=== PATIENT | male | born 1975 | race Caucasian/White ===

== ENCOUNTER 2016-12-25 12:00 | Emergency (ER) | payer SELFPAY ==
[2016-12-25 12:36] VITALS: BP 156/101
[2016-12-25] MEDS ORDERED: IBUPROFEN 800 MG TABLET PO ONE (12:40)
--- NOTE | 2016-12-25 12:40 | ER Document Report ---
ED Medical Screen (RME) - General Stated Complaint: BACK PAIN Notes: Pt states he lifted concrete septic tank lid last night. Back pain has increasingly gotten worse. Denies previous back injury. Pain radiates around to the left side, but does not go down his legs. No loss of control of bowels or bladder. I have greeted and performed a rapid initial assessment of this patient. A comprehensive ED assessment and evaluation of the patient, analysis of test results and completion of the medical decision making process will be conducted by additional ED providers. TRAVEL OUTSIDE OF THE [place] IN LAST 30 DAYS: No - Related Data Allergies/Adverse Reactions: No Known Allergies Allergy (Verified 12/25/16 12:37) Past Medical History - Past Medical History Cardiac Medical History: Reports: Hx Atrial Fibrillation - INTERMITTENT, INFREQUENT 1992, PAF Endocrine Medical History: Denies: Hx Hyperthyroidism, Hx Hypothyroidism Psychiatric Medical History: Reports: Hx Anxiety Past Surgical History: Reports: Hx Orthopedic Surgery - left lower extremity - Immunizations Hx Diphtheria, Pertussis, Tetanus Vaccination: Yes Physical Exam - Vital signs Vitals: Temp Pulse Resp BP Pulse Ox 98.4 F 92 20 156/101 H 98 12/25/16 12:35 12/25/16 12:35 12/25/16 12:35 12/25/16 12:35 12/25/16 12:35 - Back Notes: mild tenderness lspine and left lumbar paraspinal muscles. pain with left leg raise and twisting motion. Course - Vital Signs Vital signs: Temp Pulse Resp BP Pulse Ox 98.4 F 92 20 156/101 H 98 12/25/16 12:35 12/25/16 12:35 12/25/16 12:35 12/25/16 12:35 12/25/16 12:35
== END 2016-12-25 14:30 | disposition left against medical advice (07) ==
LOC: ER 12:00
DX: Z53.9 Procedure and treatment not carried out, unspecified reason (principal); M54.9 Dorsalgia, unspecified
CPT/HCPCS: 99281

== ENCOUNTER 2017-03-30 17:45 | Emergency (ER) | payer SELFPAY ==
[2017-03-30] MEDS ORDERED: IBUPROFEN 800 MG TABLET PO ONE (18:07)
--- NOTE | 2017-03-30 18:14 | ER Document Report ---
ED Hand/Wrist Injury - General Chief Complaint: Hand Pain Stated Complaint: RIGHT HAND PAIN Time Seen by Provider: 03/30/17 18:00 Mode of Arrival: Ambulatory Information source: Patient Notes: 21-year-old male presents to ED for pain to the right hand after he punched can last night. Right hand is swollen decreased range of motion to the fifth finger TRAVEL OUTSIDE OF THE [place] IN LAST 30 DAYS: No - HPI Injury to: Hand Onset: Yesterday Where: Public place Timing: Still present Quality of pain: Sharp, Throbbing Severity: Moderate Pain Level: 4 Context: Other - Punched a counter - Related Data Allergies/Adverse Reactions: No Known Allergies Allergy (Verified 03/30/17 17:52) Past Medical History - General Information source: Patient - Social History Smoking Status: Never Smoker Cigarette use (# per day): No Chew tobacco use (# tins/day): No Smoking Education Provided: No Frequency of alcohol use: Social Drug Abuse: None Occupation: picker/puller and delivery Lives with: Spouse/Significant other Family History: None Patient has suicidal ideation: No Patient has homicidal ideation: No - Past Medical History Cardiac Medical History: Reports: Hx Atrial Fibrillation - INTERMITTENT, INFREQUENT 1992, PAF Pulmonary Medical History: Reports: None EENT Medical History: Reports: None Neurological Medical History: Reports: None Endocrine Medical History: Reports: None Renal/ Medical History: Reports: None Malignancy Medical History: Reports None GI Medical History: Reports: None Musculoskeltal Medical History: Reports Hx Musculoskeletal Trauma Skin Medical History: Reports None Psychiatric Medical History: Reports: Hx Anxiety Traumatic Medical History: Reports: Hx Fractures Infectious Medical History: Reports: None Past Surgical History: Reports: Hx Orthopedic Surgery - left lower extremity - Immunizations Immunizations up to date: Yes Hx Diphtheria, Pertussis, Tetanus Vaccination: Yes Review of Systems - Review of Systems Constitutional: No symptoms reported EENT: No symptoms reported Cardiovascular: No symptoms reported Respiratory: No symptoms reported Gastrointestinal: No symptoms reported Genitourinary: No symptoms reported Male Genitourinary: No symptoms reported Musculoskeletal: No symptoms reported, Other - pain and swelling to right hand Skin: No symptoms reported Hematologic/Lymphatic: No symptoms reported Neurological/Psychological: No symptoms reported -: Yes All other systems reviewed and negative Physical Exam - Vital signs Vitals: Temp Pulse Resp BP Pulse Ox 98.6 F 120 H 18 134/94 H 95 03/30/17 17:54 03/30/17 17:54 03/30/17 17:54 03/30/17 17:54 03/30/17 17:54 Interpretation: Normal - General General appearance: Appears well, Alert - HEENT Head: Normocephalic, Atraumatic Eyes: Normal Pupils: PERRL - Respiratory Respiratory status: No respiratory distress Chest status: Nontender Breath sounds: Normal Chest palpation: Normal - Cardiovascular Rhythm: Regular Heart sounds: Normal auscultation Murmur: No - Abdominal Inspection: Normal Distension: No distension Bowel sounds: Normal Tenderness: Nontender Organomegaly: No organomegaly - Back Back: Normal, Nontender - Extremities General upper extremity: Normal temperature General lower extremity: Normal inspection, Nontender, Normal color, Normal ROM , Normal temperature, Normal weight bearing. No: Ofe's sign Hand: Tender, Ecchymosis, No evidence of human bite, No evidence of FB, Swelling - Neurological Neuro grossly intact: Yes Cognition: Normal Orientation: AAOx4 Chava Coma Scale Eye Opening: Spontaneous Chava Coma Scale Verbal: Oriented Chava Coma Scale Motor: Obeys Commands Chava Coma Scale Total: 15 Speech: Normal Motor strength normal: LUE, RUE, LLE, RLE Sensory: Normal - Psychological Associated symptoms: Normal affect, Normal mood - Skin Skin Temperature: Warm Skin Moisture: Dry Skin Color: Normal Irregularity with: Swelling, Tenderness Course - Re-evaluation Re-evalutation: 03/30/17 18:50 Discussed x-ray with patient patient was able to see the actual x-ray films on the computer and I gave him a written report of the x-ray. Patient was treated with a boxer splint and medicated with ibuprofen in the emergency room and sent home with a prescription for narcotics and instructed to follow-up with orthopedics by telephone on Saturday to schedule follow-up visit. Patient has a mildly angulated comminuted fracture of the fifth metacarpal of the right hand. He has good cap refill. He has sensation to his fingers. 03/30/17 19:12 Boxer splint applied to the right hand patient has good cap refill. Patient given instructions for elevation ice and to follow-up with the orthopedic as he was instructed. Will discharge home. - Vital Signs Vital signs: Temp Pulse Resp BP Pulse Ox 98.6 F 120 H 18 134/94 H 95 03/30/17 17:54 03/30/17 17:54 03/30/17 17:54 03/30/17 17:54 03/30/17 17:54 - Diagnostic Test Radiology reviewed: Image reviewed, Reports reviewed Procedures - Immobilization Right Hand Time completed: 19:13 Pre-Proc Neuro Vasc Exam: Normal Immobilizer type: Ulnar Performed by: PCT Post-Proc Neuro Vasc Exam: Normal Alignment checked and good: Yes - hand was not reset splint was applied Discharge - Discharge Clinical Impression: Boxers fracture Qualifiers: Encounter type: initial encounter Fracture type: closed Qualified Code(s): S62.309A - Unspecified fracture of unspecified metacarpal bone, initial encounter for closed fracture Condition: Stable Disposition: HOME, SELF-CARE Additional Instructions: Fractured Fifth Metacarpal (Boxer's) You have a fracture of the fifth metacarpal bone in the hand, often called a Boxer's Fracture. The fracture is usually caused by striking the knuckle against a hard surface -- such as hitting a wall with the fist. This fracture heals well. Some degree of angle in the fracture is perfectly acceptable, resulting in only a slightly rounder knuckle. Your physician has determined whether your fracture could benefit from "setting", and has outlined a treatment plan for you. The usual treatment is splinting for four to six weeks -- a cast is not usually necessary. At first, the injury should be elevated and ice packed. Contact the doctor at once if swelling or pain becomes severe, or if numbness develops. SPLINT PRECAUTIONS: A splint has been placed. This will protect the area while healing begins. Your problem does NOT normally require a cast. It MUST, however, be held still! Keep the splint on ALL THE TIME until instructed to remove it by the doctor. As you begin to use the area, be careful. You shouldn't do anything which causes discomfort -- you may disturb the injury even with the splint in place. After the initial period of rest and elevation, if splint does not prevent pain when you move, come back. You may require placement of a different splint , or a cast. If there is unexpected severe pain, or numbness, discoloration, or swelling beyond the splint, you should return at once. If you feel that the splint has broken or become loose, come back. ICE & ELEVATION: Apply ice packs frequently against the painful area. Many different schedules are recommended, such as "20 minutes on, 20 minutes off" or "one hour ice, two hours rest." If you need to work, you may need to go longer between ice treatments. You should plan to have the area ice packed AT LEAST one- fourth of the time. The ice should be applied over the wrap, tape, or splint, or over a layer of cloth -- not directly against the skin. Some ice bags have a built-in cloth and can be put directly on the skin. Your injured part should be elevated as much as possible over the next 48 hours. Try to keep the injury above the level of the heart. Avoid use of the injured area. Elevation and rest will decrease the swelling. USE OF [id number]-[id number] IBUPROFEN: Ibuprofen (Advil, Nuprin, Medipren, Motrin IB) is a medication for fever and pain control. In addition, it has anti- inflammatory effects which may be beneficial, especially in the treatment of injuries. It's best to take ibuprofen with food. Persons with ulcer disease or allergy to aspirin should notify their physician of this before taking ibuprofen. Ibuprofen can be given every four to six hours, for a total of four doses daily. Age Pain or fever dose Antiinflammatory dose 6-8 yr 200 mg (1 tab) 200 mg (1 tab) 9-11 yr 200 mg (1 tab) 200-400 mg (1-2 tab) 11-14 yr 200-400 mg (1-2 tab) 400 mg (2 tab) 15-adult 400 mg (2 tab) 600 mg (3 tab) ORAL NARCOTIC MEDICATION: You have been given a prescription for pain control. This medication is a narcotic. It's best taken with food, as nausea can result if taken on an empty stomach. Don't operate machinery or drive within six hours of taking this medication. Do not combine this medicine with alcohol, or with any medication which can cause sedation (such as cold tablets or sleeping pills) unless you get permission from the physician. Narcotics tend to cause constipation. If possible, drink plenty of fluids and eat a diet high in fiber and fruits. Please be aware that prescription narcotics also have the potential for abuse. People become addicted to these medications because of the general sense of wellbeing that they induce. This feeling along with a significant reduction in tension, anxiety, and aggression provides a stimulating seductive quality to these drugs. Once your pain is under control, we encourage you to discard your unused narcotics. FOLLOW-UP CARE: If you have been referred to a physician for follow-up care, call the physician s office for an appointment as you were instructed or within the next two days. If you experience worsening or a significant change in your symptoms, notify the physician immediately or return to the Emergency Department at any time for re-evaluation. Prescriptions: Hydrocodone/Acetaminophen [Picher 5-325 mg Tablet] 1 tab PO Q6HP PRN #30 tablet PRN Reason: Forms: Elevated Blood Pressure Referrals: LIZA GOODMAN DO [ACTIVE STAFF] - Follow up as needed
--- NOTE | 2017-03-30 18:27 | RADIOLOGY REPORT (SQ) ---
EXAM DESCRIPTION: HAND RIGHT 3 VIEWS COMPLETED DATE/TIME: 03/30/2017 6:16 pm REASON FOR STUDY: right hand pain and swelling COMPARISON: 07/14/2016 EXAM PARAMETERS: NUMBER OF VIEWS: Three views. TECHNIQUE: AP, lateral and oblique radiographic images acquired of the right hand. LIMITATIONS: None. FINDINGS: MINERALIZATION: Normal. BONES: There is a mildly angulated comminuted fracture of the 5th metacarpal distal metaphysis. Ther e is no evidence of intra-articular extension. Osseous mineralization and alignment otherwise appear unchanged from comparison imaging. JOINTS: No effusions. SOFT TISSUES: Moderate soft tissue swelling dorsally. No retained radiopaque foreign body. OTHER: No other significant finding. IMPRESSION: Mildly angulated comminuted fracture of the 5th metacarpal as detailed above. TECHNICAL DOCUMENTATION: JOB ID: [id number]- All Rights Reserved
[2017-03-30 19:21] VITALS: BP 130/86
== END 2017-03-30 19:20 | disposition home or self-care (01) ==
LOC: ER 17:45
PROC: 2W3EX1Z Immobilization of Right Hand using Splint (ICD-10-PCS; principal; 2017-03-30)
DX: S62.309A Unspecified fracture of unspecified metacarpal bone, initial encounter for closed fracture (principal); W22.09XA Striking against other stationary object, initial encounter
CPT/HCPCS: 99283

== ENCOUNTER 2017-09-12 18:25 | Emergency (ER) | payer SELFPAY ==
--- NOTE | 2017-09-12 19:24 | ER Document Report ---
ED GI/ - General Chief Complaint: Abdominal Pain Stated Complaint: POSSIBLE FLU Time Seen by Provider: 09/12/17 18:52 Notes: 42 years old male presents today with right upper quadrant abdominal pain nausea and vomited once since this morning. He also drank alcoholic drinks this morning . Denies any fever chills or other constitutional symptoms. Currently feeling comfortable. TRAVEL OUTSIDE OF THE [place] IN LAST 30 DAYS: No - Related Data Allergies/Adverse Reactions: No Known Allergies Allergy (Verified 09/12/17 18:26) Past Medical History - Social History Smoking Status: Smoker,Current Status Unk Chew tobacco use (# tins/day): No Frequency of alcohol use: Social Drug Abuse: None Family History: None Patient has suicidal ideation: No Patient has homicidal ideation: No - Past Medical History Cardiac Medical History: Reports: Hx Atrial Fibrillation - INTERMITTENT, INFREQUENT 1992, PAF Endocrine Medical History: Denies: Hx Hyperthyroidism, Hx Hypothyroidism Renal/ Medical History: Denies: Hx Peritoneal Dialysis Musculoskeltal Medical History: Reports Hx Musculoskeletal Trauma Psychiatric Medical History: Reports: Hx Anxiety Traumatic Medical History: Reports: Hx Fractures Past Surgical History: Reports: Hx Orthopedic Surgery - left lower extremity - Immunizations Immunizations up to date: Yes Hx Diphtheria, Pertussis, Tetanus Vaccination: Yes Review of Systems - Review of Systems Notes: REVIEW OF SYSTEMS: CONSTITUTIONAL : Denies fever, chills, or sweats. Denies recent illness. EENT: Denies eye, ear, throat, or mouth pain or symptoms. Denies nasal or sinus congestion or discharge. Denies throat, tongue, or mouth swelling or difficulty swallowing. CARDIOVASCULAR: Denies chest pain. Denies palpitations or racing or irregular heart beat. Denies ankle edema. RESPIRATORY: Denies cough, cold, or chest congestion. Denies shortness of breath, difficulty breathing, or wheezing. GASTROINTESTINAL: Denies diarrhea. Denies blood in vomitus, stools, or per rectum. Denies black, tarry stools. Denies constipation. GENITOURINARY: Denies difficulty urinating, painful urination, burning, frequency, blood in urine, or discharge. MUSCULOSKELETAL: Denies back or neck pain or stiffness. Denies joint pain or swelling. SKIN: Denies rash, lesions or sores. HEMATOLOGIC : Denies easy bruising or bleeding. LYMPHATIC: Denies swollen, enlarged glands. NEUROLOGICAL: Denies confusion or altered mental status. Denies passing out or loss of consciousness. Denies dizziness or lightheadedness. Denies headache. Denies weakness or paralysis or loss of use of either side. Denies problems with gait or speech. Denies sensory loss, numbness, or tingling. Denies seizures. PSYCHIATRIC: Denies anxiety or stress. Denies depression, suicidal ideation, or homicidal ideation. ALL OTHER SYSTEMS REVIEWED AND NEGATIVE. Dictation was performed using [employer] voice recognition software PHYSICAL EXAMINATION: GENERAL: Well-appearing, well-nourished and in no acute distress. HEAD: Atraumatic, normocephalic. EYES: Pupils equal round and reactive to light, extraocular movements intact, sclera anicteric, conjunctiva are normal. ENT: Nares patent, oropharynx clear without exudates. Moist mucous membranes. NECK: Normal range of motion, supple without lymphadenopathy LUNGS: Breath sounds clear to auscultation bilaterally and equal. No wheezes rales or rhonchi. HEART: Regular rate and rhythm without murmurs ABDOMEN: Soft, mild tenderness over the right upper quadrant, nondistended abdomen. No guarding, no rebound. No masses appreciated. Musculoskeletal: Normal range of motion, no pitting or edema. No cyanosis. NEUROLOGICAL: Cranial nerves grossly intact. Normal speech, normal gait. Normal sensory, motor exams PSYCH: Normal mood, normal affect. SKIN: Warm, Dry, normal turgor, no rashes or lesions noted. Physical Exam - Vital signs Vitals: Temp Pulse Resp BP Pulse Ox 98.2 F 137 H 20 139/108 H 95 09/12/17 18:34 09/12/17 18:34 09/12/17 18:34 09/12/17 18:34 09/12/17 18:34 Course - Re-evaluation Re-evalutation: 09/12/17 23:12 Feelining better, results discussed with him,ask to call the family member to d/ c home. - Vital Signs Vital signs: Temp Pulse Resp BP Pulse Ox 98.3 F 103 H 20 155/110 H 96 09/12/17 23:01 09/12/17 23:01 09/12/17 18:34 09/12/17 23:01 09/12/17 23:01 - Laboratory Result Diagrams: 09/12/17 19:30 09/12/17 19:30 Laboratory results interpreted by me: 09/12/17 09/12/17 19:30 19:30 Monocytes % 15.1 H Sodium 146.4 H Glucose 112 H AST 141 H ALT 78 H Serum Alcohol 300 H* Discharge - Discharge Clinical Impression: ETOH abuse, Fatty liver Alcoholic hepatitis Qualifiers: Ascites presence: without ascites Qualified Code(s): K70.10 - Alcoholic hepatitis without ascites Disposition: HOME, SELF-CARE Instructions: Abdominal Pain ([facility]) Forms: Return to Work
[2017-09-12 19:50] LABS: ABSOLUTE LYMPHOCYTES (AUTO) 1.6 10^3/uL (0.5-4.7); ABSOLUTE MONOCYTES (AUTO) 0.7 10^3/uL (0.1-1.4); ABSOLUTE NEUT (AUTO) 2.6 10^3/uL (1.7-8.2); BASOPHILS % (AUTO) 0.2 % (0-2); EOSINOPHILS % (AUTO) 0.6 % (0-6); HEMATOCRIT 44.5 % (37.9-51.0); HEMOGLOBIN 15.6 g/dL (13.5-17.0); HGB HCT DIFFERENCE 2.3; LYMPHOCYTES % (AUTO) 31.7 % (13-45); MEAN CORPUSCULAR HEMOGLOBIN 32.6 pg (27.0-33.4); MEAN CORPUSCULAR HGB CONC 35.1 g/dL (32.0-36.0); MEAN CORPUSCULAR VOLUME 93 fl (80-97); MONOCYTES % (AUTO) 15.1 % (3-13); RED BLOOD COUNT 4.79 10^6/uL (4.35-5.55); RED CELL DISTRIBUTION WIDTH 12.8 % (11.5-14.0); SEGMENTED NEUTROPHILS % (AUTO) 52.4 % (42-78); WHITE BLOOD COUNT 4.9 10^3/uL (4.0-10.5)
[2017-09-12 20:11] LABS: ALANINE AMINOTRANSFERASE 78 U/L (21-72); ALBUMIN 4.2 g/dL (3.5-5.0); ALKALINE PHOSPHATASE 83 U/L (38-126); AMYLASE 98 U/L (30-110); ANION GAP 13 (5-19); ASPARTATE AMINO TRANSFERASE 141 U/L (17-59); BILIRUBIN,DIRECT 0.3 mg/dL (0.0-0.4); BILIRUBIN,TOTAL 0.3 mg/dL (0.2-1.3); BLOOD UREA NITROGEN 19 mg/dL (7-20); CALCIUM 9.2 mg/dL (8.4-10.2); CARBON DIOXIDE 27 mmol/L (22-30); CHLORIDE 106 mmol/L (98-107); GLUCOSE 112 mg/dL (75-110); LIPASE 184.3 U/L (23-300); POTASSIUM 4.3 mmol/L (3.6-5.0); SODIUM 146.4 mmol/L (137-145); TOTAL PROTEIN 7.4 g/dL (6.3-8.2)
[2017-09-12 20:29] LABS: ALCOHOL 300 mg/dL (NONE DETECTED)
--- NOTE | 2017-09-12 21:47 | RADIOLOGY REPORT (SQ) ---
EXAM DESCRIPTION: U/S ABDOMEN LIMITED W/O DOP COMPLETED DATE/TIME: 09/12/2017 9:37 pm REASON FOR STUDY: Abdominal pain rule out cholecystitis COMPARISON: None. TECHNIQUE: Dynamic and static grayscale images acquired of the abdomen and recorded on PACS. Additio nal selected color Doppler and spectral images recorded. LIMITATIONS: None. FINDINGS: PANCREAS: No masses. Visualized pancreatic duct normal caliber. LIVER: Heterogeneous echo pattern through the liver. Possible hyperechoic in the left lobe. Worriso me for infiltrative process. No dilated ducts. LIVER VASCULATURE: Normal directional flow of the main portal vein and hepatic veins. GALLBLADDER: No stones. Normal wall thickness. No pericholecystic fluid. ULTRASOUND-DETECTED CASTANEDA'S SIGN: Negative. INTRAHEPATIC DUCTS AND COMMON DUCT: CBD and intrahepatic ducts normal caliber. No filling defects. INFERIOR VENA CAVA: Normal flow. AORTA: No aneurysm. RIGHT KIDNEY: Normal size. Cyst versus complicated cyst measuring 1.8 cm. PERITONEAL AND RIGHT PLEURAL SPACE: No ascites or effusions. OTHER: No other significant findings. IMPRESSION: Appearance of the liver is worrisome for an infiltrative process. Differential includes fatty infiltration. There is also a hyperechoic mass in the left lobe possibly hemangioma. Cyst versus complicated cysts in the right kidney. COMMENT: Consider CT abdomen with IV contrast. TECHNICAL DOCUMENTATION: JOB ID: [id number]- All Rights Reserved
--- NOTE | 2017-09-12 22:33 | RADIOLOGY REPORT (SQ) ---
EXAM DESCRIPTION: CT ABD/PELVIS NO ORAL OR IV COMPLETED DATE/TIME: 09/12/2017 10:14 pm REASON FOR STUDY: Hepatic mass COMPARISON: None. TECHNIQUE: CT scan of the abdomen and pelvis performed without intravenous or oral contrast. Images reviewed with lung, soft tissue, and bone windows. Reconstructed coronal and sagittal MPR images revi ewed. All images stored on PACS. All CT scanners at this facility use dose modulation, iterative reconstruction, and/or weight based d osing when appropriate to reduce radiation dose to as low as reasonably achievable (ALARA). [facility]: Dose Right [facility]: CareDose [facility]: Dose Right [facility]: Teradose 4D [facility]: Smart [employer] RADIATION DOSE: CT Rad equipment meets quality standard of care and radiation dose reduction techniq ues were employed. CTDIvol: 8.6 mGy. DLP: 433 mGy-cm.mGy. LIMITATIONS: None. FINDINGS: LOWER CHEST: No significant findings. No nodules or infiltrates. NON-CONTRASTED LIVER, SPLEEN, ADRENALS: Mild hepatic fatty infiltration along the false form ligament . Evaluation limited by lack of IV contrast. No identified significant masses. PANCREAS: No masses. No peripancreatic inflammatory changes. GALLBLADDER: No identified stones by CT criteria. No inflammatory changes to suggest cholecystitis. RIGHT KIDNEY AND URETER: No suspicious masses. Assessment limited by lack of IV contrast. No signif icant calcifications. No hydronephrosis or hydroureter. LEFT KIDNEY AND URETER: No suspicious masses. Assessment limited by lack of IV contrast. No signifi cant calcifications. No hydronephrosis or hydroureter. AORTA AND RETROPERITONEUM: No aneurysm. No retroperitoneal masses or adenopathy. BOWEL AND PERITONEAL CAVITY: No obvious masses or inflammatory changes. No free fluid. APPENDIX: Normal. PELVIS, BLADDER, AND ABDOMINAL WALL:No abnormal masses. No free fluid. Bladder normal. Tiny right in guinal fat containing hernia. BONES: No acute findings. Moderate degenerative changes at the L5-S1 level. OTHER: No other significant finding. IMPRESSION: Mild hepatic fatty infiltration along the false form ligament. Evaluation limited by la ck of IV contrast. No identified significant masses. No acute findings. COMMENT: Quality ID # [id number]: Final reports with documentation of one or more dose reduction techniques (e.g., Automated exposure control, adjustment of the mA and/or kV according to patient size, use of iterative reconstruction technique) TECHNICAL DOCUMENTATION: JOB ID: [id number] [place]-[id number] [employer]- All Rights Reserved
[2017-09-12 23:03] VITALS: BP 155/110
== END 2017-09-12 23:44 | disposition home or self-care (01) ==
LOC: ER 18:25
DX: K70.10 Alcoholic hepatitis without ascites (principal); K76.0 Fatty (change of) liver, not elsewhere classified; F10.10 Alcohol abuse, uncomplicated; R10.11 Right upper quadrant pain; R11.2 Nausea with vomiting, unspecified
CPT/HCPCS: 36415; 74176; 76705; 80053; 80307; 82150; 83690; 85025; 99284

== ENCOUNTER 2017-11-10 13:09 | Emergency (ER) | payer SELFPAY ==
[2017-11-10] MEDS ORDERED: NORMAL SALINE 1000 ML 1,000 ML IV ONE ×2 (13:29→15:07)
--- NOTE | 2017-11-10 13:33 | ER Document Report ---
ED Medical Screen (RME) - General Chief Complaint: Flu Symptoms Stated Complaint: COUGH,CONGESTION,BODY ACHES Time Seen by Provider: 11/10/17 13:29 Mode of Arrival: Ambulatory Information source: Patient TRAVEL OUTSIDE OF THE [place] IN LAST 30 DAYS: No - HPI Patient complains to provider of: flu symptoms Onset: Other - pt with 3 days h/o cough, fever, chills and body aches. Did not get flu shot this year. - Related Data Allergies/Adverse Reactions: No Known Allergies Allergy (Verified 11/10/17 13:10) Past Medical History - Past Medical History Cardiac Medical History: Reports: Hx Atrial Fibrillation - INTERMITTENT, INFREQUENT 1992, PAF Endocrine Medical History: Denies: Hx Hyperthyroidism, Hx Hypothyroidism Renal/ Medical History: Denies: Hx Peritoneal Dialysis Musculoskeltal Medical History: Reports Hx Musculoskeletal Trauma Psychiatric Medical History: Reports: Hx Anxiety Traumatic Medical History: Reports: Hx Fractures Past Surgical History: Reports: Hx Orthopedic Surgery - left lower extremity - Immunizations Immunizations up to date: Yes Hx Diphtheria, Pertussis, Tetanus Vaccination: Yes Physical Exam - Vital signs Vitals: Temp Pulse Resp BP Pulse Ox 98.2 F 134 H 16 137/108 H 98 11/10/17 13:13 11/10/17 13:13 11/10/17 13:13 11/10/17 13:13 11/10/17 13:13 Course - Vital Signs Vital signs: Temp Pulse Resp BP Pulse Ox 98.2 F 134 H 16 137/108 H 98 11/10/17 13:13 11/10/17 13:13 11/10/17 13:13 11/10/17 13:13 11/10/17 13:13
[2017-11-10 14:24] LABS: ABSOLUTE LYMPHOCYTES (AUTO) 1.6 10^3/uL (0.5-4.7); ABSOLUTE MONOCYTES (AUTO) 0.7 10^3/uL (0.1-1.4); ABSOLUTE NEUT (AUTO) 3.6 10^3/uL (1.7-8.2); BASOPHILS % (AUTO) 0.4 % (0-2); EOSINOPHILS % (AUTO) 0.8 % (0-6); HEMATOCRIT 49.6 % (37.9-51.0); HEMOGLOBIN 17.2 g/dL (13.5-17.0); LYMPHOCYTES % (AUTO) 26.9 % (13-45); MEAN CORPUSCULAR HEMOGLOBIN 31.4 pg (27.0-33.4); MEAN CORPUSCULAR HGB CONC 34.6 g/dL (32.0-36.0); MEAN CORPUSCULAR VOLUME 91 fl (80-97); MONOCYTES % (AUTO) 11.6 % (3-13); PLATELET COUNT 339 10^3/uL (150-450); RED BLOOD COUNT 5.47 10^6/uL (4.35-5.55); RED CELL DISTRIBUTION WIDTH 12.1 % (11.5-14.0); SEGMENTED NEUTROPHILS % (AUTO) 60.3 % (42-78); TOTAL CELLS COUNTED % (AUTO) 100 %
--- NOTE | 2017-11-10 14:40 | RADIOLOGY REPORT (SQ) ---
EXAM DESCRIPTION: CHEST PA/LAT COMPLETED DATE/TIME: 11/10/2017 2:27 pm REASON FOR STUDY: cough COMPARISON: 06/22/2016. EXAM PARAMETERS: NUMBER OF VIEWS: two views TECHNIQUE: Digital Frontal and Lateral radiographic views of the chest acquired. RADIATION DOSE: NA LIMITATIONS: none FINDINGS: LUNGS AND PLEURA: No opacities, masses or pneumothorax. No pleural effusion. MEDIASTINUM AND HILAR STRUCTURES: No masses or contour abnormalities. HEART AND VASCULAR STRUCTURES: Heart normal size. No evidence for failure. BONES: No acute findings. HARDWARE: None in the chest. OTHER: No other significant finding. IMPRESSION: NO SIGNIFICANT RADIOGRAPHIC FINDING IN THE CHEST. TECHNICAL DOCUMENTATION: JOB ID: [id number] [employer]- All Rights Reserved
[2017-11-10 14:43] LABS: ALANINE AMINOTRANSFERASE 108 U/L (21-72); ALBUMIN 4.8 g/dL (3.5-5.0); ALKALINE PHOSPHATASE 90 U/L (38-126); ANION GAP 16 (5-19); ASPARTATE AMINO TRANSFERASE 166 U/L (17-59); BILIRUBIN,DIRECT 0.4 mg/dL (0.0-0.4); BILIRUBIN,TOTAL 0.7 mg/dL (0.2-1.3); BLOOD UREA NITROGEN 19 mg/dL (7-20); CALCIUM 9.8 mg/dL (8.4-10.2); CARBON DIOXIDE 24 mmol/L (22-30); CHLORIDE 104 mmol/L (98-107); GLUCOSE 115 mg/dL (75-110); POTASSIUM 4.6 mmol/L (3.6-5.0); SODIUM 143.8 mmol/L (137-145); TOTAL PROTEIN 8.1 g/dL (6.3-8.2)
--- NOTE | 2017-11-10 16:08 | ER Document Report ---
ED General - General Chief Complaint: Flu Symptoms Stated Complaint: COUGH,CONGESTION,BODY ACHES Time Seen by Provider: 11/10/17 13:29 Mode of Arrival: Ambulatory Notes: Patient says he began having symptoms like the flu on . He had total body aching, headache, and felt feverish. He is feeling better now, but needs a note to return to work because he called out due to his illness. Has had some cough. No nausea or vomiting or diarrhea. Patient spontaneously offers that he has been drinking today. He does act somewhat inebriated. Patient has a history of atrial fibrillation cardioverted years ago. Does not currently take any medications for any heart condition. TRAVEL OUTSIDE OF THE [place] IN LAST 30 DAYS: No - Related Data Allergies/Adverse Reactions: No Known Allergies Allergy (Verified 11/10/17 13:10) Past Medical History - General Information source: Patient - Social History Smoking Status: Never Smoker Chew tobacco use (# tins/day): No Frequency of alcohol use: 6 beers/day Drug Abuse: None Family History: None, Reviewed & Not Pertinent Patient has suicidal ideation: No Patient has homicidal ideation: No - Past Medical History Cardiac Medical History: Reports: Hx Atrial Fibrillation - INTERMITTENT, INFREQUENT 1992, PAF Endocrine Medical History: Denies: Hx Hyperthyroidism, Hx Hypothyroidism Musculoskeltal Medical History: Reports Hx Musculoskeletal Trauma Psychiatric Medical History: Reports: Hx Anxiety Traumatic Medical History: Reports: Hx Fractures Past Surgical History: Reports: Hx Orthopedic Surgery - left lower extremity - Immunizations Immunizations up to date: Yes Hx Diphtheria, Pertussis, Tetanus Vaccination: Yes Review of Systems - Review of Systems Notes: CONSTITUTIONAL : Denies fever. CARDIOVASCULAR: Denies chest pain. RESPIRATORY: Denies cough, chest congestion, or shortness of breath. GASTROINTESTINAL: Denies abdominal pain or nausea, vomiting, or diarrhea. GENITOURINARY: Denies difficulty or painful urinating, urinary frequency, blood in urine. Physical Exam - Vital signs Vitals: Temp Pulse Resp BP Pulse Ox 98.2 F 134 H 16 137/108 H 98 11/10/17 13:13 11/10/17 13:13 11/10/17 13:13 11/10/17 13:13 11/10/17 13:13 Interpretation: Tachycardic - Notes Notes: PHYSICAL EXAMINATION: GENERAL: Well-appearing, no acute distress. Speech is somewhat disjointed and jerky and slow. I would not describe it is slurred. Probably somewhat secondary to alcohol. Vital signs are all normal except for triage heart rate of 134. HEAD: Atraumatic, normocephalic. NECK: Normal range of motion, supple. LUNGS: Breath sounds clear and equal bilaterally. HEART: Regular rate and rhythm without murmurs heard. Heart rate at the bedside by me is 120. Very regular. ABDOMEN: Soft, nontender. No guarding or rebound or masses felt. Course - Re-evaluation Re-evalutation: 11/10/17 16:07 Patient received 2 L of saline and his EKG showed his heart rate had come down to 104. No acute changes with the EKG. - Vital Signs Vital signs: Temp Pulse Resp BP Pulse Ox 98.2 F 98 18 133/96 H 93 11/10/17 16:10 11/10/17 16:10 11/10/17 16:10 11/10/17 16:10 11/10/17 16:10 - Laboratory Result Diagrams: 11/10/17 13:48 11/10/17 13:48 Laboratory results interpreted by me: 11/10/17 11/10/17 13:48 13:48 Hgb 17.2 H Glucose 115 H AST 166 H ALT 108 H - EKG Interpretation by Ca EKG shows normal: Sinus rhythm Rate: Normal, Tachycardia - Rate 104 Rhythm: NSR Discharge - Discharge Clinical Impression: Flu-like symptoms, Sinus tachycardia Condition: Stable Disposition: HOME, SELF-CARE Additional Instructions: Sinus Tachycardia The palpitations (racing heart) you have felt are due to "sinus tachycardia." This is a rapid (but NORMAL) rhythm which can be due to fever, pain, anxiety, lack of sleep, over-exertion, or drugs. Cold medications, caffeine, and diet pills are particularly likely to cause tachycardia. The doctor has found no evidence of heart disease. Occasionally, medication is required for uncomfortable palpitations. Usually, however, all that is required is rest, reassurance, and avoiding caffeine, alcohol, nicotine , and unnecessary medicines. Call the doctor if you develop any new or unusual symptoms, or if the rapid heartbeat does not resolve. FOLLOW-UP CARE: If you have been referred to a physician for follow-up care, call the physician s office for an appointment as you were instructed or within the next two days. If you experience worsening or a significant change in your symptoms, notify the physician immediately or return to the Emergency Department at any time for re-evaluation. Forms: Return to Work
[2017-11-10 16:11] VITALS: BP 133/96
--- NOTE | 2017-11-10 20:38 | EKG REPORT ---
SEVERITY:- BORDERLINE ECG - SINUS TACHYCARDIA BORDERLINE R WAVE PROGRESSION, ANTERIOR LEADS : Confirmed by: Audelia Garcia 10-Nov-2017 20:38:20
== END 2017-11-10 16:48 | disposition home or self-care (01) ==
LOC: ER 13:09
DX: R51 Headache (principal); R05 Cough; R00.0 Tachycardia, unspecified
CPT/HCPCS: 93005; 99284; 96360; 96361; 36415; 85025; 80053; 71046; 93010; J7030

== ENCOUNTER 2017-12-17 10:48 | Emergency (ER) | payer SELFPAY ==
[2017-12-17] MEDS ORDERED: ASPIRIN 81 MG TABLET, CHEWABLE PO ONE (11:03)
--- NOTE | 2017-12-17 11:05 | ER Document Report ---
ED Medical Screen (RME) - General Chief Complaint: Chest Pain Stated Complaint: CHEST PAIN Time Seen by Provider: 12/17/17 11:03 Mode of Arrival: Ambulatory Information source: Patient Notes: This is a 42-year-old man with a history of paroxysmal atrial fibrillation ( cardioversion in 2003) who presents to the emergency room after experiencing retrosternal chest pressure associated with near syncope. Patient states that it felt like "someone was sitting on my chest". Patient states that the symptoms would last seconds at a time. Currently he states TRAVEL OUTSIDE OF THE [place] IN LAST 30 DAYS: No - Related Data Allergies/Adverse Reactions: No Known Allergies Allergy (Verified 12/17/17 10:51) Past Medical History - Social History Chew tobacco use (# tins/day): No Frequency of alcohol use: Occasional Drug Abuse: None - Past Medical History Cardiac Medical History: Reports: Hx Atrial Fibrillation - INTERMITTENT, INFREQUENT 1992, PAF Endocrine Medical History: Denies: Hx Hyperthyroidism, Hx Hypothyroidism Renal/ Medical History: Denies: Hx Peritoneal Dialysis Musculoskeltal Medical History: Reports Hx Musculoskeletal Trauma Psychiatric Medical History: Reports: Hx Anxiety Traumatic Medical History: Reports: Hx Fractures Past Surgical History: Reports: Hx Orthopedic Surgery - left lower extremity - Immunizations Immunizations up to date: Yes Hx Diphtheria, Pertussis, Tetanus Vaccination: Yes Physical Exam - Vital signs Vitals: Temp Pulse Resp BP Pulse Ox 98.2 F 103 H 16 149/107 H 95 12/17/17 10:51 12/17/17 10:51 12/17/17 10:51 12/17/17 10:51 12/17/17 10:51 Course - Vital Signs Vital signs: Temp Pulse Resp BP Pulse Ox 98.2 F 103 H 16 149/107 H 95 12/17/17 10:51 12/17/17 10:51 12/17/17 10:51 12/17/17 10:51 12/17/17 10:51
[2017-12-17 11:28] LABS: ABSOLUTE BASOPHILS # (AUTO) 0.1 10^3/uL (0.0-0.2); ABSOLUTE EOSINOPHILS # (AUTO) 0.1 10^3/uL (0.0-0.6); ABSOLUTE LYMPHOCYTES (AUTO) 1.2 10^3/uL (0.5-4.7); ABSOLUTE MONOCYTES (AUTO) 0.5 10^3/uL (0.1-1.4); ABSOLUTE NEUT (AUTO) 4.3 10^3/uL (1.7-8.2); BASOPHILS % (AUTO) 0.9 % (0-2); EOSINOPHILS % (AUTO) 1.3 % (0-6); HEMATOCRIT 44.8 % (37.9-51.0); HEMOGLOBIN 15.6 g/dL (13.5-17.0); LYMPHOCYTES % (AUTO) 19.7 % (13-45); MEAN CORPUSCULAR HEMOGLOBIN 32.2 pg (27.0-33.4); MEAN CORPUSCULAR HGB CONC 34.8 g/dL (32.0-36.0); MEAN CORPUSCULAR VOLUME 92 fl (80-97); MONOCYTES % (AUTO) 8.1 % (3-13); PLATELET COUNT 305 10^3/uL (150-450); RED BLOOD COUNT 4.85 10^6/uL (4.35-5.55); RED CELL DISTRIBUTION WIDTH 14.6 % (11.5-14.0); TOTAL CELLS COUNTED % (AUTO) 100 %; WHITE BLOOD COUNT 6.2 10^3/uL (4.0-10.5)
--- NOTE | 2017-12-17 11:44 | ER Document Report ---
ED Cardiac - General Chief Complaint: Chest Pain Stated Complaint: CHEST PAIN Time Seen by Provider: 12/17/17 11:03 Mode of Arrival: Ambulatory Notes: 42-year-old male with past medical history of intermittent atrial fibrillation with an ablation around 2003 who presents today with some substernal nonradiating chest discomfort lasting only around 20 minutes. It was not exertional. No nausea, vomiting, or fevers. No shortness of breath or pleuritic pain. No calf pain, leg swelling, recent trips or travel. Patient denies any drug abuse. Patient states he does live with some intermittent palpitations. He denies being on any blood pressure medications. Patient states he does have some mild anxiety and is unsure whether or not this was a "panic attack". Patient denies any pain or discomfort at this time. TRAVEL OUTSIDE OF THE [place] IN LAST 30 DAYS: No - HPI Patient complains to provider of: Chest pain Was the onset of pain: Sudden Is the pain a: New problem Chest pain location: Substernal Quality of pain: Other - See above Chest pain radiation location: None Severity now: None Severity at worst: Mild Pain level currently: Denies Cardiac risk factors: None Associated symptoms: Other - See above Exacerbated by: Denies Relieved by: Nothing Similar symptoms previously: No Recently seen / treated by doctor: No - Related Data Allergies/Adverse Reactions: No Known Allergies Allergy (Verified 12/17/17 10:51) Past Medical History - General Information source: Patient - Social History Smoking Status: Never Smoker Cigarette use (# per day): No Chew tobacco use (# tins/day): No Smoking Education Provided: No Frequency of alcohol use: Occasional Drug Abuse: None Family History: None, Reviewed & Not Pertinent Patient has suicidal ideation: No Patient has homicidal ideation: No - Past Medical History Cardiac Medical History: Reports: Hx Atrial Fibrillation - INTERMITTENT, INFREQUENT 1992, PAF Endocrine Medical History: Denies: Hx Hyperthyroidism, Hx Hypothyroidism Renal/ Medical History: Denies: Hx Peritoneal Dialysis Musculoskeltal Medical History: Reports Hx Musculoskeletal Trauma Psychiatric Medical History: Reports: Hx Anxiety Traumatic Medical History: Reports: Hx Fractures Past Surgical History: Reports: Hx Orthopedic Surgery - left lower extremity - Immunizations Immunizations up to date: Yes Hx Diphtheria, Pertussis, Tetanus Vaccination: Yes Review of Systems - Review of Systems Constitutional: denies: Fever EENT: denies: Eye discharge, Nose discharge Cardiovascular: denies: Dizziness, Lightheaded Respiratory: denies: Short of breath Gastrointestinal: denies: Vomiting Genitourinary: denies: Dysuria Musculoskeletal: denies: Leg swelling Skin: Other - no hives. denies: Rash Neurological/Psychological: Other - no slurred speech -: Yes All other systems reviewed and negative Physical Exam - Vital signs Vitals: Temp Pulse Resp BP Pulse Ox 98.2 F 103 H 16 149/107 H 95 12/17/17 10:51 12/17/17 10:51 12/17/17 10:51 12/17/17 10:51 12/17/17 10:51 Notes: Reviewed vital signs and nursing note as charted by RN. CONSTITUTIONAL: Alert and oriented and responds appropriately to questions. Well -appearing; well-nourished HEAD: Normocephalic; atraumatic EYES: PERRL ENT: Normal nose; no rhinorrhea; moist mucous membranes NECK: Supple without meningismus; non-tender; no obvious thyromegaly CARD: Tachycardic and regular without murmurs RESP: Normal chest excursion without splinting or tachypnea; breath sounds clear and equal bilaterally ABD/GI: Normal bowel sounds; non-distended; soft, non-tender BACK: The back appears normal and is non-tender to palpation EXT: Normal ROM in all joints; non-tender to palpation; no edema SKIN: Normal color for age and race; no acute lesions noted NEURO: Moves all extremities equally; Motor and sensory function intact PSYCH: The patient's mood and manner are appropriate. Grooming and personal hygiene are appropriate. Course - Re-evaluation Re-evalutation: 12/17/17 11:43 Given the history and physical examination, heart rate, we will order cardiac evaluation including an x-ray of the chest, d-dimer, and a repeat 3 hour troponin. I do believe ACS to be unlikely. I have added a TSH given the patient's history of palpitations. EKG shows a heart of 100, sinus tachycardia, no obvious ST elevation or depression, inverted T waves in lead III 12/17/17 12:55 Labs d-dimer is recorded. Elevated AST and ALT. Patient currently has no abdominal tenderness. CTA has been ordered. Initial troponin is unremarkable. Patient denies any pain or shortness of breath at this time. 12/17/17 13:13 I had a long discussion with the patient about his transaminitis. He admits to heavy drinking. He denies any history of withdrawal seizures. He does state he stopped drinking around 2 days ago. Patient has no abdominal pain. 12/17/17 14:56 Patient denies any pain. Heart rate currently 95. Vital signs otherwise unremarkable. X-ray of the chest and CT of the chest as recorded. No pulmonary emboli. Repeat troponin is unremarkable. I had a long discussion about the importance of stopping alcohol. We have had a behavioral health category consultant provide outpatient resources for the patient. Patient will be discharged home with strict return precautions. - Vital Signs Vital signs: Temp Pulse Resp BP Pulse Ox 98.2 F 103 H 14 134/99 H 96 12/17/17 10:51 12/17/17 10:51 12/17/17 13:01 12/17/17 13:01 12/17/17 13:01 - Laboratory Result Diagrams: 12/17/17 11:10 12/17/17 11:10 Laboratory results interpreted by me: 12/17/17 12/17/17 12/17/17 11:10 11:10 11:10 RDW 14.6 H D-Dimer 0.87 H Chloride 108 H Direct Bilirubin 0.6 H AST 780 H ALT 256 H Alkaline Phosphatase 206 H Discharge - Discharge Clinical Impression: Atypical chest pain, Transaminitis Condition: Good Disposition: HOME, SELF-CARE Additional Instructions: Come back immediately with any return of pain, leg swelling, fevers, epical to breathing, or any other acute problems. Please follow-up with your primary provider as we have discussed.
--- NOTE | 2017-12-17 11:47 | RADIOLOGY REPORT (SQ) ---
EXAM DESCRIPTION: CHEST SINGLE VIEW COMPLETED DATE/TIME: 12/17/2017 11:38 am REASON FOR STUDY: chest pain COMPARISON: CT angio chest 10/14/2015 Chest films 06/22/2016, 11/10/2017 EXAM PARAMETERS: NUMBER OF VIEWS: One view. TECHNIQUE: Single frontal radiographic view of the chest acquired. RADIATION DOSE: NA LIMITATIONS: None. FINDINGS: LUNGS AND PLEURA: No opacities, masses or pneumothorax. No pleural effusion. MEDIASTINUM AND HILAR STRUCTURES: No masses. Contour normal. HEART AND VASCULAR STRUCTURES: Heart normal in size. Normal vasculature. BONES: No acute findings. HARDWARE: None in the chest. OTHER: No other significant finding. IMPRESSION: NO ACUTE RADIOGRAPHIC FINDING IN THE CHEST. TECHNICAL DOCUMENTATION: JOB ID: [id number] [employer]- All Rights Reserved Reading location - IP/workstation name: [email or web address]
[2017-12-17 11:55] LABS: ALANINE AMINOTRANSFERASE 256 U/L (21-72); ALKALINE PHOSPHATASE 206 U/L (38-126); ANION GAP 13 (5-19); BILIRUBIN,DIRECT 0.6 mg/dL (0.0-0.4); BILIRUBIN,TOTAL 0.6 mg/dL (0.2-1.3); BLOOD UREA NITROGEN 18 mg/dL (7-20); CALCIUM 8.7 mg/dL (8.4-10.2); CARBON DIOXIDE 23 mmol/L (22-30); CHLORIDE 108 mmol/L (98-107); CREATINE KINASE 166 U/L (55-170); GLUCOSE 96 mg/dL (75-110); POTASSIUM 4.1 mmol/L (3.6-5.0); SODIUM 143.9 mmol/L (137-145); TOTAL PROTEIN 7.7 g/dL (6.3-8.2)
[2017-12-17 12:02] LABS: ASPARTATE AMINO TRANSFERASE 780 U/L (17-59)
[2017-12-17 12:04] LABS: CREATINE KINASE MB 1.08 ng/mL (<4.55)
[2017-12-17 12:05] LABS: TROPONIN I < 0.012 ng/mL
[2017-12-17 13:21] LABS: INTERNATIONAL RATION (INR) 0.89; PROTHROMBIN TIME 12.7 SEC (11.4-15.4)
--- NOTE | 2017-12-17 14:09 | RADIOLOGY REPORT (SQ) ---
EXAM DESCRIPTION: CTA CHEST COMPLETED DATE/TIME: 12/17/2017 1:42 pm REASON FOR STUDY: 20, cp with tachy/elevated D dimer COMPARISON: Chest x-ray dated 12/17/2017 TECHNIQUE: CT scan of the chest performed using helical scanning technique with dynamic intravenous contrast injection. Images reviewed with lung, soft tissue and bone windows. Reconstructed coronal and sagittal MPR images reviewed. Additional 3 dimensional post-processing performed to develop Maximal Intensity Projection images (VA P). All images stored on PACS. All CT scanners at this facility use dose modulation, iterative reconstruction, and/or weight based d osing when appropriate to reduce radiation dose to as low as reasonably achievable (ALARA). [facility]: Dose Right [facility]: CareDose [facility]: Dose Right [facility]: Teradose 4D [facility]: CeloNova CONTRAST TYPE AND DOSE: contrast/concentration: Isovue 370.00 mg/ml; Total Contrast Delivered: 72.0 ml; Total Saline Delivered: 110.0 ml Contrast bolus optimized for the pulmonary arteries. Not diagnostic for the aorta. RENAL FUNCTION: Creatinine 1.06 RADIATION DOSE: CT Rad equipment meets quality standard of care and radiation dose reduction techniq ues were employed. CTDIvol: 16.5 - 17.9 mGy. DLP: 766 mGy-cm. . LIMITATIONS: None. FINDINGS: LUNGS AND PLEURA: No masses, infiltrates, pneumothorax. No pleural effusions, calcificati ons. AORTA AND GREAT VESSELS: No aneurysm. Contrast bolus not optimized for the aorta. HEART: No pericardial effusion. No significant coronary artery calcifications. PULMONARY ARTERIES: No emboli visualized in the main pulmonary arteries or the segmental branches. HILAR AND MEDIASTINAL STRUCTURES: No identified masses or abnormal nodes. HARDWARE: None in the chest. UPPER ABDOMEN: There is diffuse fatty infiltration of the liver. Limited exam. THYROID AND OTHER SOFT TISSUES: No masses. No adenopathy. BONES: No acute or significant finding. 3D MIPS: Confirm above findings. OTHER: No other significant finding. IMPRESSION: NORMAL CTA OF THE CHEST. NO PULMONARY EMBOLI. COMMENT: Quality ID # [id number]: Final reports with documentation of one or more dose reduction techniques (e.g., Automated exposure control, adjustment of the mA and/or kV according to patient size, use of iterative reconstruction technique) TECHNICAL DOCUMENTATION: JOB ID: [id number]- All Rights Reserved Reading location - IP/workstation name: [email or web address]
[2017-12-17 15:04] VITALS: BP 136/98
--- NOTE | 2017-12-17 15:47 | EKG REPORT ---
SEVERITY:- ABNORMAL ECG - SINUS TACHYCARDIA ABNRM R PROG, CONSIDER ASMI OR LEAD PLACEMENT : Confirmed by: Audelia Garcia 17-Dec-2017 15:46:51
== END 2017-12-17 15:07 | disposition home or self-care (01) ==
LOC: ER 10:48
DX: R07.89 Other chest pain (principal); R74.0 Nonspecific elevation of levels of transaminase and lactic acid dehydrogenase [LDH]; F41.9 Anxiety disorder, unspecified; R00.2 Palpitations; Z86.79 Personal history of other diseases of the circulatory system; Z98.890 Other specified postprocedural states; R00.0 Tachycardia, unspecified
CPT/HCPCS: 36415; 71045; 71275; 80053; 82550; 82553; 84443; 84484; 85025; 85379; 85610; 93005; 93010; 99285

== ENCOUNTER 2018-01-01 08:35 | Inpatient (IN) | payer SELFPAY ==
[2018-01-01] MEDS ORDERED: MORPHINE SULFATE 10 MG/ML INJ IV ONE ×2 (09:25→13:37)
[2018-01-01] MEDS ORDERED: ASPIRIN 81 MG TABLET, CHEWABLE PO ONE (09:25)
[2018-01-01 10:02] LABS: HEMATOCRIT 43.1 % (37.9-51.0); HEMOGLOBIN 14.8 g/dL (13.5-17.0); MEAN CORPUSCULAR HEMOGLOBIN 32.1 pg (27.0-33.4); MEAN CORPUSCULAR HGB CONC 34.4 g/dL (32.0-36.0); MEAN CORPUSCULAR VOLUME 93 fl (80-97); PLATELET COUNT 208 10^3/uL (150-450); RED BLOOD COUNT 4.63 10^6/uL (4.35-5.55); RED CELL DISTRIBUTION WIDTH 15.4 % (11.5-14.0); WHITE BLOOD COUNT 4.8 10^3/uL (4.0-10.5)
[2018-01-01 10:17] LABS: ALANINE AMINOTRANSFERASE 185 U/L (21-72); ALBUMIN 3.7 g/dL (3.5-5.0); ALKALINE PHOSPHATASE 225 U/L (38-126); ANION GAP 11 (5-19); ASPARTATE AMINO TRANSFERASE 673 U/L (17-59); BILIRUBIN,DIRECT 0.4 mg/dL (0.0-0.4); BILIRUBIN,TOTAL 0.6 mg/dL (0.2-1.3); BLOOD UREA NITROGEN 14 mg/dL (7-20); CALCIUM 8.9 mg/dL (8.4-10.2); CARBON DIOXIDE 26 mmol/L (22-30); CHLORIDE 104 mmol/L (98-107); CREATINE KINASE 119 U/L (55-170); GLUCOSE 89 mg/dL (75-110); POTASSIUM 4.1 mmol/L (3.6-5.0); SODIUM 140.5 mmol/L (137-145); TOTAL PROTEIN 6.8 g/dL (6.3-8.2)
[2018-01-01 10:24] LABS: ABSOLUTE LYMPHOCYTES# (MANUAL) 0.6 10^3/uL (0.5-4.7); ABSOLUTE MONOCYTES # (MANUAL) 0.3 10^3/uL (0.1-1.4); ABSOLUTE NEUTROPHILS# (MANUAL) 3.7 10^3/uL (1.7-8.2); ANISOCYTOSIS SLIGHT; BASOPHILS % (MANUAL) 3 % (0-2); EOSINOPHILS % (MANUAL) 0 % (0-6); LYMPHOCYTES % (MANUAL) 13 % (13-45); MONOCYTES % (MANUAL) 7 % (3-13); SEGMENTED NEUTROPHILS % (MAN) 77 % (42-78); TOTAL CELLS COUNTED 100
[2018-01-01 10:25] LABS: HYPOCHROMASIA SLIGHT; LIPASE 3868.2 U/L (23-300); STOMATOCYTES SLIGHT
[2018-01-01 10:26] LABS: PLATELET COMMENT ADEQUATE; TOXIC GRANULATION SLIGHT
[2018-01-01 10:28] LABS: CREATINE KINASE MB 0.81 ng/mL (<4.55)
[2018-01-01 10:30] LABS: TROPONIN I < 0.012 ng/mL
--- NOTE | 2018-01-01 10:30 | ER Document Report ---
ED General - General Chief Complaint: Abdominal Pain Stated Complaint: ABDOMINAL PAIN Mode of Arrival: Ambulatory Information source: Patient TRAVEL OUTSIDE OF THE [place] IN LAST 30 DAYS: No - HPI Notes: 42-year-old male with a past medical history of atrial fibrillation with ablation approximately in 2003 presents presents today with right upper quadrant , left upper quadrant epigastric pain with vomiting that started yesterday, states pain is constant, throbbing and 10 out of 10. Denies any radiation of pain. Denies any recent travel outside the country, new medications or new foods. Denies any calf pain, leg swelling. Does not have a primary care provider. Has not tried any [id number] medications. Worse with time, nothing makes better. Denies fevers, chills, chest pain,palpitations, shortness of breath, dyspnea diarrhea, hematuria,blurred vision, double vision , loss of vision, speech changes, LH, dizziness, syncope, headaches, wheezing, ST, URI, neck pain, weakness, bowel or bladder dysfunction, saddle anesthesia, numbness or tingling in bilateral upper or lower extremities equally, muscle paralysis, weakness in bilateral upper or lower extremities equally or rash. Denies IV drug use. - Related Data Allergies/Adverse Reactions: No Known Allergies Allergy (Verified 01/01/18 08:37) Home Medications: no at home medications Past Medical History - General Information source: Patient - Social History Smoking Status: Unknown if Ever Smoked Frequency of alcohol use: None Drug Abuse: None Family History: None, Reviewed & Not Pertinent Patient has suicidal ideation: No Patient has homicidal ideation: No - Past Medical History Cardiac Medical History: Reports: Hx Atrial Fibrillation - INTERMITTENT, INFREQUENT 1992, PAF Endocrine Medical History: Denies: Hx Hyperthyroidism, Hx Hypothyroidism Renal/ Medical History: Denies: Hx Peritoneal Dialysis Musculoskeltal Medical History: Reports Hx Musculoskeletal Trauma Psychiatric Medical History: Reports: Hx Anxiety Traumatic Medical History: Reports: Hx Fractures Past Surgical History: Reports: Hx Orthopedic Surgery - left lower extremity - Immunizations Immunizations up to date: Yes Hx Diphtheria, Pertussis, Tetanus Vaccination: Yes Review of Systems - Review of Systems Notes: REVIEW OF SYSTEMS: CONSTITUTIONAL : Denies fever, chills, or sweats. Denies recent illness. EENT: Denies eye, ear, throat, or mouth pain or symptoms. Denies nasal or sinus congestion or discharge. Denies throat, tongue, or mouth swelling or difficulty swallowing. CARDIOVASCULAR: Denies chest pain. Denies palpitations or racing or irregular heart beat. Denies ankle edema. RESPIRATORY: Denies cough, cold, or chest congestion. Denies shortness of breath, difficulty breathing, or wheezing. GASTROINTESTINAL: + abdominal pain. No distention. Reports nausea, vomiting. Denies diarrhea. Denies blood in vomitus, stools, or per rectum. Denies black , tarry stools. Denies constipation. GENITOURINARY: Denies difficulty urinating, painful urination, burning, frequency, blood in urine, or discharge. MUSCULOSKELETAL: Denies back or neck pain or stiffness. Denies joint pain or swelling. SKIN: Denies rash, lesions or sores. HEMATOLOGIC : Denies easy bruising or bleeding. LYMPHATIC: Denies swollen, enlarged glands. NEUROLOGICAL: Denies confusion or altered mental status. Denies passing out or loss of consciousness. Denies dizziness or lightheadedness. Denies headache. Denies weakness or paralysis or loss of use of either side. Denies problems with gait or speech. Denies sensory loss, numbness, or tingling. Denies seizures. PSYCHIATRIC: Denies anxiety or stress. Denies depression, suicidal ideation, or homicidal ideation. ALL OTHER SYSTEMS REVIEWED AND NEGATIVE. Dictation was performed using [employer] voice recognition software PHYSICAL EXAMINATION: GENERAL: Well-appearing, well-nourished and in no acute distress. HEAD: Atraumatic, normocephalic. EYES: Pupils equal round and reactive to light, extraocular movements intact, sclera anicteric, conjunctiva are normal. ENT: Nares patent, oropharynx clear without exudates. Moist mucous membranes. NECK: Normal range of motion, supple without lymphadenopathy LUNGS: Breath sounds clear to auscultation bilaterally and equal. No wheezes rales or rhonchi. HEART: Regular rate and rhythm without murmurs ABDOMEN: Soft, no distention. RUQ, LUQ and epigastric abdominal pain on palaption. No guarding, no rebound. No masses appreciated. CVA tenderness bilaterally Musculoskeletal: Normal range of motion, no pitting or edema. No cyanosis. NEUROLOGICAL: Cranial nerves grossly intact. Normal speech, normal gait. Normal sensory, motor exams PSYCH: Normal mood, normal affect. SKIN: Warm, Dry, normal turgor, no rashes or lesions noted. Physical Exam - Vital signs Vitals: Temp Pulse Resp BP Pulse Ox 98.3 F 116 H 20 135/99 H 97 01/01/18 08:52 01/01/18 08:52 01/01/18 08:52 01/01/18 08:52 01/01/18 08:52 Course - Re-evaluation Re-evalutation: 01/01/18 10:31 42-year-old male who is afebrile, is noted intermittent tachycardia presents today with epigastric, right upper quadrant and left upper quadrant abdominal pain that started last evening. CBC negative for any leukocytosis or anemia. CMP shows a lipase of 3863, ALT 675, ALT 185. Creatinine enzymes negative. UA unremarkable. CT abdomen pelvis with IV and oral contrast shows that patient has acute pancreatitis. When discussing these results with patient, patient did admit to drinking 1 pint of vodka every day for approximately the last 6 months. Discussed with patient that he will need to be admitted to further manage his acute pancreatitis as well as alcoholism. Consulted with Dr.Olatokunbo Allen, hospitalist, regarding pertinent laboratory and diagnostic findings. Will admit to medical floor for further evaluation of acute pancreatitis. all questions and concerns were answered by this provider. Pain is been under control with IV morphine and fluids. Patient is comfortable. Patient remains afebrile, patient is slightly tachycardic at 101, all other vital signs are stable. P - Vital Signs Vital signs: Temp Pulse Resp BP Pulse Ox 98.3 F 116 H 23 H 148/108 H 99 01/01/18 08:52 01/01/18 08:52 01/01/18 13:43 01/01/18 13:43 01/01/18 13:43 - Laboratory Result Diagrams: 01/01/18 09:31 01/01/18 09:31 Laboratory results interpreted by me: 01/01/18 01/01/18 09:31 09:31 RDW 15.4 H Basophils % (Manual) 3 H AST 673 H ALT 185 H Alkaline Phosphatase 225 H Lipase 3868.2 H - EKG Interpretation by Tx EKG shows normal: Sinus rhythm, Intervals Rate: Normal Rhythm: NSR Heart block present: 1st Degree - HR [address] segment elevations. Non-STEMI Discharge - Discharge Clinical Impression: Pancreatitis Qualifiers: Chronicity: acute Pancreatitis type: alcohol induced Acute pancreatitis complication: unspecified Qualified Code(s): K85.20 - Alcohol induced acute pancreatitis without necrosis or infection Condition: Good Disposition: ADMITTED INPATIENT Admitting Provider: Hospitalist - Dr. Faraz Allen Unit Admitted: Medical Floor
[2018-01-01 11:41] LABS: APPEARANCE,URINE CLEAR; BILIRUBIN,URINE NEGATIVE (NEGATIVE); COLOR,URINE YELLOW; GLUCOSE, URINE NEGATIVE (NEGATIVE); KETONES,URINE NEGATIVE (NEGATIVE); LEUKOCYTE ESTERASE,URINE NEGATIVE (NEGATIVE); NITRITE,URINE NEGATIVE (NEGATIVE); PROTEIN,URINE NEGATIVE (NEGATIVE); URINE SPECIFIC GRAVITY 1.024; UROBILINOGEN,URINE NEGATIVE mg/dL (<2.0)
[2018-01-01] MEDS ORDERED: LIDOCAINE 2% VISCOUS SOLN 20 ML UDCUP PO ONE (11:41)
[2018-01-01] MEDS ORDERED: MAG HYDROX/AL HYDROX/SIMETH SUSP 30 ML UDCUP PO PRN (11:41)
[2018-01-01] MEDS ORDERED: METOCLOPRAMIDE HCL ORAL SOLN 10 MG/10 ML UDCUP PO ONE (11:41)
[2018-01-01] MEDS ORDERED: HYDROMORPHONE HCL INJ/PF 2 MG/ML AMPULE IV ONE (12:10)
--- NOTE | 2018-01-01 14:08 | RADIOLOGY REPORT (SQ) ---
EXAM DESCRIPTION: CTA CHEST; CT ABD/PELVIS WITH IV ORAL COMPLETED DATE/TIME: 01/01/2018 1:34 pm REASON FOR STUDY: substernal cp. seen here x 2weeks ago for CP; RUQ, LUQ, epigastric pain, tachycard ia COMPARISON: CT angio chest 12/17/2017 CT abdomen pelvis without contrast 09/02/2017 CONTRAST TYPE AND DOSE: contrast/concentration: Isovue 370.00 mg/ml; Total Contrast Delivered: 73.0 ml; Total Saline Delivered: 90.0 ml RENAL FUNCTION: Creatinine 1.06 TECHNIQUE: CT angio scan of the chest performed using helical scanning technique with dynamic intrav enous contrast injection. Images reviewed with lung, soft tissue and bone windows. Reconstructed cor onal and sagittal MPR images of the thoracic aorta and pulmonary arteries were reviewed. All images stored on PACS. CT scan of the abdomen and pelvis performed with intravenous and with oral contrastusing helical scan shankar technique with dynamic intravenous contrast injection. Images reviewed with lung, soft tissue a nd bone windows. Reconstructed coronal and sagittal MPR images reviewed. Delayed images for evaluat ion of the urinary system also acquired and evaluated. All images stored on PACS. All CT scanners at this facility use dose modulation, iterative reconstruction, and/or weight based d osing when appropriate to reduce radiation dose to as low as reasonably achievable (ALARA). [facility]: Dose Right [facility]: CareDose [facility]: Dose Right [facility]: Teradose 4D [facility]: [employer] RADIATION DOSE: CT Rad equipment meets quality standard of care and radiation dose reduction techniq ues were employed. CTDIvol: 14.7 - 16.6 mGy. DLP: 2246 mGy-cm. . LIMITATIONS: None. FINDINGS: CHEST: LUNGS AND PLEURA: No opacities, nodules, masses. No pneumothorax. No effusions. HILAR AND MEDIASTINAL STRUCTURES: No identified masses or abnormal nodes. HEART AND VASCULAR STRUCTURES: No aortic aneurysm or dissection. No pulmonary emboli. No pericardia l effusion. HARDWARE: None. THYROID AND OTHER SOFT TISSUES: No masses. No adenopathy. BONES: No significant finding. OTHER: No other significant finding. ABDOMEN AND PELVIS: LIVER: Profound fatty infiltration of the liver, similar compared to 12/17/2017 SPLEEN: Normal size. No focal lesions. PANCREAS: Diffuse peripancreatic inflammation in the retroperitoneum from acute pancreatitis. No nunez creatic pseudocyst. Normal enhancement of the splenic vein, superior mesenteric vein and portal vein . No pancreatic calcifications. GALLBLADDER: No identified stones by CT criteria. No inflammatory changes to suggest cholecystitis. ADRENAL GLANDS: No significant masses or asymmetry. RIGHT KIDNEY AND URETER: No solid masses. No significant calcification. No hydronephrosis or hydroure ter. LEFT KIDNEY AND URETER: No solid masses. No significant calcification. No hydronephrosis or hydrouret er. AORTA AND VESSELS: No aneurysm. No dissection. Renal arteries, SMA, celiac without stenosis. RETROPERITONEUM: No retroperitoneal adenopathy, hemorrhage or masses. BOWEL AND PERITONEAL CAVITY: No masses or inflammatory changes. No free fluid or peritoneal masses. APPENDIX: Normal. ABDOMINAL WALL: No masses. No hernias. PELVIS: No mass or free fluid. Normal bladder. BONES: No significant or acute findings. OTHER: No other significant finding. IMPRESSION: No CT angio evidence of acute pulmonary emboli or thoracic aortic dissection Diffuse peripancreatic inflammation in the retroperitoneal fat from acute pancreatitis. No loculated pseudocyst. Profound fatty infiltration of the liver TECHNICAL DOCUMENTATION: JOB ID: [id number] Quality ID # [id number]: Final reports with documentation of one or more dose reduction techniques (e.g., Au tomated exposure control, adjustment of the mA and/or kV according to patient size, use of iterative reconstruction technique) 2010 [employer]- All Rights Reserved Reading location - IP/workstation name: [facility]
[2018-01-01] MEDS ORDERED: DEXTROSE 40% GEL 15 GM TUBE PO PRN ×2 (15:20)
[2018-01-01] MEDS ORDERED: IPRATROPIUM/ALBUTEROL 0.5-2.5 MG/3 ML AMPUL NEB PRN (15:20)
[2018-01-01] MEDS ORDERED: GLUCAGON,HUMAN RECOMB 1 MG INJ SUBCUT PRN (15:20)
[2018-01-01] MEDS ORDERED: DEXTROSE 50%-WATER 25 GM/50 ML DISP.SYRIN IV PRN ×2 (15:20)
[2018-01-01] MEDS ORDERED: ONDANSETRON HCL INJ/PF 4 MG/2 ML SDV IV PRN (15:20)
[2018-01-01] MEDS ORDERED: HYDROMORPHONE HCL INJ/PF 2 MG/ML AMPULE IV PRN (15:28)
[2018-01-01] MEDS ORDERED: TRAMADOL HCL 50 MG TABLET PO PRN (15:30)
--- NOTE | 2018-01-01 15:45 | PDOC H&P ---
History of Present Illness Admission Date/PCP: 01/01/18 15:14 History of Present Illness: SOLITARIO CARLTON is a 42 year old male who presents to the emergency room with right upper quadrant pain as well as vomiting that started during the night. In fact patient woke up with it. He admits to drinking vodka daily with his last drink last night. He has had no bloody stools of bloody vomiting, no chest pain dysuria frequency. He gives a prior history of atrial fibrillation status post ablation in 2003. He also gives a prior history of pancreatitis around the same time but he says he has had no further episodes since then. Patient has a long history of alcohol abuse that he cannot quantify. 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 CT abdomen and pelvis done reveals evidence of acute pancreatitis. Lipase was found to be 3863 and he also has transaminitis Past Medical History Cardiac Medical History: Reports: Atrial Fibrillation - INTERMITTENT, INFREQUENT 1992, PAF Endocrine Medical History: Denies: Hyperthyroidism, Hypothyroidism Psychiatric Medical History: Reports: Alcohol Dependency Past Surgical History Past Surgical History: Reports: Orthopedic Surgery - left lower extremity Social History Information Source: Patient Lives with: Alone Smoking Status: Unknown if Ever Smoked Frequency of Alcohol Use: Heavy Last Alcohol Use: 12/31/17 Hx Recreational Drug Use: No Hx Prescription Drug Abuse: No - Advance Directive Resuscitation Status: Full Code Family History Family History: None, Reviewed & Not Pertinent Family History: He has an uncle with a history of alcoholism Parental Family History Reviewed: Yes - Denies Children Family History Reviewed: NA Sibling(s) Family History Reviewed.: NA Medication/Allergy Home Medications: No Home Medications 11/10/17 Allergies/Adverse Reactions: No Known Allergies Allergy (Verified 01/01/18 08:37) Review of Systems All systems: reviewed and no additional remarkable complaints except as stated Gastrointestinal: PRESENT: abdominal pain, vomiting. ABSENT: coffee ground emesis, diarrhea, heartburn, hematemesis, hematochezia, melena, nausea Physical Exam Vital Signs: Temp Pulse Resp BP Pulse Ox 98.3 F 116 H 23 H 148/108 H 99 01/01/18 08:52 01/01/18 08:52 01/01/18 13:43 01/01/18 13:43 01/01/18 13:43 General appearance: PRESENT: no acute distress Head exam: PRESENT: atraumatic, normocephalic Eye exam: PRESENT: conjunctiva pink, EOMI, PERRLA. ABSENT: scleral icterus Ear exam: PRESENT: normal external ear exam Mouth exam: PRESENT: moist, tongue midline Neck exam: ABSENT: carotid bruit, JVD, lymphadenopathy, thyromegaly Respiratory exam: PRESENT: clear to auscultation kaleb. ABSENT: rales, rhonchi, wheezes Cardiovascular exam: PRESENT: RRR. ABSENT: diastolic murmur, rubs, systolic murmur Pulses: PRESENT: normal dorsalis pedis pul Vascular exam: PRESENT: normal capillary refill GI/Abdominal exam: PRESENT: normal bowel sounds, soft, tenderness - Epigastric area. ABSENT: distended, guarding, mass, organolmegaly, rebound Rectal exam: PRESENT: deferred Extremities exam: PRESENT: full ROM. ABSENT: calf tenderness, clubbing, pedal edema Neurological exam: PRESENT: alert, awake, oriented to person, oriented to place , oriented to time, oriented to situation, CN II-XII grossly intact. ABSENT: motor sensory deficit Psychiatric exam: PRESENT: appropriate affect, normal mood. ABSENT: homicidal ideation, suicidal ideation Skin exam: PRESENT: dry, intact, warm. ABSENT: cyanosis, rash Results Laboratory Results: Laboratory 01/01/18 01/01/18 01/01/18 09:31 09:31 09:31 WBC 4.8 RBC 4.63 Hgb 14.8 Hct 43.1 MCV 93 MCH 32.1 MCHC 34.4 RDW 15.4 H Plt Count 208 Total Counted 100 Seg Neutrophils % Not Reportable Seg Neuts % (Manual) 77 Lymphocytes % Not Reportable Lymphocytes % (Manual) 13 Monocytes % Not Reportable Monocytes % (Manual) 7 Eosinophils % Not Reportable Eosinophils % (Manual) 0 Basophils % Not Reportable Basophils % (Manual) 3 H Absolute Neutrophils Not Reportable Abs Neuts (Manual) 3.7 Absolute Lymphocytes Not Reportable Abs Lymphs (Manual) 0.6 Absolute Monocytes Not Reportable Abs Monocytes (Manual) 0.3 Absolute Eosinophils Not Reportable Absolute Eos (Manual) 0.0 Absolute Basophils Not Reportable Abs Basophils (Manual) 0.1 Toxic Granulation SLIGHT Platelet Comment ADEQUATE Hypochromasia SLIGHT Anisocytosis SLIGHT Stomatocytes SLIGHT Sodium 140.5 Potassium 4.1 Chloride 104 Carbon Dioxide 26 Anion Gap 11 BUN 14 Creatinine 0.96 Est GFR ( Amer) > 60 Est GFR (Non-Af Amer) > 60 Glucose 89 Calcium 8.9 Total Bilirubin 0.6 Direct Bilirubin 0.4 Neonat Total Bilirubin Not Reportable Neonat Direct Bilirubin Not Reportable Neonat Indirect Bili Not Reportable AST 673 H ALT 185 H Alkaline Phosphatase 225 H Creatine Kinase 119 CK-MB (CK-2) 0.81 Troponin I < 0.012 Total Protein 6.8 Albumin 3.7 Lipase 3868.2 H Urine Color Urine Appearance Urine pH Ur Specific [place] Urine Protein Urine Glucose (UA) Urine Ketones Urine Blood Urine Nitrite Urine Bilirubin Urine Urobilinogen Ur Leukocyte Esterase Urine WBC (Auto) Urine Mucus (Auto) Urine Ascorbic Acid 01/01/18 11:20 WBC RBC Hgb Hct MCV MCH MCHC RDW Plt Count Total Counted Seg Neutrophils % Seg Neuts % (Manual) Lymphocytes % Lymphocytes % (Manual) Monocytes % Monocytes % (Manual) Eosinophils % Eosinophils % (Manual) Basophils % Basophils % (Manual) Absolute Neutrophils Abs Neuts (Manual) Absolute Lymphocytes Abs Lymphs (Manual) Absolute Monocytes Abs Monocytes (Manual) Absolute Eosinophils Absolute Eos (Manual) Absolute Basophils Abs Basophils (Manual) Toxic Granulation Platelet Comment Hypochromasia Anisocytosis Stomatocytes Sodium Potassium Chloride Carbon Dioxide Anion Gap BUN Creatinine Est GFR ( Amer) Est GFR (Non-Af Amer) Glucose Calcium Total Bilirubin Direct Bilirubin Neonat Total Bilirubin Neonat Direct Bilirubin Neonat Indirect Bili AST ALT Alkaline Phosphatase Creatine Kinase CK-MB (CK-2) Troponin I Total Protein Albumin Lipase Urine Color YELLOW Urine Appearance CLEAR Urine pH 5.0 Ur Specific [place] 1.024 Urine Protein NEGATIVE Urine Glucose (UA) NEGATIVE Urine Ketones NEGATIVE Urine Blood NEGATIVE Urine Nitrite NEGATIVE Urine Bilirubin NEGATIVE Urine Urobilinogen NEGATIVE Ur Leukocyte Esterase NEGATIVE Urine WBC (Auto) 0 Urine Mucus (Auto) FEW Urine Ascorbic Acid NEGATIVE Impressions: Abdomen/Pelvis CT 01/01/18 09:24 IMPRESSION: No CT angio evidence of acute pulmonary emboli or thoracic aortic dissection Diffuse peripancreatic inflammation in the retroperitoneal fat from acute pancreatitis. No loculated pseudocyst. Profound fatty infiltration of the liver Chest/Abdomen CTA 01/01/18 09:32 IMPRESSION: No CT angio evidence of acute pulmonary emboli or thoracic aortic dissection Diffuse peripancreatic inflammation in the retroperitoneal fat from acute pancreatitis. No loculated pseudocyst. Profound fatty infiltration of the liver Assessment & Plan - Diagnosis (1) Alcohol abuse Is this a current diagnosis for this admission?: Yes (2) Pancreatitis Qualifiers: Chronicity: acute Pancreatitis type: alcohol induced Acute pancreatitis complication: unspecified Qualified Code(s): K85.20 - Alcohol induced acute pancreatitis without necrosis or infection Is this a current diagnosis for this admission?: Yes Plan: We will keep patient n.p.o. and placed on intravenous fluids. He will also be on PPI IV and will continue with pain control. Because of his transaminitis I will try and avoid Tylenol. There is no evidence of cholelithiasis (3) Transaminitis Is this a current diagnosis for this admission?: Yes Plan: Likely secondary to alcohol abuse. Will continue to monitor his liver function - Time Time Spent: 30 to 50 Minutes Critical Time spent with patient: Less than 15 minutes Medications reviewed and adjusted accordingly: Yes Anticipated discharge: Home Within: within 72 hours - Inpatient Certification Based on my medical assessment, after consideration of the patient's comorbidities, presenting symptoms, or acuity I expect that the services needed warrant INPATIENT care.: Yes Medical Necessity: Need For IV Fluids, Risk of Complication if Not Cared For in Hospital
[2018-01-01] MEDS: DEXTROSE 5%-1/2 NORMAL SALINE 1,000 ML IV PRN (16:53)
[2018-01-01] MEDS: THIAMINE HCL 100 MG, FOLIC ACID 1 MG in NORMAL SALINE 250 ML IV SCH (17:51)
[2018-01-01] MEDS: MORPHINE SULFATE 10 MG/ML INJ IV PRN ×2 (17:52→22:29)
[2018-01-01] MEDS: LORAZEPAM INJ 2 MG/1 ML VIAL IV PRN ×2 (18:07→22:29)
[2018-01-01] MEDS: TEMAZEPAM 7.5 MG CAPSULE PO PRN (22:29)
[2018-01-01] MEDS: FAMOTIDINE INJ/PF 20 MG/2 ML SDV IV SCH (22:31)
--- NOTE | 2018-01-01 23:02 | EKG REPORT ---
SEVERITY:- ABNORMAL ECG - SINUS RHYTHM FIRST DEGREE AV BLOCK : Confirmed by: Audelia Garcia 01-Jan-2018 23:01:30
[2018-01-02] MEDS ORDERED: HYDRALAZINE HCL INJ/PF 20 MG/1 ML SDV IV ONE (02:00)
[2018-01-02] MEDS: DEXTROSE 5%-1/2 NORMAL SALINE 1,000 ML IV PRN ×2 (02:28→22:40)
[2018-01-02] MEDS: MORPHINE SULFATE 10 MG/ML INJ IV PRN ×5 (02:29→21:09)
[2018-01-02] MEDS ORDERED: METOPROLOL TARTRATE 50 MG TABLET PO ONE (05:00)
[2018-01-02 07:15] LABS: ABSOLUTE EOSINOPHILS # (AUTO) 0.1 10^3/uL (0.0-0.6); ABSOLUTE LYMPHOCYTES (AUTO) 0.6 10^3/uL (0.5-4.7); ABSOLUTE MONOCYTES (AUTO) 0.5 10^3/uL (0.1-1.4); ABSOLUTE NEUT (AUTO) 3.9 10^3/uL (1.7-8.2); BASOPHILS % (AUTO) 0.8 % (0-2); EOSINOPHILS % (AUTO) 2.5 % (0-6); HEMATOCRIT 39.7 % (37.9-51.0); HEMOGLOBIN 13.4 g/dL (13.5-17.0); LYMPHOCYTES % (AUTO) 10.7 % (13-45); MEAN CORPUSCULAR HEMOGLOBIN 31.7 pg (27.0-33.4); MEAN CORPUSCULAR HGB CONC 33.8 g/dL (32.0-36.0); MEAN CORPUSCULAR VOLUME 94 fl (80-97); MONOCYTES % (AUTO) 10.4 % (3-13); PLATELET COUNT 165 10^3/uL (150-450); RED BLOOD COUNT 4.24 10^6/uL (4.35-5.55); RED CELL DISTRIBUTION WIDTH 15.1 % (11.5-14.0); SEGMENTED NEUTROPHILS % (AUTO) 75.6 % (42-78); TOTAL CELLS COUNTED % (AUTO) 100 %; WHITE BLOOD COUNT 5.2 10^3/uL (4.0-10.5)
[2018-01-02 07:37] LABS: ALANINE AMINOTRANSFERASE 140 U/L (21-72); ALBUMIN 3.4 g/dL (3.5-5.0); ALKALINE PHOSPHATASE 168 U/L (38-126); ANION GAP 8 (5-19); ASPARTATE AMINO TRANSFERASE 509 U/L (17-59); BILIRUBIN,DIRECT 0.6 mg/dL (0.0-0.4); BILIRUBIN,TOTAL 1.6 mg/dL (0.2-1.3); BLOOD UREA NITROGEN 8 mg/dL (7-20); CALCIUM 8.6 mg/dL (8.4-10.2); CARBON DIOXIDE 27 mmol/L (22-30); CHLORIDE 97 mmol/L (98-107); GLUCOSE 89 mg/dL (75-110); LIPASE 1193.5 U/L (23-300); POTASSIUM 3.7 mmol/L (3.6-5.0); SODIUM 131.7 mmol/L (137-145); TOTAL PROTEIN 6.2 g/dL (6.3-8.2)
[2018-01-02] MEDS ORDERED: LORAZEPAM INJ 2 MG/1 ML VIAL IV PRN (09:40)
[2018-01-02] MEDS: DOCUSATE SODIUM 100 MG CAPSULE PO SCH (10:17)
[2018-01-02] MEDS: FAMOTIDINE INJ/PF 20 MG/2 ML SDV IV SCH ×2 (10:18→21:09)
[2018-01-02] MEDS: ENOXAPARIN SODIUM INJ 40 MG/0.4 ML DISP.SYRIN SUBCUT SCH (10:18)
[2018-01-02 10:38] LABS: HEPATITIS A AB IGM Negative (Negative); HEPATITIS B CORE AB IGM Negative (Negative); HEPATITS B SURFACE ANTIGEN Negative (Negative)
[2018-01-02 12:54] LABS: HEPATITIS C VIRUS ANTIBODY <0.1 s/co ratio (0.0-0.9)
[2018-01-02] MEDS ORDERED: ONDANSETRON HCL INJ/PF 4 MG/2 ML SDV IV PRN (14:30)
--- NOTE | 2018-01-02 18:13 | PDOC PROGRESS REPORT ---
Subjective Progress Note for:: 01/02/18 Subjective:: SOLITARIO CARLTON is a 42 year old male who presents to the emergency department with right upper quadrant pain and vomiting. Admitting diagnosis is acute pancreatitis - lipase 3863 and transaminitis. PMH includes atrial fibrillation status post ablation in 2003, pancreatitis EtOH abuse (daily vodka a use, last drink 12/31). The patient was seen this morning on rounds, he complains of intermittent epigastric pain radiating to the right upper quadrant. He states that his pain is well controlled but that it intermittently comes in waves and is exacerbated with inhalation. Denies nausea, vomiting, or diarrhea. At this time, the patient is not exhibiting symptoms of alcohol withdrawal. Reason For Visit: ACUTE PANCREATITIS, ALCOHOL ABUSE Physical Exam Vital Signs: Temp Pulse Resp BP Pulse Ox 98.9 F 91 12 144/94 H 98 01/02/18 11:52 01/02/18 11:52 01/02/18 11:52 01/02/18 11:52 01/02/18 11:52 Intake & Output 01/01/18 01/02/18 01/03/18 06:59 06:59 06:59 Intake Total 0 Output Total 0 Balance 0 Weight 78.7 kg General appearance: PRESENT: no acute distress Eye exam: PRESENT: conjunctiva pink, PERRLA Mouth exam: PRESENT: moist Neck exam: PRESENT: full ROM Respiratory exam: PRESENT: clear to auscultation kaleb, symmetrical, unlabored Cardiovascular exam: PRESENT: +S1, +S2 Pulses: PRESENT: normal radial pulses, normal dorsalis pedis pul Vascular exam: PRESENT: normal capillary refill GI/Abdominal exam: PRESENT: normal bowel sounds, soft, tenderness - epigastric & RUQ Rectal exam: PRESENT: deferred Extremities exam: PRESENT: full ROM Musculoskeletal exam: PRESENT: ambulatory, full ROM Neurological exam: PRESENT: alert, awake, oriented to person, oriented to place , oriented to time, oriented to situation Psychiatric exam: PRESENT: appropriate affect. ABSENT: homicidal ideation, suicidal ideation Skin exam: PRESENT: normal color Results Laboratory Results: 01/02/18 05:56 01/02/18 05:56 01/02/18 01/02/18 05:56 05:56 WBC 5.2 RBC 4.24 L Hgb 13.4 L Hct 39.7 MCV 94 MCH 31.7 MCHC 33.8 RDW 15.1 H Plt Count 165 Seg Neutrophils % 75.6 Lymphocytes % 10.7 L Monocytes % 10.4 Eosinophils % 2.5 Basophils % 0.8 Absolute Neutrophils 3.9 Absolute Lymphocytes 0.6 Absolute Monocytes 0.5 Absolute Eosinophils 0.1 Absolute Basophils 0.0 Sodium 131.7 L Potassium 3.7 Chloride 97 L Carbon Dioxide 27 Anion Gap 8 BUN 8 Creatinine 0.86 Est GFR ( Amer) > 60 Est GFR (Non-Af Amer) > 60 Glucose 89 Calcium 8.6 Total Bilirubin 1.6 H AST 509 H ALT 140 H Alkaline Phosphatase 168 H Total Protein 6.2 L Albumin 3.4 L Lipase 1193.5 H Impressions: Abdomen/Pelvis CT 01/01/18 09:24 IMPRESSION: No CT angio evidence of acute pulmonary emboli or thoracic aortic dissection Diffuse peripancreatic inflammation in the retroperitoneal fat from acute pancreatitis. No loculated pseudocyst. Profound fatty infiltration of the liver Chest/Abdomen CTA 01/01/18 09:32 IMPRESSION: No CT angio evidence of acute pulmonary emboli or thoracic aortic dissection Diffuse peripancreatic inflammation in the retroperitoneal fat from acute pancreatitis. No loculated pseudocyst. Profound fatty infiltration of the liver Status: Imported from PACS Assessment & Plan - Diagnosis (1) Pancreatitis Qualifiers: Chronicity: acute Pancreatitis type: alcohol induced Acute pancreatitis complication: unspecified Qualified Code(s): K85.20 - Alcohol induced acute pancreatitis without necrosis or infection Is this a current diagnosis for this admission?: Yes Plan: Secondary to chronic alcohol abuse. Improving. Lipase 1193, improved from 3868 yesterday Continue morphine and tramadol for pain control Patient remains n.p.o., continue IV PPI and IV maintenance fluids (2) Alcohol abuse Is this a current diagnosis for this admission?: Yes Plan: Patient admits to daily vodka intake. Last drink 4/3. No history of seizures when withdrawing from alcohol. Patient does not exhibit EtOH withdrawal symptoms -he is alert and oriented 3, no evidence of tremors Continue thiamine and folic acid IV nightly As needed Ativan IV for withdrawal symptoms (3) Transaminitis Is this a current diagnosis for this admission?: Yes Plan: Improving. Likely secondary to chronic alcohol use. No evidence of cholelithiasis. AST/ALT 509/140 improved from 673/185, continue to monitor liver function Continue NPO status and continue maintenance IVF (4) Personal history of atrial fibrillation Is this a current diagnosis for this admission?: Yes Plan: History of AFIB status post ablation in 2003 EKG shows NSR, RRR, no evidence of infarction or ischemia - Time Time Spent with patient: 15-24 minutes Anticipated discharge: Home - Inpatient Certification Based on my medical assessment, after consideration of the patient's comorbidities, presenting symptoms, or acuity I expect that the services needed warrant INPATIENT care.: Yes I certify that my determination is in accordance with my understanding of Medicare's requirements for reasonable and necessary INPATIENT services [42 CFR 412.3e].: Yes Medical Necessity: Need For IV Fluids, Risk of Complication if Not Cared For in Hospital - Plan Summary Plan Summary: At this time, the plan is to continue n.p.o. status, IV maintenance fluids, and observe for alcohol withdrawal symptoms. Ultimately, the goal is to discharge the patient home.
[2018-01-02] MEDS: THIAMINE HCL 100 MG, FOLIC ACID 1 MG in NORMAL SALINE 250 ML IV SCH (18:39)
[2018-01-02] MEDS: METOPROLOL TARTRATE 50 MG TABLET PO SCH (21:09)
[2018-01-02] MEDS: TEMAZEPAM 7.5 MG CAPSULE PO PRN (22:40)
[2018-01-03] MEDS ORDERED: CLONIDINE HCL 0.1 MG TABLET PO ONE (01:30)
[2018-01-03] MEDS: MORPHINE SULFATE 10 MG/ML INJ IV PRN (01:43)
[2018-01-03 07:33] LABS: ABSOLUTE EOSINOPHILS # (AUTO) 0.2 10^3/uL (0.0-0.6); ABSOLUTE LYMPHOCYTES (AUTO) 0.5 10^3/uL (0.5-4.7); ABSOLUTE MONOCYTES (AUTO) 0.5 10^3/uL (0.1-1.4); ABSOLUTE NEUT (AUTO) 3.2 10^3/uL (1.7-8.2); BASOPHILS % (AUTO) 0.3 % (0-2); EOSINOPHILS % (AUTO) 5.1 % (0-6); HEMATOCRIT 38.2 % (37.9-51.0); LYMPHOCYTES % (AUTO) 11.7 % (13-45); MEAN CORPUSCULAR HEMOGLOBIN 32.1 pg (27.0-33.4); MEAN CORPUSCULAR HGB CONC 33.9 g/dL (32.0-36.0); MEAN CORPUSCULAR VOLUME 95 fl (80-97); MONOCYTES % (AUTO) 10.3 % (3-13); PLATELET COUNT 150 10^3/uL (150-450); RED BLOOD COUNT 4.04 10^6/uL (4.35-5.55); SEGMENTED NEUTROPHILS % (AUTO) 72.6 % (42-78); TOTAL CELLS COUNTED % (AUTO) 100 %; WHITE BLOOD COUNT 4.4 10^3/uL (4.0-10.5)
[2018-01-03 07:40] LABS: ANION GAP 7 (5-19); BLOOD UREA NITROGEN 6 mg/dL (7-20); CALCIUM 9.1 mg/dL (8.4-10.2); CARBON DIOXIDE 28 mmol/L (22-30); CHLORIDE 99 mmol/L (98-107); GLUCOSE 99 mg/dL (75-110); PHOSPHORUS 3.1 mg/dL (2.5-4.5); POTASSIUM 3.8 mmol/L (3.6-5.0); SODIUM 133.6 mmol/L (137-145)
[2018-01-03] MEDS ORDERED: LORAZEPAM INJ 2 MG/1 ML VIAL IV SCH ×2 (10:00→17:15)
[2018-01-03] MEDS: DOCUSATE SODIUM 100 MG CAPSULE PO SCH (11:16)
[2018-01-03] MEDS: METOPROLOL TARTRATE 50 MG TABLET PO SCH (11:16)
[2018-01-03] MEDS: FAMOTIDINE INJ/PF 20 MG/2 ML SDV IV SCH ×2 (11:16→22:21)
[2018-01-03] MEDS: ENOXAPARIN SODIUM INJ 40 MG/0.4 ML DISP.SYRIN SUBCUT SCH (11:18)
--- NOTE | 2018-01-03 14:31 | PDOC PROGRESS REPORT ---
Subjective Progress Note for:: 01/03/18 Subjective:: SOLITARIO CARLTON is a 42 year old male who presents to the emergency department with right upper quadrant pain and vomiting. Admitting diagnosis is acute pancreatitis - lipase 3863 and transaminitis. PMH includes atrial fibrillation status post ablation in 2003, pancreatitis EtOH abuse (daily vodka a use, last drink 12/31). The patient was seen this morning on rounds, he denies epigastric pain. He states that his pain is well controlled Denies nausea, vomiting, or diarrhea. According to nursing staff, the patient was exhibiting signs of confusion and possibly alcohol withdrawal overnight. The patient asked the nursing staff if he could get dressed because he thought he was going home. Additionally, at one point nursing staff observed the patient chewing on his IV tubing. Reason For Visit: ACUTE PANCREATITIS, ALCOHOL ABUSE Physical Exam Vital Signs: Temp Pulse Resp BP Pulse Ox 98.7 F 97 16 137/89 H 97 01/03/18 11:12 01/03/18 11:12 01/03/18 11:12 01/03/18 11:12 01/03/18 11:12 Intake & Output 01/02/18 01/03/18 01/04/18 06:59 06:59 06:59 Intake Total 0 2000 Output Total 0 Balance 0 1999 Weight 78.7 kg 79.4 kg General appearance: PRESENT: no acute distress Eye exam: PRESENT: conjunctiva pink, EOMI, PERRLA Mouth exam: PRESENT: moist Neck exam: PRESENT: full ROM Respiratory exam: PRESENT: clear to auscultation kaleb, symmetrical, unlabored Cardiovascular exam: PRESENT: +S1, +S2 Pulses: PRESENT: normal radial pulses, normal dorsalis pedis pul GI/Abdominal exam: PRESENT: normal bowel sounds, soft, tenderness - Epigastrum and RUQ. ABSENT: distended Rectal exam: PRESENT: deferred Extremities exam: PRESENT: full ROM Musculoskeletal exam: PRESENT: ambulatory, full ROM Neurological exam: PRESENT: alert, awake, oriented to person, oriented to place , oriented to time, oriented to situation Psychiatric exam: PRESENT: appropriate affect, normal mood Results Laboratory Results: 01/03/18 07:16 01/03/18 07:16 01/03/18 01/03/18 01/03/18 04:36 07:16 07:16 WBC 4.4 RBC 4.04 L Hgb 13.0 L Hct 38.2 MCV 95 MCH 32.1 MCHC 33.9 RDW 15.0 H Plt Count 150 Seg Neutrophils % 72.6 Lymphocytes % 11.7 L Monocytes % 10.3 Eosinophils % 5.1 Basophils % 0.3 Absolute Neutrophils 3.2 Absolute Lymphocytes 0.5 Absolute Monocytes 0.5 Absolute Eosinophils 0.2 Absolute Basophils 0.0 Sodium 133.6 L Potassium 3.8 Chloride 99 Carbon Dioxide 28 Anion Gap 7 BUN 6 L Creatinine 0.84 Est GFR ( Amer) > 60 Est GFR (Non-Af Amer) > 60 Glucose 99 Calcium 9.1 Phosphorus 3.1 Magnesium 1.9 Lipase 331.2 H Impressions: Abdomen/Pelvis CT 01/01/18 09:24 IMPRESSION: No CT angio evidence of acute pulmonary emboli or thoracic aortic dissection Diffuse peripancreatic inflammation in the retroperitoneal fat from acute pancreatitis. No loculated pseudocyst. Profound fatty infiltration of the liver Chest/Abdomen CTA 01/01/18 09:32 IMPRESSION: No CT angio evidence of acute pulmonary emboli or thoracic aortic dissection Diffuse peripancreatic inflammation in the retroperitoneal fat from acute pancreatitis. No loculated pseudocyst. Profound fatty infiltration of the liver Status: Imported from PACS Assessment & Plan - Diagnosis (1) Pancreatitis Qualifiers: Chronicity: acute Pancreatitis type: alcohol induced Acute pancreatitis complication: unspecified Qualified Code(s): K85.20 - Alcohol induced acute pancreatitis without necrosis or infection Is this a current diagnosis for this admission?: Yes Plan: Interstitial edematous acute pancreatitis. Mild. Improving today. Secondary to chronic alcohol abuse. Admission NANWALEK II score: 4. No evidence of SIRS at this time. Lipase 311, improved from 3868. Electrolytes within normal limits, serum Calcium normal. Continue morphine and tramadol for pain control Continue IV PPI and IV maintenance fluids The patient states that he feels hungry today. Will attempt clear liquid PO trial and re-evaluate (2) Alcohol abuse Is this a current diagnosis for this admission?: Yes Plan: Patient admits to daily vodka intake. Last drink 4/3. No history of seizures when withdrawing from alcohol. No evidence of tremors at this time but nursing staff reports acute confusion overnight. Additionally, the patient was observed to be chewing on his IV tubing. The patient is now 72 hours from his last alcohol intake. Concerned that the patient is experiencing alcohol withdrawal. Initiated EtOH withdrawal Ativan protocol. Continue cardiac telemetry. Continue thiamine and folic acid IV nightly (3) Transaminitis Is this a current diagnosis for this admission?: Yes Plan: Improving. Likely secondary to chronic alcohol use. No evidence of cholelithiasis. AST/ALT 509/140 improved from 673/185, continue to monitor liver function Continue maintenance IVF (4) Personal history of atrial fibrillation Is this a current diagnosis for this admission?: Yes Plan: History of AFIB status post ablation in 2003 EKG shows NSR, RRR, no evidence of infarction or ischemia - Time Time Spent with patient: 15-24 minutes Medications reviewed and adjusted accordingly: Yes Anticipated discharge: Home - Inpatient Certification Based on my medical assessment, after consideration of the patient's comorbidities, presenting symptoms, or acuity I expect that the services needed warrant INPATIENT care.: Yes I certify that my determination is in accordance with my understanding of Medicare's requirements for reasonable and necessary INPATIENT services [42 CFR 412.3e].: Yes Medical Necessity: Risk of Complication if Not Cared For in Hospital - Plan Summary Plan Summary: Ultimately, the plan is to discharge the patient home
[2018-01-03 14:38] LABS: ALANINE AMINOTRANSFERASE 111 U/L (21-72); ASPARTATE AMINO TRANSFERASE 432 U/L (17-59)
[2018-01-03] MEDS ORDERED: LORAZEPAM INJ 2 MG/1 ML VIAL IV ONE ×4 (15:45→19:15)
[2018-01-03] MEDS ORDERED: OLANZAPINE INJ/PF 10 MG SDV IM ONE (16:00)
[2018-01-03] MEDS ORDERED: OLANZAPINE 5 MG TABLET PO ONE (16:15)
[2018-01-03] MEDS ORDERED: LORAZEPAM INJ 2 MG/1 ML VIAL ONE ×2 (16:25→17:01)
[2018-01-03] MEDS ORDERED: HYDRALAZINE HCL INJ/PF 20 MG/1 ML SDV IV PRN (16:32)
[2018-01-03] MEDS ORDERED: METOPROLOL TARTRATE PF/INJ 5 MG/5 ML SDV IV PRN (16:33)
[2018-01-03] MEDS ORDERED: MORPHINE SULFATE 10 MG/ML INJ IV ONE (16:51)
[2018-01-03] MEDS ORDERED: DIPHENHYDRAMINE HCL 50 MG/ML VIAL IV ONE (16:52)
[2018-01-03] MEDS ORDERED: MORPHINE SULFATE 10 MG/ML INJ ONE (16:56)
[2018-01-03] MEDS ORDERED: DIPHENHYDRAMINE HCL 50 MG/ML VIAL ONE (16:57)
[2018-01-03] MEDS ORDERED: DIPHENHYDRAMINE HCL 50 MG/ML VIAL IV PRN (17:13)
[2018-01-03] MEDS ORDERED: MORPHINE SULFATE 10 MG/ML INJ IV PRN (17:15)
[2018-01-03] MEDS ORDERED: LORAZEPAM INJ 2 MG/1 ML VIAL IV PRN (17:16)
[2018-01-03] MEDS: OLANZAPINE 5 MG TABLET PO SCH (17:30)
[2018-01-03] MEDS: METOPROLOL SUCCINATE 25 MG TAB.SR.24H PO SCH (18:10)
[2018-01-03] MEDS: THIAMINE HCL 100 MG, FOLIC ACID 1 MG in NORMAL SALINE 250 ML IV SCH (18:12)
[2018-01-03] MEDS ORDERED: HALOPERIDOL LACTATE INJ 5 MG/1 ML VIAL ONE ×2 (19:48→23:45)
[2018-01-03] MEDS ORDERED: LORAZEPAM INJ 2 MG/1 ML VIAL (TAPER DOSING) IV SCH (20:00)
[2018-01-03] MEDS: LORAZEPAM INJ 2 MG/1 ML VIAL IV SCH (23:04)
[2018-01-03] MEDS ORDERED: HALOPERIDOL LACTATE INJ 5 MG/1 ML VIAL IM ONE (23:45)
[2018-01-03] MEDS ORDERED: HALOPERIDOL LACTATE INJ 5 MG/1 ML VIAL IM PRN (23:47)
[2018-01-04] MEDS: DEXTROSE 5%-1/2 NORMAL SALINE 1,000 ML IV PRN (04:17)
[2018-01-04] MEDS: LORAZEPAM INJ 2 MG/1 ML VIAL IV SCH ×6 (05:53→21:06)
[2018-01-04 06:47] LABS: HEMOGLOBIN 12.6 g/dL (13.5-17.0); MEAN CORPUSCULAR HEMOGLOBIN 32.5 pg (27.0-33.4); MEAN CORPUSCULAR VOLUME 96 fl (80-97); PLATELET COUNT 171 10^3/uL (150-450); RED BLOOD COUNT 3.87 10^6/uL (4.35-5.55); RED CELL DISTRIBUTION WIDTH 15.5 % (11.5-14.0); WHITE BLOOD COUNT 3.5 10^3/uL (4.0-10.5)
[2018-01-04 07:06] LABS: ALANINE AMINOTRANSFERASE 111 U/L (21-72); ALBUMIN 3.1 g/dL (3.5-5.0); ALKALINE PHOSPHATASE 153 U/L (38-126); ANION GAP 7 (5-19); ASPARTATE AMINO TRANSFERASE 403 U/L (17-59); BILIRUBIN,DIRECT 0.7 mg/dL (0.0-0.4); BILIRUBIN,TOTAL 1.5 mg/dL (0.2-1.3); BLOOD UREA NITROGEN 6 mg/dL (7-20); CALCIUM 9.1 mg/dL (8.4-10.2); CARBON DIOXIDE 25 mmol/L (22-30); CHLORIDE 106 mmol/L (98-107); CHOLESTEROL 174.68 mg/dL (0-200); GLUCOSE 100 mg/dL (75-110); LIPASE 314.3 U/L (23-300); PHOSPHORUS 3.9 mg/dL (2.5-4.5); SODIUM 138.1 mmol/L (137-145); TRIGLYCERIDES 92 mg/dL (<150)
[2018-01-04 07:10] LABS: POTASSIUM 3.4 mmol/L (3.6-5.0)
[2018-01-04 07:17] LABS: DIRECT LDL 89 mg/dL (<100)
[2018-01-04] MEDS ORDERED: LORAZEPAM INJ 2 MG/1 ML VIAL IV SCH (08:00)
[2018-01-04] MEDS ORDERED: DOCUSATE SODIUM 100 MG CAPSULE PO PRN (08:46)
[2018-01-04] MEDS: MORPHINE SULFATE 10 MG/ML INJ IV SCH ×4 (08:57→20:55)
[2018-01-04] MEDS ORDERED: POTASSI CL 20 MEQ/50 ML RIDER 20 MEQ/50 ML RTUPB IV ONE (09:45)
[2018-01-04] MEDS: ENOXAPARIN SODIUM INJ 40 MG/0.4 ML DISP.SYRIN SUBCUT SCH (10:40)
[2018-01-04] MEDS: FAMOTIDINE INJ/PF 20 MG/2 ML SDV IV SCH ×2 (10:42→21:07)
[2018-01-04] MEDS: METOPROLOL SUCCINATE 25 MG TAB.SR.24H PO SCH (17:20)
[2018-01-04] MEDS: THIAMINE HCL 100 MG, FOLIC ACID 1 MG in NORMAL SALINE 250 ML IV SCH (17:23)
[2018-01-04] MEDS: HALOPERIDOL LACTATE INJ 5 MG/1 ML VIAL IV PRN (18:36)
[2018-01-04] MEDS: OLANZAPINE 5 MG TABLET PO SCH (21:05)
--- NOTE | 2018-01-04 21:54 | PDOC PROGRESS REPORT ---
Subjective Progress Note for:: 01/04/18 Subjective:: SOLITARIO CARLTON is a 42 year old male who presents to the emergency department with right upper quadrant pain and vomiting. Admitting diagnosis is acute pancreatitis - lipase 3863 and transaminitis. PMH includes atrial fibrillation status post ablation in 2003, pancreatitis EtOH abuse (daily vodka a use, last drink 12/31). The patient was seen this morning on rounds, he was resting quietly in bed. His respirations are equal and unlabored. His SP02 is 93-95% on room air. No attempt to wake the patient. The patient is restrained with bilateral wrist restraints and lap belt. Reason For Visit: ACUTE PANCREATITIS, ALCOHOL ABUSE Physical Exam Vital Signs: Temp Pulse Resp BP Pulse Ox 97.6 F 123 H 20 137/96 H 98 01/04/18 19:55 01/04/18 19:55 01/04/18 19:55 01/04/18 19:55 01/04/18 20:34 Pulse Oximeter Continuous Start: 01/03/18 17: 25 Freq: RTQ4 Status: Active Document 01/04/18 20:34 EAL (Rec: 01/04/18 20:34 EAL [email or web address]) Pulse Oximetry Assessment Oxygen Saturation (92-100) 98 Oxygen Delivery Method Room Air Fraction of Inspired Oxygen (FIO2) 21 Equipment Usage Equipment in Use Continuous SpO2 Machine # 6 Intake & Output 01/03/18 01/04/18 01/05/18 06:59 06:59 06:59 Intake Total 1999 1550 926 Output Total 1560 400 Balance 1999 52 Weight 79.4 kg 75.4 kg General appearance: PRESENT: no acute distress Eye exam: PRESENT: conjunctiva pink, PERRLA Mouth exam: PRESENT: moist Teeth exam: PRESENT: poor dentation Neck exam: PRESENT: full ROM Respiratory exam: PRESENT: clear to auscultation kaleb, symmetrical, unlabored Cardiovascular exam: PRESENT: +S1, +S2 Pulses: PRESENT: normal radial pulses, normal dorsalis pedis pul GI/Abdominal exam: PRESENT: normal bowel sounds, soft. ABSENT: tenderness Rectal exam: PRESENT: deferred Extremities exam: PRESENT: full ROM Musculoskeletal exam: PRESENT: ambulatory, full ROM Neurological exam: PRESENT: other - ASLEEP. SEDATED WITH ATIVAN & HALDOL. ABSENT: alert, awake Psychiatric exam: PRESENT: other - ASLEEP Skin exam: PRESENT: normal color Results Laboratory Results: 01/04/18 06:23 01/04/18 06:23 01/04/18 01/04/18 06:23 06:23 WBC 3.5 L RBC 3.87 L Hgb 12.6 L Hct 37.0 L MCV 96 MCH 32.5 MCHC 34.0 RDW 15.5 H Plt Count 171 Sodium 138.1 Potassium 3.4 L Chloride 106 Carbon Dioxide 25 Anion Gap 7 BUN 6 L Creatinine 0.76 Est GFR ( Amer) > 60 Est GFR (Non-Af Amer) > 60 Glucose 100 Calcium 9.1 Phosphorus 3.9 Magnesium 2.2 Total Bilirubin 1.5 H AST 403 H ALT 111 H Alkaline Phosphatase 153 H Total Protein 6.0 L Albumin 3.1 L Triglycerides 92 Cholesterol 174.68 LDL Cholesterol Direct 89 VLDL Cholesterol 18.0 HDL Cholesterol 67 Lipase 314.3 H Impressions: Abdomen/Pelvis CT 01/01/18 09:24 IMPRESSION: No CT angio evidence of acute pulmonary emboli or thoracic aortic dissection Diffuse peripancreatic inflammation in the retroperitoneal fat from acute pancreatitis. No loculated pseudocyst. Profound fatty infiltration of the liver Chest/Abdomen CTA 01/01/18 09:32 IMPRESSION: No CT angio evidence of acute pulmonary emboli or thoracic aortic dissection Diffuse peripancreatic inflammation in the retroperitoneal fat from acute pancreatitis. No loculated pseudocyst. Profound fatty infiltration of the liver Status: Imported from PACS Assessment & Plan - Diagnosis (1) Pancreatitis Qualifiers: Chronicity: acute Pancreatitis type: alcohol induced Acute pancreatitis complication: unspecified Qualified Code(s): K85.20 - Alcohol induced acute pancreatitis without necrosis or infection Is this a current diagnosis for this admission?: Yes Plan: Interstitial edematous acute pancreatitis. Mild. Improving today. Secondary to chronic alcohol abuse. Admission [place] II score: 4. No evidence of SIRS at this time. Lipase 314, improved from 331. Electrolytes within normal limits, serum Calcium normal. Continue morphine for pain control Continue IV PPI and IV maintenance fluids While patient is in acute ETOH withdrawal, will remain NPO (2) Alcohol abuse Is this a current diagnosis for this admission?: Yes Plan: Patient admits to daily vodka intake. Last drink 4/3. No history of seizures when withdrawing from alcohol. No evidence of tremors at this time but evidence of acute confusion within the last 24 hours. The patient was observed to be chewing on his IV tubing. 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 After this incident, the patient became increasingly agitated and confused. Security called to the bedside. Patient required lap belt and wrist restraints. PRN and scheduled IV ativan, PRN haldol, scheduled morphine, PRN benadryl Continue cardiac telemetry. Continue thiamine and folic acid IV nightly (3) Transaminitis Is this a current diagnosis for this admission?: Yes Plan: Improving. Likely secondary to chronic alcohol use. No evidence of cholelithiasis. AST/ALT 403/111 improved from 509/140, continue to monitor liver function Continue maintenance IVF (4) Personal history of atrial fibrillation Is this a current diagnosis for this admission?: Yes Plan: History of AFIB status post ablation in 2003 EKG shows NSR, RRR, no evidence of infarction or ischemia - Time Time Spent with patient: 15-24 minutes Medications reviewed and adjusted accordingly: Yes Anticipated discharge: Home - Inpatient Certification Based on my medical assessment, after consideration of the patient's comorbidities, presenting symptoms, or acuity I expect that the services needed warrant INPATIENT care.: Yes I certify that my determination is in accordance with my understanding of Medicare's requirements for reasonable and necessary INPATIENT services [42 CFR 412.3e].: Yes Medical Necessity: Risk of Complication if Not Cared For in Hospital - Plan Summary Plan Summary: WHEN PATIENT IS NO LONGER GOING THROUGH ALCOHOL WITHDRAWAL, THE PLAN IS TO DISCHARGE THE PATIENT HOME
[2018-01-04] MEDS ORDERED: OLANZAPINE 5 MG TABLET PO SCH (22:00)
[2018-01-05] MEDS: MORPHINE SULFATE 10 MG/ML INJ IV SCH ×5 (00:27→23:32)
[2018-01-05] MEDS ORDERED: HALOPERIDOL LACTATE INJ 5 MG/1 ML VIAL IV PRN (00:49)
[2018-01-05] MEDS ORDERED: HALOPERIDOL LACTATE INJ 5 MG/1 ML VIAL IV ONE (01:00)
[2018-01-05] MEDS: LORAZEPAM INJ 2 MG/1 ML VIAL IV SCH (01:39)
[2018-01-05] MEDS: DEXTROSE 5%-1/2 NORMAL SALINE 1,000 ML IV PRN ×2 (01:39→21:27)
[2018-01-05] MEDS ORDERED: LORAZEPAM INJ 2 MG/1 ML VIAL IV PRN (07:34)
[2018-01-05 08:43] LABS: ANION GAP 6 (5-19); BLOOD UREA NITROGEN 3 mg/dL (7-20); CALCIUM 8.9 mg/dL (8.4-10.2); CARBON DIOXIDE 26 mmol/L (22-30); CHLORIDE 107 mmol/L (98-107); GLUCOSE 100 mg/dL (75-110); LIPASE 383.9 U/L (23-300); PHOSPHORUS 3.9 mg/dL (2.5-4.5); POTASSIUM 3.6 mmol/L (3.6-5.0); SODIUM 138.5 mmol/L (137-145)
[2018-01-05] MEDS: OLANZAPINE 5 MG TABLET PO SCH (09:48)
[2018-01-05] MEDS: ENOXAPARIN SODIUM INJ 40 MG/0.4 ML DISP.SYRIN SUBCUT SCH (09:48)
[2018-01-05] MEDS: FAMOTIDINE INJ/PF 20 MG/2 ML SDV IV SCH ×2 (09:49→21:27)
[2018-01-05] MEDS ORDERED: LORAZEPAM INJ 2 MG/1 ML VIAL IV SCH ×2 (10:00→12:00)
[2018-01-05] MEDS ORDERED: DIAZEPAM INJ 10 MG/2 ML DISP.SYRIN IV PRN (12:30)
[2018-01-05] MEDS ORDERED: DIAZEPAM INJ 10 MG/2 ML DISP.SYRIN IV ONE (12:34)
[2018-01-05] MEDS: HALOPERIDOL LACTATE INJ 5 MG/1 ML VIAL IV PRN (12:44)
[2018-01-05] MEDS: MORPHINE SULFATE 10 MG/ML INJ IV PRN ×2 (12:45→20:28)
--- NOTE | 2018-01-05 15:22 | PDOC PROGRESS REPORT ---
Subjective Progress Note for:: 01/05/18 Subjective:: SOLITARIO CARLTON is a 42 year old male who presents to the emergency department with right upper quadrant pain and vomiting. Admitting diagnosis is acute pancreatitis - lipase 3863 and transaminitis. PMH includes atrial fibrillation status post ablation in 2003, pancreatitis EtOH abuse (daily vodka a use, last drink 4/). The patient was seen this morning on rounds, he was resting quietly in bed. He is able to answer all questions appropriately and follow commands. He does not remember his episodes of acute agitation and delirium 48 hours ago, but the patient understands that he is in the hospital for pancreatitis and alcohol withdrawal. Nursing staff reports that upon administration of IV Ativan, the patient appears to become more agitated. He is more fidgety and restless following Ativan administration. Plan to readjust medication regimen Reason For Visit: ACUTE PANCREATITIS, ALCOHOL ABUSE Physical Exam Vital Signs: Temp Pulse Resp BP Pulse Ox 98.2 F 110 H 18 131/97 H 95 01/05/18 13:18 01/05/18 13:18 01/05/18 13:18 01/05/18 13:18 01/05/18 13:18 Pulse Oximeter Continuous Start: 01/03/18 17: 25 Freq: RTQ4 Status: Active Document 01/05/18 12:10 HCR (Rec: 01/05/18 12:40 HCR [email or web address]) Pulse Oximetry Assessment Oxygen Saturation (92-100) 97 Oxygen Delivery Method Room Air Fraction of Inspired Oxygen (FIO2) 21 Equipment Usage Equipment in Use Continuous SpO2 Machine # 6 Intake & Output 01/04/18 01/05/18 01/06/18 06:59 06:59 06:59 Intake Total 1550 926 795 Output Total 1560 1275 550 Balance -10 -349 245 Weight 75.4 kg 79.1 kg General appearance: PRESENT: no acute distress Eye exam: PRESENT: conjunctiva pink, PERRLA Teeth exam: PRESENT: poor dentation Neck exam: PRESENT: full ROM Respiratory exam: PRESENT: clear to auscultation kaleb, symmetrical, unlabored Cardiovascular exam: PRESENT: +S1, +S2 Pulses: PRESENT: normal radial pulses, normal dorsalis pedis pul GI/Abdominal exam: PRESENT: normal bowel sounds, soft, tenderness. ABSENT: distended Rectal exam: PRESENT: deferred Extremities exam: PRESENT: full ROM Musculoskeletal exam: PRESENT: ambulatory, full ROM Neurological exam: PRESENT: alert, altered, oriented to person, oriented to place, oriented to time, oriented to situation Psychiatric exam: PRESENT: appropriate affect Results Laboratory Results: 01/04/18 06:23 01/05/18 08:09 01/05/18 08:09 Sodium 138.5 Potassium 3.6 Chloride 107 Carbon Dioxide 26 Anion Gap 6 BUN 3 L Creatinine 0.81 Est GFR ( Amer) > 60 Est GFR (Non-Af Amer) > 60 Glucose 100 Calcium 8.9 Phosphorus 3.9 Magnesium 1.9 Lipase 383.9 H Impressions: Abdomen/Pelvis CT 01/01/18 09:24 IMPRESSION: No CT angio evidence of acute pulmonary emboli or thoracic aortic dissection Diffuse peripancreatic inflammation in the retroperitoneal fat from acute pancreatitis. No loculated pseudocyst. Profound fatty infiltration of the liver Chest/Abdomen CTA 01/01/18 09:32 IMPRESSION: No CT angio evidence of acute pulmonary emboli or thoracic aortic dissection Diffuse peripancreatic inflammation in the retroperitoneal fat from acute pancreatitis. No loculated pseudocyst. Profound fatty infiltration of the liver Status: Imported from PACS Assessment & Plan - Diagnosis (1) Pancreatitis Qualifiers: Chronicity: acute Pancreatitis type: alcohol induced Acute pancreatitis complication: unspecified Qualified Code(s): K85.20 - Alcohol induced acute pancreatitis without necrosis or infection Is this a current diagnosis for this admission?: Yes Plan: Interstitial edematous acute pancreatitis. Mild. Improving today. Secondary to chronic alcohol abuse. Admission [place] II score: 4. No evidence of SIRS at this time. Lipase 383, increased from 314. Electrolytes within normal limits, serum Calcium normal. Continue morphine for pain control Continue IV PPI and IV maintenance fluids While patient is in acute ETOH withdrawal, will remain NPO (2) Alcohol abuse Is this a current diagnosis for this admission?: Yes Plan: Patient admits to daily vodka intake, approximately 1 pint per day. Last drink /. No history of seizures when withdrawing from alcohol. When awake, the patient has visible tremors in both hands and his voice shakes. Currently requiring a lap belt to keep the patient in bed, otherwise he will attempt to climb out of bed and attempt to leave the hospital. Nursing staff reports that the patient becomes more agitated when Ativan is administered. He becomes fidgety, confused, and impulsive. Discontinue IV Ativan, initiate Valium. Scheduled Valium, PRN haldol, scheduled morphine, PRN benadryl Continue cardiac telemetry. Continue thiamine and folic acid IV nightly (3) Transaminitis Is this a current diagnosis for this admission?: Yes Plan: Improving. Likely secondary to chronic alcohol use. No evidence of cholelithiasis. AST/ALT continue to improve, will monitor daily CMP Continue maintenance IVF (4) Personal history of atrial fibrillation Is this a current diagnosis for this admission?: Yes Plan: History of AFIB status post ablation in 2003 EKG shows NSR, RRR, no evidence of infarction or ischemia - Time Time Spent with patient: 15-24 minutes Medications reviewed and adjusted accordingly: Yes Anticipated discharge: Home - Inpatient Certification Based on my medical assessment, after consideration of the patient's comorbidities, presenting symptoms, or acuity I expect that the services needed warrant INPATIENT care.: Yes I certify that my determination is in accordance with my understanding of Medicare's requirements for reasonable and necessary INPATIENT services [42 CFR 412.3e].: Yes Medical Necessity: Risk of Complication if Not Cared For in Hospital - Plan Summary Plan Summary: Ultimately, the plan is to discharge the patient home
[2018-01-05] MEDS: DIAZEPAM INJ 10 MG/2 ML DISP.SYRIN IV SCH ×2 (16:37→20:28)
[2018-01-05] MEDS: METOPROLOL SUCCINATE 25 MG TAB.SR.24H PO SCH (17:49)
[2018-01-05] MEDS: THIAMINE HCL 100 MG, FOLIC ACID 1 MG in NORMAL SALINE 250 ML IV SCH (17:49)
[2018-01-06] MEDS: MORPHINE SULFATE 10 MG/ML INJ IV PRN ×2 (03:02→09:35)
[2018-01-06] MEDS: DIAZEPAM INJ 10 MG/2 ML DISP.SYRIN IV SCH ×4 (03:02→20:08)
[2018-01-06] MEDS: MORPHINE SULFATE 10 MG/ML INJ IV SCH ×4 (06:38→23:45)
[2018-01-06] MEDS: ENOXAPARIN SODIUM INJ 40 MG/0.4 ML DISP.SYRIN SUBCUT SCH (09:25)
[2018-01-06] MEDS: FAMOTIDINE INJ/PF 20 MG/2 ML SDV IV SCH ×2 (09:25→21:34)
[2018-01-06] MEDS: DEXTROSE 5%-1/2 NORMAL SALINE 1,000 ML IV PRN ×2 (13:43→23:48)
[2018-01-06] MEDS ORDERED: LORAZEPAM INJ 2 MG/1 ML VIAL IV SCH (14:00)
[2018-01-06 15:17] LABS: ALANINE AMINOTRANSFERASE 125 U/L (21-72); ALBUMIN 3.2 g/dL (3.5-5.0); ALKALINE PHOSPHATASE 150 U/L (38-126); ANION GAP 8 (5-19); ASPARTATE AMINO TRANSFERASE 381 U/L (17-59); BILIRUBIN,DIRECT 0.7 mg/dL (0.0-0.4); BILIRUBIN,TOTAL 0.9 mg/dL (0.2-1.3); BLOOD UREA NITROGEN 3 mg/dL (7-20); CALCIUM 9.2 mg/dL (8.4-10.2); CARBON DIOXIDE 28 mmol/L (22-30); CHLORIDE 105 mmol/L (98-107); GLUCOSE 96 mg/dL (75-110); LIPASE 213.8 U/L (23-300); POTASSIUM 3.6 mmol/L (3.6-5.0); SODIUM 140.6 mmol/L (137-145); TOTAL PROTEIN 6.4 g/dL (6.3-8.2)
[2018-01-06] MEDS: METOPROLOL SUCCINATE 25 MG TAB.SR.24H PO SCH (17:52)
[2018-01-06] MEDS: THIAMINE HCL 100 MG, FOLIC ACID 1 MG in NORMAL SALINE 250 ML IV SCH (17:53)
[2018-01-07] MEDS: DIAZEPAM INJ 10 MG/2 ML DISP.SYRIN IV SCH (02:55)
[2018-01-07] MEDS: MORPHINE SULFATE 10 MG/ML INJ IV PRN (04:22)
[2018-01-07] MEDS: MORPHINE SULFATE 10 MG/ML INJ IV SCH (05:12)
[2018-01-07 05:46] LABS: HEMATOCRIT 37.2 % (37.9-51.0); HEMOGLOBIN 12.6 g/dL (13.5-17.0); MEAN CORPUSCULAR HEMOGLOBIN 32.4 pg (27.0-33.4); MEAN CORPUSCULAR HGB CONC 33.8 g/dL (32.0-36.0); MEAN CORPUSCULAR VOLUME 96 fl (80-97); PLATELET COUNT 189 10^3/uL (150-450); RED BLOOD COUNT 3.88 10^6/uL (4.35-5.55); RED CELL DISTRIBUTION WIDTH 15.1 % (11.5-14.0); WHITE BLOOD COUNT 4.4 10^3/uL (4.0-10.5)
[2018-01-07 06:18] LABS: ALANINE AMINOTRANSFERASE 106 U/L (21-72); ALBUMIN 2.9 g/dL (3.5-5.0); ALKALINE PHOSPHATASE 141 U/L (38-126); ANION GAP 5 (5-19); ASPARTATE AMINO TRANSFERASE 279 U/L (17-59); BILIRUBIN,DIRECT 0.3 mg/dL (0.0-0.4); BILIRUBIN,TOTAL 0.7 mg/dL (0.2-1.3); BLOOD UREA NITROGEN 3 mg/dL (7-20); CARBON DIOXIDE 28 mmol/L (22-30); CHLORIDE 106 mmol/L (98-107); GLUCOSE 104 mg/dL (75-110); LIPASE 286.4 U/L (23-300); POTASSIUM 3.3 mmol/L (3.6-5.0); TOTAL PROTEIN 5.7 g/dL (6.3-8.2)
--- NOTE | 2018-01-07 07:41 | PDOC PROGRESS REPORT ---
Subjective Progress Note for:: 01/06/18 Subjective:: SOLITARIO CARLTON is a 42 year old male who presents to the emergency department with right upper quadrant pain and vomiting. Admitting diagnosis is acute pancreatitis - lipase 3863 and transaminitis. PMH includes atrial fibrillation status post ablation in 2003, pancreatitis EtOH abuse (daily vodka a use, last drink 12/31). The patient was seen this morning on rounds, he was resting quietly in bed, restrained with the lap belt. He is able to answer all questions appropriately and follow commands. He is oriented to person, place, time, and situation. The patient is not aggressive or agitated. Mild tremors noted to both hands. He is asking for the lap belt restraint to be removed. Reason For Visit: ACUTE PANCREATITIS, ALCOHOL ABUSE Physical Exam Vital Signs: Temp Pulse Resp BP Pulse Ox 98.6 F 75 12 129/84 H 97 01/06/18 11:38 01/06/18 11:38 01/06/18 11:38 01/06/18 11:38 01/06/18 11:38 Pulse Oximeter Continuous Start: 01/03/18 17: 25 Freq: Status: Complete Document 01/06/18 09:18 TPO (Rec: 01/06/18 09:18 TPO [email or web address]) Pulse Oximetry Assessment Oxygen Saturation (92-100) 95 Oxygen Delivery Method Room Air Fraction of Inspired Oxygen (FIO2) 21 Equipment Usage Equipment in Use Continuous SpO2 Machine # 6 Intake & Output 01/05/18 01/06/18 01/07/18 06:59 06:59 06:59 Intake Total 926 2221 Output Total 1275 3050 Balance -349 -829 Weight 79.1 kg 79.3 kg General appearance: PRESENT: no acute distress Eye exam: PRESENT: conjunctiva pink, PERRLA Mouth exam: PRESENT: moist Teeth exam: PRESENT: poor dentation Neck exam: PRESENT: full ROM Respiratory exam: PRESENT: clear to auscultation kaleb, symmetrical, unlabored Cardiovascular exam: PRESENT: +S1, +S2 Pulses: PRESENT: normal radial pulses, normal dorsalis pedis pul GI/Abdominal exam: PRESENT: normal bowel sounds, soft, tenderness - RUQ Rectal exam: PRESENT: deferred Extremities exam: PRESENT: full ROM Musculoskeletal exam: PRESENT: ambulatory, full ROM Neurological exam: PRESENT: alert, awake, oriented to person, oriented to place , oriented to time, oriented to situation Psychiatric exam: PRESENT: appropriate affect Results Laboratory Results: 01/04/18 06:23 01/05/18 08:09 Impressions: Abdomen/Pelvis CT 01/01/18 09:24 IMPRESSION: No CT angio evidence of acute pulmonary emboli or thoracic aortic dissection Diffuse peripancreatic inflammation in the retroperitoneal fat from acute pancreatitis. No loculated pseudocyst. Profound fatty infiltration of the liver Chest/Abdomen CTA 01/01/18 09:32 IMPRESSION: No CT angio evidence of acute pulmonary emboli or thoracic aortic dissection Diffuse peripancreatic inflammation in the retroperitoneal fat from acute pancreatitis. No loculated pseudocyst. Profound fatty infiltration of the liver Status: Imported from PACS Assessment & Plan - Diagnosis (1) Pancreatitis Qualifiers: Chronicity: acute Pancreatitis type: alcohol induced Acute pancreatitis complication: unspecified Qualified Code(s): K85.20 - Alcohol induced acute pancreatitis without necrosis or infection Is this a current diagnosis for this admission?: Yes Plan: Interstitial edematous acute pancreatitis. Mild. Improving today. Secondary to chronic alcohol abuse. Admission [facility] II score: 4. No evidence of SIRS at this time. Lipase improving, down to 213 from >300 yesterday. Electrolytes within normal limits, serum Calcium normal. Continue morphine for pain control Continue IV PPI and IV maintenance fluids Patient states that he is hungry. He has been tolerating the clear liquid diet. Will advance to solid food today. If the patient develops postprandial abdominal pain, will have to revert back to n.p.o. status. (2) Alcohol abuse Is this a current diagnosis for this admission?: Yes Plan: Patient admits to daily vodka intake, approximately 1 pint per day. Last drink /. No history of seizures when withdrawing from alcohol. When awake, the patient has visible tremors in both hands Currently requiring a lap belt to keep the patient in bed. Patient requesting to have it removed. Continue IV Valium for ETOH withdrawal in place of ativan since patient has been having paradoxical agitation in response to ativan Scheduled Valium, PRN haldol, scheduled morphine, PRN benadryl Continue cardiac telemetry. Continue thiamine and folic acid IV nightly (3) Transaminitis Is this a current diagnosis for this admission?: Yes Plan: Improving. Likely secondary to chronic alcohol use. No evidence of cholelithiasis. AST/ALT continue to improve, will monitor daily CMP Continue maintenance IVF until patient can tolerate regular diet (4) Personal history of atrial fibrillation Is this a current diagnosis for this admission?: Yes Plan: History of AFIB status post ablation in 2003 EKG shows NSR, RRR, no evidence of infarction or ischemia - Time Time Spent with patient: 15-24 minutes Medications reviewed and adjusted accordingly: Yes Anticipated discharge: Home - Inpatient Certification Based on my medical assessment, after consideration of the patient's comorbidities, presenting symptoms, or acuity I expect that the services needed warrant INPATIENT care.: Yes I certify that my determination is in accordance with my understanding of Medicare's requirements for reasonable and necessary INPATIENT services [42 CFR 412.3e].: Yes Medical Necessity: Risk of Complication if Not Cared For in Hospital - Plan Summary Plan Summary: Ultimately, the plan is to discharge the patient home with information about alcohol rehab programs.
[2018-01-07] MEDS ORDERED: OXYCODONE HCL IR 5 MG TABLET PO PRN (07:54)
[2018-01-07] MEDS ORDERED: DIAZEPAM 5 MG TABLET PO PRN (07:57)
[2018-01-07] MEDS: FAMOTIDINE INJ/PF 20 MG/2 ML SDV IV SCH ×2 (09:20→21:02)
[2018-01-07] MEDS: OXYCODONE HCL IR 5 MG TABLET PO PRN ×2 (09:20→14:54)
[2018-01-07] MEDS: ENOXAPARIN SODIUM INJ 40 MG/0.4 ML DISP.SYRIN SUBCUT SCH (09:21)
[2018-01-07] MEDS: NORMAL SALINE 1000 ML 1,000 ML IV PRN ×2 (09:21→21:06)
--- NOTE | 2018-01-07 13:22 | PDOC PROGRESS REPORT ---
Subjective Progress Note for:: 01/07/18 Subjective:: The patient is a 42-year-old male with a past medical history of PAF and alcohol dependency who was admitted on 01/01/18 for alcoholic pancreatitis. The patient is seen on morning rounds. He tolerated a brat diet overnight and this morning for breakfast. He states that he did not have any worsening abdominal pain or nausea or vomiting. He reports that his only pain is when drinking plain water. He is hopeful to be discharged tomorrow. He states that his intention is to move back in with his father to maintain his sobriety. He is requesting information on Alcoholics Anonymous and area resources. He declines a referral to inpatient or intensive outpatient alcohol rehabilitation. He has no new questions or concerns today. Reason For Visit: ACUTE PANCREATITIS, ALCOHOL ABUSE Physical Exam Vital Signs: Temp Pulse Resp BP Pulse Ox 99.0 F 87 17 146/102 H 96 01/07/18 11:47 01/07/18 11:47 01/07/18 07:46 01/07/18 11:47 01/07/18 11:47 Pulse Oximeter Continuous Start: 01/03/18 17: 25 Freq: Status: Complete Document 01/06/18 09:18 TPO (Rec: 01/06/18 09:18 TPO [email or web address]) Pulse Oximetry Assessment Oxygen Saturation (92-100) 95 Oxygen Delivery Method Room Air Fraction of Inspired Oxygen (FIO2) 21 Equipment Usage Equipment in Use Continuous SpO2 Machine # 6 Intake & Output 01/06/18 01/07/18 01/08/18 06:59 06:59 06:59 Intake Total 2221 5056 237 Output Total 3050 1650 950 Balance -829 3406 -713 Weight 79.3 kg 83.1 kg General appearance: PRESENT: no acute distress, well-developed, well-nourished Head exam: PRESENT: atraumatic, normocephalic Eye exam: PRESENT: conjunctiva pink, EOMI, PERRLA. ABSENT: scleral icterus Ear exam: PRESENT: normal external ear exam Mouth exam: PRESENT: moist, tongue midline Neck exam: ABSENT: carotid bruit, JVD, lymphadenopathy, thyromegaly Respiratory exam: PRESENT: clear to auscultation kaleb, symmetrical, unlabored. ABSENT: rales, rhonchi, wheezes Cardiovascular exam: PRESENT: RRR, +S1, +S2. ABSENT: diastolic murmur, rubs, systolic murmur Pulses: PRESENT: normal dorsalis pedis pul Vascular exam: PRESENT: normal capillary refill GI/Abdominal exam: PRESENT: normal bowel sounds, soft. ABSENT: distended, guarding, mass, organolmegaly, rebound, tenderness Rectal exam: PRESENT: deferred Extremities exam: PRESENT: full ROM. ABSENT: calf tenderness, clubbing, pedal edema Neurological exam: PRESENT: alert, awake, oriented to person, oriented to place , oriented to time, oriented to situation, CN II-XII grossly intact. ABSENT: motor sensory deficit Psychiatric exam: PRESENT: appropriate affect, normal mood. ABSENT: homicidal ideation, suicidal ideation Skin exam: PRESENT: dry, intact, warm. ABSENT: cyanosis, rash Results Laboratory Results: 01/07/18 04:54 01/07/18 04:54 01/06/18 01/07/18 01/07/18 14:17 04:54 04:54 WBC 4.4 RBC 3.88 L Hgb 12.6 L Hct 37.2 L MCV 96 MCH 32.4 MCHC 33.8 RDW 15.1 H Plt Count 189 Sodium 140.6 139.0 Potassium 3.6 3.3 L Chloride 105 106 Carbon Dioxide 28 28 Anion Gap 8 5 BUN 3 L 3 L Creatinine 0.73 0.73 Est GFR ( Amer) > 60 > 60 Est GFR (Non-Af Amer) > 60 > 60 Glucose 96 104 Calcium 9.2 9.0 Total Bilirubin 0.9 0.7 AST 381 H 279 H ALT 125 H 106 H Alkaline Phosphatase 150 H 141 H Total Protein 6.4 5.7 L Albumin 3.2 L 2.9 L Lipase 213.8 286.4 Impressions: Abdomen/Pelvis CT 01/01/18 09:24 IMPRESSION: No CT angio evidence of acute pulmonary emboli or thoracic aortic dissection Diffuse peripancreatic inflammation in the retroperitoneal fat from acute pancreatitis. No loculated pseudocyst. Profound fatty infiltration of the liver Chest/Abdomen CTA 01/01/18 09:32 IMPRESSION: No CT angio evidence of acute pulmonary emboli or thoracic aortic dissection Diffuse peripancreatic inflammation in the retroperitoneal fat from acute pancreatitis. No loculated pseudocyst. Profound fatty infiltration of the liver Assessment & Plan - Diagnosis (1) Pancreatitis Qualifiers: Chronicity: acute Pancreatitis type: alcohol induced Acute pancreatitis complication: unspecified Qualified Code(s): K85.20 - Alcohol induced acute pancreatitis without necrosis or infection Is this a current diagnosis for this admission?: Yes Plan: Improved. The patient was admitted with interstitial edematous and acute pancreatitis secondary to chronic alcohol abuse. Admission [place] 2 score of 4. No evidence of seizures at that time. Lipase has returned to normal. Calcium is normal; potassium is slightly low at 3.3. Will replace potassium today. Have discontinued all IV pain medications. Patient now has oxycodone 5-10 milligrams every 4 hours available. Antiemetics as needed. We will advance to a regular diet in anticipation of discharge to home tomorrow. (2) Alcohol abuse Is this a current diagnosis for this admission?: Yes Plan: Patient admits to daily vodka intake of approximately 1 pint per day. Last drink on December 31. No history of seizures when withdrawing from alcohol. The patient appears to be much improved; he no longer has tremors to his hands and is no longer requiring lapbelt to keep the patient in bed. IV Valium has been discontinued. Schedule valium is reduced to 10 mg p.o. every 8 hours. We will continue as needed Haldol for anxiety and agitation. Continue thiamine and folic acid IV nightly. (3) Transaminitis Is this a current diagnosis for this admission?: Yes Plan: Continues to trend down. This is likely secondary to chronic alcohol abuse. There is no evidence of cholelithiasis. Acute hepatitis panel is negative. (4) Personal history of atrial fibrillation Is this a current diagnosis for this admission?: Yes Plan: History of A. fib status post ablation in 2003. EKG shows normal sinus rhythm, no evidence of ischemia. Patient remains on continuous cardiac telemetry with no abnormal heart rhythms noted. - Time Medications reviewed and adjusted accordingly: Yes Anticipated discharge: Home Within: within 24 hours, within 48 hours
[2018-01-07] MEDS: METOPROLOL SUCCINATE 25 MG TAB.SR.24H PO SCH (18:41)
[2018-01-07] MEDS: THIAMINE HCL 100 MG, FOLIC ACID 1 MG in NORMAL SALINE 250 ML IV SCH (18:41)
[2018-01-07] MEDS: POTASSIUM CHLORIDE 10 MEQ TABLET.SA PO SCH (21:02)
[2018-01-08 05:48] LABS: HEMATOCRIT 37.2 % (37.9-51.0); HEMOGLOBIN 12.6 g/dL (13.5-17.0); MEAN CORPUSCULAR HEMOGLOBIN 32.2 pg (27.0-33.4); MEAN CORPUSCULAR HGB CONC 33.8 g/dL (32.0-36.0); MEAN CORPUSCULAR VOLUME 95 fl (80-97); PLATELET COUNT 228 10^3/uL (150-450); RED CELL DISTRIBUTION WIDTH 15.5 % (11.5-14.0); WHITE BLOOD COUNT 4.4 10^3/uL (4.0-10.5)
[2018-01-08 06:14] LABS: ALANINE AMINOTRANSFERASE 92 U/L (21-72); ALBUMIN 2.8 g/dL (3.5-5.0); ALKALINE PHOSPHATASE 122 U/L (38-126); ANION GAP 8 (5-19); ASPARTATE AMINO TRANSFERASE 224 U/L (17-59); BILIRUBIN,DIRECT 0.5 mg/dL (0.0-0.4); BILIRUBIN,TOTAL 0.5 mg/dL (0.2-1.3); BLOOD UREA NITROGEN 4 mg/dL (7-20); CALCIUM 9.3 mg/dL (8.4-10.2); CARBON DIOXIDE 27 mmol/L (22-30); CHLORIDE 107 mmol/L (98-107); GLUCOSE 93 mg/dL (75-110); POTASSIUM 3.5 mmol/L (3.6-5.0); TOTAL PROTEIN 5.7 g/dL (6.3-8.2)
[2018-01-08] MEDS: FAMOTIDINE INJ/PF 20 MG/2 ML SDV IV SCH (10:08)
[2018-01-08] MEDS: ENOXAPARIN SODIUM INJ 40 MG/0.4 ML DISP.SYRIN SUBCUT SCH (10:08)
[2018-01-08] MEDS: POTASSIUM CHLORIDE 10 MEQ TABLET.SA PO SCH (10:08)
[2018-01-08 12:30] VITALS: BP 125/84
--- NOTE | 2018-01-08 17:58 | PDOC DISCHARGE SUMMARY ---
General - Admit/Disc Date/PCP Admission Date/Primary Care Provider: 01/01/18 15:14 Discharge Date: 01/08/18 - Discharge Diagnosis (1) Pancreatitis Is this a current diagnosis for this admission?: Yes Summary: The patient was admitted with alcohol induced pancreatitis. CT imaging upon admission revealed diffuse peripancreatic inflammation in the retroperitoneal fat from the acute pancreatitis but no loculated pseudocyst. There was no evidence of cholelithiasis. He was initially placed in n.p.o. status and supported with IV fluids, antiemetics, and pain medications. His symptoms resolved and lipase and LFTs trended down over the following 4 days. He was placed on a clear liquid diet and advanced as tolerated. At time of discharge, the patient's pain was well-controlled with p.o. oxycodone. He is tolerating a regular diet without nausea or vomiting. (2) Alcohol abuse Is this a current diagnosis for this admission?: Yes Summary: The patient admitted to a daily vodka intake approximately 1 pint per day. He has no previous history of seizures from alcohol withdrawal. The patient did experience delirium while acutely withdrawing from alcohol requiring a role but, scheduled and as needed Valium, and Haldol as needed. He did not experience any seizure activity during this withdrawal process. His withdrawal symptoms resolved and he was transitioned to scheduled Valium 10 mg p.o. every 8 hours. He met with our discharge planners and was provided information with regards to area support systems and Alcoholics Anonymous. The patient tells me that his plan is to be discharged to live with his father who is sober and will support him in maintaining his sobriety. He maintains that he intends to remain sober and therefore is discharged with a short prescription of Valium to continue his tapering process over the next 4-5 days. He is strongly advised against resuming alcohol while taking the valium prescription. (3) Transaminitis Is this a current diagnosis for this admission?: Yes Summary: Secondary to chronic alcohol abuse. CT of the abdomen and pelvis additionally demonstrated a fatty liver. Acute hepatitis panel was negative. LFTs gradually improved through the course of his admission. (4) Personal history of atrial fibrillation Is this a current diagnosis for this admission?: Yes Summary: The patient was monitored on continuous cardiac telemetry without abnormal heart rhythms. He remained in a sinus rhythm throughout his admission. - Additional Information Resuscitation Status: Full Code Discharge Diet: As Tolerated, Regular Discharge Activity: Activity As Tolerated Prescriptions: Diazepam [Valium 5 mg Tablet] 5 mg PO Q8HP PRN #15 tablet PRN Reason: Metoprolol Succinate [Toprol Xl 25 mg Tab.sr] 25 mg PO QPM #30 tab.sr.24h Omeprazole Magnesium [Prilosec Otc] 20 mg PO DAILY #30 tablet. Ondansetron HCl [Zofran] 4 mg PO Q6HP PRN #20 tablet PRN Reason: For Nausea/Vomiting Oxycodone HCl [Oxy-Ir 5 mg Tablet] 5 mg PO Q6HP PRN #12 tablet PRN Reason: Home Medications: Diazepam [Valium 5 mg Tablet] 5 mg PO Q8HP PRN #15 tablet 01/08/18 Metoprolol Succinate [Toprol Xl 25 mg Tab.sr] 25 mg PO QPM #30 tab.sr.24h Omeprazole Magnesium [Prilosec Otc] 20 mg PO DAILY #30 tablet. 01/08/18 Ondansetron HCl [Zofran] 4 mg PO Q6HP PRN #20 tablet 01/08/18 Oxycodone HCl [Oxy-Ir 5 mg Tablet] 5 mg PO Q6HP PRN #12 tablet 01/08/18 History of Present Illness History of Present Illness: Per H&P by Dr. Allen: SOLITARIO CARLTON is a 42 year old male who presents to the emergency room with right upper quadrant pain as well as vomiting that started during the night. In fact patient woke up with it. He admits to drinking vodka daily with his last drink last night. He has had no bloody stools of bloody vomiting, no chest pain dysuria frequency. He gives a prior history of atrial fibrillation status post ablation in 2003. He also gives a prior history of pancreatitis around the same time but he says he has had no further episodes since then. Patient has a long history of alcohol abuse that he cannot quantify. 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 CT abdomen and pelvis done reveals evidence of acute pancreatitis. Lipase was found to be 3863 and he also has transaminitis Physical Exam Vital Signs: Temp Pulse Resp BP Pulse Ox 97.7 F 72 18 125/84 99 01/08/18 12:30 01/08/18 12:30 01/08/18 12:30 01/08/18 12:30 01/08/18 12:30 Pulse Oximeter Continuous Start: 01/03/18 17: 25 Freq: Status: Complete Document 01/06/18 09:18 TPO (Rec: 01/06/18 09:18 TPO [email or web address]) Pulse Oximetry Assessment Oxygen Saturation (92-100) 95 Oxygen Delivery Method Room Air Fraction of Inspired Oxygen (FIO2) 21 Equipment Usage Equipment in Use Continuous SpO2 Machine # 6 Intake & Output 01/07/18 01/08/18 01/09/18 06:59 06:59 06:59 Intake Total 5056 4536 355 Output Total 1650 1450 Balance 3406 3086 355 Weight 83.1 kg 81.2 kg General appearance: PRESENT: no acute distress, cooperative, well-developed, well-nourished Head exam: PRESENT: atraumatic, normocephalic Eye exam: PRESENT: conjunctiva pink, EOMI, PERRLA. ABSENT: scleral icterus Ear exam: PRESENT: normal external ear exam Mouth exam: PRESENT: moist, tongue midline Neck exam: ABSENT: carotid bruit, JVD, lymphadenopathy, thyromegaly Respiratory exam: PRESENT: clear to auscultation kaleb, symmetrical, unlabored. ABSENT: rales, rhonchi, wheezes Cardiovascular exam: PRESENT: RRR, +S1, +S2. ABSENT: diastolic murmur, rubs, systolic murmur Pulses: PRESENT: normal dorsalis pedis pul Vascular exam: PRESENT: normal capillary refill GI/Abdominal exam: PRESENT: normal bowel sounds, soft. ABSENT: distended, guarding, mass, organolmegaly, rebound, tenderness Rectal exam: PRESENT: deferred Extremities exam: PRESENT: full ROM. ABSENT: calf tenderness, clubbing, pedal edema Neurological exam: PRESENT: alert, awake, oriented to person, oriented to place , oriented to time, oriented to situation, CN II-XII grossly intact. ABSENT: motor sensory deficit Psychiatric exam: PRESENT: appropriate affect, normal mood. ABSENT: homicidal ideation, suicidal ideation Skin exam: PRESENT: dry, intact, warm. ABSENT: cyanosis, rash Results Laboratory Results: 01/08/18 05:04 01/08/18 05:04 01/08/18 01/08/18 05:04 05:04 WBC 4.4 RBC 3.90 L Hgb 12.6 L Hct 37.2 L MCV 95 MCH 32.2 MCHC 33.8 RDW 15.5 H Plt Count 228 Sodium 142.0 Potassium 3.5 L Chloride 107 Carbon Dioxide 27 Anion Gap 8 BUN 4 L Creatinine 0.77 Est GFR ( Amer) > 60 Est GFR (Non-Af Amer) > 60 Glucose 93 Calcium 9.3 Total Bilirubin 0.5 AST 224 H ALT 92 H Alkaline Phosphatase 122 Total Protein 5.7 L Albumin 2.8 L Impressions: Abdomen/Pelvis CT 01/01/18 09:24 IMPRESSION: No CT angio evidence of acute pulmonary emboli or thoracic aortic dissection Diffuse peripancreatic inflammation in the retroperitoneal fat from acute pancreatitis. No loculated pseudocyst. Profound fatty infiltration of the liver Chest/Abdomen CTA 01/01/18 09:32 IMPRESSION: No CT angio evidence of acute pulmonary emboli or thoracic aortic dissection Diffuse peripancreatic inflammation in the retroperitoneal fat from acute pancreatitis. No loculated pseudocyst. Profound fatty infiltration of the liver Qualifiers - * PATEINT BEING DISCHARGED WITH ANY OF THE FOLLOWING DIAGNOSIS?: No Plan Discharge Plan: Discharge to home with self care. The patient reported that he intends to move in with his father to help him maintain his sobriety. He is advised to follow- up with area mental health providers, Alcoholics Anonymous, and various support groups. He is encouraged to identify a sober support person in addition to his father. He is to follow-up with the [facility] on January 20 at 11 AM. Time Spent: Less than 30 Minutes
== END 2018-01-08 13:06 | disposition home or self-care (01) | DRG 439 ==
LOC: ER 08:35 → EH 15:14 → 4W 22:13 → 3W 01-03 18:33
PROVIDERS: ADMIT Family Medicine; ATTEND Family Medicine
DX: K85.20 Alcohol induced acute pancreatitis without necrosis or infection (principal); F10.231 Alcohol dependence with withdrawal delirium; R74.0 Nonspecific elevation of levels of transaminase and lactic acid dehydrogenase [LDH]; F41.9 Anxiety disorder, unspecified; K70.0 Alcoholic fatty liver; Z78.1 Physical restraint status; Z98.890 Other specified postprocedural states; Z86.79 Personal history of other diseases of the circulatory system
CPT/HCPCS: 36415; 71275; 74177; 80048; 80053; 80061; 80074; 81001; 82550; 82553; 83690; 83735; 84100; 84450; 84460; 84484; 85025; 85027; 87086; 87088; 87186; 93005; 93010; 94762; 96374; 96376; 99285; J0360; J1200; J1630; J1650; J2060; J2270; J3360; J3411; J3480; J3490; J7030; J7050; S0028

== ENCOUNTER 2018-01-20 08:51 | Emergency (ER) | payer SELFPAY ==
--- NOTE | 2018-01-20 09:12 | ER Document Report ---
HPI - HPI Patient complains to provider of: Hard left arm pain Onset: Last week Onset/Duration: Sudden, Persistent Pain Level: 3 Context: 42-year-old male that was admitted to the hospital for pancreatitis had multiple IV sticks and IVs in his arms. He noticed when he got home that he had a hard pain in his left arm and is worried that it is going to kill him. He is worried about a blood clot. No chest pain or shortness of breath. He has an appointment with [facility] for follow-up and for treatment of his blood pressure. Associated Symptoms: None Exacerbated by: Denies Relieved by: Denies Similar symptoms previously: No Recently seen / treated by doctor: No - ROS ROS below otherwise negative: Yes Systems Reviewed and Negative: Yes All other systems reviewed and negative - REPRODUCTIVE Reproductive: DENIES: : Past Medical History - General Information source: Patient - Social History Smoking Status: Current Every Day Smoker Frequency of alcohol use: Heavy Drug Abuse: None Lives with: Family Family History: None, Reviewed & Not Pertinent - Past Medical History Cardiac Medical History: Reports: Hx Atrial Fibrillation - INTERMITTENT, INFREQUENT 1992, PAF Musculoskeltal Medical History: Reports Hx Musculoskeletal Trauma Psychiatric Medical History: Reports: Hx Anxiety Traumatic Medical History: Reports: Hx Fractures Past Surgical History: Reports: Hx Orthopedic Surgery - left lower extremity - Immunizations Immunizations up to date: Yes Hx Diphtheria, Pertussis, Tetanus Vaccination: Yes Vertical Provider Document - CONSTITUTIONAL Agree With Documented VS: Yes Exam Limitations: No Limitations - INFECTION CONTROL TRAVEL OUTSIDE OF THE [place] IN LAST 30 DAYS: No - HEENT HEENT: Normocephalic - NECK Neck: Supple - RESPIRATORY Respiratory: Breath Sounds Normal, No Respiratory Distress - CARDIOVASCULAR Cardiovascular: Regular Rate, Regular Rhythm - MUSCULOSKELETAL/EXTREMETIES Musculoskeletal/Extremeties: MAEW, FROM, Tender - volar left forearm over a superficial hardened vein that extends above the left antecubital, no redness heat or swelling to the extremity - NEURO Level of Consciousness: Awake, Alert Motor/Sensory: No Motor Deficit, No Sensory Deficit - DERM Integumentary: Warm, Dry Course - Re-evaluation Re-evalutation: 01/20/18 11:48 Cephalic vein thrombosis per venous Doppler ultrasound. This is a superficial vein treat with heat anti-inflammatory medications and also recommended [facility] He has an appointment with [facility] for his blood pressure. - Vital Signs Vital signs: Temp Pulse Resp BP Pulse Ox 93 20 164/105 H 96 01/20/18 08:55 01/20/18 08:55 01/20/18 08:55 01/20/18 08:55 Discharge - Discharge Clinical Impression: Hypertension Qualifiers: Hypertension type: essential hypertension Qualified Code(s): I10 - Essential ( primary) hypertension Superficial venous thrombosis of upper extremity Qualifiers: Laterality: left Qualified Code(s): I82.612 - Acute embolism and thrombosis of superficial veins of left upper extremity Condition: Good Disposition: HOME, SELF-CARE Instructions: Anti-Inflammatory Medication (ON LICENSE OF [facility]), [facility], Superficial Phlebitis (ON LICENSE OF [facility]), Warm Packs (ON LICENSE OF [facility]) Additional Instructions: warm compress motrin see the [facility] about your high blood pressure as planned Return to the emergency room any concerns Prescriptions: Ibuprofen [Motrin 800 mg Tablet] 800 mg PO Q8HP PRN #30 tablet PRN Reason: Forms: Elevated Blood Pressure, Return to Work
[2018-01-20] MEDS ORDERED: IBUPROFEN 800 MG TABLET PO ONE (11:05)
--- NOTE | 2018-01-20 11:28 | RADIOLOGY REPORT (SQ) ---
EXAM DESCRIPTION: VENOUS UNILATERAL UPPER COMPLETED DATE/TIME: 01/20/2018 11:16 am REASON FOR STUDY: hard tender left arm vein COMPARISON: None. TECHNIQUE: Dynamic and static trevino scale and color images acquired of the left arm venous system. Se lected spectral images acquired with additional compression and augmentation maneuvers. The contralat eral subclavian vein and internal jugular vein were also imaged. Images stored on PACS. LIMITATIONS: None. FINDINGS: INTERNAL JUGULAR VEIN: Normal phasicity, compression, augmentation. No visualized echogeni c material on trevino scale. No defects on color images. Comparison opposite side normal. SUBCLAVIAN VEIN: Normal compression, augmentation. No visualized echogenic material on trevino scale. No defects on color images. AXILLARY VEIN: Normal compression, augmentation. No visualized echogenic material on trevino scale. No d efects on color images. BRACHIAL VEIN: Normal compression, augmentation. No visualized echogenic material on trevino scale. No d efects on color images. BASILIC VEIN: Normal compression, augmentation. No visualized echogenic material on trevino scale. No de fects on color images. CEPHALIC VEIN: Acute thrombus present. OTHER: No other significant finding. CONTRALATERAL SUBCLAVIAN VEIN AND INTERNAL JUGULAR VEIN: Normal phasicity, compression and augmentation. No visualized echogenic material on trevino scale. No de fects on color images. IMPRESSION: ACUTE THROMBUS IN THE LEFT CEPHALIC VEIN. TECHNICAL DOCUMENTATION: JOB ID: [id number] [employer]- All Rights Reserved Reading location - IP/workstation name: [email or web address]
[2018-01-20 11:50] VITALS: BP 170/113
== END 2018-01-20 11:49 | disposition home or self-care (01) ==
LOC: ER 08:51
DX: I82.612 Acute embolism and thrombosis of superficial veins of left upper extremity (principal); I10 Essential (primary) hypertension; F17.200 Nicotine dependence, unspecified, uncomplicated
CPT/HCPCS: 93971; 99283

== ENCOUNTER 2018-02-07 08:47 | Emergency (ER) | payer OTHER ==
[2018-02-07] MEDS ORDERED: LIDOCAINE 1% INJ-PF (10 MG/ML) 30 ML SDV INJ ONE (09:12)
[2018-02-07 09:14] LABS: ABSOLUTE EOSINOPHILS # (AUTO) 0.1 10^3/uL (0.0-0.6); ABSOLUTE LYMPHOCYTES (AUTO) 0.8 10^3/uL (0.5-4.7); ABSOLUTE MONOCYTES (AUTO) 0.5 10^3/uL (0.1-1.4); ABSOLUTE NEUT (AUTO) 2.7 10^3/uL (1.7-8.2); BASOPHILS % (AUTO) 0.4 % (0-2); EOSINOPHILS % (AUTO) 1.3 % (0-6); HEMATOCRIT 40.3 % (37.9-51.0); HEMOGLOBIN 13.9 g/dL (13.5-17.0); LYMPHOCYTES % (AUTO) 20.1 % (13-45); MEAN CORPUSCULAR HGB CONC 34.4 g/dL (32.0-36.0); MEAN CORPUSCULAR VOLUME 96 fl (80-97); MONOCYTES % (AUTO) 13.1 % (3-13); PLATELET COUNT 248 10^3/uL (150-450); RED BLOOD COUNT 4.21 10^6/uL (4.35-5.55); RED CELL DISTRIBUTION WIDTH 14.3 % (11.5-14.0); SEGMENTED NEUTROPHILS % (AUTO) 65.1 % (42-78); TOTAL CELLS COUNTED % (AUTO) 100 %; WHITE BLOOD COUNT 4.2 10^3/uL (4.0-10.5)
[2018-02-07 09:24] LABS: PROTHROMBIN TIME 12.6 SEC (11.4-15.4)
[2018-02-07 09:27] LABS: PARTIAL THROMBOPLASTIN TIME 24.7 SEC (23.5-35.8)
[2018-02-07 09:28] LABS: ALANINE AMINOTRANSFERASE 106 U/L (21-72); ALBUMIN 4.2 g/dL (3.5-5.0); ALKALINE PHOSPHATASE 131 U/L (38-126); ANION GAP 19 (5-19); ASPARTATE AMINO TRANSFERASE 289 U/L (17-59); BILIRUBIN,DIRECT 0.3 mg/dL (0.0-0.4); BILIRUBIN,TOTAL 0.3 mg/dL (0.2-1.3); BLOOD UREA NITROGEN 12 mg/dL (7-20); CALCIUM 9.4 mg/dL (8.4-10.2); CARBON DIOXIDE 24 mmol/L (22-30); CHLORIDE 110 mmol/L (98-107); GLUCOSE 119 mg/dL (75-110); POTASSIUM 3.7 mmol/L (3.6-5.0); SODIUM 152.7 mmol/L (137-145); TOTAL PROTEIN 7.8 g/dL (6.3-8.2)
[2018-02-07 09:43] LABS: ALCOHOL 409 mg/dL (NONE DETECTED)
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
--- NOTE | 2018-02-07 10:11 | RADIOLOGY REPORT (SQ) ---
EXAM DESCRIPTION: CHEST SINGLE VIEW COMPLETED DATE/TIME: 02/07/2018 10:01 am REASON FOR STUDY: sob COMPARISON: November 2017 EXAM PARAMETERS: NUMBER OF VIEWS: One view. TECHNIQUE: Single frontal radiographic view of the chest acquired. RADIATION DOSE: NA LIMITATIONS: None. FINDINGS: LUNGS AND PLEURA: Subsegmental airspace disease left lower lobe. MEDIASTINUM AND HILAR STRUCTURES: No masses. Contour normal. HEART AND VASCULAR STRUCTURES: Heart normal in size. Normal vasculature. BONES: No acute findings. HARDWARE: None in the chest. OTHER: No other significant finding. IMPRESSION: Atelectasis versus early pneumonia left lower lobe. TECHNICAL DOCUMENTATION: JOB ID: [id number] [employer]- All Rights Reserved Reading location - IP/workstation name: [email or web address]
[2018-02-07] MEDS ORDERED: ACETAMINOPHEN 325 MG TABLET PO ONE (11:05)
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
[2018-02-07] MEDS ORDERED: KETOROLAC TROMETHAMINE INJ/PF 30 MG/1 ML SDV IV ONE (12:34)
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
[2018-02-07] MEDS: NORMAL SALINE 1000 ML 1,000 ML IV PRN ×2 (13:07→13:10)
[2018-02-07] MEDS ORDERED: OXYCODONE HCL IR 5 MG TABLET PO ONE (16:09)
[2018-02-07] MEDS ORDERED: DIPH/PERTUSS(ACELL)/TETANUS VAC/PF 0.5 ML SYR (>=10YO) IM ONE (17:12)
[2018-02-07 19:07] VITALS: BP 135/94
== END 2018-02-07 19:06 | disposition home or self-care (01) ==
LOC: ER 08:47
DX: S22.22XA Fracture of body of sternum, initial encounter for closed fracture (principal); S22.059A Unspecified fracture of T5-T6 vertebra, initial encounter for closed fracture; S01.511A Laceration without foreign body of lip, initial encounter; R07.9 Chest pain, unspecified; V28.4XXA Motorcycle driver injured in noncollision transport accident in traffic accident, initial encounter; F10.20 Alcohol dependence, uncomplicated; Y90.8 Blood alcohol level of 240 mg/100 ml or more; R06.00 Dyspnea, unspecified
CPT/HCPCS: 99285; 96361; 90471; 96374; 86900; 86901; 36415; 86850; 80307; 83690; 85025; 85610; 85730; 80053; 71045; 70450; 71275; 72125; 74175; 90715; 12011; J1885; J7030

== ENCOUNTER 2018-02-11 21:05 | Emergency (ER) | payer OTHER ==
[2018-02-11 21:33] VITALS: BP 151/108
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
== END 2018-02-11 23:24 | disposition home or self-care (01) ==
LOC: ER 21:05
DX: Z71.1 Person with feared health complaint in whom no diagnosis is made (principal); F17.200 Nicotine dependence, unspecified, uncomplicated
CPT/HCPCS: 99281

== ENCOUNTER 2018-02-13 09:35 | Emergency (ER) | payer OTHER ==
[2018-02-13 09:45] VITALS: BP 147/104
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
== END 2018-02-13 10:02 | disposition home or self-care (01) ==
LOC: ER 09:35
DX: S01.81XD Laceration without foreign body of other part of head, subsequent encounter (principal); V49.9XXD Car occupant (driver) (passenger) injured in unspecified traffic accident, subsequent encounter; I10 Essential (primary) hypertension

== ENCOUNTER 2018-04-21 16:48 | Inpatient (IN) | payer SELFPAY ==
[2018-04-21] MEDS ORDERED: OXYCODONE-ACETAMINOPHEN 5-325 MG TABLET PO ONE (18:12)
[2018-04-21] MEDS ORDERED: ONDANSETRON 4 MG TAB.RAPDIS PO ONE (18:12)
--- NOTE | 2018-04-21 18:14 | ER Document Report ---
ED Medical Screen (RME) - General Chief Complaint: Nausea/Vomiting Stated Complaint: ABDOMINAL PAIN Time Seen by Provider: 04/21/18 18:10 Mode of Arrival: Wheelchair Notes: pt c/o RUQ, Epigastric pain that started today at noonafter lunch. c/o N/V TRAVEL OUTSIDE OF THE [place] IN LAST 30 DAYS: No - Related Data Allergies/Adverse Reactions: No Known Allergies Allergy (Verified 04/21/18 16:48) Past Medical History - Social History Chew tobacco use (# tins/day): No Frequency of alcohol use: Occasional Drug Abuse: None - Past Medical History Cardiac Medical History: Reports: Hx Atrial Fibrillation - INTERMITTENT, INFREQUENT 1992, PAF Endocrine Medical History: Denies: Hx Hyperthyroidism, Hx Hypothyroidism Renal/ Medical History: Denies: Hx Peritoneal Dialysis Musculoskeltal Medical History: Reports Hx Musculoskeletal Trauma Psychiatric Medical History: Reports: Hx Anxiety Traumatic Medical History: Reports: Hx Fractures Past Surgical History: Reports: Hx Orthopedic Surgery - left lower extremity - Immunizations Immunizations up to date: Yes Hx Diphtheria, Pertussis, Tetanus Vaccination: Yes History of Influenza Vaccine for 06/2017 - 11/2017 Season: No Physical Exam - Vital signs Vitals: Temp Pulse Resp BP Pulse Ox 98.2 F 108 H 18 143/102 H 99 04/21/18 17:06 04/21/18 17:06 04/21/18 17:06 04/21/18 17:06 04/21/18 17:06 Course - Vital Signs Vital signs: Temp Pulse Resp BP Pulse Ox 98.2 F 108 H 18 143/102 H 99 04/21/18 17:06 04/21/18 17:06 04/21/18 17:06 04/21/18 17:06 04/21/18 17:06
[2018-04-21 19:29] LABS: ABSOLUTE BASOPHILS # (AUTO) 0.1 10^3/uL (0.0-0.2); ABSOLUTE LYMPHOCYTES (AUTO) 0.8 10^3/uL (0.5-4.7); ABSOLUTE MONOCYTES (AUTO) 0.5 10^3/uL (0.1-1.4); ABSOLUTE NEUT (AUTO) 7.2 10^3/uL (1.7-8.2); EOSINOPHILS % (AUTO) 0.1 % (0-6); HEMATOCRIT 42.7 % (37.9-51.0); HEMOGLOBIN 14.9 g/dL (13.5-17.0); LYMPHOCYTES % (AUTO) 9.4 % (13-45); MEAN CORPUSCULAR HEMOGLOBIN 33.1 pg (27.0-33.4); MEAN CORPUSCULAR HGB CONC 34.9 g/dL (32.0-36.0); MEAN CORPUSCULAR VOLUME 95 fl (80-97); MONOCYTES % (AUTO) 6.3 % (3-13); PLATELET COUNT 211 10^3/uL (150-450); RED BLOOD COUNT 4.51 10^6/uL (4.35-5.55); RED CELL DISTRIBUTION WIDTH 14.1 % (11.5-14.0); SEGMENTED NEUTROPHILS % (AUTO) 83.2 % (42-78); TOTAL CELLS COUNTED % (AUTO) 100 %; WHITE BLOOD COUNT 8.7 10^3/uL (4.0-10.5)
[2018-04-21 19:58] LABS: ALANINE AMINOTRANSFERASE 43 U/L (21-72); ALBUMIN 4.5 g/dL (3.5-5.0); ALKALINE PHOSPHATASE 103 U/L (38-126); ANION GAP 15 (5-19); ASPARTATE AMINO TRANSFERASE 115 U/L (17-59); BILIRUBIN,DIRECT 0.4 mg/dL (0.0-0.4); BILIRUBIN,TOTAL 0.4 mg/dL (0.2-1.3); BLOOD UREA NITROGEN 11 mg/dL (7-20); CALCIUM 9.6 mg/dL (8.4-10.2); CARBON DIOXIDE 27 mmol/L (22-30); CHLORIDE 103 mmol/L (98-107); GLUCOSE 135 mg/dL (75-110); POTASSIUM 4.6 mmol/L (3.6-5.0); SODIUM 145.2 mmol/L (137-145); TOTAL PROTEIN 8.2 g/dL (6.3-8.2)
--- NOTE | 2018-04-21 20:02 | RADIOLOGY REPORT (SQ) ---
EXAM DESCRIPTION: U/S ABDOMEN LIMITED W/O DOP COMPLETED DATE/TIME: 04/21/2018 7:48 pm REASON FOR STUDY: RUQ pain n/v COMPARISON: 09/12/2017. TECHNIQUE: Dynamic and static grayscale images acquired of the right upper quadrant and recorded on PACS. Additional selected color Doppler and spectral images recorded. LIMITATIONS: Study limited due to acoustical interference from fat or from air in the bowel. FINDINGS: PANCREAS: Parts of the pancreas poorly seen secondary to acoustical interference from fat or from air in the bowel. LIVER: Echotexture is coarse with increased echogenicity consistent with fatty infiltration. No mass es. LIVER VASCULATURE: Normal directional flow of the main portal vein and hepatic veins. GALLBLADDER: No stones. Normal wall thickness. No pericholecystic fluid. ULTRASOUND-DETECTED CASTANEDA'S SIGN: Negative. INTRAHEPATIC DUCTS AND COMMON DUCT: CBD and intrahepatic ducts normal caliber. No filling defects. INFERIOR VENA CAVA: Normal flow. AORTA: No aneurysm. RIGHT KIDNEY: Normal size. Normal echogenicity. No solid or suspicious masses. No hydronephros is. No calcifications. PERITONEAL CAVITY AND RIGHT PLEURAL SPACE: No ascites or effusions. OTHER: No other significant finding. IMPRESSION: FATTY LIVER. PANCREAS PARTIALLY OBSCURED. OTHERWISE NORMAL RIGHT UPPER QUADRANT ULTRASOU ND. TECHNICAL DOCUMENTATION: JOB ID: [id number] [employer]- All Rights Reserved Reading location - IP/workstation name: [email or web address]
[2018-04-21 20:22] LABS: LIPASE 5144.2 U/L (23-300)
[2018-04-21] MEDS ORDERED: MORPHINE SULFATE 10 MG/ML INJ IV PRN (20:51)
[2018-04-21] MEDS ORDERED: NORMAL SALINE 1000 ML 2,000 ML IV ONE (20:52)
[2018-04-21] MEDS ORDERED: METOCLOPRAMIDE HCL INJ/PF 10 MG/2 ML SDV IV ONE (20:52)
--- NOTE | 2018-04-21 21:09 | ER Document Report ---
ED General - General Chief Complaint: Nausea/Vomiting Stated Complaint: ABDOMINAL PAIN Time Seen by Provider: 04/21/18 18:10 Mode of Arrival: Wheelchair Notes: Patient is a 42-year-old male with a past medical history of atrial fibrillation , alcohol abuse, prior alcohol-induced pancreatitis who presents with 12 hours of epigastric abdominal pain with associated nausea and vomiting. The patient reports that he drank heavily last night, when he woke up he had some mild upper abdominal pain but after he ate lunch the pain became much more intense. He describes as a severe, stabbing pain to his upper abdomen that radiates straight to his mid back. He has vomited each time he has tried to eat or drink something since that time. The pain has been worsening since onset. He states this feels very similar to when he has had pancreatitis in the past. He does not have a primary care doctor. He denies any chest pain, fever, shortness of breath or syncope. TRAVEL OUTSIDE OF THE [place] IN LAST 30 DAYS: No - Related Data Allergies/Adverse Reactions: No Known Allergies Allergy (Verified 04/21/18 16:48) Past Medical History - General Information source: Patient - Social History Smoking Status: Never Smoker Chew tobacco use (# tins/day): No Frequency of alcohol use: Occasional Drug Abuse: None Family History: Reviewed & Not Pertinent Patient has suicidal ideation: No Patient has homicidal ideation: No - Past Medical History Cardiac Medical History: Reports: Hx Atrial Fibrillation - INTERMITTENT, INFREQUENT 1992, PAF Endocrine Medical History: Denies: Hx Hyperthyroidism, Hx Hypothyroidism Renal/ Medical History: Denies: Hx Peritoneal Dialysis Musculoskeletal Medical History: Reports Hx Musculoskeletal Trauma Psychiatric Medical History: Reports: Hx Anxiety Traumatic Medical History: Reports: Hx Fractures Past Surgical History: Reports: Hx Orthopedic Surgery - left lower extremity - Immunizations Immunizations up to date: Yes Hx Diphtheria, Pertussis, Tetanus Vaccination: Yes Review of Systems - Review of Systems Notes: Constitutional: Negative for fever. HENT: Negative for sore throat. Eyes: Negative for visual changes. Cardiovascular: Negative for chest pain. Respiratory: Negative for shortness of breath. Gastrointestinal: Positive for abdominal pain and vomiting Genitourinary: Negative for dysuria. Musculoskeletal: Negative for back pain. Skin: Negative for rash. Neurological: Negative for headaches, weakness or numbness. 10 point ROS negative except as marked above and in HPI. Physical Exam - Vital signs Vitals: Temp Pulse Resp BP Pulse Ox 98.2 F 108 H 18 143/102 H 99 04/21/18 17:06 04/21/18 17:06 04/21/18 17:06 04/21/18 17:06 04/21/18 17:06 Interpretation: Tachycardic Notes: PHYSICAL EXAMINATION: GENERAL: Appears uncomfortable and in pain HEAD: Atraumatic, normocephalic. EYES: Pupils equal round and reactive to light, extraocular movements intact, sclera anicteric, conjunctiva are normal. ENT: nares patent, oropharynx clear without exudates. Moderately dry mucous membranes. NECK: Normal range of motion, supple without lymphadenopathy LUNGS: Breath sounds clear to auscultation bilaterally and equal. No wheezes rales or rhonchi. HEART: Regular tachycardia without murmurs ABDOMEN: Soft, focal epigastric abdominal tenderness to palpation but no other localized areas of tenderness, normoactive bowel sounds. No guarding, no rebound. No masses appreciated. EXTREMITIES: Normal range of motion, no pitting or edema. No cyanosis. NEUROLOGICAL: No focal neurological deficits. Moves all extremities spontaneously and on command. PSYCH: Normal mood, normal affect. SKIN: Warm, Dry, normal turgor, no rashes or lesions noted. Course - Re-evaluation Re-evalutation: 04/21/18 21:07 Patient presents with signs and symptoms as well as labs most consistent with alcohol-induced pancreatitis. He has focal epigastric abdominal tenderness on palpation and has had associated nausea and vomiting. His lipase is elevated at 5144. Right upper quadrant ultrasound without evidence of gallstones to suggest a gallstone induced pancreatitis. He does admit to drinking heavily last night and has had 3 prior episodes of alcohol induced pancreatitis in the past. He was given oral analgesics and antiemetics in triage and had no relief , was actively dry heaving when I walked into the room. An IV will be placed, IV fluids, IV morphine, IV Reglan will be initiated. I discussed the hospitalist will admit the patient given his need for IV fluid resuscitation and pain control. - Vital Signs Vital signs: Temp Pulse Resp BP Pulse Ox 98.2 F 108 H 18 143/102 H 99 04/21/18 17:06 04/21/18 17:06 04/21/18 17:06 04/21/18 17:06 04/21/18 17:06 - Laboratory Result Diagrams: 04/21/18 19:18 04/21/18 19:18 Laboratory results interpreted by me: 04/21/18 04/21/18 19:18 19:18 RDW 14.1 H Seg Neutrophils % 83.2 H Lymphocytes % 9.4 L Sodium 145.2 H Glucose 135 H AST 115 H Lipase 5144.2 H - Diagnostic Test Radiology reviewed: Reports reviewed Discharge - Discharge Clinical Impression: Alcohol abuse Pancreatitis Qualifiers: Chronicity: acute Pancreatitis type: alcohol induced Acute pancreatitis complication: unspecified Qualified Code(s): K85.20 - Alcohol induced acute pancreatitis without necrosis or infection Nausea and vomiting Qualifiers: Vomiting type: unspecified Vomiting Intractability: non-intractable Qualified Code(s): R11.2 - Nausea with vomiting, unspecified Condition: Fair Disposition: ADMITTED INPATIENT Admitting Provider: Hospitalist Unit Admitted: Medical Floor
[2018-04-21] MEDS ORDERED: PROMETHAZINE HCL INJ 25 MG/1 ML VIAL IV PRN (21:41)
[2018-04-21 21:58] LABS: INTERNATIONAL RATION (INR) 0.96; PROTHROMBIN TIME 13.3 SEC (11.4-15.4)
--- NOTE | 2018-04-21 22:09 | PDOC H&P ---
History of Present Illness Admission Date/PCP: 04/21/18 21:45 Patient complains of: Abdominal pain History of Present Illness: SOLITARIO CARLTON is a 42 year old male who comes to the emergency department complaining of abdominal pain. He has history of alcohol induced pancreatitis and was admitted in our facility before on December 2017. Tells me that today at 1 :30 PM while he was at work he started with epigastric pain that radiated to the back, sharp in nature, increasing to 10/10 intensity, associated with nausea and 3 episodes of nonbloody vomiting with food particles. Denies fever, chills, cough, wheezing, he is not taking deep inspirations secondary to his abdominal pain. He had 2 episodes of nonbloody diarrhea today. Denies dysuria , hematuria or frequency. Patient is alcohol dependent, last drink was last night, patient drinks 99 banana, 4-5 shots a day. Right upper quadrant ultrasound with no evidence of gallstones. Past Medical History Cardiac Medical History: Reports: Atrial Fibrillation - Paroxysmal 1992, Endocrine Medical History: Denies: Hyperthyroidism, Hypothyroidism Psychiatric Medical History: Reports: Alcohol Dependency Past Surgical History Past Surgical History: Reports: Orthopedic Surgery - left lower extremity Social History Information Source: Patient Lives with: Family Smoking Status: Never Smoker Frequency of Alcohol Use: Heavy - 99 banana to 5 shots a day Last Alcohol Use: 04/20/18 Hx Recreational Drug Use: No Hx Prescription Drug Abuse: No Family History Family History: Reviewed & Not Pertinent Parental Family History Reviewed: No Children Family History Reviewed: NA Sibling(s) Family History Reviewed.: NA Medication/Allergy Home Medications: Ibuprofen [Motrin 800 mg Tablet] 800 mg PO Q8HP PRN #30 tablet 01/20/18 Amox Tr/Potassium Clavulanate [Augmentin 875-125 Tablet] 1 tab PO BID 10 Days # 20 tablet 02/07/18 Oxycodone HCl [Oxy-Ir 5 mg Tablet] 5 mg PO TID PRN #15 tablet 02/07/18 Naproxen 500 mg PO BID PRN #30 tablet 02/11/18 Lisinopril 5 mg PO DAILY #30 tablet 02/13/18 Allergies/Adverse Reactions: No Known Allergies Allergy (Verified 04/21/18 16:48) Review of Systems Review of Systems: As outlined in HPI, all others negative Physical Exam Vital Signs: Temp Pulse Resp BP Pulse Ox 98.2 F 108 H 18 143/102 H 99 04/21/18 17:06 04/21/18 17:06 04/21/18 17:06 04/21/18 17:06 04/21/18 17:06 Additional comments: General appearance: Well-developed, well-nourished, alert and cooperative, and appears to be iacute distress secondary to his abdominal pain Head: Normocephalic Eyes: PEERL, EOMI, vision is grossly intact. Ears: External auditory canal and tympanic membranes clear, hearing grossly intact. Nose: No nasal discharge. Throat: Oral cavity and pharynx normal. No inflammation, swelling, exudate or lesions. Neck: Neck supple, nontender without lymphadenopathy, masses or thyromegaly. Cardiac: Normal S1 and S2. No S3, S4 or murmurs. Rhythm is regular and tachycardic. There is no peripheral edema, cyanosis or pallor. Extremities are warm and well perfused. Capillary refill is less than 2 seconds. No carotid bruits. Lungs: Clear to auscultation and percussion without rales, rhonchi, wheezing or diminished breath sounds. Not using accessory muscles. Abdomen: Decreased bowel sounds. Soft. Nondistended, exquisite tenderness in the epigastric area less diffusely. Mild guarding in epigastric area for hepatosplenomegaly as per his pain. Neurological: Cranial nerves II through XII grossly intact. Strength and sensation symmetric and intact throughout. Reflexes 2+ throughout. Skin: Skin normal color, texture and turgor with no lesions or eruptions, warm and dry. Psychiatric: The mental examination revealed the patient was oriented to person , place, and time. The patient was able to demonstrate good judgment on recent , without hallucinations, abnormal affect or abnormal behaviors. Results Laboratory Results: 04/21/18 04/21/18 19:18 19:18 WBC 8.7 Hgb 14.9 Hct 42.7 Plt Count 211 Seg Neutrophils % 83.2 H Lymphocytes % 9.4 L Sodium 145.2 H Potassium 4.6 Carbon Dioxide 27 Anion Gap 15 BUN 11 Creatinine 0.71 Est GFR ( Amer) > 60 Est GFR (Non-Af Amer) > 60 Glucose 135 H Calcium 9.6 Neonat Indirect Bili Not Reportable AST 115 H ALT 43 Alkaline Phosphatase 103 Albumin 4.5 Lipase 5144.2 H Impressions: Abdomen Ultrasound 04/21/18 18:12 IMPRESSION: FATTY LIVER. PANCREAS PARTIALLY OBSCURED. OTHERWISE NORMAL RIGHT UPPER QUADRANT ULTRASOUND. Assessment & Plan - Diagnosis (1) Alcohol-induced pancreatitis Qualifiers: Chronicity: acute Acute pancreatitis complication: unspecified Qualified Code(s): K85.20 - Alcohol induced acute pancreatitis without necrosis or infection Is this a current diagnosis for this admission?: Yes Plan: She comes with severe epigastric abdominal pain, he has history of episodes of pancreatitis in the past, unfortunately patient keeps drinking alcohol on a daily basis. Lipase 5144. We will aggressive hydrate the patient, already ordered 2 L IV bolus in the emergency department, I will ahead and start him normal saline 200 cc/h. Patient will be n.p.o. IV Protonix. IV pain medication and antiemetics. Repeat lipase in the morning (2) Paroxysmal atrial fibrillation Is this a current diagnosis for this admission?: Yes Plan: History of paroxysmal atrial fibrillation, noncompliance with medications, stable. Apparently he is not on anticoagulation. - Time Time Spent: 30 to 50 Minutes - Inpatient Certification Based on my medical assessment, after consideration of the patient's comorbidities, presenting symptoms, or acuity I expect that the services needed warrant INPATIENT care.: Yes I certify that my determination is in accordance with my understanding of Medicare's requirements for reasonable and necessary INPATIENT services [42 CFR 412.3e].: Yes Medical Necessity: Risk of Complication if Not Cared For in Hospital
[2018-04-21] MEDS: HYDROMORPHONE HCL INJ/PF 2 MG/ML AMPULE IV PRN (22:47)
[2018-04-21] MEDS: HEPARIN SOD (PORCINE) 5,000 UNIT/ML 1 ML SYRINGE SUBCUT SCH (22:48)
[2018-04-22] MEDS: HYDROMORPHONE HCL INJ/PF 2 MG/ML AMPULE IV PRN ×5 (01:49→20:06)
[2018-04-22] MEDS: NORMAL SALINE 1000 ML 1,000 ML IV PRN ×3 (01:50→23:54)
[2018-04-22 05:02] LABS: ABSOLUTE BASOPHILS # (AUTO) 0.1 10^3/uL (0.0-0.2); ABSOLUTE LYMPHOCYTES (AUTO) 0.8 10^3/uL (0.5-4.7); ABSOLUTE NEUT (AUTO) 10.1 10^3/uL (1.7-8.2); BASOPHILS % (AUTO) 0.7 % (0-2); EOSINOPHILS % (AUTO) 0.1 % (0-6); HEMATOCRIT 43.3 % (37.9-51.0); LYMPHOCYTES % (AUTO) 6.5 % (13-45); MEAN CORPUSCULAR HEMOGLOBIN 32.7 pg (27.0-33.4); MEAN CORPUSCULAR HGB CONC 34.6 g/dL (32.0-36.0); MEAN CORPUSCULAR VOLUME 95 fl (80-97); MONOCYTES % (AUTO) 8.3 % (3-13); PLATELET COUNT 196 10^3/uL (150-450); RED BLOOD COUNT 4.57 10^6/uL (4.35-5.55); RED CELL DISTRIBUTION WIDTH 14.3 % (11.5-14.0); SEGMENTED NEUTROPHILS % (AUTO) 84.4 % (42-78); TOTAL CELLS COUNTED % (AUTO) 100 %
[2018-04-22] MEDS ORDERED: NORMAL SALINE 1000 ML 1,000 ML with POTASSIUM CHLORIDE 20 MEQ, MAGNESIUM SULFATE 8 MEQ,... IV PRN ×5 (05:05)
[2018-04-22 05:19] LABS: ALANINE AMINOTRANSFERASE 43 U/L (21-72); ALBUMIN 4.1 g/dL (3.5-5.0); ALKALINE PHOSPHATASE 98 U/L (38-126); ANION GAP 12 (5-19); ASPARTATE AMINO TRANSFERASE 97 U/L (17-59); BILIRUBIN,DIRECT 0.3 mg/dL (0.0-0.4); BILIRUBIN,TOTAL 0.9 mg/dL (0.2-1.3); BLOOD UREA NITROGEN 8 mg/dL (7-20); CALCIUM 8.8 mg/dL (8.4-10.2); CARBON DIOXIDE 24 mmol/L (22-30); CHLORIDE 106 mmol/L (98-107); GLUCOSE 110 mg/dL (75-110); POTASSIUM 4.1 mmol/L (3.6-5.0); SODIUM 142.1 mmol/L (137-145); TOTAL PROTEIN 7.3 g/dL (6.3-8.2)
[2018-04-22 05:40] LABS: INTERNATIONAL RATION (INR) 0.99; PARTIAL THROMBOPLASTIN TIME 24.6 SEC (23.5-35.8); PROTHROMBIN TIME 13.6 SEC (11.4-15.4)
[2018-04-22 05:50] LABS: LIPASE 2355.1 U/L (23-300)
[2018-04-22] MEDS: LORAZEPAM INJ 2 MG/1 ML VIAL IV PRN ×6 (06:02→20:18)
[2018-04-22] MEDS: MAGNESIUM SULFATE/D5W 1 GM/100 ML RTUPB IV SCH ×3 (06:42→10:01)
[2018-04-22] MEDS: HEPARIN SOD (PORCINE) 5,000 UNIT/ML 1 ML SYRINGE SUBCUT SCH ×3 (06:42→23:34)
[2018-04-22] MEDS ORDERED: METOPROLOL TARTRATE PF/INJ 5 MG/5 ML SDV IV ONE (08:00)
[2018-04-22] MEDS: PROMETHAZINE HCL INJ 25 MG/1 ML VIAL IV PRN ×2 (08:22→16:29)
[2018-04-22] MEDS ORDERED: HYDRALAZINE HCL INJ/PF 20 MG/1 ML SDV IV PRN (09:46)
[2018-04-22] MEDS: PANTOPRAZOLE SODIUM 40 MG VIAL IV SCH (10:02)
[2018-04-22] MEDS: METOPROLOL TARTRATE PF/INJ 5 MG/5 ML SDV IV PRN ×4 (10:02→23:55)
[2018-04-22] MEDS ORDERED: DIPHENHYDRAMINE HCL 50 MG/ML VIAL IV PRN (10:12)
[2018-04-22] MEDS ORDERED: MORPHINE SULFATE 10 MG/ML INJ IV PRN (10:12)
[2018-04-22] MEDS ORDERED: MAGNESIUM SULFATE/D5W 1 GM/100 ML RTUPB IV ONE (10:30)
--- NOTE | 2018-04-22 18:13 | PDOC PROGRESS REPORT ---
Subjective Progress Note for:: 04/22/18 Subjective:: 42 y.o. M admitted with acute pancreatitis secondary to EtOH abuse. PMH includes pancreatitis, paroxysmal A. fib, EtOH dependency. The patient admits to drinking 4-5 shots per day of 100 proof liquor. The patient was seen this morning on rounds, he is resting comfortably in bed. He is able to answer most questions appropriately but is confused about the year. With some prompting, he is able to correctly identify the year. The patient endorses very mild epigastric abdominal pain. He denies nausea, vomiting, or diarrhea. +BS. Upper abdomen is TTP. S1S2. Lungs clear to auscultation. Reason For Visit: ACUTE PANCREATITIS Physical Exam Vital Signs: Temp Pulse Resp BP Pulse Ox 98.2 F 108 H 14 136/99 H 95 04/21/18 17:06 04/21/18 17:06 04/22/18 04:53 04/22/18 17:01 04/22/18 17:01 Intake & Output 04/21/18 04/22/18 04/23/18 06:59 06:59 06:59 Intake Total 3300 Output Total 700 Balance 2600 General appearance: PRESENT: no acute distress Eye exam: PRESENT: conjunctiva pink, PERRLA Mouth exam: PRESENT: moist Teeth exam: PRESENT: poor dentation Neck exam: PRESENT: full ROM Respiratory exam: PRESENT: clear to auscultation kaleb, symmetrical, unlabored Cardiovascular exam: PRESENT: +S1, +S2, tachycardia Pulses: PRESENT: normal radial pulses, normal dorsalis pedis pul GI/Abdominal exam: PRESENT: normal bowel sounds, soft, tenderness - RUQ & LUQ Rectal exam: PRESENT: deferred Extremities exam: PRESENT: full ROM Musculoskeletal exam: PRESENT: ambulatory, full ROM Neurological exam: PRESENT: alert, awake, oriented to person, oriented to place , oriented to time, oriented to situation Psychiatric exam: PRESENT: appropriate affect Skin exam: PRESENT: dry, intact, warm Results Laboratory Results: 04/22/18 04:45 04/22/18 04:45 04/22/18 04/22/18 04/22/18 04:45 04:45 04:45 WBC 12.0 H RBC 4.57 Hgb 15.0 Hct 43.3 MCV 95 MCH 32.7 MCHC 34.6 RDW 14.3 H Plt Count 196 Seg Neutrophils % 84.4 H Lymphocytes % 6.5 L Monocytes % 8.3 Eosinophils % 0.1 Basophils % 0.7 Absolute Neutrophils 10.1 H Absolute Lymphocytes 0.8 Absolute Monocytes 1.0 Absolute Eosinophils 0.0 Absolute Basophils 0.1 Sodium 142.1 Potassium 4.1 Chloride 106 Carbon Dioxide 24 Anion Gap 12 BUN 8 Creatinine 0.69 Est GFR ( Amer) > 60 Est GFR (Non-Af Amer) > 60 Glucose 110 Lactic Acid Calcium 8.8 Magnesium 1.1 L* Total Bilirubin 0.9 AST 97 H ALT 43 Alkaline Phosphatase 98 Ammonia < 8.7 L Total Protein 7.3 Albumin 4.1 Lipase 2355.1 H 04/22/18 04:45 WBC RBC Hgb Hct MCV MCH MCHC RDW Plt Count Seg Neutrophils % Lymphocytes % Monocytes % Eosinophils % Basophils % Absolute Neutrophils Absolute Lymphocytes Absolute Monocytes Absolute Eosinophils Absolute Basophils Sodium Potassium Chloride Carbon Dioxide Anion Gap BUN Creatinine Est GFR ( Amer) Est GFR (Non-Af Amer) Glucose Lactic Acid 1.6 Calcium Magnesium Total Bilirubin AST ALT Alkaline Phosphatase Ammonia Total Protein Albumin Lipase Impressions: Abdomen Ultrasound 04/21/18 18:12 IMPRESSION: FATTY LIVER. PANCREAS PARTIALLY OBSCURED. OTHERWISE NORMAL RIGHT UPPER QUADRANT ULTRASOUND. Status: Imported from PACS Assessment & Plan - Diagnosis (1) Alcohol-induced pancreatitis Qualifiers: Chronicity: acute Acute pancreatitis complication: unspecified Qualified Code(s): K85.20 - Alcohol induced acute pancreatitis without necrosis or infection Is this a current diagnosis for this admission?: Yes Plan: ETOH induced pancreatitis. Initial Lipase 5144 Admits to drinking 4-5 shots per day of 100 proof liquor Recently admitted for same diagnosis in December 2017 Abdominal US relatively benign, only demonstrates fatty liver Initial [place]'s Criteria score: 0 NPO Continue maintenance IVF Protonix IV PRN zofran for nausea IV Morphine PRN for pain (2) Alcohol abuse Is this a current diagnosis for this admission?: Yes Plan: Patient admits to daily EtOH use, consumes 4-5 shots of 100 proof liquor every day Initial blood alcohol level 191 Scheduled PO Valium 5mg q8hr PRN IV Ativan for agitation PRN IV Benadryl for sedation (3) Paroxysmal atrial fibrillation Is this a current diagnosis for this admission?: Yes Plan: History of paroxysmal atrial fibrillation Noncompliant with medications EKG reveals sinus tachycardia, no evidence of A. fib No need for anticoagulation at this time - Time Time Spent with patient: 15-24 minutes Medications reviewed and adjusted accordingly: Yes Anticipated discharge: Home - Inpatient Certification Based on my medical assessment, after consideration of the patient's comorbidities, presenting symptoms, or acuity I expect that the services needed warrant INPATIENT care.: Yes I certify that my determination is in accordance with my understanding of Medicare's requirements for reasonable and necessary INPATIENT services [42 CFR 412.3e].: Yes Medical Necessity: Risk of Complication if Not Cared For in Hospital - Plan Summary Plan Summary: ADMIT FOR PANCREATITIS AND ETOH WITHDRAWAL. SCHEDULED AND PRN BEZNODIAZEPINES.
[2018-04-22] MEDS ORDERED: LORAZEPAM INJ 2 MG/1 ML VIAL IV ONE ×2 (21:00→22:00)
[2018-04-22] MEDS ORDERED: ACETAMINOPHEN 325 MG SUPP.RECT PR ONE (22:50)
[2018-04-22] MEDS ORDERED: ACETAMINOPHEN 650 MG SUPP.RECT PR PRN (22:51)
[2018-04-22] MEDS ORDERED: DEXMEDETOMIDINE 400 MCG/NS 100 ML BOT IV PRN (23:30)
[2018-04-22] MEDS: DIAZEPAM 5 MG TABLET PO SCH (23:33)
[2018-04-23] MEDS ORDERED: ACETAMINOPHEN 650 MG SUPP.RECT PR PRN (00:35)
[2018-04-23] MEDS: NORMAL SALINE 1000 ML 1,000 ML IV PRN ×4 (03:47→23:33)
[2018-04-23 05:13] LABS: HEMATOCRIT 36.6 % (37.9-51.0); MEAN CORPUSCULAR HEMOGLOBIN 33.5 pg (27.0-33.4); MEAN CORPUSCULAR HGB CONC 34.6 g/dL (32.0-36.0); MEAN CORPUSCULAR VOLUME 97 fl (80-97); PLATELET COUNT 133 10^3/uL (150-450); RED BLOOD COUNT 3.78 10^6/uL (4.35-5.55); RED CELL DISTRIBUTION WIDTH 14.4 % (11.5-14.0); WHITE BLOOD COUNT 7.9 10^3/uL (4.0-10.5)
[2018-04-23 05:15] LABS: HEMOGLOBIN 12.7 g/dL (13.5-17.0)
[2018-04-23 05:30] LABS: ALANINE AMINOTRANSFERASE 28 U/L (21-72); ALBUMIN 2.8 g/dL (3.5-5.0); ALKALINE PHOSPHATASE 60 U/L (38-126); ANION GAP 8 (5-19); ASPARTATE AMINO TRANSFERASE 62 U/L (17-59); BILIRUBIN,DIRECT 0.3 mg/dL (0.0-0.4); BLOOD UREA NITROGEN 12 mg/dL (7-20); CALCIUM 7.9 mg/dL (8.4-10.2); CARBON DIOXIDE 24 mmol/L (22-30); CHLORIDE 107 mmol/L (98-107); GLUCOSE 96 mg/dL (75-110); LIPASE 595.4 U/L (23-300); PHOSPHORUS 3.1 mg/dL (2.5-4.5); POTASSIUM 4.2 mmol/L (3.6-5.0); SODIUM 138.6 mmol/L (137-145); TOTAL PROTEIN 5.5 g/dL (6.3-8.2)
[2018-04-23] MEDS: HEPARIN SOD (PORCINE) 5,000 UNIT/ML 1 ML SYRINGE SUBCUT SCH ×3 (06:46→21:36)
[2018-04-23] MEDS: DIAZEPAM 5 MG TABLET PO SCH ×3 (06:47→21:36)
[2018-04-23] MEDS: HYDROMORPHONE HCL INJ/PF 2 MG/ML AMPULE IV PRN ×4 (09:01→21:35)
--- NOTE | 2018-04-23 09:06 | PDOC PROGRESS REPORT ---
Subjective Progress Note for:: 04/23/18 Subjective:: 42 y.o. M admitted with acute pancreatitis secondary to EtOH abuse. PMH includes pancreatitis, paroxysmal A. fib, EtOH dependency. The patient admits to drinking 4-5 shots per day of 100 proof liquor. Overnight, the foundry helper reported that the patient became acutely delirious, hypertensive and tachycardic. He was placed on a Precedex gtt and transferred to the ICU. The patient was seen this morning on rounds, he is resting calmly in bed. Precedex gtt has been turned off. He is able to answer all questions appropriately. The patient was incontinent of stool, reporting that "it just leaked out." The patient also stated that he experienced hallucinations last night, reportedly while on Precedex. The patient endorses very mild periumbilical abdominal pain. He denies nausea, vomiting, or diarrhea. +BS. Mid -abdomen is TTP. S1S2. Lungs clear to auscultation. Reason For Visit: ACUTE PANCREATITIS Physical Exam Vital Signs: Temp Pulse Resp BP Pulse Ox 99.7 F 86 20 98/67 L 97 04/23/18 08:00 04/23/18 08:00 04/23/18 08:00 04/23/18 08:00 04/23/18 08:00 Intake & Output 04/22/18 04/23/18 04/24/18 06:59 06:59 06:59 Intake Total 5112 14 Output Total 1555 65 Balance 3557 -51 Weight 85.8 kg General appearance: PRESENT: no acute distress Eye exam: PRESENT: conjunctiva pink, PERRLA Mouth exam: PRESENT: dry mucosa, moist Teeth exam: PRESENT: poor dentation Neck exam: PRESENT: full ROM Respiratory exam: PRESENT: clear to auscultation kaleb, symmetrical, unlabored Cardiovascular exam: PRESENT: +S1, +S2 Pulses: PRESENT: normal radial pulses, normal dorsalis pedis pul GI/Abdominal exam: PRESENT: normal bowel sounds, soft. ABSENT: tenderness Rectal exam: PRESENT: deferred Gentrourinary exam: PRESENT: indwelling catheter - urine is clear but helen in color Extremities exam: PRESENT: full ROM Musculoskeletal exam: PRESENT: ambulatory, full ROM Neurological exam: PRESENT: alert, awake, oriented to person, oriented to place , oriented to time, oriented to situation Psychiatric exam: PRESENT: appropriate affect Skin exam: PRESENT: dry, intact, normal color, warm Results Laboratory Results: 04/23/18 04:27 04/23/18 04:27 04/23/18 04/23/18 04/23/18 04:27 04:27 04:27 WBC 7.9 RBC 3.78 L Hgb 12.7 L D Hct 36.6 L MCV 97 MCH 33.5 H MCHC 34.6 RDW 14.4 H Plt Count 133 L Sodium 138.6 Potassium 4.2 Chloride 107 Carbon Dioxide 24 Anion Gap 8 BUN 12 Creatinine 0.79 Est GFR ( Amer) > 60 Est GFR (Non-Af Amer) > 60 Glucose 96 Lactic Acid 1.5 Calcium 7.9 L Phosphorus 3.1 Magnesium 2.3 D Total Bilirubin 1.0 AST 62 H ALT 28 Alkaline Phosphatase 60 Total Protein 5.5 L Albumin 2.8 L Lipase 595.4 H Impressions: Abdomen Ultrasound 04/21/18 18:12 IMPRESSION: FATTY LIVER. PANCREAS PARTIALLY OBSCURED. OTHERWISE NORMAL RIGHT UPPER QUADRANT ULTRASOUND. Status: Imported from PACS Assessment & Plan - Diagnosis (1) Alcohol-induced pancreatitis Qualifiers: Chronicity: acute Acute pancreatitis complication: unspecified Qualified Code(s): K85.20 - Alcohol induced acute pancreatitis without necrosis or infection Is this a current diagnosis for this admission?: Yes Plan: ETOH induced pancreatitis. Initial Lipase 5144 down to 594 this morning Admits to drinking 4-5 shots per day of 100 proof liquor Recently admitted for same diagnosis in December 2017 Abdominal US relatively benign, only demonstrates fatty liver Initial Merle's Criteria score: 0 48hr [place]'s Criteria score: 3 (15% mortality risk) NPO Continue maintenance IVF 200mL/hr Protonix IV PRN zofran for nausea IV Morphine PRN for pain (2) Alcohol abuse Is this a current diagnosis for this admission?: Yes Plan: Patient admits to daily EtOH use, consumes 4-5 shots of 100 proof liquor every day Initial blood alcohol level 191 Daily thiamine and folate IV Scheduled PO Valium 5mg q8hr PRN IV Ativan for agitation PRN IV Benadryl for sedation PRN Metoprolol for HTN or tachycardia PRN hydralazine for HTN Briefly placed on Precedex gtt last night for acute delirium associated with ETOH withdrawal, upgraded to ICU Monitor for HTN, tachycardia, delirium tremors, hallucinations, and seizure activity while withdrawing Plan to keep in ICU today, if patient remains calm and VSS, likely downgrade to IMCU tomorrow (3) Paroxysmal atrial fibrillation Is this a current diagnosis for this admission?: Yes Plan: History of paroxysmal atrial fibrillation Noncompliant with medications EKG reveals sinus tachycardia, no evidence of A. fib No need for anticoagulation at this time - Time Time Spent with patient: 15-24 minutes Medications reviewed and adjusted accordingly: Yes Anticipated discharge: Home - Inpatient Certification Based on my medical assessment, after consideration of the patient's comorbidities, presenting symptoms, or acuity I expect that the services needed warrant INPATIENT care.: Yes I certify that my determination is in accordance with my understanding of Medicare's requirements for reasonable and necessary INPATIENT services [42 CFR 412.3e].: Yes Medical Necessity: Need For IV Fluids, Need For Continuous Telemetry Monitoring , Risk of Complication if Not Cared For in Hospital - Plan Summary Plan Summary: MONITOR IN ICU FOR ETOH WITHDRAWAL S/S. WEANED OFF PRECEDEX GTT. CONTINUE WITH SCHEDULED AND PRN BENZOS.
[2018-04-23] MEDS: THIAMINE HCL 100 MG, FOLIC ACID 1 MG in NORMAL SALINE 250 ML IV SCH (10:14)
[2018-04-23] MEDS: PANTOPRAZOLE SODIUM 40 MG VIAL IV SCH (10:14)
[2018-04-23] MEDS ORDERED: ACETAMINOPHEN 325 MG TABLET PO PRN (16:05)
[2018-04-23] MEDS ORDERED: ACETAMINOPHEN 325 MG TABLET ONE (16:14)
[2018-04-24 00:04] LABS: APPEARANCE,URINE SLIGHTLY-CLOUDY; BILIRUBIN,URINE NEGATIVE (NEGATIVE); COLOR,URINE YELLOW; GLUCOSE, URINE NEGATIVE (NEGATIVE); KETONES,URINE TRACE mg/dL (NEGATIVE); LEUKOCYTE ESTERASE,URINE TRACE (NEGATIVE); NITRITE,URINE NEGATIVE (NEGATIVE); PROTEIN,URINE 100 mg/dL (NEGATIVE); URINE SPECIFIC GRAVITY 1.023; UROBILINOGEN,URINE NEGATIVE mg/dL (<2.0)
[2018-04-24] MEDS: HYDROMORPHONE HCL INJ/PF 2 MG/ML AMPULE IV PRN ×6 (00:24→23:27)
[2018-04-24] MEDS: METOPROLOL TARTRATE PF/INJ 5 MG/5 ML SDV IV PRN (00:41)
[2018-04-24] MEDS: LORAZEPAM INJ 2 MG/1 ML VIAL IV PRN ×3 (02:16→18:00)
[2018-04-24] MEDS: NORMAL SALINE 1000 ML 1,000 ML IV PRN ×4 (04:11→23:28)
[2018-04-24] MEDS: DIAZEPAM 5 MG TABLET PO SCH ×3 (06:47→21:38)
[2018-04-24] MEDS: HEPARIN SOD (PORCINE) 5,000 UNIT/ML 1 ML SYRINGE SUBCUT SCH ×2 (06:47→14:32)
[2018-04-24 08:32] LABS: HEMATOCRIT 30.6 % (37.9-51.0); HEMOGLOBIN 10.7 g/dL (13.5-17.0); MEAN CORPUSCULAR HEMOGLOBIN 33.7 pg (27.0-33.4); MEAN CORPUSCULAR VOLUME 97 fl (80-97); PLATELET COUNT 134 10^3/uL (150-450); RED BLOOD COUNT 3.17 10^6/uL (4.35-5.55); RED CELL DISTRIBUTION WIDTH 13.7 % (11.5-14.0); WHITE BLOOD COUNT 10.1 10^3/uL (4.0-10.5)
[2018-04-24 08:55] LABS: ALANINE AMINOTRANSFERASE 34 U/L (21-72); ALBUMIN 2.6 g/dL (3.5-5.0); ALKALINE PHOSPHATASE 98 U/L (38-126); ANION GAP 9 (5-19); ASPARTATE AMINO TRANSFERASE 93 U/L (17-59); BILIRUBIN,DIRECT 0.3 mg/dL (0.0-0.4); BILIRUBIN,TOTAL 0.9 mg/dL (0.2-1.3); BLOOD UREA NITROGEN 10 mg/dL (7-20); CALCIUM 7.7 mg/dL (8.4-10.2); CARBON DIOXIDE 21 mmol/L (22-30); CHLORIDE 104 mmol/L (98-107); GLUCOSE 80 mg/dL (75-110); LIPASE 176.8 U/L (23-300); POTASSIUM 3.4 mmol/L (3.6-5.0); SODIUM 133.8 mmol/L (137-145); TOTAL PROTEIN 5.3 g/dL (6.3-8.2)
[2018-04-24] MEDS: THIAMINE HCL 100 MG, FOLIC ACID 1 MG in NORMAL SALINE 250 ML IV SCH (10:56)
[2018-04-24] MEDS: PANTOPRAZOLE SODIUM 40 MG VIAL IV SCH (10:56)
[2018-04-24] MEDS ORDERED: POTASSIUM CHLORIDE 10 MEQ CAPSULE.ER PO ONE (11:35)
--- NOTE | 2018-04-24 17:45 | PDOC PROGRESS REPORT ---
Subjective Progress Note for:: 04/24/18 Subjective:: 42 y.o. M admitted with acute pancreatitis secondary to EtOH abuse. PMH includes pancreatitis, paroxysmal A. fib, EtOH dependency. The patient admits to drinking 4-5 shots per day of 100 proof liquor. The patient was downgraded from ICU to IMCU yesterday afternoon. He is seen this morning on rounds, resting in bed comfortably on room air. The patient endorses visual hallucinations, states that he "sees his daughter" in the room but notes that she is not really there, additionally endorses seeing moving shadows in the room. Additionally, the patient complains of persistent cough since yesterday afternoon. Of note, the patient did spike a fever > 101. UA negative, blood cultures pending. No leukocytosis on AM labs. Will obtain CXR today to evaluate for possible PNA. The patient denies nausea, vomiting, or diarrhea. Upon assessment, +BS. Mid-abdomen is TTP. S1S2. Lungs clear to auscultation. Plan, advance clear liquid diet today, obtain CXR to evaluate for PNA Reason For Visit: ACUTE PANCREATITIS Physical Exam Vital Signs: Temp Pulse Resp BP Pulse Ox 99.6 F 108 H 18 150/96 H 98 04/24/18 15:41 04/24/18 15:41 04/24/18 15:41 04/24/18 15:41 04/24/18 15:41 Intake & Output 04/23/18 04/24/18 04/25/18 06:59 06:59 06:59 Intake Total 5112 4892.2 1251.2 Output Total 1555 995 Balance 3557 3897.2 1251.2 Weight 85.8 kg 89.7 kg General appearance: PRESENT: no acute distress, well-developed, well-nourished Head exam: PRESENT: atraumatic, normocephalic Eye exam: PRESENT: conjunctiva pink, EOMI, PERRLA. ABSENT: scleral icterus Ear exam: PRESENT: normal external ear exam Mouth exam: PRESENT: moist, tongue midline Neck exam: ABSENT: carotid bruit, JVD, lymphadenopathy, thyromegaly Respiratory exam: PRESENT: clear to auscultation kaleb. ABSENT: rales, rhonchi, wheezes Cardiovascular exam: PRESENT: RRR. ABSENT: diastolic murmur, rubs, systolic murmur Pulses: PRESENT: normal dorsalis pedis pul Vascular exam: PRESENT: normal capillary refill GI/Abdominal exam: PRESENT: normal bowel sounds, soft, tenderness. ABSENT: distended, guarding, mass, organolmegaly, rebound Rectal exam: PRESENT: deferred Extremities exam: PRESENT: full ROM. ABSENT: calf tenderness, clubbing, pedal edema Neurological exam: PRESENT: alert, awake, oriented to person, oriented to place , oriented to time, oriented to situation Psychiatric exam: PRESENT: appropriate affect, normal mood Skin exam: PRESENT: dry, intact, warm Results Laboratory Results: 04/24/18 08:05 04/24/18 08:05 04/23/18 04/24/18 04/24/18 23:45 08:05 08:05 WBC 10.1 RBC 3.17 L Hgb 10.7 L Hct 30.6 L MCV 97 MCH 33.7 H MCHC 35.0 RDW 13.7 Plt Count 134 L Sodium 133.8 L Potassium 3.4 L Chloride 104 Carbon Dioxide 21 L Anion Gap 9 BUN 10 Creatinine 0.68 Est GFR ( Amer) > 60 Est GFR (Non-Af Amer) > 60 Glucose 80 Calcium 7.7 L Total Bilirubin 0.9 AST 93 H ALT 34 Alkaline Phosphatase 98 Total Protein 5.3 L Albumin 2.6 L Lipase 176.8 Urine Color YELLOW Urine Appearance SLIGHTLY-CLOUDY Urine pH 5.0 Ur Specific Loman 1.023 Urine Protein 100 H Urine Glucose (UA) NEGATIVE Urine Ketones TRACE H Urine Blood LARGE H Urine Nitrite NEGATIVE Ur Leukocyte Esterase TRACE H Urine WBC (Auto) 9 Urine RBC (Auto) 116 Impressions: Abdomen Ultrasound 04/21/18 18:12 IMPRESSION: FATTY LIVER. PANCREAS PARTIALLY OBSCURED. OTHERWISE NORMAL RIGHT UPPER QUADRANT ULTRASOUND. Status: Imported from PACS Assessment & Plan - Diagnosis (1) Alcohol-induced pancreatitis Qualifiers: Chronicity: acute Acute pancreatitis complication: unspecified Qualified Code(s): K85.20 - Alcohol induced acute pancreatitis without necrosis or infection Is this a current diagnosis for this admission?: Yes Plan: ETOH induced pancreatitis. Initial Lipase 5144 down to 176 this morning Admits to drinking 4-5 shots per day of 100 proof liquor Recently admitted for same diagnosis in December 2017 Abdominal US relatively benign, only demonstrates fatty liver Initial Merle's Criteria score: 0 48hr Merle's Criteria score: 3 (15% mortality risk) Tolerating clear liquid diet, advance to regular diet today Continue maintenance IVF 200mL/hr Protonix IV PRN zofran for nausea IV Morphine PRN for pain (2) Alcohol abuse Is this a current diagnosis for this admission?: Yes Plan: Patient admits to daily EtOH use, consumes 4-5 shots of 100 proof liquor every day Initial blood alcohol level 191 Daily thiamine and folate IV Scheduled PO Valium 5mg q8hr PRN IV Ativan for agitation PRN IV Benadryl for sedation PRN Metoprolol for HTN or tachycardia PRN hydralazine for HTN Briefly placed on Precedex gtt for acute delirium associated with ETOH withdrawal, weaned off gtt now downgraded to IMCU Monitor for HTN, tachycardia, delirium tremors, hallucinations, and seizure activity while withdrawing (3) Paroxysmal atrial fibrillation Is this a current diagnosis for this admission?: Yes Plan: History of paroxysmal atrial fibrillation Noncompliant with medications EKG reveals sinus tachycardia, no evidence of A. fib No need for anticoagulation at this time - Time Time Spent with patient: 15-24 minutes Medications reviewed and adjusted accordingly: Yes Anticipated discharge: Home Within: within 48 hours - Inpatient Certification Based on my medical assessment, after consideration of the patient's comorbidities, presenting symptoms, or acuity I expect that the services needed warrant INPATIENT care.: Yes I certify that my determination is in accordance with my understanding of Medicare's requirements for reasonable and necessary INPATIENT services [42 CFR 412.3e].: Yes Medical Necessity: Risk of Complication if Not Cared For in Hospital - Plan Summary Plan Summary: Continue treatment for EtOH withdrawal.
--- NOTE | 2018-04-24 18:10 | RADIOLOGY REPORT (SQ) ---
EXAM DESCRIPTION: CHEST SINGLE VIEW COMPLETED DATE/TIME: 04/24/2018 5:59 pm REASON FOR STUDY: Fever. Cough. Evaluate for PNA COMPARISON: 02/07/2018 EXAM PARAMETERS: NUMBER OF VIEWS: One view. TECHNIQUE: Single frontal radiographic view of the chest acquired. RADIATION DOSE: NA LIMITATIONS: None. FINDINGS: LUNGS AND PLEURA: Diffuse bilateral parenchymal opacities left greater than right. No eff usions. No pneumothorax. MEDIASTINUM AND HILAR STRUCTURES: No masses. Contour normal. HEART AND VASCULAR STRUCTURES: Heart normal in size. Normal vasculature. BONES: No acute findings. HARDWARE: None in the chest. OTHER: No other significant finding. IMPRESSION: Bibasilar pneumonia left greater than right. TECHNICAL DOCUMENTATION: JOB ID: [id number] [employer]- All Rights Reserved Reading location - IP/workstation name: [email or web address]
[2018-04-24] MEDS: ACETAMINOPHEN 325 MG TABLET PO PRN (21:14)
[2018-04-24] MEDS: BENZONATATE 100 MG CAPSULE PO PRN (21:14)
[2018-04-24] MEDS: PIPERACILLIN SODIUM/TAZOBACTAM 3.375 GM in NORMAL SALINE 100 ML IV SCH (21:38)
[2018-04-24] MEDS ORDERED: DILTIAZEM HCL 30 MG TABLET PO ONE (21:41)
[2018-04-25] MEDS: HEPARIN SOD (PORCINE) 5,000 UNIT/ML 1 ML SYRINGE SUBCUT SCH ×4 (02:23→21:50)
[2018-04-25] MEDS: HYDROMORPHONE HCL INJ/PF 2 MG/ML AMPULE IV PRN ×6 (02:24→22:20)
[2018-04-25] MEDS: NORMAL SALINE 1000 ML 1,000 ML IV PRN ×3 (04:04→20:11)
[2018-04-25] MEDS: LORAZEPAM INJ 2 MG/1 ML VIAL IV PRN ×3 (04:06→20:37)
[2018-04-25] MEDS: PIPERACILLIN SODIUM/TAZOBACTAM 3.375 GM in NORMAL SALINE 100 ML IV SCH ×4 (05:05→23:27)
[2018-04-25] MEDS: BENZONATATE 100 MG CAPSULE PO PRN (05:07)
[2018-04-25] MEDS: DIAZEPAM 5 MG TABLET PO SCH ×3 (05:07→22:21)
[2018-04-25 08:20] LABS: HEMATOCRIT 30.4 % (37.9-51.0); HEMOGLOBIN 10.5 g/dL (13.5-17.0); MEAN CORPUSCULAR HEMOGLOBIN 33.1 pg (27.0-33.4); MEAN CORPUSCULAR HGB CONC 34.5 g/dL (32.0-36.0); MEAN CORPUSCULAR VOLUME 96 fl (80-97); PLATELET COUNT 174 10^3/uL (150-450); RED BLOOD COUNT 3.17 10^6/uL (4.35-5.55); RED CELL DISTRIBUTION WIDTH 13.7 % (11.5-14.0); WHITE BLOOD COUNT 10.8 10^3/uL (4.0-10.5)
[2018-04-25 08:32] LABS: ALANINE AMINOTRANSFERASE 38 U/L (21-72); ALBUMIN 2.8 g/dL (3.5-5.0); ALKALINE PHOSPHATASE 111 U/L (38-126); ANION GAP 10 (5-19); ASPARTATE AMINO TRANSFERASE 93 U/L (17-59); BILIRUBIN,DIRECT 0.4 mg/dL (0.0-0.4); BLOOD UREA NITROGEN 6 mg/dL (7-20); CALCIUM 7.9 mg/dL (8.4-10.2); CARBON DIOXIDE 22 mmol/L (22-30); CHLORIDE 104 mmol/L (98-107); GLUCOSE 80 mg/dL (75-110); POTASSIUM 3.5 mmol/L (3.6-5.0); SODIUM 135.6 mmol/L (137-145); TOTAL PROTEIN 5.6 g/dL (6.3-8.2)
[2018-04-25] MEDS: THIAMINE HCL 100 MG, FOLIC ACID 1 MG in NORMAL SALINE 250 ML IV SCH (10:10)
[2018-04-25] MEDS: GUAIFENESIN/D-METHORPHAN (200-20 MG) SYRUP 10 ML PO PRN ×3 (10:17→23:25)
[2018-04-25] MEDS ORDERED: POTASSIUM CHLORIDE 10 MEQ CAPSULE.ER PO ONE (10:30)
[2018-04-25] MEDS ORDERED: POTASSI CL 20 MEQ/50 ML RIDER 20 MEQ/50 ML RTUPB IV ONE (10:30)
--- NOTE | 2018-04-25 17:29 | PDOC PROGRESS REPORT ---
Subjective Progress Note for:: 04/25/18 Subjective:: 42 y.o. M admitted with acute pancreatitis secondary to EtOH abuse. PMH includes pancreatitis, paroxysmal A. fib, EtOH dependency. The patient admits to drinking 4-5 shots per day of 100 proof liquor. He is seen this morning on rounds, resting in bed comfortably on room air. Initiated treatment for hospital-acquired pneumonia (seen on CXR yesterday ) with IV Zosyn. The patient denies fever or chills, nausea, vomiting, or diarrhea. He does endorse a productive cough and upper abdominal pain that is exacerbated when coughing. Upon assessment, +BS. Mid-abdomen is TTP. S1S2. Lungs clear to auscultation. Of note, the patient no longer complains of visual hallucinations. Yesterday he stated he was seeing shadows and hallucinating that his daughter was in the room with him. Today, he denies any visual or auditory hallucinations. He is alert and oriented x 3. Currently tolerating his regular diet. Plan to continue IV antibiotics. Barring any complications, likely discharge home within 24-48 hours. Reason For Visit: ACUTE PANCREATITIS Physical Exam Vital Signs: Temp Pulse Resp BP Pulse Ox 98.5 F 102 H 16 146/98 H 93 04/25/18 07:51 04/25/18 07:51 04/25/18 07:51 04/25/18 07:51 04/25/18 07:51 Intake & Output 04/24/18 04/25/18 04/26/18 06:59 06:59 06:59 Intake Total 4892.2 4771.2 2501.2 Output Total 995 Balance 3897.2 4771.2 2501.2 Weight 89.7 kg 92.5 kg General appearance: PRESENT: no acute distress, well-developed Head exam: PRESENT: atraumatic Eye exam: PRESENT: conjunctiva pink, PERRLA Mouth exam: PRESENT: moist Neck exam: PRESENT: full ROM Respiratory exam: PRESENT: clear to auscultation kaleb, symmetrical, unlabored Cardiovascular exam: PRESENT: +S1, +S2 Pulses: PRESENT: normal radial pulses, normal dorsalis pedis pul Vascular exam: PRESENT: normal capillary refill GI/Abdominal exam: PRESENT: normal bowel sounds, soft, tenderness - upper quadrants. ABSENT: distended, firm, guarding Rectal exam: PRESENT: deferred Extremities exam: PRESENT: full ROM. ABSENT: pedal edema Musculoskeletal exam: PRESENT: ambulatory, full ROM Neurological exam: PRESENT: alert, awake, oriented to person, oriented to place , oriented to time, oriented to situation Skin exam: PRESENT: dry, intact, normal color, warm Results Laboratory Results: 04/25/18 07:58 04/25/18 07:58 04/25/18 04/25/18 07:58 07:58 WBC 10.8 H RBC 3.17 L Hgb 10.5 L Hct 30.4 L MCV 96 MCH 33.1 MCHC 34.5 RDW 13.7 Plt Count 174 Sodium 135.6 L Potassium 3.5 L Chloride 104 Carbon Dioxide 22 Anion Gap 10 BUN 6 L Creatinine 0.67 Est GFR ( Amer) > 60 Est GFR (Non-Af Amer) > 60 Glucose 80 Calcium 7.9 L Total Bilirubin 1.0 AST 93 H ALT 38 Alkaline Phosphatase 111 Total Protein 5.6 L Albumin 2.8 L Impressions: Abdomen Ultrasound 04/21/18 18:12 IMPRESSION: FATTY LIVER. PANCREAS PARTIALLY OBSCURED. OTHERWISE NORMAL RIGHT UPPER QUADRANT ULTRASOUND. Chest X-Ray 04/24/18 17:29 IMPRESSION: Bibasilar pneumonia left greater than right. Status: Imported from PACS Assessment & Plan - Diagnosis (1) Alcohol-induced pancreatitis Qualifiers: Chronicity: acute Acute pancreatitis complication: unspecified Qualified Code(s): K85.20 - Alcohol induced acute pancreatitis without necrosis or infection Is this a current diagnosis for this admission?: Yes Plan: ETOH induced pancreatitis. Initial Lipase 5144 down to 176 yesterday, no longer trending Admits to drinking 4-5 shots per day of 100 proof liquor Recently admitted for same diagnosis in December 2017 Abdominal US relatively benign, only demonstrates fatty liver Initial Merle's Criteria score: 0 48hr Badger's Criteria score: 3 (15% mortality risk) Tolerating regular diet today Protonix IV PRN zofran for nausea IV Morphine PRN for pain (2) Alcohol abuse Is this a current diagnosis for this admission?: Yes Plan: Patient admits to daily EtOH use, consumes 4-5 shots of 100 proof liquor every day Initial blood alcohol level 191 Daily thiamine and folate IV Scheduled PO Valium 5mg q8hr PRN IV Ativan for agitation PRN IV Benadryl for sedation PRN Metoprolol for HTN or tachycardia PRN hydralazine for HTN Briefly placed on Precedex gtt for acute delirium associated with ETOH withdrawal, weaned off gtt now downgraded to IMCU Monitor for HTN, tachycardia, delirium tremors, hallucinations, and seizure activity while withdrawing (3) Paroxysmal atrial fibrillation Is this a current diagnosis for this admission?: Yes Plan: History of paroxysmal atrial fibrillation Noncompliant with medications EKG reveals sinus tachycardia, no evidence of A. fib No need for anticoagulation at this time (4) Pneumonia Qualifiers: Pneumonia type: due to unspecified organism Laterality: bilateral Is this a current diagnosis for this admission?: Yes Plan: Hospital-acquired pneumonia as evidenced by bilateral infiltrates seen on CXR No evidence of leukocytosis. Patient remains afebrile 24 hours. Initiate Zosyn IV Robitussin-DM for persistent cough - Time Time Spent with patient: 15-24 minutes Medications reviewed and adjusted accordingly: Yes Anticipated discharge: Home Within: within 48 hours - Inpatient Certification Based on my medical assessment, after consideration of the patient's comorbidities, presenting symptoms, or acuity I expect that the services needed warrant INPATIENT care.: Yes I certify that my determination is in accordance with my understanding of Medicare's requirements for reasonable and necessary INPATIENT services [42 CFR 412.3e].: Yes Medical Necessity: Risk of Complication if Not Cared For in Hospital
[2018-04-26] MEDS: ACETAMINOPHEN 325 MG TABLET PO PRN ×2 (03:25→12:40)
[2018-04-26] MEDS: HEPARIN SOD (PORCINE) 5,000 UNIT/ML 1 ML SYRINGE SUBCUT SCH ×3 (05:20→21:18)
[2018-04-26] MEDS: PIPERACILLIN SODIUM/TAZOBACTAM 3.375 GM in NORMAL SALINE 100 ML IV SCH ×3 (05:20→18:21)
[2018-04-26] MEDS: DIAZEPAM 5 MG TABLET PO SCH ×3 (05:20→21:18)
[2018-04-26] MEDS: NORMAL SALINE 1000 ML 1,000 ML IV PRN ×4 (05:25→22:30)
[2018-04-26] MEDS: GUAIFENESIN/D-METHORPHAN (200-20 MG) SYRUP 10 ML PO PRN (08:02)
[2018-04-26] MEDS: THIAMINE HCL 100 MG, FOLIC ACID 1 MG in NORMAL SALINE 250 ML IV SCH (09:05)
[2018-04-26 09:54] LABS: HEMATOCRIT 32.2 % (37.9-51.0); HEMOGLOBIN 11.3 g/dL (13.5-17.0); MEAN CORPUSCULAR HEMOGLOBIN 33.7 pg (27.0-33.4); MEAN CORPUSCULAR VOLUME 96 fl (80-97); PLATELET COUNT 209 10^3/uL (150-450); RED BLOOD COUNT 3.35 10^6/uL (4.35-5.55); RED CELL DISTRIBUTION WIDTH 13.9 % (11.5-14.0); WHITE BLOOD COUNT 8.3 10^3/uL (4.0-10.5)
[2018-04-26 10:18] LABS: ALANINE AMINOTRANSFERASE 36 U/L (21-72); ALBUMIN 2.8 g/dL (3.5-5.0); ALKALINE PHOSPHATASE 110 U/L (38-126); ANION GAP 11 (5-19); ASPARTATE AMINO TRANSFERASE 80 U/L (17-59); BILIRUBIN,DIRECT 0.4 mg/dL (0.0-0.4); BILIRUBIN,TOTAL 0.8 mg/dL (0.2-1.3); BLOOD UREA NITROGEN 6 mg/dL (7-20); CALCIUM 8.5 mg/dL (8.4-10.2); CARBON DIOXIDE 23 mmol/L (22-30); CHLORIDE 107 mmol/L (98-107); GLUCOSE 80 mg/dL (75-110); POTASSIUM 3.8 mmol/L (3.6-5.0); SODIUM 140.9 mmol/L (137-145); TOTAL PROTEIN 5.7 g/dL (6.3-8.2)
[2018-04-26] MEDS: GUAIFENESIN 600 MG TABLET.SA PO SCH ×2 (10:34→21:18)
[2018-04-26] MEDS: LORAZEPAM INJ 2 MG/1 ML VIAL IV PRN ×3 (12:41→19:36)
[2018-04-26] MEDS: ACETAMINOPHEN WITH CODEINE #3 TABLET PO PRN ×2 (16:13→20:26)
--- NOTE | 2018-04-26 17:13 | PDOC PROGRESS REPORT ---
Subjective Progress Note for:: 04/26/18 Subjective:: 42 y.o. M admitted with acute pancreatitis secondary to EtOH abuse. PMH includes pancreatitis, paroxysmal A. fib, EtOH dependency. The patient admits to drinking 4-5 shots per day of 100 proof liquor. He is seen this morning on rounds, resting in bed comfortably on room air. The patient denies fever or chills, nausea, vomiting, or diarrhea. He does endorse a productive cough and upper abdominal pain that is exacerbated when coughing. He states the Robitussin has not offered symptom relief. Upon assessment, +BS. Mid-abdomen is TTP. S1S2. Lungs clear to auscultation. The patient is A&O x 3. He does not appear to be going through ETOH withdrawal any longer. Currently tolerating his regular diet. Plan to continue IV antibiotics. Initiate Tylenol #3 for coughing. Reason For Visit: ACUTE PANCREATITIS Physical Exam Vital Signs: Temp Pulse Resp BP Pulse Ox 98.1 F 76 22 H 156/84 H 98 04/26/18 15:22 04/26/18 15:22 04/26/18 15:22 04/26/18 15:22 04/26/18 15:22 Intake & Output 04/25/18 04/26/18 04/27/18 06:59 06:59 06:59 Intake Total 4771.2 4915.2 1351.2 Output Total 5575 Balance 4771.2 -659.8 1351.2 Weight 92.5 kg 91 kg General appearance: PRESENT: no acute distress, well-developed, well-nourished Head exam: PRESENT: atraumatic, normocephalic Eye exam: PRESENT: conjunctiva pink, EOMI, PERRLA. ABSENT: scleral icterus Ear exam: PRESENT: normal external ear exam Mouth exam: PRESENT: moist, tongue midline Neck exam: ABSENT: carotid bruit, JVD, lymphadenopathy, thyromegaly Respiratory exam: PRESENT: clear to auscultation kaleb, symmetrical, other - PERSISTENT COUGH. ABSENT: rales, rhonchi, wheezes Cardiovascular exam: PRESENT: RRR, +S1, +S2. ABSENT: diastolic murmur, rubs, systolic murmur Pulses: PRESENT: normal dorsalis pedis pul Vascular exam: PRESENT: normal capillary refill GI/Abdominal exam: PRESENT: normal bowel sounds, soft. ABSENT: distended, guarding, mass, organolmegaly, rebound, tenderness Rectal exam: PRESENT: deferred Extremities exam: PRESENT: full ROM. ABSENT: calf tenderness, clubbing, pedal edema Neurological exam: PRESENT: alert, awake, oriented to person, oriented to place , oriented to time, oriented to situation Psychiatric exam: PRESENT: appropriate affect, normal mood Skin exam: PRESENT: dry, intact, warm Results Laboratory Results: 04/26/18 09:15 04/26/18 09:15 04/26/18 04/26/18 09:15 09:15 WBC 8.3 RBC 3.35 L Hgb 11.3 L Hct 32.2 L MCV 96 MCH 33.7 H MCHC 35.0 RDW 13.9 Plt Count 209 Sodium 140.9 Potassium 3.8 Chloride 107 Carbon Dioxide 23 Anion Gap 11 BUN 6 L Creatinine 0.61 Est GFR ( Amer) > 60 Est GFR (Non-Af Amer) > 60 Glucose 80 Calcium 8.5 Total Bilirubin 0.8 AST 80 H ALT 36 Alkaline Phosphatase 110 Total Protein 5.7 L Albumin 2.8 L 04/23/18 23:45 Valles Catheter Urine Culture - Final Streptococcus Bovis Grp Impressions: Abdomen Ultrasound 04/21/18 18:12 IMPRESSION: FATTY LIVER. PANCREAS PARTIALLY OBSCURED. OTHERWISE NORMAL RIGHT UPPER QUADRANT ULTRASOUND. Chest X-Ray 04/24/18 17:29 IMPRESSION: Bibasilar pneumonia left greater than right. Status: Imported from PACS Assessment & Plan - Diagnosis (1) Alcohol-induced pancreatitis Qualifiers: Chronicity: acute Acute pancreatitis complication: unspecified Qualified Code(s): K85.20 - Alcohol induced acute pancreatitis without necrosis or infection Is this a current diagnosis for this admission?: Yes Plan: Resolved. ETOH induced pancreatitis. Initial Lipase 5144 down to 176, no longer trending Admits to drinking 4-5 shots per day of 100 proof liquor Recently admitted for same diagnosis in December 2017 Abdominal US relatively benign, only demonstrates fatty liver Initial Merle's Criteria score: 0 48hr Benedict's Criteria score: 3 (15% mortality risk) Tolerating regular diet today Protonix IV PRN zofran for nausea (2) Alcohol abuse Is this a current diagnosis for this admission?: Yes Plan: Patient admits to daily EtOH use, consumes 4-5 shots of 100 proof liquor every day Initial blood alcohol level 191 Daily thiamine and folate IV Scheduled PO Valium 5mg q8hr PRN IV Ativan for agitation PRN IV Benadryl for sedation PRN Metoprolol for HTN or tachycardia PRN hydralazine for HTN Briefly placed on Precedex gtt for acute delirium associated with ETOH withdrawal, weaned off gtt now downgraded to IMCU Monitor for HTN, tachycardia, delirium tremors, hallucinations, and seizure activity while withdrawing (3) Paroxysmal atrial fibrillation Is this a current diagnosis for this admission?: Yes Plan: History of paroxysmal atrial fibrillation Noncompliant with medications EKG reveals sinus tachycardia, no evidence of A. fib No need for anticoagulation at this time (4) Pneumonia Qualifiers: Pneumonia type: due to unspecified organism Laterality: bilateral Is this a current diagnosis for this admission?: Yes Plan: Hospital-acquired pneumonia as evidenced by bilateral infiltrates seen on CXR No evidence of leukocytosis. Patient remains afebrile 24 hours. Continue IV Zosyn for hospital-acquired pneumonia Initiate Tylenol No. 3 for persistent coughing - Time Time Spent with patient: 15-24 minutes Medications reviewed and adjusted accordingly: Yes Anticipated discharge: Home Within: within 24 hours - Inpatient Certification Based on my medical assessment, after consideration of the patient's comorbidities, presenting symptoms, or acuity I expect that the services needed warrant INPATIENT care.: Yes I certify that my determination is in accordance with my understanding of Medicare's requirements for reasonable and necessary INPATIENT services [42 CFR 412.3e].: Yes Medical Necessity: Risk of Complication if Not Cared For in Hospital - Plan Summary Plan Summary: Barring any complications, plan to discharge home tomorrow
[2018-04-26] MEDS: GUAIFENESIN/CODEINE PHOS 100-10 MG/ 5 ML UDC PO PRN (22:28)
[2018-04-27] MEDS: PIPERACILLIN SODIUM/TAZOBACTAM 3.375 GM in NORMAL SALINE 100 ML IV SCH ×5 (00:14→23:09)
[2018-04-27] MEDS: LORAZEPAM INJ 2 MG/1 ML VIAL IV PRN ×3 (00:16→23:14)
[2018-04-27] MEDS ORDERED: MORPHINE SULFATE 10 MG/ML INJ IV ONE (02:35)
[2018-04-27] MEDS: ACETAMINOPHEN 325 MG TABLET PO PRN (02:52)
[2018-04-27] MEDS: IPRATROPIUM/ALBUTEROL 0.5-2.5 MG/3 ML AMPUL NEB PRN ×3 (03:10→21:48)
[2018-04-27] MEDS: NORMAL SALINE 1000 ML 1,000 ML IV PRN ×3 (04:41→23:14)
[2018-04-27] MEDS: HEPARIN SOD (PORCINE) 5,000 UNIT/ML 1 ML SYRINGE SUBCUT SCH ×3 (05:46→21:01)
[2018-04-27] MEDS: DIAZEPAM 5 MG TABLET PO SCH ×3 (05:47→21:01)
[2018-04-27 06:23] LABS: HEMATOCRIT 30.9 % (37.9-51.0); HEMOGLOBIN 10.9 g/dL (13.5-17.0); MEAN CORPUSCULAR HEMOGLOBIN 33.5 pg (27.0-33.4); MEAN CORPUSCULAR HGB CONC 35.2 g/dL (32.0-36.0); MEAN CORPUSCULAR VOLUME 95 fl (80-97); PLATELET COUNT 228 10^3/uL (150-450); RED BLOOD COUNT 3.24 10^6/uL (4.35-5.55); RED CELL DISTRIBUTION WIDTH 13.7 % (11.5-14.0); WHITE BLOOD COUNT 9.1 10^3/uL (4.0-10.5)
[2018-04-27 07:18] LABS: ALANINE AMINOTRANSFERASE 33 U/L (21-72); ALBUMIN 2.8 g/dL (3.5-5.0); ALKALINE PHOSPHATASE 120 U/L (38-126); ANION GAP 12 (5-19); ASPARTATE AMINO TRANSFERASE 76 U/L (17-59); BILIRUBIN,DIRECT 0.4 mg/dL (0.0-0.4); BILIRUBIN,TOTAL 0.5 mg/dL (0.2-1.3); BLOOD UREA NITROGEN 4 mg/dL (7-20); CALCIUM 8.5 mg/dL (8.4-10.2); CARBON DIOXIDE 24 mmol/L (22-30); CHLORIDE 104 mmol/L (98-107); GLUCOSE 125 mg/dL (75-110); POTASSIUM 3.5 mmol/L (3.6-5.0); SODIUM 139.8 mmol/L (137-145); TOTAL PROTEIN 5.7 g/dL (6.3-8.2)
--- NOTE | 2018-04-27 08:48 | RADIOLOGY REPORT (SQ) ---
EXAM DESCRIPTION: CHEST SINGLE VIEW COMPLETED DATE/TIME: 04/27/2018 8:23 am REASON FOR STUDY: shortness of breath COMPARISON: 04/24/2018. FINDINGS: AP portable upright timed approximately 0749 hours. Patchy left upper and lower lobe airspace disease, similar. Improved right basilar aeration. No pneumothorax. Stable cardiomediastinal silhouette. IMPRESSION: Persistent left basilar pneumonia. Similar appearance compared to prior. Resolved righ t infiltrate. TECHNICAL DOCUMENTATION: JOB ID: [id number] Reading location - IP/workstation name: [email or web address]
[2018-04-27] MEDS: GUAIFENESIN/CODEINE PHOS 100-10 MG/ 5 ML UDC PO PRN ×2 (08:51→12:43)
[2018-04-27] MEDS: THIAMINE HCL 100 MG, FOLIC ACID 1 MG in NORMAL SALINE 250 ML IV SCH (09:00)
[2018-04-27] MEDS: GUAIFENESIN 600 MG TABLET.SA PO SCH ×2 (09:03→21:01)
[2018-04-27] MEDS ORDERED: POTASSIUM CHLORIDE 10 MEQ CAPSULE.ER PO ONE (12:48)
[2018-04-27] MEDS: HYDROCODONE BIT/HOMATROPINE 5-1.5 MG TABLET PO PRN ×2 (16:55→21:01)
--- NOTE | 2018-04-27 19:10 | PDOC PROGRESS REPORT ---
Subjective Progress Note for:: 04/27/18 Subjective:: 42 y.o. M admitted with acute pancreatitis secondary to EtOH abuse. PMH includes pancreatitis, paroxysmal A. fib, EtOH dependency. The patient admits to drinking 4-5 shots per day of 100 proof liquor. He is seen this morning on rounds, resting in bed comfortably on room air. The patient denies fever or chills, nausea, vomiting, or diarrhea. He does endorse a productive cough and upper abdominal pain that is exacerbated when coughing. He states the Robitussin with Codeine has not offered symptom relief. Upon assessment, +BS. Mid-abdomen is TTP. S1S2. Lungs clear to auscultation. The patient is A&O x 3. He does not appear to be going through ETOH withdrawal any longer. Currently tolerating his regular diet. Plan to continue IV antibiotics. Initiate hycodan for coughing. Plan for discharge tomorrow. Reason For Visit: ACUTE PANCREATITIS Physical Exam Vital Signs: Temp Pulse Resp BP Pulse Ox 98.5 F 99 16 153/100 H 95 04/27/18 16:42 04/27/18 16:42 04/27/18 16:42 04/27/18 16:42 04/27/18 16:42 Intake & Output 04/26/18 04/27/18 04/28/18 06:59 06:59 06:59 Intake Total 4915.2 5539.2 1705.2 Output Total 5575 4775 1450 Balance -659.8 764.2 255.2 Weight 91 kg 89.4 kg General appearance: PRESENT: no acute distress Head exam: PRESENT: atraumatic Eye exam: PRESENT: conjunctiva pink, PERRLA Mouth exam: PRESENT: moist Neck exam: PRESENT: full ROM Respiratory exam: PRESENT: clear to auscultation kaleb, symmetrical, unlabored Cardiovascular exam: PRESENT: +S1, +S2 Pulses: PRESENT: normal radial pulses, normal dorsalis pedis pul Vascular exam: PRESENT: normal capillary refill GI/Abdominal exam: PRESENT: normal bowel sounds, soft. ABSENT: tenderness Rectal exam: PRESENT: deferred Extremities exam: PRESENT: full ROM Musculoskeletal exam: PRESENT: ambulatory, full ROM Neurological exam: PRESENT: alert, awake, oriented to person, oriented to place , oriented to time, oriented to situation Psychiatric exam: PRESENT: appropriate affect Skin exam: PRESENT: dry, intact, normal color Results Laboratory Results: 04/27/18 05:45 04/27/18 05:45 04/27/18 04/27/18 05:45 05:45 WBC 9.1 RBC 3.24 L Hgb 10.9 L Hct 30.9 L MCV 95 MCH 33.5 H MCHC 35.2 RDW 13.7 Plt Count 228 Sodium 139.8 Potassium 3.5 L Chloride 104 Carbon Dioxide 24 Anion Gap 12 BUN 4 L Creatinine 0.66 Est GFR ( Amer) > 60 Est GFR (Non-Af Amer) > 60 Glucose 125 H Calcium 8.5 Total Bilirubin 0.5 AST 76 H ALT 33 Alkaline Phosphatase 120 Total Protein 5.7 L Albumin 2.8 L Impressions: Abdomen Ultrasound 04/21/18 18:12 IMPRESSION: FATTY LIVER. PANCREAS PARTIALLY OBSCURED. OTHERWISE NORMAL RIGHT UPPER QUADRANT ULTRASOUND. Chest X-Ray 04/27/18 00:00 IMPRESSION: Persistent left basilar pneumonia. Similar appearance compared to prior. Resolved right infiltrate. Status: Imported from PACS Assessment & Plan - Diagnosis (1) Alcohol-induced pancreatitis Qualifiers: Chronicity: acute Acute pancreatitis complication: unspecified Qualified Code(s): K85.20 - Alcohol induced acute pancreatitis without necrosis or infection Is this a current diagnosis for this admission?: Yes Plan: Resolved. ETOH induced pancreatitis. Initial Lipase 5144 down to 176, no longer trending Admits to drinking 4-5 shots per day of 100 proof liquor Recently admitted for same diagnosis in December 2017 Abdominal US relatively benign, only demonstrates fatty liver Initial [place]'s Criteria score: 0 48hr Merle's Criteria score: 3 (15% mortality risk) Tolerating regular diet today Protonix IV PRN zofran for nausea (2) Alcohol abuse Is this a current diagnosis for this admission?: Yes Plan: Patient admits to daily EtOH use, consumes 4-5 shots of 100 proof liquor every day Initial blood alcohol level 191 Daily thiamine and folate IV Scheduled PO Valium 5mg q8hr PRN IV Ativan for agitation PRN IV Benadryl for sedation PRN Metoprolol for HTN or tachycardia PRN hydralazine for HTN Briefly placed on Precedex gtt for acute delirium associated with ETOH withdrawal, weaned off gtt now downgraded to IMCU Monitor for HTN, tachycardia, delirium tremors, hallucinations, and seizure activity while withdrawing (3) Paroxysmal atrial fibrillation Is this a current diagnosis for this admission?: Yes Plan: History of paroxysmal atrial fibrillation Noncompliant with medications EKG reveals sinus tachycardia, no evidence of A. fib No need for anticoagulation at this time (4) Pneumonia Qualifiers: Pneumonia type: due to unspecified organism Laterality: bilateral Is this a current diagnosis for this admission?: Yes Plan: Hospital-acquired pneumonia as evidenced by bilateral infiltrates seen on CXR No evidence of leukocytosis. Patient remains afebrile 24 hours. Continue IV Zosyn for hospital-acquired pneumonia Initiate Hycodan for persistent coughing - Time Time Spent with patient: 15-24 minutes Medications reviewed and adjusted accordingly: Yes Anticipated discharge: Home Within: within 24 hours - Inpatient Certification Based on my medical assessment, after consideration of the patient's comorbidities, presenting symptoms, or acuity I expect that the services needed warrant INPATIENT care.: Yes I certify that my determination is in accordance with my understanding of Medicare's requirements for reasonable and necessary INPATIENT services [42 CFR 412.3e].: Yes Medical Necessity: Need for IV Antibiotics, Risk of Complication if Not Cared For in Hospital - Plan Summary Plan Summary: HYCODAN FOR COUGHING. D/C TOMORROW.
[2018-04-27] MEDS: METOPROLOL TARTRATE PF/INJ 5 MG/5 ML SDV IV PRN (23:09)
[2018-04-28] MEDS: DIAZEPAM 5 MG TABLET PO SCH ×2 (05:45→14:32)
[2018-04-28] MEDS: PIPERACILLIN SODIUM/TAZOBACTAM 3.375 GM in NORMAL SALINE 100 ML IV SCH ×2 (05:45→12:16)
[2018-04-28] MEDS: HEPARIN SOD (PORCINE) 5,000 UNIT/ML 1 ML SYRINGE SUBCUT SCH ×2 (05:45→14:32)
[2018-04-28] MEDS: HYDROCODONE BIT/HOMATROPINE 5-1.5 MG TABLET PO PRN ×2 (05:45→09:56)
[2018-04-28 06:36] LABS: HEMATOCRIT 32.2 % (37.9-51.0); HEMOGLOBIN 11.1 g/dL (13.5-17.0); MEAN CORPUSCULAR HEMOGLOBIN 32.6 pg (27.0-33.4); MEAN CORPUSCULAR HGB CONC 34.4 g/dL (32.0-36.0); MEAN CORPUSCULAR VOLUME 95 fl (80-97); PLATELET COUNT 296 10^3/uL (150-450); RED BLOOD COUNT 3.39 10^6/uL (4.35-5.55); WHITE BLOOD COUNT 7.7 10^3/uL (4.0-10.5)
[2018-04-28 06:50] LABS: ALANINE AMINOTRANSFERASE 31 U/L (21-72); ALBUMIN 2.8 g/dL (3.5-5.0); ALKALINE PHOSPHATASE 117 U/L (38-126); ANION GAP 12 (5-19); ASPARTATE AMINO TRANSFERASE 84 U/L (17-59); BILIRUBIN,DIRECT 0.3 mg/dL (0.0-0.4); BILIRUBIN,TOTAL 0.4 mg/dL (0.2-1.3); BLOOD UREA NITROGEN 3 mg/dL (7-20); CALCIUM 8.8 mg/dL (8.4-10.2); CARBON DIOXIDE 26 mmol/L (22-30); CHLORIDE 103 mmol/L (98-107); GLUCOSE 93 mg/dL (75-110); POTASSIUM 3.7 mmol/L (3.6-5.0); SODIUM 140.6 mmol/L (137-145); TOTAL PROTEIN 5.9 g/dL (6.3-8.2)
[2018-04-28] MEDS: IPRATROPIUM/ALBUTEROL 0.5-2.5 MG/3 ML AMPUL NEB PRN (08:58)
[2018-04-28] MEDS: GUAIFENESIN 600 MG TABLET.SA PO SCH (09:56)
[2018-04-28] MEDS: THIAMINE HCL 100 MG, FOLIC ACID 1 MG in NORMAL SALINE 250 ML IV SCH (09:56)
[2018-04-28 14:08] VITALS: BP 140/91
--- NOTE | 2018-05-01 09:30 | PDOC DISCHARGE SUMMARY ---
General - Admit/Disc Date/PCP Admission Date/Primary Care Provider: 04/21/18 21:45 Discharge Date: 04/28/18 - Discharge Diagnosis (1) Alcohol-induced pancreatitis Is this a current diagnosis for this admission?: Yes (2) Alcohol abuse Is this a current diagnosis for this admission?: Yes (3) Paroxysmal atrial fibrillation Is this a current diagnosis for this admission?: Yes (4) Pneumonia Is this a current diagnosis for this admission?: Yes - Additional Information Resuscitation Status: Full Code Discharge Diet: As Tolerated Discharge Activity: Activity As Tolerated Prescriptions: Hydrocodone Bit/Homatropine [Hycodan 5-1.5 mg Tablet] 1 tab PO Q6HP PRN #20 tablet PRN Reason: coughing Levofloxacin [Levaquin 750 mg Tablet] 750 mg PO DAILY #5 tab Home Medications: Hydrocodone Bit/Homatropine [Hycodan 5-1.5 mg Tablet] 1 tab PO Q6HP PRN #20 tablet 04/28/18 Levofloxacin [Levaquin 750 mg Tablet] 750 mg PO DAILY #5 tab 04/28/18 History of Present Illness History of Present Illness: Per Dr. Uyen Love: SOLITARIO CARLTON is a 42 year old male who comes to the emergency department complaining of abdominal pain. He has history of alcohol induced pancreatitis and was admitted in our facility before on December 2017. Tells me that today at 1:30 PM while he was at work he started with epigastric pain that radiated to the back, sharp in nature, increasing to 10/10 intensity, associated with nausea and 3 episodes of nonbloody vomiting with food particles. Denies fever, chills, cough, wheezing, he is not taking deep inspirations secondary to his abdominal pain. He had 2 episodes of nonbloody diarrhea today. Denies dysuria, hematuria or frequency. Patient is alcohol dependent, last drink was last night, patient drinks 99 banana, 4-5 shots a day. Right upper quadrant ultrasound with no evidence of gallstones. Hospital Course Hospital Course: 42 y.o. M admitted to [facility] for alcohol induced pancreatitis. The patient is well known to the hospitalist service and is frequently admitted for the same diagnosis. Upon admission, his lipase was 5144. Serum ETOH level 191. Patient endorsed drinking 4-5 shots of banana liquor daily. Abdominal US only demonstrated a fatty liver, no other pathology. No leukocytosis or fever upon admission. Initial Merle's Criteria score: 0. Approximately 24 hours following his admission to [facility], the patient became acutely delirious (including visual hallucinations), hypertensive and tachycardic. He was placed on a Precedex gtt and transferred to the ICU. Nursing staff was able to wean off the precedex gtt within 12 hours. The patient spent approximately 24 hours in the ICU for close observation while withdrawing from ETOH. He was transferred back to [facility] on scheduled PO Valium and PRN IV Ativan. 48hr [place]'s Criteria score: 3 (15% mortality risk). Unfortunately, the patient developed pneumonia while at [facility]. 48-72 hours following admission, the patient became febrile (TMAX 103). CXR demonstrated bibasilar PNA. The patient was started on IV Zosyn for hospital acquired PNA. After 7 days in the hospital, the patient was deemed safe for discharge. He was no longer exhibiting symptoms of ETOH withdrawal, his lipase had decreased to < 200, tolerating a regular diet, vital signs were stable, and his PNA was improving (RLL infiltrate no longer present on CXR). The patient was prescribed Levaquin to complete his antibiotic treatment of pneumonia. Additionally, he was sent home with a 5 day prescription for Hycodan to help control his persistent coughing. The patient received extensive counseling regarding his ETOH use and it's link to his pancreatitis. The patient stated full understanding of his discharge instructions. For any further information regarding this patient's hospitalization, please refer to the EMR. Physical Exam Vital Signs: Temp Pulse Resp BP Pulse Ox 99.4 F 101 H 18 140/91 H 91 L 04/28/18 14:52 04/28/18 14:52 04/28/18 14:52 04/28/18 14:52 04/28/18 14:52 Intake & Output 04/29/18 04/30/18 05/01/18 06:59 06:59 06:59 Intake Total 591.2 Output Total 300 Balance 291.2 Results Laboratory Results: 04/28/18 05:40 04/28/18 05:40 Impressions: Abdomen Ultrasound 04/21/18 18:12 IMPRESSION: FATTY LIVER. PANCREAS PARTIALLY OBSCURED. OTHERWISE NORMAL RIGHT UPPER QUADRANT ULTRASOUND. Chest X-Ray 04/27/18 00:00 IMPRESSION: Persistent left basilar pneumonia. Similar appearance compared to prior. Resolved right infiltrate. Status: Imported from PACS Qualifiers - * PATIENT BEING DISCHARGED WITH ANY OF THE FOLLOWING DIAGNOSIS: No Plan Discharge Plan: DISCHARGE HOME WITH ANTIBIOTICS AND ANTITUSSIVE Time Spent: Less than 30 Minutes
== END 2018-04-28 16:16 | disposition home or self-care (01) | DRG 438 ==
LOC: ER 16:48 → EH 21:45 → 4N 04-22 17:15 → ICU 04-22 23:13 → 3S 04-23 20:17
PROVIDERS: ADMIT Internal Medicine; ATTEND Internal Medicine
PROC: 3E0F73Z Introduction of Anti-inflammatory into Respiratory Tract, Via Natural or Artificial Opening (ICD-10-PCS; principal; 2018-04-27)
DX: K85.20 Alcohol induced acute pancreatitis without necrosis or infection (principal); J18.9 Pneumonia, unspecified organism; M31.1 Thrombotic microangiopathy; F10.231 Alcohol dependence with withdrawal delirium; I48.0 Paroxysmal atrial fibrillation; F17.210 Nicotine dependence, cigarettes, uncomplicated; Y90.6 Blood alcohol level of 120-199 mg/100 ml; I10 Essential (primary) hypertension; R00.0 Tachycardia, unspecified; B96.89 Other specified bacterial agents as the cause of diseases classified elsewhere; B95.4 Other streptococcus as the cause of diseases classified elsewhere; B95.5 Unspecified streptococcus as the cause of diseases classified elsewhere; F41.9 Anxiety disorder, unspecified; Z91.14 Patient's other noncompliance with medication regimen
CPT/HCPCS: 36415; 71045; 76705; 80048; 80053; 80076; 80307; 81001; 82140; 83605; 83615; 83690; 83735; 84100; 85025; 85027; 85610; 85730; 87040; 87086; 87088; 87186; 94799; 96374; 96375; 99285; J0360; J1170; J1200; J1644; J2060; J2270; J2543; J2550; J2765; J3411; J3475; J3480; J3490; J7030; J7050; J7620; S0119; S0164

== ENCOUNTER 2018-05-16 16:21 | Emergency (ER) | payer OTHER ==
[2018-05-16 16:26] VITALS: BP 146/93
--- NOTE | 2018-05-16 18:20 | ER Document Report ---
ED General - General Chief Complaint: Laceration Stated Complaint: HEAD INJURY Time Seen by Provider: 05/16/18 17:30 Mode of Arrival: Ambulatory TRAVEL OUTSIDE OF THE [place] IN LAST 30 DAYS: No - HPI Patient complains to provider of: hit in the head Onset: Other - 42-year-old man who presents for evaluation of getting hit in the head with a small branch while attempting to work on a tire, he notes that he had been trying to change some piece of equipment at which time a ranch move backwards and hit him on the right side of the face. He had pain immediately thereafter with some bleeding denies any loss of consciousness lightheadedness focal numbness or weakness or other symptoms. He otherwise feels at baseline. Placed a towel over top of it. Believes his last tetanus shot was within the last 5 years but is uncertain. - Related Data Allergies/Adverse Reactions: No Known Allergies Allergy (Verified 05/16/18 16:21) Past Medical History - General Information source: Patient - Social History Smoking Status: Never Smoker Chew tobacco use (# tins/day): No Frequency of alcohol use: Social Drug Abuse: None Family History: None, Reviewed & Not Pertinent Patient has suicidal ideation: No Patient has homicidal ideation: No - Medical History Medical History: Other - History of atrial fibrillation - Past Medical History Cardiac Medical History: Reports: Hx Atrial Fibrillation - INTERMITTENT, INFREQUENT 1992, PAF Endocrine Medical History: Denies: Hx Hyperthyroidism, Hx Hypothyroidism Renal/ Medical History: Denies: Hx Peritoneal Dialysis Musculoskeletal Medical History: Reports Hx Musculoskeletal Trauma Psychiatric Medical History: Reports: Hx Anxiety Traumatic Medical History: Reports: Hx Fractures Past Surgical History: Reports: Hx Orthopedic Surgery - left lower extremity - Immunizations Immunizations up to date: Yes Hx Diphtheria, Pertussis, Tetanus Vaccination: Yes Physical Exam - Vital signs Vitals: Temp Pulse Resp BP Pulse Ox 99.2 F 100 18 146/93 H 95 05/16/18 16:25 05/16/18 16:25 05/16/18 16:25 05/16/18 16:25 05/16/18 16:25 - General General appearance: Appears well In distress: None - HEENT Head: Other - 1 cm horizontal laceration just superior to the right eyelid Eyes: Normal Conjunctiva: Normal Cornea: Normal Extraocular movements intact: Yes Eyelashes: Normal Pupils: PERRL - Respiratory Respiratory status: No respiratory distress Chest status: Nontender - Cardiovascular Rhythm: Regular Heart sounds: Normal auscultation Murmur: No - Abdominal Inspection: Normal Distension: No distension - Back Back: Normal - Extremities General upper extremity: Normal inspection General lower extremity: Normal inspection - Neurological Neuro grossly intact: Yes Cognition: Normal Orientation: AAOx4 Joseph Coma Scale Eye Opening: Spontaneous Joseph Coma Scale Verbal: Oriented Chava Coma Scale Motor: Obeys Commands Chava Coma Scale Total: 15 Speech: Normal - Psychological Associated symptoms: Normal affect Course - Re-evaluation Re-evalutation: 05/16/18 19:38 42-year-old male presents to his [facility] C-spine and CT head negative after being bumped in the right eye by a wrench with small cut. Specifically states he does not want stitches if he can avoid them at this time , is well approximated laceration near the eyebrow as such we will plan for repair with adhesive. Will update tetanus shot as he is uncertain when his last time was will administer 1 Percocet for his pain control. Patient is neurologically intact at this time ambulatory without any significant signs to suggest some underlying more serious intracranial process while he does have atrial fibrillation he is not currently on anticoagulation and is paroxysmal he has been told that he does not need any other medications. - Vital Signs Vital signs: Temp Pulse Resp BP Pulse Ox 99.2 F 100 18 146/93 H 95 05/16/18 16:25 05/16/18 16:25 05/16/18 16:25 05/16/18 16:25 05/16/18 16:25 Discharge - Discharge Clinical Impression: Contusion Qualifiers: Encounter type: initial encounter Contusion area: head Contusion of head detail : scalp Qualified Code(s): S00.03XA - Contusion of scalp, initial encounter Face lacerations Qualifiers: Encounter type: initial encounter Qualified Code(s): S01.81XA - Laceration without foreign body of other part of head, initial encounter Condition: Good Disposition: HOME, SELF-CARE Instructions: Laceration Care ([facility]) Additional Instructions: you were seen in the emergency room for your cut on your face. You had evaluation including physical exam and repair. Use gentle soap and water to wash the wound at least twice daily. Return for any worsening fevers or chills numbness or weakness or worsening headache. Prescriptions: Hydrocodone/Acetaminophen [[place] 5-325 mg Tabs (6 Tab/ER Disp)] 6 tab PO Q8H PRN #1 dspk PRN Reason: For Headache Forms: Smoking Cessation Education, Elevated Blood Pressure, Return to Work, Special Work Note
[2018-05-16] MEDS ORDERED: OXYCODONE-ACETAMINOPHEN 5-325 MG TABLET PO ONE (18:40)
== END 2018-05-16 20:22 | disposition home or self-care (01) ==
LOC: ER 16:21
DX: S01.111A Laceration without foreign body of right eyelid and periocular area, initial encounter (principal); W27.8XXA Contact with other nonpowered hand tool, initial encounter; Y93.89 Activity, other specified; Y99.0 Civilian activity done for income or pay; Z23 Encounter for immunization
CPT/HCPCS: 99282

== ENCOUNTER 2018-08-04 14:32 | Inpatient (IN) | payer SELFPAY ==
[2018-08-04] MEDS ORDERED: METOCLOPRAMIDE HCL ORAL SOLN 10 MG/10 ML UDCUP PO ONE (14:53)
[2018-08-04] MEDS ORDERED: MAG HYDROX/AL HYDROX/SIMETH SUSP 30 ML UDCUP PO ONE (14:53)
[2018-08-04] MEDS ORDERED: LIDOCAINE 2% VISCOUS SOLN 20 ML UDCUP PO ONE (14:53)
[2018-08-04] MEDS ORDERED: NORMAL SALINE 1000 ML 1,000 ML IV ONE (14:53)
[2018-08-04] MEDS ORDERED: MORPHINE SULFATE 10 MG/ML INJ IV ONE (14:54)
[2018-08-04] MEDS ORDERED: ONDANSETRON HCL INJ/PF 4 MG/2 ML SDV IV ONE (14:54)
[2018-08-04] MEDS ORDERED: FAMOTIDINE INJ/PF 20 MG/2 ML SDV IV ONE (14:54)
--- NOTE | 2018-08-04 14:55 | ER Document Report ---
ED Medical Screen (RME) - General Chief Complaint: Abdominal Pain Stated Complaint: ABDOMINAL PAIN Time Seen by Provider: 08/04/18 14:49 Mode of Arrival: Ambulatory Information source: Patient Notes: 43-year-old male presents emergency department complaints of epigastric and left upper quadrant abdominal pain. Patient states that it is a sharp and stabbing sensation. He denies any radiation of the pain. He denies any alleviating or exacerbating factors. Patient states that this feels similar to his pancreatitis. He states that he has had similar pain in the past. Alcohol flares up the pancreatitis. Patient states that he has been drinking recently. He denies any chest pain or difficulty breathing. I have greeted and performed a rapid initial assessment of this patient. A comprehensive ED assessment and evaluation of the patient, analysis of test results and completion of the medical decision making process will be conducted by additional ED providers. PHYSICAL EXAMINATION: GENERAL: Well-appearing, well-nourished and in no acute distress. HEAD: Atraumatic, normocephalic. EYES: Pupils equal round extraocular movements intact, conjunctiva are normal. ENT: Nares patent NECK: Normal range of motion LUNGS: No respiratory distress Musculoskeletal: Normal range of motion NEUROLOGICAL: Normal speech, normal gait. PSYCH: Normal mood, normal affect. SKIN: Warm, Dry, normal turgor, no rashes or lesions noted. TRAVEL OUTSIDE OF THE [place] IN LAST 30 DAYS: No - Related Data Allergies/Adverse Reactions: No Known Allergies Allergy (Verified 08/04/18 14:33) Past Medical History - Social History Frequency of alcohol use: Heavy Drug Abuse: None - Past Medical History Cardiac Medical History: Reports: Hx Atrial Fibrillation - INTERMITTENT, INFREQUENT 1992, Endocrine Medical History: Denies: Hx Hyperthyroidism, Hx Hypothyroidism Renal/ Medical History: Denies: Hx Peritoneal Dialysis Musculoskeltal Medical History: Reports Hx Musculoskeletal Trauma Psychiatric Medical History: Reports: Hx Anxiety Traumatic Medical History: Reports: Hx Fractures Past Surgical History: Reports: Hx Abdominal Surgery - hernia repair, Hx Orthopedic Surgery - left lower extremity - Immunizations Immunizations up to date: Yes Hx Diphtheria, Pertussis, Tetanus Vaccination: Yes History of Influenza Vaccine for 06/2017 - 11/2017 Season: No Physical Exam - Vital signs Vitals: Temp Pulse Resp BP Pulse Ox 98.3 F 129 H 16 146/103 H 96 08/04/18 14:36 08/04/18 14:36 08/04/18 14:36 08/04/18 14:36 08/04/18 14:36 Course - Vital Signs Vital signs: Temp Pulse Resp BP Pulse Ox 98.3 F 129 H 16 146/103 H 96 08/04/18 14:36 08/04/18 14:36 08/04/18 14:36 08/04/18 14:36 08/04/18 14:36
[2018-08-04 16:02] LABS: ABSOLUTE BASOPHILS # (AUTO) 0.1 10^3/uL (0.0-0.2); ABSOLUTE LYMPHOCYTES (AUTO) 0.9 10^3/uL (0.5-4.7); ABSOLUTE MONOCYTES (AUTO) 0.4 10^3/uL (0.1-1.4); ABSOLUTE NEUT (AUTO) 6.2 10^3/uL (1.7-8.2); BASOPHILS % (AUTO) 0.7 % (0-2); EOSINOPHILS % (AUTO) 0.4 % (0-6); HEMATOCRIT 46.5 % (37.9-51.0); HEMOGLOBIN 16.1 g/dL (13.5-17.0); MEAN CORPUSCULAR HEMOGLOBIN 32.9 pg (27.0-33.4); MEAN CORPUSCULAR HGB CONC 34.5 g/dL (32.0-36.0); MEAN CORPUSCULAR VOLUME 95 fl (80-97); MONOCYTES % (AUTO) 5.8 % (3-13); PLATELET COUNT 217 10^3/uL (150-450); RED BLOOD COUNT 4.88 10^6/uL (4.35-5.55); RED CELL DISTRIBUTION WIDTH 13.1 % (11.5-14.0); SEGMENTED NEUTROPHILS % (AUTO) 81.1 % (42-78); TOTAL CELLS COUNTED % (AUTO) 100 %; WHITE BLOOD COUNT 7.6 10^3/uL (4.0-10.5)
[2018-08-04 16:28] LABS: ALANINE AMINOTRANSFERASE 86 U/L (21-72); ALBUMIN 4.6 g/dL (3.5-5.0); ALKALINE PHOSPHATASE 116 U/L (38-126); ANION GAP 17 (5-19); ASPARTATE AMINO TRANSFERASE 274 U/L (17-59); BILIRUBIN,DIRECT 0.2 mg/dL (0.0-0.4); BILIRUBIN,TOTAL 0.5 mg/dL (0.2-1.3); BLOOD UREA NITROGEN 10 mg/dL (7-20); CALCIUM 9.3 mg/dL (8.4-10.2); CARBON DIOXIDE 22 mmol/L (22-30); CHLORIDE 104 mmol/L (98-107); GLUCOSE 106 mg/dL (75-110); POTASSIUM 4.2 mmol/L (3.6-5.0); SODIUM 143.4 mmol/L (137-145); TOTAL PROTEIN 8.3 g/dL (6.3-8.2)
[2018-08-04 16:36] LABS: LIPASE 2181.5 U/L (23-300)
[2018-08-04 17:05] LABS: APPEARANCE,URINE SLIGHTLY-CLOUDY; BILIRUBIN,URINE NEGATIVE (NEGATIVE); COLOR,URINE YELLOW; GLUCOSE, URINE NEGATIVE (NEGATIVE); KETONES,URINE NEGATIVE (NEGATIVE); LEUKOCYTE ESTERASE,URINE NEGATIVE (NEGATIVE); NITRITE,URINE NEGATIVE (NEGATIVE); PROTEIN,URINE 100 mg/dL (NEGATIVE); UROBILINOGEN,URINE NEGATIVE mg/dL (<2.0)
[2018-08-04] MEDS ORDERED: LORAZEPAM INJ 2 MG/1 ML VIAL IV ONE (17:29)
[2018-08-04] MEDS ORDERED: RINGERS SOLUTION,LACTATED 1,000 ML IV ONE (17:31)
--- NOTE | 2018-08-04 17:35 | ER Document Report ---
ED General - General Chief Complaint: Abdominal Pain Stated Complaint: ABDOMINAL PAIN Time Seen by Provider: 08/04/18 14:49 Mode of Arrival: Ambulatory TRAVEL OUTSIDE OF THE [place] IN LAST 30 DAYS: No - HPI Patient complains to provider of: abdominal pain Onset: Other - 43-year-old man that presents for evaluation of abdominal pain, he is a chronic alcoholic with recurrent pancreatitis in the past that presents for evaluation of pancreatitis today. He is a healthy otherwise man but continues to drink alcohol daily. Started having pain this morning which woke him from sleep consistent with previous pancreatitis. Denies fevers or chills, denies any other symptoms. Pain. - Related Data Allergies/Adverse Reactions: No Known Allergies Allergy (Verified 08/04/18 14:33) Past Medical History - General Information source: Patient - Social History Smoking Status: Never Smoker Frequency of alcohol use: Heavy Drug Abuse: None Family History: None, Reviewed & Not Pertinent Patient has suicidal ideation: No Patient has homicidal ideation: No - Past Medical History Cardiac Medical History: Reports: Hx Atrial Fibrillation - INTERMITTENT, INFREQUENT 1992, PAF Endocrine Medical History: Denies: Hx Hyperthyroidism, Hx Hypothyroidism Renal/ Medical History: Denies: Hx Peritoneal Dialysis Musculoskeletal Medical History: Reports Hx Musculoskeletal Trauma Psychiatric Medical History: Reports: Hx Anxiety Traumatic Medical History: Reports: Hx Fractures Past Surgical History: Reports: Hx Abdominal Surgery - hernia repair, Hx Orthopedic Surgery - left lower extremity - Immunizations Immunizations up to date: Yes Hx Diphtheria, Pertussis, Tetanus Vaccination: Yes Review of Systems - Review of Systems -: Yes All other systems reviewed and negative Physical Exam - Vital signs Vitals: Temp Pulse Resp BP Pulse Ox 98.3 F 129 H 16 146/103 H 96 08/04/18 14:36 08/04/18 14:36 08/04/18 14:36 08/04/18 14:36 08/04/18 14:36 - General General appearance: Appears well In distress: None - HEENT Head: Normocephalic Eyes: Normal Conjunctiva: Normal Cornea: Normal Extraocular movements intact: Yes Eyelashes: Normal Pupils: PERRL - Respiratory Respiratory status: No respiratory distress Chest status: Nontender Breath sounds: Normal Chest palpation: Normal - Cardiovascular Rhythm: Tachycardia Heart sounds: Normal auscultation Murmur: No - Abdominal Inspection: Normal Distension: No distension Tenderness: Tender - Back Back: Normal - Extremities General upper extremity: Normal inspection, Nontender, Normal ROM, Normal strength General lower extremity: Normal inspection, Nontender, Normal ROM, Normal strength - Neurological Neuro grossly intact: Yes Cognition: Normal Orientation: AAOx4 Chava Coma Scale Eye Opening: Spontaneous Chava Coma Scale Verbal: Oriented Chava Coma Scale Motor: Obeys Commands [place] Coma Scale Total: 15 Speech: Normal Cranial nerves: Normal Cerebellar coordination: Normal Motor strength normal: LUE, RUE, LLE, RLE - Psychological Associated symptoms: Normal affect Course - Re-evaluation Re-evalutation: 43-year-old man who presents for evaluation of abdominal pain consistent with his previous episodes of pancreatitis in the past. On examination he is uncomfortable, his abdominal exam is diffuse tenderness without any focal rebound or guarding. I do not believe that he is a positive Osman sign or underlying biliary disease. He does have an elevated lipase and diffuse tenderness in the abdomen. Because of his elevated lipase and desire to stop drinking believe he requires hospitalization for monitoring and appropriate cessation of drinking and appropriate setting. Patient to undergo admission to the hospitalist service with Dr. Hallman, will obtain a ultrasound of the abdomen to assess CBD and biliary tree. Have administer analgesia with narcotics. - Vital Signs Vital signs: Temp Pulse Resp BP Pulse Ox 98.3 F 129 H 16 146/103 H 96 08/04/18 14:36 08/04/18 14:36 08/04/18 14:36 08/04/18 14:36 08/04/18 14:36 - Laboratory Result Diagrams: 08/04/18 15:31 08/04/18 15:31 Laboratory results interpreted by me: 08/04/18 08/04/18 08/04/18 15:31 15:31 16:30 Seg Neutrophils % 81.1 H Lymphocytes % 12.0 L AST 274 H ALT 86 H Total Protein 8.3 H Lipase 2181.5 H Urine Protein 100 H Urine Blood SMALL H Discharge - Discharge Clinical Impression: Alcohol abuse Pancreatitis Qualifiers: Chronicity: chronic Pancreatitis type: unspecified pancreatitis type Qualified Code(s): K86.1 - Other chronic pancreatitis Condition: Stable Disposition: ADMITTED INPATIENT Unit Admitted: [facility]
[2018-08-04] MEDS ORDERED: FENTANYL CITRATE INJ/PF 100 MCG/2 ML AMPUL IV ONE (17:42)
[2018-08-04] MEDS ORDERED: ONDANSETRON HCL INJ/PF 4 MG/2 ML SDV IV PRN (17:52)
[2018-08-04] MEDS ORDERED: ONDANSETRON 4 MG TAB.RAPDIS PO PRN (17:52)
[2018-08-04] MEDS ORDERED: MAG HYDROX/AL HYDROX/SIMETH SUSP 30 ML UDCUP PO PRN (17:52)
[2018-08-04] MEDS ORDERED: MAGNESIUM HYDROXIDE SUSP 30 ML UDCUP PO PRN (17:52)
[2018-08-04] MEDS ORDERED: ACETAMINOPHEN 650 MG SUPP.RECT PR PRN (18:00)
[2018-08-04] MEDS ORDERED: ACETAMINOPHEN 325 MG TABLET PO PRN (18:00)
[2018-08-04] MEDS ORDERED: MORPHINE SULFATE 10 MG/ML INJ IV PRN (18:00)
[2018-08-04] MEDS ORDERED: DIAZEPAM INJ 10 MG/2 ML DISP.SYRIN IV PRN (18:55)
--- NOTE | 2018-08-04 18:55 | PDOC H&P ---
History of Present Illness Admission Date/PCP: 08/04/18 18:06 Patient complains of: Abdominal pain History of Present Illness: SOLITARIO CARLTON is a 43 year old male who presented to the emergency room with a history of abdominal pain waking him from sleep on the morning of admission. Patient indicates that he developed a sudden onset of very severe, constant, sharp stabbing, colicky pain in his epigastric region that woke him from a sound sleep. The pain did not radiate and he did not identify any aggravating or ameliorating factors for the pain prior to presenting to the emergency room. He admits prior similar episodes related to his alcoholic pancreatitis. He admits that he has been drinking every day and more heavily than usual for the past several weeks and strongly suspected that he was having a flareup of his pancreatitis when the pain struck him this morning. He had one episode of vomiting associated with the pain and he had one loose but not diarrhea stool this morning. He feels hungry and he has been able to keep down crackers and zari crista in the emergency room. He would like to have more to eat if that would be possible. He admits that his last drink was last night and that he has had problems with tremors and shakiness in the past when withdrawing from alcohol. He denies ever having hallucinations or seizures associated with alcohol withdrawal or any other time. In the emergency room he was found to have a markedly elevated lipase at 2181. His white blood count was normal and his electrolytes were also normal. He was therefore admitted to the hospital for treatment of his acute alcoholic pancreatitis. Past Medical History Cardiac Medical History: Reports: Atrial Fibrillation - INTERMITTENT, INFREQUENT 1992, PAF Pulmonary Medical History: Denies: Asthma, Intubation, Respiratory Failure EENT Medical History: Reports: None Neurological Medical History: Denies: Hemorrhagic CVA, Ischemic CVA, Migraine, Multiple Sclerosis, Seizures Endocrine Medical History: Denies: Diabetes Mellitus Type 1, Diabetes Mellitus Type 2, Hyperthyroidism, Hypothyroidism Renal/ Medical History: Denies: Chronic Kidney Disease, Nephrolithiasis Malignancy Medical History: Reports: None GI Medical History: Reports: Cirrhosis - History of elevated liver enzymes, Hepatitis - Alcoholic hepatitis, Other - Alcoholic pancreatitis Denies: Crohn's Disease, Gastroesophageal Reflux Disease, Hiatal Hernia, Peptic Ulcer Disease, Ulcerative Colitis Musculoskeltal Medical History: Denies: Arthritis, Gout Skin Medical History: Denies: Eczema, Psoriasis Psychiatric Medical History: Reports: Alcohol Dependency Denies: Substance Abuse, Tobacco Dependency Traumatic Medical History: Reports: None Hematology: Denies: Anemia, Bleeding Tendencies Infectious Medical History: Reports: None Past Surgical History Past Surgical History: Reports: Orthopedic Surgery - left lower extremity Social History Information Source: Patient Lives with: Family Smoking Status: Never Smoker Frequency of Alcohol Use: Heavy - Drinks daily and admits to heavy drinking but will not quantify Hx Recreational Drug Use: No Hx Prescription Drug Abuse: No - Advance Directive Resuscitation Status: Full Code Family History Family History: denies: CAD, DM, Hypertension, Malignancy Parental Family History Reviewed: Yes Children Family History Reviewed: No Sibling(s) Family History Reviewed.: Yes Medication/Allergy Home Medications: No Home Medications 08/04/18 Allergies/Adverse Reactions: No Known Allergies Allergy (Verified 08/04/18 14:33) Review of Systems Constitutional: ABSENT: chills, fever(s) Eyes: ABSENT: visual disturbances, other - Ocular pain Ears: ABSENT: hearing changes, other - Ear pain Nose, Mouth, and Throat: ABSENT: mouth pain, sore throat Cardiovascular: ABSENT: chest pain, dyspnea on exertion, edema, orthropnea, palpitations Respiratory: ABSENT: cough, dyspnea, hemoptysis Gastrointestinal: PRESENT: as per HPI, abdominal pain, nausea, vomiting. ABSENT : bloating, coffee ground emesis, constipation, diarrhea, dysphagia, heartburn, hematemesis, hematochezia, melena Genitourinary: ABSENT: dysuria, hematuria Musculoskeletal: ABSENT: back pain, deformity, joint swelling Integumentary: ABSENT: pruritus, rash Neurological: PRESENT: tremor(s) - With alcohol withdrawal. ABSENT: confusion, convulsions, memory loss Psychiatric: ABSENT: anxiety, depression, hallucinations Endocrine: ABSENT: cold intolerance, heat intolerance Hematologic/Lymphatic: ABSENT: easy bleeding, easy bruising Allergic/Immunologic: ABSENT: seasonal rhinorrhea, other - Insect bite allergy Physical Exam Vital Signs: Temp Pulse Resp BP Pulse Ox 98.3 F 129 H 16 146/103 H 96 08/04/18 14:36 08/04/18 14:36 08/04/18 14:36 08/04/18 14:36 08/04/18 14:36 Intake & Output 08/03/18 08/03/18 08/04/18 00:59 23:59 23:59 Intake Total 1000 Balance 1000 General appearance: PRESENT: no acute distress, cooperative, well-developed, well-nourished Head exam: PRESENT: atraumatic, normocephalic Eye exam: PRESENT: conjunctiva pink, EOMI. ABSENT: nystagmus Ear exam: PRESENT: normal external ear exam. ABSENT: drainage Mouth exam: PRESENT: moist, neck supple, tongue midline Neck exam: ABSENT: JVD, thyromegaly, tracheal deviation Respiratory exam: PRESENT: clear to auscultation kaleb, symmetrical, unlabored Cardiovascular exam: PRESENT: RRR. ABSENT: bradycardia, clicks, diastolic murmur, gallop, rubs, systolic murmur, tachycardia Pulses: PRESENT: normal radial pulses, normal dorsalis pedis pul Vascular exam: PRESENT: normal capillary refill. ABSENT: pallor GI/Abdominal exam: PRESENT: normal bowel sounds, soft, tenderness - Tenderness to light and deep palpation in the epigastrium. ABSENT: distended Rectal exam: PRESENT: deferred Extremities exam: ABSENT: joint swelling, pedal edema Musculoskeletal exam: PRESENT: full ROM, normal inspection Neurological exam: PRESENT: alert, oriented to person, oriented to place, oriented to time, oriented to situation, CN II-XII grossly intact, other - Mild tremor noted on full extension in bilateral upper extremities.. ABSENT: motor sensory deficit Psychiatric exam: PRESENT: appropriate affect, normal mood Skin exam: PRESENT: dry, warm. ABSENT: jaundice, rash, urticaria Assessment & Plan - Time Time Spent with patient: 25-34 minutes Time Spent: Greater than 70 Minutes - Inpatient Certification Based on my medical assessment, after consideration of the patient's comorbidities, presenting symptoms, or acuity I expect that the services needed warrant INPATIENT care.: Yes I certify that my determination is in accordance with my understanding of Medicare's requirements for reasonable and necessary INPATIENT services [42 CFR 412.3e].: Yes Medical Necessity: Need Close Monitoring Due to Risk of Patient Decompensation, Need for Pain Control
[2018-08-04] MEDS ORDERED: ENOXAPARIN SODIUM INJ 40 MG/0.4 ML DISP.SYRIN SUBCUT ONE (19:00)
--- NOTE | 2018-08-04 19:33 | RADIOLOGY REPORT (SQ) ---
EXAM DESCRIPTION: U/S ABDOMEN LIMITED W/O DOP COMPLETED DATE/TIME: 08/04/2018 7:03 pm REASON FOR STUDY: pancreatitis COMPARISON: None. TECHNIQUE: Dynamic and static grayscale images acquired of the abdomen and recorded on PACS. Additio nal selected color Doppler and spectral images recorded. LIMITATIONS: Poor acoustical window FINDINGS: PANCREAS: Not seen LIVER: Enlarged fatty liver. No focal masses. LIVER VASCULATURE: Normal directional flow of the main portal vein and hepatic veins. GALLBLADDER: No stones. Normal wall thickness. No pericholecystic fluid. ULTRASOUND-DETECTED CASTANEDA'S SIGN: Negative. INTRAHEPATIC DUCTS AND COMMON DUCT: CBD and intrahepatic ducts normal caliber. No filling defects. INFERIOR VENA CAVA: Normal flow. AORTA: No aneurysm. RIGHT KIDNEY: Normal size. Normal echogenicity. No solid or suspicious masses. No hydronephrosis. No calcifications. PERITONEAL AND RIGHT PLEURAL SPACE: No ascites or effusions. OTHER: No other significant findings. IMPRESSION: Enlarged fatty liver. No gallstones. TECHNICAL DOCUMENTATION: JOB ID: [id number] [employer]- All Rights Reserved Reading location - IP/workstation name: [email or web address]
[2018-08-04 19:42] LABS: URINE AMPHETAMINES SCREEN NEGATIVE; URINE BARBITURATES SCREEN NEGATIVE; URINE BENZODIAZEPINES SCREEN NEGATIVE; URINE COCAINE SCREEN NEGATIVE; URINE MARIJUANA (THC) SCREEN NEGATIVE; URINE METHADONE SCREEN NEGATIVE; URINE PHENCYCLIDINE SCREEN NEGATIVE
[2018-08-04] MEDS: METOCLOPRAMIDE HCL 10 MG TABLET PO SCH ×2 (19:54→22:09)
[2018-08-04] MEDS: FAMOTIDINE 20 MG TABLET PO SCH ×2 (19:54→21:56)
[2018-08-04] MEDS: SUCRALFATE SUSP 1 GM/10 ML UDCUP PO SCH ×2 (19:54→21:56)
[2018-08-04] MEDS: DIAZEPAM INJ 10 MG/2 ML DISP.SYRIN IV SCH (19:55)
[2018-08-04] MEDS: PANTOPRAZOLE SODIUM 40 MG VIAL IV SCH ×2 (19:55→22:31)
[2018-08-04] MEDS: MORPHINE SULFATE 10 MG/ML INJ IV PRN (21:55)
[2018-08-04] MEDS: NORMAL SALINE 1000 ML 1,000 ML IV PRN (21:56)
[2018-08-05] MEDS: DIAZEPAM INJ 10 MG/2 ML DISP.SYRIN IV SCH ×2 (02:08→06:42)
[2018-08-05] MEDS: MORPHINE SULFATE 10 MG/ML INJ IV PRN ×3 (02:40→09:52)
[2018-08-05 04:21] LABS: ABSOLUTE EOSINOPHILS # (AUTO) 0.1 10^3/uL (0.0-0.6); ABSOLUTE LYMPHOCYTES (AUTO) 0.7 10^3/uL (0.5-4.7); ABSOLUTE MONOCYTES (AUTO) 0.5 10^3/uL (0.1-1.4); ABSOLUTE NEUT (AUTO) 3.9 10^3/uL (1.7-8.2); BASOPHILS % (AUTO) 0.8 % (0-2); EOSINOPHILS % (AUTO) 1.6 % (0-6); LYMPHOCYTES % (AUTO) 12.9 % (13-45); MEAN CORPUSCULAR HEMOGLOBIN 33.2 pg (27.0-33.4); MEAN CORPUSCULAR HGB CONC 34.8 g/dL (32.0-36.0); MEAN CORPUSCULAR VOLUME 95 fl (80-97); MONOCYTES % (AUTO) 9.2 % (3-13); PLATELET COUNT 119 10^3/uL (150-450); RED BLOOD COUNT 3.99 10^6/uL (4.35-5.55); RED CELL DISTRIBUTION WIDTH 12.6 % (11.5-14.0); SEGMENTED NEUTROPHILS % (AUTO) 75.5 % (42-78); TOTAL CELLS COUNTED % (AUTO) 100 %; WHITE BLOOD COUNT 5.2 10^3/uL (4.0-10.5)
[2018-08-05 04:30] LABS: HEMOGLOBIN 13.2 g/dL (13.5-17.0)
[2018-08-05 04:44] LABS: ALANINE AMINOTRANSFERASE 59 U/L (21-72); ALBUMIN 3.3 g/dL (3.5-5.0); ALKALINE PHOSPHATASE 84 U/L (38-126); AMYLASE 342 U/L (30-110); ANION GAP 8 (5-19); ASPARTATE AMINO TRANSFERASE 179 U/L (17-59); BILIRUBIN,DIRECT 0.3 mg/dL (0.0-0.4); BLOOD UREA NITROGEN 8 mg/dL (7-20); CARBON DIOXIDE 29 mmol/L (22-30); CHLORIDE 101 mmol/L (98-107); GLUCOSE 92 mg/dL (75-110); LIPASE 1247.8 U/L (23-300); POTASSIUM 4.5 mmol/L (3.6-5.0); SODIUM 137.5 mmol/L (137-145); TOTAL PROTEIN 6.5 g/dL (6.3-8.2)
[2018-08-05] MEDS: NORMAL SALINE 1000 ML 1,000 ML IV PRN ×2 (06:03→17:57)
[2018-08-05] MEDS: LIPASE/PROTEASE/AMYLASE 1 CAP CAPSULE.DR PO SCH ×3 (08:19→16:35)
[2018-08-05] MEDS: SUCRALFATE SUSP 1 GM/10 ML UDCUP PO SCH ×4 (08:19→21:35)
[2018-08-05] MEDS: FAMOTIDINE 20 MG TABLET PO SCH ×4 (08:19→21:36)
[2018-08-05] MEDS: METOCLOPRAMIDE HCL 10 MG TABLET PO SCH ×4 (09:05→21:36)
[2018-08-05] MEDS: ENOXAPARIN SODIUM INJ 40 MG/0.4 ML DISP.SYRIN SUBCUT SCH (09:08)
[2018-08-05] MEDS ORDERED: OXYCODONE HCL IR 5 MG TABLET PO PRN (11:17)
[2018-08-05] MEDS: DIAZEPAM 5 MG TABLET PO SCH ×3 (11:39→23:30)
[2018-08-05] MEDS: LORAZEPAM INJ 2 MG/1 ML VIAL IV PRN ×3 (11:40→21:35)
--- NOTE | 2018-08-05 11:52 | PDOC PROGRESS REPORT ---
Subjective Progress Note for:: 08/05/18 Subjective:: The patient is a 43-year-old male with a past medical history of PAF, alcoholic hepatitis, pancreatitis, cirrhosis, alcohol dependency with continuous use who was admitted on 08/04/2018 for alcoholic pancreatitis. The patient was seen on morning rounds. He is found resting in bed comfortably on room air. He tells me that he continues to have epigastric and left upper quadrant abdominal pain that radiated to his mid back overnight. He denies fever, chills, chest pain, palpitations, orthopnea, nausea and vomiting. He states that his last episode of emesis was prior to his arrival in the emergency department yesterday morning. He states that his last alcohol drink was also yesterday morning prior to presenting to the ED. He does have a history of alcohol withdrawal but no known seizures. He tells me that he is feeling slightly better this morning and was able to tolerate his Jell-O with breakfast. He is agreeable to transitioning to oral medications and advancing his diet slowly as tolerated. Anticipate he will be ready for discharge to home in the morning. He has no other questions or concerns at this time. No concerns per nursing. Reason For Visit: ACUTE ALCOHOLIC PANCREATITIS Physical Exam Vital Signs: Temp Pulse Resp BP Pulse Ox 97.9 F 98 16 152/99 H 98 08/05/18 07:33 08/05/18 07:33 08/05/18 07:33 08/05/18 07:33 08/05/18 07:33 Intake & Output 08/04/18 08/05/18 08/06/18 06:59 06:59 06:59 Intake Total 3000 Balance 3000 Weight 88.6 kg General appearance: PRESENT: no acute distress, well-developed, well-nourished Head exam: PRESENT: atraumatic, normocephalic Eye exam: PRESENT: conjunctiva pink, EOMI, PERRLA. ABSENT: scleral icterus Ear exam: PRESENT: normal external ear exam Mouth exam: PRESENT: moist, tongue midline Neck exam: ABSENT: carotid bruit, JVD, lymphadenopathy, thyromegaly Respiratory exam: PRESENT: clear to auscultation kaleb, symmetrical, unlabored. ABSENT: rales, rhonchi, wheezes Cardiovascular exam: PRESENT: RRR, +S1, +S2, tachycardia. ABSENT: diastolic murmur, rubs, systolic murmur Pulses: PRESENT: normal dorsalis pedis pul Vascular exam: PRESENT: normal capillary refill GI/Abdominal exam: PRESENT: normal bowel sounds, soft, tenderness - epigastric, LUQ. ABSENT: distended, guarding, mass, organolmegaly, rebound Rectal exam: PRESENT: deferred Extremities exam: PRESENT: full ROM. ABSENT: calf tenderness, clubbing, pedal edema Neurological exam: PRESENT: alert, awake, oriented to person, oriented to place , oriented to time, oriented to situation, CN II-XII grossly intact. ABSENT: motor sensory deficit Psychiatric exam: PRESENT: appropriate affect, normal mood. ABSENT: homicidal ideation, suicidal ideation Skin exam: PRESENT: dry, intact, warm. ABSENT: cyanosis, rash Results Laboratory Results: 08/05/18 04:04 08/05/18 04:04 08/05/18 08/05/18 08/05/18 04:04 04:04 04:04 WBC 5.2 RBC 3.99 L Hgb 13.2 L D Hct 38.0 MCV 95 MCH 33.2 MCHC 34.8 RDW 12.6 Plt Count 119 L Seg Neutrophils % 75.5 Lymphocytes % 12.9 L Monocytes % 9.2 Eosinophils % 1.6 Basophils % 0.8 Absolute Neutrophils 3.9 Absolute Lymphocytes 0.7 Absolute Monocytes 0.5 Absolute Eosinophils 0.1 Absolute Basophils 0.0 Sodium 137.5 Potassium 4.5 Chloride 101 Carbon Dioxide 29 Anion Gap 8 BUN 8 Creatinine 0.85 Est GFR ( Amer) > 60 Est GFR (Non-Af Amer) > 60 Glucose 92 Calcium 8.0 L Magnesium 1.3 L Total Bilirubin 1.0 AST 179 H ALT 59 Alkaline Phosphatase 84 Ammonia < 8.7 L Total Protein 6.5 Albumin 3.3 L Amylase 342 H Lipase 1247.8 H TSH 08/05/18 04:04 WBC RBC Hgb Hct MCV MCH MCHC RDW Plt Count Seg Neutrophils % Lymphocytes % Monocytes % Eosinophils % Basophils % Absolute Neutrophils Absolute Lymphocytes Absolute Monocytes Absolute Eosinophils Absolute Basophils Sodium Potassium Chloride Carbon Dioxide Anion Gap BUN Creatinine Est GFR ( Amer) Est GFR (Non-Af Amer) Glucose Calcium Magnesium Total Bilirubin AST ALT Alkaline Phosphatase Ammonia Total Protein Albumin Amylase Lipase TSH 1.27 Impressions: Abdomen Ultrasound 08/04/18 17:30 IMPRESSION: Enlarged fatty liver. No gallstones. Assessment & Plan - Diagnosis (1) Acute alcoholic pancreatitis Qualifiers: Acute pancreatitis complication: unspecified Qualified Code(s): K85.20 - Alcohol induced acute pancreatitis without necrosis or infection Is this a current diagnosis for this admission?: Yes Plan: The patient was admitted with acute alcoholic pancreatitis. Lipase was elevated to 2181; has trended down to 1247 today. WBCs remain normal and the patient is afebrile. Abdominal ultrasound revealed enlarged fatty liver without gallstones. The pancreas was not visualized. He was admitted to the medical floor and placed in n.p.o. status. He was provided maintenance IV fluids, IV antiemetics, and IV analgesics. His diet was advanced to clear liquid this morning which he tolerated his well with minimal worsening of his abdominal pain and no nausea or vomiting. Will transition to p.o. analgesics and advance diet as tolerated. Continue p.o. Pepcid, Pancreaze , Reglan, and Carafate with meals. (2) HTN (hypertension) Qualifiers: Hypertension type: unspecified Qualified Code(s): I10 - Essential (primary ) hypertension Is this a current diagnosis for this admission?: Yes Plan: The patient denies a history of hypertension but is not prescribed medications as an outpatient; likely secondary to pain related to pancreatitis. IV hydralazine as needed for blood pressure control. Management of pancreatitis and alcohol dependence as outlined elsewhere. (3) Chronic alcohol dependence, continuous Is this a current diagnosis for this admission?: Yes Plan: The patient is placed on daily folic acid and thiamin supplementation. He is provided scheduled p.o. valium and as needed IV or p.o. Ativan for alcohol withdrawal management. The patient expresses some interest in outpatient alcohol dependence rehabilitation; he requests information about [facility]. Discharge planning is consulted. (4) Nausea and vomiting Qualifiers: Vomiting type: unspecified Vomiting Intractability: non-intractable Qualified Code(s): R11.2 - Nausea with vomiting, unspecified Is this a current diagnosis for this admission?: Yes Plan: Secondary to #1. Appears to have resolved at this time. Antiemetics as needed. (5) Paroxysmal atrial fibrillation Is this a current diagnosis for this admission?: Yes Plan: The patient reports a history of intermittent atrial fibrillation (possibly r/t alcohol abuse/withdrawal). Lipid panel (12/2017) is appropriate. TSH (08/05/18) 1.[address] the patient on daily ASA therapy. We will monitor blood pressure; if determined that the patient would benefit from outpatient therapy, will consider Carvedilol as initial option. (6) Abnormal LFTs Is this a current diagnosis for this admission?: Yes Plan: Improving; secondary to chronic alcohol abuse in patient with history of alcohol hepatitis. Abdominal ultrasound revealed enlarged fatty liver without gallstones. Hepatic vasculature was normal. The pancreas was not visualized. Total and direct bili are normal. AST 274--> 179 ALT 86--> 59 - Time Time Spent with patient: 25-34 minutes Medications reviewed and adjusted accordingly: Yes Anticipated discharge: Home Within: within 24 hours
[2018-08-05] MEDS: MAGNESIUM SULFATE/D5W 1 GM/100 ML RTUPB IV SCH ×2 (12:46→13:54)
[2018-08-05] MEDS: OXYCODONE HCL IR 5 MG TABLET PO PRN ×2 (13:53→21:35)
[2018-08-05] MEDS: LORAZEPAM 1 MG TABLET PO PRN (15:53)
[2018-08-05] MEDS: HYDRALAZINE HCL INJ/PF 20 MG/1 ML SDV IV PRN ×2 (16:07→23:34)
[2018-08-06] MEDS: NORMAL SALINE 1000 ML 1,000 ML IV PRN ×2 (02:36→11:33)
[2018-08-06] MEDS ORDERED: LORAZEPAM INJ 2 MG/1 ML VIAL IV ONE ×2 (04:30→05:00)
[2018-08-06 05:46] LABS: ABSOLUTE EOSINOPHILS # (AUTO) 0.2 10^3/uL (0.0-0.6); ABSOLUTE LYMPHOCYTES (AUTO) 0.4 10^3/uL (0.5-4.7); ABSOLUTE MONOCYTES (AUTO) 0.5 10^3/uL (0.1-1.4); ABSOLUTE NEUT (AUTO) 2.6 10^3/uL (1.7-8.2); BASOPHILS % (AUTO) 0.9 % (0-2); EOSINOPHILS % (AUTO) 4.1 % (0-6); HEMATOCRIT 38.2 % (37.9-51.0); HEMOGLOBIN 13.6 g/dL (13.5-17.0); LYMPHOCYTES % (AUTO) 12.1 % (13-45); MEAN CORPUSCULAR HEMOGLOBIN 33.3 pg (27.0-33.4); MEAN CORPUSCULAR HGB CONC 35.5 g/dL (32.0-36.0); MEAN CORPUSCULAR VOLUME 94 fl (80-97); MONOCYTES % (AUTO) 12.6 % (3-13); PLATELET COUNT 133 10^3/uL (150-450); RED BLOOD COUNT 4.07 10^6/uL (4.35-5.55); RED CELL DISTRIBUTION WIDTH 12.4 % (11.5-14.0); SEGMENTED NEUTROPHILS % (AUTO) 70.3 % (42-78); TOTAL CELLS COUNTED % (AUTO) 100 %; WHITE BLOOD COUNT 3.7 10^3/uL (4.0-10.5)
[2018-08-06] MEDS: DIAZEPAM 5 MG TABLET PO SCH ×3 (06:12→18:35)
[2018-08-06 06:15] LABS: ALANINE AMINOTRANSFERASE 46 U/L (21-72); ALBUMIN 3.5 g/dL (3.5-5.0); ALKALINE PHOSPHATASE 100 U/L (38-126); AMYLASE 143 U/L (30-110); ANION GAP 12 (5-19); ASPARTATE AMINO TRANSFERASE 159 U/L (17-59); BILIRUBIN,DIRECT 0.2 mg/dL (0.0-0.4); BILIRUBIN,TOTAL 0.9 mg/dL (0.2-1.3); BLOOD UREA NITROGEN 4 mg/dL (7-20); CARBON DIOXIDE 25 mmol/L (22-30); CHLORIDE 103 mmol/L (98-107); GLUCOSE 90 mg/dL (75-110); LIPASE 393.9 U/L (23-300); POTASSIUM 3.8 mmol/L (3.6-5.0); TOTAL PROTEIN 6.6 g/dL (6.3-8.2)
[2018-08-06] MEDS: METOCLOPRAMIDE HCL 10 MG TABLET PO SCH ×2 (08:02→11:51)
[2018-08-06] MEDS: LIPASE/PROTEASE/AMYLASE 1 CAP CAPSULE.DR PO SCH ×3 (08:02→17:06)
[2018-08-06] MEDS: FAMOTIDINE 20 MG TABLET PO SCH ×3 (08:02→21:48)
[2018-08-06] MEDS: SUCRALFATE SUSP 1 GM/10 ML UDCUP PO SCH ×4 (08:02→21:45)
[2018-08-06] MEDS: LORAZEPAM INJ 2 MG/1 ML VIAL IV PRN ×2 (08:03→17:22)
[2018-08-06] MEDS ORDERED: OXYCODONE HCL IR 5 MG TABLET PO PRN (11:18)
[2018-08-06] MEDS ORDERED: HALOPERIDOL LACTATE INJ 5 MG/1 ML VIAL IV PRN (11:19)
[2018-08-06] MEDS: ASPIRIN 81 MG TABLET, CHEWABLE PO SCH (11:32)
[2018-08-06] MEDS: FOLIC ACID 1 MG TABLET PO SCH (11:32)
[2018-08-06] MEDS: THIAMINE HCL 100 MG TABLET PO SCH (11:33)
[2018-08-06] MEDS: ENOXAPARIN SODIUM INJ 40 MG/0.4 ML DISP.SYRIN SUBCUT SCH (11:33)
--- NOTE | 2018-08-06 13:19 | EKG REPORT ---
SEVERITY:- OTHERWISE NORMAL ECG - SINUS TACHYCARDIA : Confirmed by: Randall Hilliard MD 06-Aug-2018 13:19:10
[2018-08-06] MEDS: LORAZEPAM 1 MG TABLET PO PRN ×3 (15:22→21:48)
[2018-08-06] MEDS: HYDRALAZINE HCL INJ/PF 20 MG/1 ML SDV IV PRN (15:25)
--- NOTE | 2018-08-06 16:51 | PDOC PROGRESS REPORT ---
Subjective Progress Note for:: 08/06/18 Subjective:: The patient is a 43-year-old male with a past medical history of PAF, alcoholic hepatitis, pancreatitis, cirrhosis, alcohol dependency with continuous use who was admitted on 08/04/2018 for alcoholic pancreatitis. The patient was seen on morning rounds. He is found resting in bed comfortably on room air. He reports that his abdominal pain is improved and that he was able to tolerate a brat diet without difficulty today. He asks to have his diet advanced. He does report visual and auditory hallucinations overnight, diaphoresis and tremors this morning. He admits to symptoms of alcohol withdrawal. He does request to remain admitted for "detox" stating that he is "tired of all my drinking." He does have a history of alcohol withdrawal, but without known seizures. Review of previous admissions shows that the patient did require a brief stay in the ICU during 1 of his previous alcohol withdrawal episodes, but has not had any seizure-like activity while in our facility. He denies fever, chest pain, palpitations, orthopnea, abdominal pain, nausea and vomiting. He has no other questions or concerns at this time. Nursing reports the patient complained of side effects with IV Ativan and requests oral medications if possible. They are also concerned about his elevated blood pressures today. Reason For Visit: ACUTE ALCOHOLIC PANCREATITIS Physical Exam Vital Signs: Temp Pulse Resp BP Pulse Ox 98.1 F 100 18 150/101 H 96 08/06/18 15:15 08/06/18 15:32 08/06/18 15:15 08/06/18 15:32 08/06/18 15:15 Intake & Output 08/05/18 08/06/18 08/07/18 06:59 06:59 06:59 Intake Total 3000 3138 Balance 3000 3138 Weight 88.6 kg 88.7 kg General appearance: PRESENT: no acute distress, cooperative, well-developed, well-nourished - Overweight Head exam: PRESENT: atraumatic, normocephalic Eye exam: PRESENT: conjunctiva pink, EOMI, PERRLA. ABSENT: scleral icterus Ear exam: PRESENT: normal external ear exam Mouth exam: PRESENT: moist, tongue midline Neck exam: ABSENT: carotid bruit, JVD, lymphadenopathy, thyromegaly Respiratory exam: PRESENT: clear to auscultation kaleb, symmetrical, unlabored. ABSENT: rales, rhonchi, wheezes Cardiovascular exam: PRESENT: RRR, +S1, +S2, tachycardia. ABSENT: diastolic murmur, rubs, systolic murmur Pulses: PRESENT: normal dorsalis pedis pul Vascular exam: PRESENT: normal capillary refill GI/Abdominal exam: PRESENT: normal bowel sounds, soft. ABSENT: distended, guarding, mass, organolmegaly, rebound, tenderness Rectal exam: PRESENT: deferred Extremities exam: PRESENT: full ROM. ABSENT: calf tenderness, clubbing, pedal edema Neurological exam: PRESENT: alert, awake, oriented to person, oriented to place , oriented to time, oriented to situation, CN II-XII grossly intact. ABSENT: motor sensory deficit Psychiatric exam: PRESENT: appropriate affect, normal mood. ABSENT: homicidal ideation, suicidal ideation Skin exam: PRESENT: intact, warm, other - Diaphoretic. ABSENT: cyanosis, rash Results Laboratory Results: 08/06/18 05:25 08/06/18 05:25 08/06/18 08/06/18 08/06/18 05:25 05:25 05:25 WBC 3.7 L RBC 4.07 L Hgb 13.6 Hct 38.2 MCV 94 MCH 33.3 MCHC 35.5 RDW 12.4 Plt Count 133 L Seg Neutrophils % 70.3 Lymphocytes % 12.1 L Monocytes % 12.6 Eosinophils % 4.1 Basophils % 0.9 Absolute Neutrophils 2.6 Absolute Lymphocytes 0.4 L Absolute Monocytes 0.5 Absolute Eosinophils 0.2 Absolute Basophils 0.0 Sodium 140.0 Potassium 3.8 Chloride 103 Carbon Dioxide 25 Anion Gap 12 BUN 4 L Creatinine 0.67 Est GFR ( Amer) > 60 Est GFR (Non-Af Amer) > 60 Glucose 90 Calcium 9.0 Magnesium 2.1 Total Bilirubin 0.9 AST 159 H ALT 46 Alkaline Phosphatase 100 Ammonia 15.2 Total Protein 6.6 Albumin 3.5 Amylase 143 H Lipase 393.9 H Impressions: Abdomen Ultrasound 08/04/18 17:30 IMPRESSION: Enlarged fatty liver. No gallstones. Assessment & Plan - Diagnosis (1) Acute alcoholic pancreatitis Qualifiers: Acute pancreatitis complication: unspecified Qualified Code(s): K85.20 - Alcohol induced acute pancreatitis without necrosis or infection Is this a current diagnosis for this admission?: Yes Plan: Resolved. The patient was admitted with acute alcoholic pancreatitis. Lipase was elevated to 2181; has trended down to 393 today. WBCs remain normal and the patient is afebrile. Abdominal ultrasound revealed enlarged fatty liver without gallstones. The pancreas was not visualized. He was admitted to the medical floor and placed in n.p.o. status. We will continue IV antiemetics as needed. He is provided low-dose oxycodone every 8 hours as needed for abdominal pain; patient is educated that if his abdominal pain reoccurs he will be placed back in n.p.o. status. He has tolerated a brat diet well; will advance to a regular diet. Continue p.o. Pepcid, Pancreaze and Carafate with meals. (2) Alcohol withdrawal Qualifiers: Complication of substance-induced condition: uncomplicated Qualified Code(s ): F10.230 - Alcohol dependence with withdrawal, uncomplicated Is this a current diagnosis for this admission?: Yes Plan: The patient is now reporting visual and auditory hallucinations. He is noted to be hypertensive, tachycardic, and diaphoretic. He does have a history of alcohol withdrawal requiring ICU admission but is not known to have alcohol withdrawal related seizures. He is placed on Valium 10 mg every 6 hours scheduled. Ativan 2 mg p.o. every 2 hours as needed for withdrawal symptoms with Ativan IV for breakthrough symptoms or seizure activity. Haldol 5 mg IV every 6 hours for agitation. Clonidine 0.1 mg twice daily for moderation of withdrawal symptoms and management of hypertension. Seizure, fall, aspiration precautions. (3) HTN (hypertension) Qualifiers: Hypertension type: unspecified Qualified Code(s): I10 - Essential (primary ) hypertension Is this a current diagnosis for this admission?: Yes Plan: Worsened today; likely secondary to acute alcohol withdrawal. EKG demonstrated sinus tachycardia. Will start lisinopril 10 mg daily. The patient is also placed on clonidine 0.1 mg twice daily for potential benefit of moderating withdrawal symptoms. Do not anticipate the patient will require this medication at time of discharge. IV hydralazine as needed for blood pressure control. Management of pancreatitis and alcohol withdrawal as outlined elsewhere. (4) Chronic alcohol dependence, continuous Is this a current diagnosis for this admission?: Yes Plan: The patient is placed on daily folic acid and thiamin supplementation. The patient expresses some interest in outpatient alcohol dependence rehabilitation; he requests information about [facility]. Discharge planning is consulted. (5) Nausea and vomiting Qualifiers: Vomiting type: unspecified Vomiting Intractability: non-intractable Qualified Code(s): R11.2 - Nausea with vomiting, unspecified Is this a current diagnosis for this admission?: Yes Plan: Secondary to #1. Appears to have resolved at this time. Antiemetics as needed. (6) Paroxysmal atrial fibrillation Is this a current diagnosis for this admission?: Yes Plan: The patient reports a history of intermittent atrial fibrillation (possibly r/t alcohol abuse/withdrawal). Lipid panel (12/2017) is appropriate. TSH (08/05/18) 1.27 EKG today demonstrated sinus tachycardia. Continue daily ASA therapy. The patient is upgraded to telemetry monitoring. (7) Abnormal LFTs Is this a current diagnosis for this admission?: Yes Plan: Continues to improve; secondary to chronic alcohol abuse in patient with history of alcohol hepatitis. Abdominal ultrasound revealed enlarged fatty liver without gallstones. Hepatic vasculature was normal. The pancreas was not visualized. Total and direct bili are normal. AST 274--> 179--> 159 ALT 86--> 59--> 46 - Time Time Spent with patient: 25-34 minutes Medications reviewed and adjusted accordingly: Yes Anticipated discharge: Home Within: within 72 hours
[2018-08-06] MEDS: LISINOPRIL 10 MG TABLET PO SCH (17:07)
[2018-08-06] MEDS: CLONIDINE HCL 0.1 MG TABLET PO SCH (21:47)
[2018-08-06] MEDS ORDERED: CLONIDINE HCL 0.1 MG TABLET PO SCH (22:00)
[2018-08-07] MEDS: DIAZEPAM 5 MG TABLET PO SCH ×4 (00:13→18:00)
[2018-08-07] MEDS: LORAZEPAM 1 MG TABLET PO PRN ×5 (01:13→21:12)
[2018-08-07 05:31] LABS: ABSOLUTE EOSINOPHILS # (AUTO) 0.2 10^3/uL (0.0-0.6); ABSOLUTE LYMPHOCYTES (AUTO) 0.7 10^3/uL (0.5-4.7); ABSOLUTE MONOCYTES (AUTO) 0.5 10^3/uL (0.1-1.4); ABSOLUTE NEUT (AUTO) 2.4 10^3/uL (1.7-8.2); BASOPHILS % (AUTO) 0.7 % (0-2); EOSINOPHILS % (AUTO) 6.3 % (0-6); HEMATOCRIT 40.1 % (37.9-51.0); HEMOGLOBIN 13.8 g/dL (13.5-17.0); LYMPHOCYTES % (AUTO) 18.2 % (13-45); MEAN CORPUSCULAR HEMOGLOBIN 32.9 pg (27.0-33.4); MEAN CORPUSCULAR HGB CONC 34.5 g/dL (32.0-36.0); MEAN CORPUSCULAR VOLUME 95 fl (80-97); MONOCYTES % (AUTO) 12.1 % (3-13); PLATELET COUNT 150 10^3/uL (150-450); RED BLOOD COUNT 4.21 10^6/uL (4.35-5.55); RED CELL DISTRIBUTION WIDTH 12.7 % (11.5-14.0); SEGMENTED NEUTROPHILS % (AUTO) 62.7 % (42-78); TOTAL CELLS COUNTED % (AUTO) 100 %; WHITE BLOOD COUNT 3.8 10^3/uL (4.0-10.5)
[2018-08-07 05:59] LABS: ALANINE AMINOTRANSFERASE 60 U/L (21-72); ALBUMIN 3.6 g/dL (3.5-5.0); ALKALINE PHOSPHATASE 96 U/L (38-126); ANION GAP 10 (5-19); ASPARTATE AMINO TRANSFERASE 184 U/L (17-59); BILIRUBIN,DIRECT 0.2 mg/dL (0.0-0.4); BILIRUBIN,TOTAL 0.8 mg/dL (0.2-1.3); BLOOD UREA NITROGEN 7 mg/dL (7-20); CALCIUM 9.4 mg/dL (8.4-10.2); CARBON DIOXIDE 27 mmol/L (22-30); CHLORIDE 102 mmol/L (98-107); GLUCOSE 95 mg/dL (75-110); POTASSIUM 4.1 mmol/L (3.6-5.0); SODIUM 138.9 mmol/L (137-145); TOTAL PROTEIN 6.8 g/dL (6.3-8.2)
[2018-08-07] MEDS: SUCRALFATE SUSP 1 GM/10 ML UDCUP PO SCH ×4 (07:33→21:11)
[2018-08-07] MEDS: LIPASE/PROTEASE/AMYLASE 1 CAP CAPSULE.DR PO SCH ×3 (07:33→16:03)
[2018-08-07] MEDS: FAMOTIDINE 20 MG TABLET PO SCH ×2 (10:20→21:11)
[2018-08-07] MEDS: LISINOPRIL 10 MG TABLET PO SCH (10:21)
[2018-08-07] MEDS: FOLIC ACID 1 MG TABLET PO SCH (10:21)
[2018-08-07] MEDS: THIAMINE HCL 100 MG TABLET PO SCH (10:23)
[2018-08-07] MEDS: ASPIRIN 81 MG TABLET, CHEWABLE PO SCH (10:23)
[2018-08-07] MEDS: ENOXAPARIN SODIUM INJ 40 MG/0.4 ML DISP.SYRIN SUBCUT SCH (10:25)
[2018-08-07] MEDS: CLONIDINE HCL 0.1 MG TABLET PO SCH ×2 (10:32→21:11)
[2018-08-07] MEDS ORDERED: OXYCODONE HCL IR 5 MG TABLET PO PRN (11:27)
--- NOTE | 2018-08-07 11:31 | PDOC PROGRESS REPORT ---
Subjective Progress Note for:: 08/07/18 Subjective:: The patient is a 43-year-old male with a past medical history of PAF, alcoholic hepatitis, pancreatitis, cirrhosis, alcohol dependency with continuous use who was admitted on 08/04/2018 for alcoholic pancreatitis. The patient was seen on morning rounds. He is found resting in bed comfortably on room air. He reports a slight tremor and sweating overnight but denies additional auditory or visual hallucinations. He reports that his abdominal pain is resolved without nausea or vomiting and a tolerated 100% of his breakfast this morning. Overall he is feeling much better and has no new questions or concerns today. He denies fever, chills, chest pain, palpitations, dyspnea, abdominal pain, nausea vomiting diarrhea. No concerns per nursing. Reason For Visit: ACUTE ALCOHOLIC PANCREATITIS Physical Exam Vital Signs: Temp Pulse Resp BP Pulse Ox 97.7 F 97 18 109/81 99 08/07/18 04:47 08/07/18 04:47 08/07/18 04:47 08/07/18 04:47 08/07/18 04:47 Intake & Output 08/06/18 08/07/18 08/08/18 06:59 06:59 06:59 Intake Total 3138 1643 Balance 3138 1643 Weight 88.7 kg 88.7 kg General appearance: PRESENT: no acute distress, cooperative, well-developed, well-nourished - Overweight Head exam: PRESENT: atraumatic, normocephalic Eye exam: PRESENT: conjunctiva pink, EOMI, PERRLA. ABSENT: scleral icterus Ear exam: PRESENT: normal external ear exam Mouth exam: PRESENT: moist, tongue midline Neck exam: ABSENT: carotid bruit, JVD, lymphadenopathy, thyromegaly Respiratory exam: PRESENT: clear to auscultation kaleb, symmetrical, unlabored. ABSENT: rales, rhonchi, wheezes Cardiovascular exam: PRESENT: RRR, +S1, +S2. ABSENT: diastolic murmur, rubs, systolic murmur Pulses: PRESENT: normal dorsalis pedis pul Vascular exam: PRESENT: normal capillary refill GI/Abdominal exam: PRESENT: normal bowel sounds, soft. ABSENT: distended, guarding, mass, organolmegaly, rebound, tenderness Rectal exam: PRESENT: deferred Extremities exam: PRESENT: full ROM. ABSENT: calf tenderness, clubbing, pedal edema Neurological exam: PRESENT: alert, awake, oriented to person, oriented to place , oriented to time, oriented to situation, CN II-XII grossly intact. ABSENT: motor sensory deficit Psychiatric exam: PRESENT: appropriate affect, normal mood. ABSENT: homicidal ideation, suicidal ideation Skin exam: PRESENT: dry, intact, warm. ABSENT: cyanosis, rash Results Laboratory Results: 08/07/18 04:54 08/07/18 04:54 08/07/18 08/07/18 04:54 04:54 WBC 3.8 L RBC 4.21 L Hgb 13.8 Hct 40.1 MCV 95 MCH 32.9 MCHC 34.5 RDW 12.7 Plt Count 150 Seg Neutrophils % 62.7 Lymphocytes % 18.2 Monocytes % 12.1 Eosinophils % 6.3 H Basophils % 0.7 Absolute Neutrophils 2.4 Absolute Lymphocytes 0.7 Absolute Monocytes 0.5 Absolute Eosinophils 0.2 Absolute Basophils 0.0 Sodium 138.9 Potassium 4.1 Chloride 102 Carbon Dioxide 27 Anion Gap 10 BUN 7 Creatinine 0.76 Est GFR ( Amer) > 60 Est GFR (Non-Af Amer) > 60 Glucose 95 Calcium 9.4 Magnesium 2.2 Total Bilirubin 0.8 AST 184 H ALT 60 Alkaline Phosphatase 96 Total Protein 6.8 Albumin 3.6 Impressions: Abdomen Ultrasound 08/04/18 17:30 IMPRESSION: Enlarged fatty liver. No gallstones. Assessment & Plan - Diagnosis (1) Acute alcoholic pancreatitis Qualifiers: Acute pancreatitis complication: unspecified Qualified Code(s): K85.20 - Alcohol induced acute pancreatitis without necrosis or infection Is this a current diagnosis for this admission?: Yes Plan: Resolved. The patient was admitted with acute alcoholic pancreatitis. Lipase was elevated to 2181; has trended down to 393. WBCs remain normal and the patient is afebrile. Abdominal ultrasound revealed enlarged fatty liver without gallstones. The pancreas was not visualized. We will continue IV antiemetics as needed. He is provided low-dose oxycodone every 12 hours as needed for abdominal pain; patient is educated that if his abdominal pain reoccurs he will be placed back in n.p.o. status. Now tolerating regular diet. Continue p.o. Pepcid, Pancreaze and Carafate with meals. (2) Alcohol withdrawal Qualifiers: Complication of substance-induced condition: uncomplicated Qualified Code(s ): F10.230 - Alcohol dependence with withdrawal, uncomplicated Is this a current diagnosis for this admission?: Yes Plan: Improved symptoms today; patient reports slight tremor and diaphoresis overnight. He denies additional auditory or visual hallucinations. His tachycardia and hypertension has resolved. He does have a history of alcohol withdrawal requiring ICU admission but is not known to have alcohol withdrawal related seizures. Will reduce Valium slightly to 5 mg every 6 hours scheduled. Continue Ativan 2 mg p.o. every 2 hours as needed for withdrawal symptoms with Ativan IV for breakthrough symptoms or seizure activity. Continue Haldol 5 mg IV every 6 hours for agitation; none required thus far. Continue clonidine 0.1 mg twice daily for moderation of withdrawal symptoms and management of hypertension. Seizure, fall, aspiration precautions. (3) HTN (hypertension) Qualifiers: Hypertension type: unspecified Qualified Code(s): I10 - Essential (primary ) hypertension Is this a current diagnosis for this admission?: Yes Plan: Improved; likely secondary to acute alcohol withdrawal. EKG demonstrated sinus tachycardia. Continue lisinopril 10 mg daily. Continue clonidine 0.1 mg twice daily for potential benefit of moderating withdrawal symptoms. Do not anticipate the patient will require this medication at time of discharge. IV hydralazine as needed for blood pressure control. Management of pancreatitis and alcohol withdrawal as outlined elsewhere. (4) Chronic alcohol dependence, continuous Is this a current diagnosis for this admission?: Yes Plan: The patient is placed on daily folic acid and thiamin supplementation. The patient expresses some interest in outpatient alcohol dependence rehabilitation; he requests information about [facility]. Discharge planning is consulted. (5) Nausea and vomiting Qualifiers: Vomiting type: unspecified Vomiting Intractability: non-intractable Qualified Code(s): R11.2 - Nausea with vomiting, unspecified Is this a current diagnosis for this admission?: Yes Plan: Secondary to #1. Appears to have resolved at this time. Antiemetics as needed. (6) Paroxysmal atrial fibrillation Is this a current diagnosis for this admission?: Yes Plan: The patient reports a history of intermittent atrial fibrillation (possibly r/t alcohol abuse/withdrawal). Lipid panel (12/2017) is appropriate. TSH (08/05/18) 1.27 EKG today demonstrated sinus tachycardia. Continue daily ASA therapy. We will continue to monitor on cardiac telemetry; he is maintaining a sinus rhythm. (7) Abnormal LFTs Is this a current diagnosis for this admission?: Yes Plan: Secondary to chronic alcohol abuse in patient with history of alcohol hepatitis. Abdominal ultrasound revealed enlarged fatty liver without gallstones. Hepatic vasculature was normal. The pancreas was not visualized. Total and direct bili are normal. AST 274--> 179--> 159--> 184 ALT 86--> 59--> 46--> 60 - Time Time Spent with patient: 15-24 minutes Medications reviewed and adjusted accordingly: Yes Anticipated discharge: Home Within: within 48 hours
[2018-08-07] MEDS ORDERED: ONDANSETRON 4 MG TAB.RAPDIS PO PRN (12:00)
[2018-08-07] MEDS ORDERED: ONDANSETRON HCL INJ/PF 4 MG/2 ML SDV IV PRN (12:00)
[2018-08-08] MEDS: DIAZEPAM 5 MG TABLET PO SCH ×6 (05:11→23:30)
[2018-08-08 05:16] LABS: HEMATOCRIT 40.7 % (37.9-51.0); HEMOGLOBIN 13.9 g/dL (13.5-17.0); MEAN CORPUSCULAR HEMOGLOBIN 32.9 pg (27.0-33.4); MEAN CORPUSCULAR HGB CONC 34.2 g/dL (32.0-36.0); MEAN CORPUSCULAR VOLUME 96 fl (80-97); PLATELET COUNT 184 10^3/uL (150-450); RED BLOOD COUNT 4.23 10^6/uL (4.35-5.55); RED CELL DISTRIBUTION WIDTH 12.7 % (11.5-14.0); WHITE BLOOD COUNT 3.8 10^3/uL (4.0-10.5)
[2018-08-08 05:49] LABS: ANION GAP 11 (5-19); BLOOD UREA NITROGEN 14 mg/dL (7-20); CALCIUM 9.4 mg/dL (8.4-10.2); CARBON DIOXIDE 27 mmol/L (22-30); CHLORIDE 103 mmol/L (98-107); GLUCOSE 102 mg/dL (75-110); POTASSIUM 4.2 mmol/L (3.6-5.0); SODIUM 141.1 mmol/L (137-145)
[2018-08-08] MEDS: LIPASE/PROTEASE/AMYLASE 1 CAP CAPSULE.DR PO SCH ×3 (08:57→17:02)
[2018-08-08] MEDS: SUCRALFATE SUSP 1 GM/10 ML UDCUP PO SCH ×4 (08:57→21:21)
[2018-08-08] MEDS: ENOXAPARIN SODIUM INJ 40 MG/0.4 ML DISP.SYRIN SUBCUT SCH (08:59)
[2018-08-08] MEDS: FAMOTIDINE 20 MG TABLET PO SCH ×2 (08:59→21:21)
[2018-08-08] MEDS: LISINOPRIL 10 MG TABLET PO SCH (08:59)
[2018-08-08] MEDS: ASPIRIN 81 MG TABLET, CHEWABLE PO SCH (08:59)
[2018-08-08] MEDS: CLONIDINE HCL 0.1 MG TABLET PO SCH (08:59)
[2018-08-08] MEDS: FOLIC ACID 1 MG TABLET PO SCH (08:59)
[2018-08-08] MEDS: THIAMINE HCL 100 MG TABLET PO SCH (09:00)
[2018-08-08] MEDS: LORAZEPAM 1 MG TABLET PO PRN ×4 (12:39→21:21)
--- NOTE | 2018-08-08 13:38 | PDOC PROGRESS REPORT ---
Subjective Progress Note for:: 08/08/18 Subjective:: The patient is a 43-year-old male with a past medical history of PAF, alcoholic hepatitis, pancreatitis, cirrhosis, alcohol dependency with continuous use who was admitted on 08/04/2018 for alcoholic pancreatitis. The patient was seen on morning rounds. He is found sitting up to the edge of the bed comfortably on room air. He states that he is feeling well for the most part today, but has noted he has an increase in his anxiety. Otherwise, he denies symptoms related to withdrawal; specifically stating that he is no longer hallucinating, tremulous, or diaphoretic. He further denies fever, chills, headache, chest pain, palpitations, dyspnea, abdominal pain, nausea vomiting diarrhea. He states he is hopeful to be ready for discharge to home tomorrow. No concerns per nursing. Reason For Visit: ACUTE ALCOHOLIC PANCREATITIS Physical Exam Vital Signs: Temp Pulse Resp BP Pulse Ox 98.4 F 70 20 118/80 98 08/07/18 23:54 08/08/18 07:00 08/07/18 23:54 08/07/18 23:54 08/07/18 23:54 Intake & Output 08/07/18 08/08/18 08/09/18 06:59 06:59 06:59 Intake Total 1643 974 Balance 1643 974 Weight 88.7 kg 83.5 kg General appearance: PRESENT: no acute distress, cooperative, well-developed, well-nourished Head exam: PRESENT: atraumatic, normocephalic Eye exam: PRESENT: conjunctiva pink, EOMI, PERRLA. ABSENT: scleral icterus Ear exam: PRESENT: normal external ear exam Mouth exam: PRESENT: moist, tongue midline Neck exam: ABSENT: carotid bruit, JVD, lymphadenopathy, thyromegaly Respiratory exam: PRESENT: clear to auscultation kaleb, symmetrical, unlabored. ABSENT: rales, rhonchi, wheezes Cardiovascular exam: PRESENT: RRR, +S1, +S2. ABSENT: diastolic murmur, rubs, systolic murmur Pulses: PRESENT: normal dorsalis pedis pul Vascular exam: PRESENT: normal capillary refill GI/Abdominal exam: PRESENT: normal bowel sounds, soft. ABSENT: distended, guarding, mass, organolmegaly, rebound, tenderness Rectal exam: PRESENT: deferred Extremities exam: PRESENT: full ROM. ABSENT: calf tenderness, clubbing, pedal edema Neurological exam: PRESENT: alert, awake, oriented to person, oriented to place , oriented to time, oriented to situation, CN II-XII grossly intact. ABSENT: motor sensory deficit Psychiatric exam: PRESENT: appropriate affect, normal mood. ABSENT: homicidal ideation, suicidal ideation Skin exam: PRESENT: dry, intact, warm. ABSENT: cyanosis, rash Results Laboratory Results: 08/08/18 04:19 08/08/18 04:19 08/08/18 08/08/18 04:19 04:19 WBC 3.8 L RBC 4.23 L Hgb 13.9 Hct 40.7 MCV 96 MCH 32.9 MCHC 34.2 RDW 12.7 Plt Count 184 Sodium 141.1 Potassium 4.2 Chloride 103 Carbon Dioxide 27 Anion Gap 11 BUN 14 Creatinine 0.78 Est GFR ( Amer) > 60 Est GFR (Non-Af Amer) > 60 Glucose 102 Calcium 9.4 Impressions: Abdomen Ultrasound 08/04/18 17:30 IMPRESSION: Enlarged fatty liver. No gallstones. Assessment & Plan - Diagnosis (1) Acute alcoholic pancreatitis Qualifiers: Acute pancreatitis complication: unspecified Qualified Code(s): K85.20 - Alcohol induced acute pancreatitis without necrosis or infection Is this a current diagnosis for this admission?: Yes Plan: Resolved. The patient was admitted with acute alcoholic pancreatitis. Lipase was elevated to 2181; has trended down to 393. WBCs remain normal and the patient is afebrile. Abdominal ultrasound revealed enlarged fatty liver without gallstones. The pancreas was not visualized. We will continue antiemetics as needed. Tylenol for pain. Now tolerating regular diet. Continue p.o. Pepcid, Pancreaze and Carafate with meals. (2) Alcohol withdrawal Qualifiers: Complication of substance-induced condition: uncomplicated Qualified Code(s ): F10.230 - Alcohol dependence with withdrawal, uncomplicated Is this a current diagnosis for this admission?: Yes Plan: Continued improvement; patient reports slight tremor and diaphoresis overnight. He denies additional auditory or visual hallucinations. His tachycardia and hypertension has resolved. He does have a history of alcohol withdrawal requiring ICU admission but is not known to have alcohol withdrawal related seizures. Will reduce Valium to 2.5 mg every 6 hours scheduled. Continue Ativan 2 mg p.o. every 2 hours as needed for withdrawal symptoms with Ativan IV for breakthrough symptoms or seizure activity. Continue Haldol 5 mg IV every 6 hours for agitation; none required thus far. Seizure, fall, aspiration precautions. (3) HTN (hypertension) Qualifiers: Hypertension type: unspecified Qualified Code(s): I10 - Essential (primary ) hypertension Is this a current diagnosis for this admission?: Yes Plan: Improved; likely secondary to acute alcohol withdrawal. EKG demonstrated sinus tachycardia. Continue lisinopril 10 mg daily. IV hydralazine as needed for blood pressure control. Management of pancreatitis and alcohol withdrawal as outlined elsewhere. (4) Chronic alcohol dependence, continuous Is this a current diagnosis for this admission?: Yes Plan: The patient is placed on daily folic acid and thiamin supplementation. The patient expresses some interest in outpatient alcohol dependence rehabilitation; he requests information about [facility]. Discharge planning is consulted. (5) Nausea and vomiting Qualifiers: Vomiting type: unspecified Vomiting Intractability: non-intractable Qualified Code(s): R11.2 - Nausea with vomiting, unspecified Is this a current diagnosis for this admission?: Yes Plan: Secondary to #1. Appears to have resolved at this time. Antiemetics as needed. (6) Paroxysmal atrial fibrillation Is this a current diagnosis for this admission?: Yes Plan: The patient reports a history of intermittent atrial fibrillation (possibly r/t alcohol abuse/withdrawal). Lipid panel (12/2017) is appropriate. TSH (08/05/18) 1.27 EKG demonstrated sinus tachycardia. Continue daily ASA therapy. We will continue to monitor on cardiac telemetry; he is maintaining a sinus rhythm. (7) Abnormal LFTs Is this a current diagnosis for this admission?: Yes Plan: Trending down. Elevation is secondary to chronic alcohol abuse in patient with history of alcohol hepatitis who presented with pancreatitis. Abdominal ultrasound revealed enlarged fatty liver without gallstones. Hepatic vasculature was normal. The pancreas was not visualized. Total and direct bili are normal. AST 274--> 179--> 159--> 184 ALT 86--> 59--> 46--> 60
[2018-08-09] MEDS: DIAZEPAM 5 MG TABLET PO SCH ×2 (06:03→10:59)
[2018-08-09] MEDS ORDERED: LORAZEPAM 1 MG TABLET PO PRN ×2 (07:43→10:42)
[2018-08-09] MEDS: ENOXAPARIN SODIUM INJ 40 MG/0.4 ML DISP.SYRIN SUBCUT SCH (09:30)
[2018-08-09] MEDS: FOLIC ACID 1 MG TABLET PO SCH (09:31)
[2018-08-09] MEDS: ASPIRIN 81 MG TABLET, CHEWABLE PO SCH (09:31)
[2018-08-09] MEDS: SUCRALFATE SUSP 1 GM/10 ML UDCUP PO SCH ×2 (09:31→10:58)
[2018-08-09] MEDS: FAMOTIDINE 20 MG TABLET PO SCH (09:31)
[2018-08-09] MEDS: LIPASE/PROTEASE/AMYLASE 1 CAP CAPSULE.DR PO SCH ×2 (09:31→10:59)
[2018-08-09] MEDS: THIAMINE HCL 100 MG TABLET PO SCH (09:31)
[2018-08-09] MEDS: LISINOPRIL 10 MG TABLET PO SCH (09:31)
[2018-08-09 13:29] VITALS: BP 113/84
--- NOTE | 2018-08-09 15:29 | PDOC DISCHARGE SUMMARY ---
General - Admit/Disc Date/PCP Admission Date/Primary Care Provider: 08/04/18 18:06 Discharge Date: 08/09/18 - Discharge Diagnosis (1) Acute alcoholic pancreatitis Is this a current diagnosis for this admission?: Yes Summary: Resolved. (2) Alcohol withdrawal Is this a current diagnosis for this admission?: Yes Summary: Resolved; no seizure activity. (3) HTN (hypertension) Is this a current diagnosis for this admission?: Yes Summary: Improved. Pt is discharged home with Rx for Lisinopril 10 mg daily. (4) Chronic alcohol dependence, continuous Is this a current diagnosis for this admission?: Yes Summary: Pt is discharged with Rx for thiamin and folic acid. He is strongly advised against alcohol intake of any amount. (5) Nausea and vomiting Is this a current diagnosis for this admission?: Yes Summary: Resolved. (6) Paroxysmal atrial fibrillation Is this a current diagnosis for this admission?: Yes Summary: Pt remained in NSR throughout his admission. (7) Abnormal LFTs Is this a current diagnosis for this admission?: Yes Summary: Improved. Recommend routine lab follow-up in 6-8 weeks. - Additional Information Resuscitation Status: Full Code Discharge Diet: As Tolerated Discharge Activity: Activity As Tolerated Prescriptions: Aspirin [Aspirin 81 mg Chewable Tablet] 81 mg PO DAILY #30 tab.chew Diazepam [Valium 2 mg Tablet] 2 mg PO Q6HP PRN #15 tablet PRN Reason: anxiety, agitation, withdrawal Famotidine [Pepcid 20 mg Tablet] 20 mg PO Q12 #60 tablet Folic Acid [Folvite 1 mg Tablet] 1 mg PO DAILY #30 tablet Lisinopril [Prinivil 10 mg Tablet] 10 mg PO DAILY #30 tablet Thiamine HCl [Thiamine 100 mg Tablet] 100 mg PO DAILY #30 tablet Home Medications: Acetaminophen [Tylenol 325 mg Tablet] 650 mg PO Q4HP PRN tablet 08/09/18 Aspirin [Aspirin 81 mg Chewable Tablet] 81 mg PO DAILY #30 tab.chew 08/09/18 Diazepam [Valium 2 mg Tablet] 2 mg PO Q6HP PRN #15 tablet 08/09/18 Famotidine [Pepcid 20 mg Tablet] 20 mg PO Q12 #60 tablet 08/09/18 Folic Acid [Folvite 1 mg Tablet] 1 mg PO DAILY #30 tablet 08/09/18 Lisinopril [Prinivil 10 mg Tablet] 10 mg PO DAILY #30 tablet 08/09/18 Thiamine HCl [Thiamine 100 mg Tablet] 100 mg PO DAILY #30 tablet 08/09/18 History of Present Illness History of Present Illness: Per H&P by Dr. Hallman: SOLITARIO CARLTON is a 43 year old male who presented to the emergency room with a history of abdominal pain waking him from sleep on the morning of admission. Patient indicates that he developed a sudden onset of very severe, constant, sharp stabbing, colicky pain in his epigastric region that woke him from a sound sleep. The pain did not radiate and he did not identify any aggravating or ameliorating factors for the pain prior to presenting to the emergency room. He admits prior similar episodes related to his alcoholic pancreatitis. He admits that he has been drinking every day and more heavily than usual for the past several weeks and strongly suspected that he was having a flareup of his pancreatitis when the pain struck him this morning. He had one episode of vomiting associated with the pain and he had one loose but not diarrhea stool this morning. He feels hungry and he has been able to keep down crackers and zari crista in the emergency room. He would like to have more to eat if that would be possible. He admits that his last drink was last night and that he has had problems with tremors and shakiness in the past when withdrawing from alcohol. He denies ever having hallucinations or seizures associated with alcohol withdrawal or any other time. In the emergency room he was found to have a markedly elevated lipase at 2181. His white blood count was normal and his electrolytes were also normal. He was therefore admitted to the hospital for treatment of his acute alcoholic pancreatitis. Hospital Course Hospital Course: The patient was admitted with acute alcoholic pancreatitis. He was placed on the medical floor in n.p.o. status and provided antiemetics and analgesics. He he was started on Pepcid, Carafate, and pancreaze and supported with IV fluids. His initial lipase was noted to be 2181 but trended down to 393 with the above -mentioned care. His LFTs also improved over the course of his admission. Unfortunately, the patient did experience alcohol withdrawal; complaining of auditory and visual hallucinations and noted to have tachycardia, hypertension, and diaphoresis. Due to his history of alcohol withdrawal related PAF, and EKG was evaluated demonstrating normal sinus rhythm without acute changes. He was upgraded to continuous cardiac telemetry and placed on scheduled Valium with as needed Ativan for symptom management. He also required lisinopril, clonidine 0.1 mg twice daily, and IV hydralazine for blood pressure control. He responded well to tapered benzodiazepine dosing and at time of discharge was being provided Valium 2 mg p.o. every 6 hours no longer requiring as needed Ativan for breakthrough symptoms. The patient met with discharge planning who provided him information with outpatient alcohol rehabilitation and counseling services. The patient indicated that he intends to call [facility] on Saturday to schedule a follow-up appointment. At time of discharge, the patient is in stable condition and asymptomatic. He is discharged home with recommendations to follow-up with his primary care provider in 1 week and to call [facility] as above. He is strongly advised against resumption of alcohol of any quantity. Physical Exam Vital Signs: Temp Pulse Resp BP Pulse Ox 97.6 F 88 14 113/84 95 08/09/18 13:28 08/09/18 13:28 08/09/18 13:28 08/09/18 13:28 08/09/18 13:28 Intake & Output 08/08/18 08/09/18 08/10/18 06:59 06:59 06:59 Intake Total 974 2181 Balance 974 2181 Weight 83.5 kg 84.4 kg General appearance: PRESENT: no acute distress, well-developed, well-nourished Head exam: PRESENT: atraumatic, normocephalic Eye exam: PRESENT: conjunctiva pink, EOMI, PERRLA. ABSENT: scleral icterus Ear exam: PRESENT: normal external ear exam Mouth exam: PRESENT: moist, tongue midline Neck exam: ABSENT: carotid bruit, JVD, lymphadenopathy, thyromegaly Respiratory exam: PRESENT: clear to auscultation kaleb. ABSENT: rales, rhonchi, wheezes Cardiovascular exam: PRESENT: RRR. ABSENT: diastolic murmur, rubs, systolic murmur Pulses: PRESENT: normal dorsalis pedis pul Vascular exam: PRESENT: normal capillary refill GI/Abdominal exam: PRESENT: normal bowel sounds, soft. ABSENT: distended, guarding, mass, organolmegaly, rebound, tenderness Rectal exam: PRESENT: deferred Extremities exam: PRESENT: full ROM. ABSENT: calf tenderness, clubbing, pedal edema Neurological exam: PRESENT: alert, awake, oriented to person, oriented to place , oriented to time, oriented to situation, CN II-XII grossly intact. ABSENT: motor sensory deficit Psychiatric exam: PRESENT: appropriate affect, normal mood. ABSENT: homicidal ideation, suicidal ideation Skin exam: PRESENT: dry, intact, warm. ABSENT: cyanosis, rash Results Laboratory Results: 08/08/18 04:19 08/08/18 04:19 Impressions: Abdomen Ultrasound 08/04/18 17:30 IMPRESSION: Enlarged fatty liver. No gallstones. Qualifiers - * PATIENT BEING DISCHARGED WITH ANY OF THE FOLLOWING DIAGNOSIS: No Plan Discharge Plan: Discharged home. Follow-up with primary care provider within 1 week. Call [facility] on Saturday to schedule follow-up appointment. Time Spent: Less than 30 Minutes
== END 2018-08-09 14:53 | disposition home or self-care (01) | DRG 439 ==
LOC: ER 14:32 → EH 18:06 → 4S 21:16 → 4N 08-07 00:36
PROVIDERS: ADMIT Emergency Medicine; ATTEND Emergency Medicine
DX: K85.20 Alcohol induced acute pancreatitis without necrosis or infection (principal); F10.239 Alcohol dependence with withdrawal, unspecified; I48.0 Paroxysmal atrial fibrillation; K70.30 Alcoholic cirrhosis of liver without ascites; K70.10 Alcoholic hepatitis without ascites; K76.0 Fatty (change of) liver, not elsewhere classified; F41.9 Anxiety disorder, unspecified; Z79.899 Other long term (current) drug therapy; Z82.49 Family history of ischemic heart disease and other diseases of the circulatory system; Z83.3 Family history of diabetes mellitus; Z80.9 Family history of malignant neoplasm, unspecified
CPT/HCPCS: 36415; 76705; 80048; 80053; 80076; 80307; 81001; 82140; 82150; 83690; 83735; 84443; 85025; 85027; 93005; 93010; 96361; 96374; 96375; 99285; J0360; J1650; J2060; J2270; J2405; J3010; J3360; J3475; J3490; J7030; J7120; S0028; S0164

== ENCOUNTER 2018-11-24 10:37 | Inpatient (IN) | payer SELFPAY ==
[2018-11-24] MEDS ORDERED: ONDANSETRON HCL INJ/PF 4 MG/2 ML SDV IV ONE (11:03)
[2018-11-24] MEDS ORDERED: MORPHINE SULFATE 10 MG/ML INJ IV ONE (11:03)
[2018-11-24] MEDS ORDERED: LORAZEPAM INJ 2 MG/1 ML VIAL IV ONE ×2 (11:04→13:38)
[2018-11-24] MEDS ORDERED: FAMOTIDINE INJ/PF 20 MG/2 ML SDV IV ONE (11:04)
[2018-11-24] MEDS ORDERED: RINGERS SOLUTION,LACTATED 1,000 ML IV ONE (11:04)
--- NOTE | 2018-11-24 11:06 | ER Document Report ---
ED Medical Screen (RME) - General Chief Complaint: Abdominal Pain Stated Complaint: ABDOMINAL PAIN Time Seen by Provider: 11/24/18 11:03 Mode of Arrival: Ambulatory Information source: Patient, [facility], [facility] Records Notes: 43-year-old male with a history of pancreatitis, alcoholism, atrial fibrillation presents with complaint of epigastric abdominal pain that started this morning. Patient had associated nausea, vomiting. His last admission for pancreatitis was approximately 6 months ago. He is a heavy daily drinker. Last alcohol consumption was last night. Denies any history of alcohol withdrawal. I have greeted and performed a rapid initial assessment of this patient. A comprehensive ED assessment and evaluation of the patient, analysis of test results and completion of medical decision making process we will be contacted by additional ED providers. PHYSICAL EXAMINATION: Vital signs reviewed-tachycardic, hypertensive, tachypneic GENERAL: Ill-appearing, tremulous LUNGS: No respiratory distress Musculoskeletal: Normal range of motion NEUROLOGICAL: Normal speech, normal gait. PSYCH: Anxious SKIN: Diaphoretic TRAVEL OUTSIDE OF THE [place] IN LAST 30 DAYS: No - HPI Onset: This morning Onset/Duration: Sudden Quality of pain: Sharp Severity: Severe Pain Level: 4 Associated Symptoms: Abdominal pain, Nausea, Vomiting Exacerbated by: Denies Relieved by: Denies Similar symptoms previously: Yes Recently seen / treated by doctor: No - Related Data Smoking: Cigarettes Frequency of alcohol use: Heavy Drug Abuse: None Allergies/Adverse Reactions: No Known Allergies Allergy (Verified 11/24/18 10:56) Past Medical History - Social History Frequency of alcohol use: Heavy Drug Abuse: None - Past Medical History Cardiac Medical History: Reports: Hx Atrial Fibrillation - INTERMITTENT, INFREQUENT 1992, PAF Pulmonary Medical History: Denies: Hx Asthma, Hx Intubation, Hx Respiratory Failure Neurological Medical History: Denies: Hx Migraine, Hx Seizures Endocrine Medical History: Denies: Hx Diabetes Mellitus Type 1, Hx Diabetes Mellitus Type 2, Hx Hyperthyroidism, Hx Hypothyroidism Renal/ Medical History: Denies: Hx Peritoneal Dialysis GI Medical History: Reports: Hx Cirrhosis - History of elevated liver enzymes, Hx Hepatitis - Alcoholic hepatitis. Denies: Hx Crohn's Disease, Hx Gastroesophageal Reflux Disease, Hx Hiatal Hernia, Hx Ulcerative Colitis Musculoskeltal Medical History: Denies Hx Arthritis, Denies Hx Gout, Reports Hx Musculoskeletal Trauma Skin Medical History: Denies Hx Eczema, Denies Hx Psoriasis Psychiatric Medical History: Reports: Hx Anxiety Traumatic Medical History: Reports: Hx Fractures Infectious Medical History: Reports: Hx Hepatitis - Alcoholic hepatitis Past Surgical History: Reports: Hx Abdominal Surgery - hernia repair, Hx Orthopedic Surgery - left lower extremity - Immunizations Immunizations up to date: Yes Hx Diphtheria, Pertussis, Tetanus Vaccination: Yes History of Influenza Vaccine for 06/2017 - 11/2017 Season: No
[2018-11-24] MEDS ORDERED: THIAMINE HCL 100 MG, FOLIC ACID 1 MG in NORMAL SALINE 250 ML IV ONE (11:07)
[2018-11-24 11:42] LABS: ABSOLUTE BASOPHILS # (AUTO) 0.1 10^3/uL (0.0-0.2); ABSOLUTE LYMPHOCYTES (AUTO) 0.6 10^3/uL (0.5-4.7); ABSOLUTE MONOCYTES (AUTO) 0.7 10^3/uL (0.1-1.4); BASOPHILS % (AUTO) 0.6 % (0-2); EOSINOPHILS % (AUTO) 0.2 % (0-6); HEMATOCRIT 42.7 % (37.9-51.0); HEMOGLOBIN 14.8 g/dL (13.5-17.0); LYMPHOCYTES % (AUTO) 5.5 % (13-45); MEAN CORPUSCULAR HEMOGLOBIN 32.5 pg (27.0-33.4); MEAN CORPUSCULAR HGB CONC 34.6 g/dL (32.0-36.0); MEAN CORPUSCULAR VOLUME 94 fl (80-97); MONOCYTES % (AUTO) 6.4 % (3-13); PLATELET COUNT 190 10^3/uL (150-450); RED BLOOD COUNT 4.53 10^6/uL (4.35-5.55); RED CELL DISTRIBUTION WIDTH 13.5 % (11.5-14.0); SEGMENTED NEUTROPHILS % (AUTO) 87.3 % (42-78); TOTAL CELLS COUNTED % (AUTO) 100 %; WHITE BLOOD COUNT 11.5 10^3/uL (4.0-10.5)
[2018-11-24 11:55] LABS: ALANINE AMINOTRANSFERASE 186 U/L (21-72); ALBUMIN 4.9 g/dL (3.5-5.0); ALKALINE PHOSPHATASE 220 U/L (38-126); ANION GAP 16 (5-19); ASPARTATE AMINO TRANSFERASE 601 U/L (17-59); BILIRUBIN,DIRECT 0.4 mg/dL (0.0-0.4); BILIRUBIN,TOTAL 1.1 mg/dL (0.2-1.3); BLOOD UREA NITROGEN 13 mg/dL (7-20); CALCIUM 9.7 mg/dL (8.4-10.2); CARBON DIOXIDE 23 mmol/L (22-30); CHLORIDE 98 mmol/L (98-107); GLUCOSE 113 mg/dL (75-110); POTASSIUM 4.3 mmol/L (3.6-5.0); SODIUM 137.4 mmol/L (137-145); TOTAL PROTEIN 8.8 g/dL (6.3-8.2)
[2018-11-24 12:19] LABS: LIPASE 7042.2 U/L (23-300)
[2018-11-24] MEDS ORDERED: FENTANYL CITRATE INJ/PF 100 MCG/2 ML AMPUL IV ONE (12:53)
[2018-11-24] MEDS ORDERED: NORMAL SALINE 1000 ML 1,000 ML with POTASSIUM CHLORIDE 20 MEQ, MAGNESIUM SULFATE 8 MEQ,... IV PRN ×15 (12:53→14:50)
[2018-11-24] MEDS ORDERED: THIAMINE HCL 100 MG TABLET PO ONE (13:40)
[2018-11-24] MEDS ORDERED: ONDANSETRON HCL INJ/PF 4 MG/2 ML SDV IV PRN (13:51)
[2018-11-24] MEDS ORDERED: HALOPERIDOL LACTATE INJ 5 MG/1 ML VIAL IV PRN (13:57)
--- NOTE | 2018-11-24 13:57 | ER Document Report ---
ED General - General Chief Complaint: Abdominal Pain Stated Complaint: ABDOMINAL PAIN Time Seen by Provider: 11/24/18 11:03 Primary Care Provider: [facility] [Primary Care Provider] - Follow up as needed Mode of Arrival: Ambulatory TRAVEL OUTSIDE OF THE [place] IN LAST 30 DAYS: No - HPI Notes: Patient presents emergency department for evaluation of sudden onset epigastric abdominal pain. He states it feels similar to his pancreatitis in the past. He has a long-standing history of alcohol abuse. Denies any history of alcohol withdrawal. He states his pain is in the epigastric with mild radiation to the back. He had one episode of nonbloody, nonbilious emesis. Normal bowel movement yesterday. He does drink liquor daily. He states his last drink was last night. He states his pain is sharp and stabbing, rates it a 10 out of 10. - Related Data Allergies/Adverse Reactions: No Known Allergies Allergy (Verified 11/24/18 10:56) Past Medical History - General Information source: Patient, [facility] Records - Social History Smoking Status: Never Smoker Frequency of alcohol use: Heavy Drug Abuse: None Family History: None, Reviewed & Not Pertinent Patient has suicidal ideation: No Patient has homicidal ideation: No - Past Medical History Cardiac Medical History: Reports: Hx Atrial Fibrillation - INTERMITTENT, INFREQU ENT 1992, PAF Pulmonary Medical History: Denies: Hx Asthma, Hx Intubation, Hx Respiratory Failure Neurological Medical History: Denies: Hx Migraine, Hx Seizures Endocrine Medical History: Denies: Hx Diabetes Mellitus Type 1, Hx Diabetes Mellitus Type 2, Hx Hyperthyroidism, Hx Hypothyroidism Renal/ Medical History: Denies: Hx Peritoneal Dialysis GI Medical History: Reports: Hx Cirrhosis - History of elevated liver enzymes, Hx Hepatitis - Alcoholic hepatitis. Denies: Hx Crohn's Disease, Hx Gastroesophageal Reflux Disease, Hx Hiatal Hernia, Hx Ulcerative Colitis Musculoskeletal Medical History: Denies Hx Arthritis, Denies Hx Gout, Reports Hx Musculoskeletal Trauma Skin Medical History: Denies Hx Eczema, Denies Hx Psoriasis Psychiatric Medical History: Reports: Hx Anxiety Traumatic Medical History: Reports: Hx Fractures Infectious Medical History: Reports: Hx Hepatitis - Alcoholic hepatitis Past Surgical History: Reports: Hx Abdominal Surgery - hernia repair, Hx Orthopedic Surgery - left lower extremity - Immunizations Immunizations up to date: Yes Hx Diphtheria, Pertussis, Tetanus Vaccination: Yes Review of Systems - Review of Systems Constitutional: Diaphoresis, Malaise, Weakness EENT: No symptoms reported Cardiovascular: No symptoms reported Respiratory: No symptoms reported Gastrointestinal: See HPI Male Genitourinary: No symptoms reported Musculoskeletal: No symptoms reported Skin: No symptoms reported Neurological/Psychological: No symptoms reported Physical Exam - Vital signs Vitals: Reviewed and as charted. Patient is hypertensive, mildly tachycardic. - Notes Notes: Vital signs reviewed, please refer to chart. He is mildly diaphoretic and in mild distress. Patient is normocephalic, atraumatic. Pupils equal round, reactive to light. Neck is supple without meningismus. Heart is regular rate and rhythm. Lungs are clear to auscultation bilaterally. Abdomen is soft, moderate tenderness with some voluntary guarding in the epigastric region. No rebound.. Extremities without cyanosis, clubbing, edema. Peripheral pulses are equal. Skin is warm and moist. Patient is awake, alert, neurological exam is nonfocal. Course - Re-evaluation Re-evalutation: 11/24/18 13:48 Presents emergency department for evaluation. I am concerned about the possibility of withdrawal in this patient. His laboratory vesication did reveal a significantly elevated lipase, consistent with pancreatitis. He is kept n.p.o. He was given IV fluids. He is given pain medication, nausea medication, Ativan for alcohol withdrawal. He remained stable throughout the course of his stay, will admit him for further care. I did discuss this patient with Dr. Monge - Laboratory Result Diagrams: 11/24/18 11:15 11/24/18 11:15 Laboratory results interpreted by me: 11/24/18 11/24/18 11:15 11:15 WBC 11.5 H Seg Neutrophils % 87.3 H Lymphocytes % 5.5 L Absolute Neutrophils 10.0 H Glucose 113 H Magnesium 1.3 L AST 601 H ALT 186 H Alkaline Phosphatase 220 H Total Protein 8.8 H Lipase 7042.2 H - Consults Sale[facility] Time consulted: 13:30 Discharge - Discharge Clinical Impression: Acute pancreatitis, Alcohol abuse Admitting Provider: Hospitalist - [facility] Unit Admitted: Telemetry [facility] [Primary [facility]] - Follow up as needed
--- NOTE | 2018-11-24 14:12 | PDOC H&P ---
History of Present Illness Admission Date/PCP: [facility] History of Present Illness: SOLITARIO CARLTON is a 43 year old male patient with past medical history of hypertension, paroxysmal atrial fibrillation, pancreatitis and alcohol dependence presents with chief complaint of epigastric pain which started this morning. Patient has history of long-standing alcohol abuse, he drinks heavy liquor on a daily basis and recurrent pancreatitis patient has about 4 admission for pancreatitis to this hospital. Patient endorses associated nausea and vomiting. He denies any chills, fever, chest pain, palpitation or diaphoresis. His initial blood work shows lipase of 7000. Past Medical History Cardiac Medical History: Reports: Atrial Fibrillation - INTERMITTENT, INFREQUENT 1992, PAF, Hypertension Pulmonary Medical History: Denies: Asthma, Intubation, Respiratory Failure Neurological Medical History: Denies: Migraine, Seizures Endocrine Medical History: Denies: Diabetes Mellitus Type 1, Diabetes Mellitus Type 2, Hyperthyroidism, Hypothyroidism GI Medical History: Reports: Cirrhosis - History of elevated liver enzymes, Hepatitis - Alcoholic hepatitis Denies: Crohn's Disease, Gastroesophageal Reflux Disease, Hiatal Hernia, Ulcerative Colitis Musculoskeltal Medical History: Denies: Arthritis, Gout Skin Medical History: Denies: Eczema, Psoriasis Hematology: Denies: Anemia, Bleeding Tendencies Past Surgical History Past Surgical History: Reports: Orthopedic Surgery - left lower extremity Social History Smoking Status: Never Smoker Frequency of Alcohol Use: Heavy Hx Recreational Drug Use: No Drugs: None Hx Prescription Drug Abuse: No - Advance Directive Resuscitation Status: Full Code Family History Family History: None, Reviewed & Not Pertinent, Hypertension Parental Family History Reviewed: Yes Children Family History Reviewed: Yes Sibling(s) Family History Reviewed.: Yes Medication/Allergy Home Medications: Acetaminophen [Tylenol 325 mg Tablet] 650 mg PO Q4HP PRN tablet 08/09/18 Aspirin [Aspirin 81 mg Chewable Tablet] 81 mg PO DAILY #30 tab.chew 08/09/18 Diazepam [Valium 2 mg Tablet] 2 mg PO Q6HP PRN #15 tablet 08/09/18 Famotidine [Pepcid 20 mg Tablet] 20 mg PO Q12 #60 tablet 08/09/18 Folic Acid [Folvite 1 mg Tablet] 1 mg PO DAILY #30 tablet 08/09/18 Lisinopril [Prinivil 10 mg Tablet] 10 mg PO DAILY #30 tablet 08/09/18 Thiamine HCl [Thiamine 100 mg Tablet] 100 mg PO DAILY #30 tablet 08/09/18 Allergies/Adverse Reactions: No Known Allergies Allergy (Verified 11/24/18 10:56) Review of Systems Constitutional: PRESENT: as per HPI Ears: PRESENT: as per HPI Nose, Mouth, and Throat: PRESENT: as per HPI Breasts: PRESENT: as per HPI Cardiovascular: PRESENT: as per HPI Respiratory: PRESENT: as per HPI Gastrointestinal: PRESENT: as per HPI Musculoskeletal: PRESENT: as per HPI Neurological: PRESENT: as per HPI Physical Exam General appearance: PRESENT: mild distress, other - Patient looks nervous and shaky Head exam: PRESENT: atraumatic Eye exam: PRESENT: conjunctiva pink Mouth exam: PRESENT: dry mucosa Neck exam: ABSENT: carotid bruit, JVD, lymphadenopathy, thyromegaly Respiratory exam: PRESENT: clear to auscultation kaleb. ABSENT: rales, rhonchi, wheezes Cardiovascular exam: PRESENT: RRR. ABSENT: diastolic murmur, rubs, systolic murmur GI/Abdominal exam: PRESENT: normal bowel sounds, soft, tenderness - Epigastric. ABSENT: distended, guarding, mass, organolmegaly, rebound Neurological exam: PRESENT: alert, awake, oriented to time, oriented to situation Results Laboratory Results: 11/24/18 11:15 11/24/18 11:15 11/24/18 11/24/18 11:15 11:15 WBC 11.5 H RBC 4.53 Hgb 14.8 Hct 42.7 MCV 94 MCH 32.5 MCHC 34.6 RDW 13.5 Plt Count 190 Seg Neutrophils % 87.3 H Lymphocytes % 5.5 L Monocytes % 6.4 Eosinophils % 0.2 Basophils % 0.6 Absolute Neutrophils 10.0 H Absolute Lymphocytes 0.6 Absolute Monocytes 0.7 Absolute Eosinophils 0.0 Absolute Basophils 0.1 Sodium 137.4 Potassium 4.3 Chloride 98 Carbon Dioxide 23 Anion Gap 16 BUN 13 Creatinine 0.81 Est GFR ( Amer) > 60 Est GFR (Non-Af Amer) > 60 Glucose 113 H Calcium 9.7 Magnesium 1.3 L Total Bilirubin 1.1 AST 601 H ALT 186 H Alkaline Phosphatase 220 H Total Protein 8.8 H Albumin 4.9 Lipase 7042.2 H 11/24/18 11:15 Troponin I < 0.012 Assessment & Plan - Diagnosis (1) Acute recurrent pancreatitis Is this a current diagnosis for this admission?: Yes Plan: Patient admitted to the medical floor. Pain control with morphine sulfate. Aggressive hydration. Bowel rest. (2) Possible alcohol withdrawal Is this a current diagnosis for this admission?: Yes Plan: We will put him on diazepam, Ativan and Haldol. (3) History of paroxysmal A. fib Is this a current diagnosis for this admission?: Yes Plan: Rate controlled and if she is in sinus rhythm (4) Hypertension Is this a current diagnosis for this admission?: Yes Plan: Cover him with antihypertensive medications. - Inpatient Certification Medical Necessity: Need Close Monitoring Due to Risk of Patient Decompensation, Need For IV Fluids
[2018-11-24] MEDS: ENOXAPARIN SODIUM INJ 40 MG/0.4 ML DISP.SYRIN SUBCUT SCH (14:17)
[2018-11-24] MEDS: DIAZEPAM 5 MG TABLET PO SCH ×2 (14:18→22:01)
[2018-11-24] MEDS: NORMAL SALINE 1000 ML 1,000 ML IV PRN (15:08)
[2018-11-24] MEDS: MORPHINE SULFATE 10 MG/ML INJ IV PRN ×2 (15:38→20:06)
[2018-11-24] MEDS ORDERED: NORMAL SALINE 1000 ML 1,000 ML with POTASSIUM CHLORIDE 20 MEQ, MAGNESIUM SULFATE 8 MEQ,... IV ONE ×4 (16:00)
[2018-11-24] MEDS ORDERED: METOPROLOL TARTRATE 50 MG TABLET PO ONE (16:15)
[2018-11-24] MEDS ORDERED: HYDRALAZINE HCL INJ/PF 20 MG/1 ML SDV IV ONE (16:15)
[2018-11-24] MEDS: LORAZEPAM INJ 2 MG/1 ML VIAL IV PRN ×2 (16:19→18:32)
[2018-11-24] MEDS ORDERED: FENTANYL 50 MCG/HR PATCH.TD72 TD SCH (18:00)
[2018-11-24] MEDS: CLONIDINE HCL 0.2 MG TABLET PO SCH (18:40)
[2018-11-24] MEDS: HYDRALAZINE HCL INJ/PF 20 MG/1 ML SDV IV PRN (20:07)
[2018-11-24] MEDS: METOPROLOL TARTRATE 50 MG TABLET PO SCH (22:01)
[2018-11-25] MEDS: DIAZEPAM 5 MG TABLET PO SCH ×5 (00:27→23:37)
[2018-11-25] MEDS: MORPHINE SULFATE 10 MG/ML INJ IV PRN ×6 (00:28→23:37)
[2018-11-25] MEDS: LORAZEPAM INJ 2 MG/1 ML VIAL IV PRN ×5 (01:56→21:32)
[2018-11-25] MEDS: NORMAL SALINE 1000 ML 1,000 ML IV PRN ×5 (01:56→23:40)
[2018-11-25 08:13] LABS: ALANINE AMINOTRANSFERASE 86 U/L (21-72); ALBUMIN 3.6 g/dL (3.5-5.0); ALKALINE PHOSPHATASE 118 U/L (38-126); ANION GAP 8 (5-19); ASPARTATE AMINO TRANSFERASE 263 U/L (17-59); BILIRUBIN,DIRECT 0.4 mg/dL (0.0-0.4); BILIRUBIN,TOTAL 1.1 mg/dL (0.2-1.3); BLOOD UREA NITROGEN 11 mg/dL (7-20); CALCIUM 8.3 mg/dL (8.4-10.2); CARBON DIOXIDE 23 mmol/L (22-30); CHLORIDE 103 mmol/L (98-107); GLUCOSE 85 mg/dL (75-110); SODIUM 134.2 mmol/L (137-145); TOTAL PROTEIN 6.6 g/dL (6.3-8.2)
[2018-11-25 08:24] LABS: LIPASE 3071.6 U/L (23-300)
[2018-11-25] MEDS: CLONIDINE HCL 0.2 MG TABLET PO SCH ×2 (09:40→18:56)
[2018-11-25] MEDS: ENOXAPARIN SODIUM INJ 40 MG/0.4 ML DISP.SYRIN SUBCUT SCH (09:40)
[2018-11-25] MEDS: METOPROLOL TARTRATE 50 MG TABLET PO SCH ×2 (09:41→21:30)
[2018-11-25 10:13] LABS: ABSOLUTE EOSINOPHILS # (AUTO) 0.1 10^3/uL (0.0-0.6); ABSOLUTE LYMPHOCYTES (AUTO) 0.5 10^3/uL (0.5-4.7); ABSOLUTE MONOCYTES (AUTO) 0.7 10^3/uL (0.1-1.4); ABSOLUTE NEUT (AUTO) 5.2 10^3/uL (1.7-8.2); BASOPHILS % (AUTO) 0.3 % (0-2); EOSINOPHILS % (AUTO) 0.8 % (0-6); HEMATOCRIT 36.4 % (37.9-51.0); LYMPHOCYTES % (AUTO) 8.1 % (13-45); MEAN CORPUSCULAR HEMOGLOBIN 33.3 pg (27.0-33.4); MEAN CORPUSCULAR HGB CONC 34.7 g/dL (32.0-36.0); MEAN CORPUSCULAR VOLUME 96 fl (80-97); MONOCYTES % (AUTO) 10.6 % (3-13); PLATELET COUNT 115 10^3/uL (150-450); RED CELL DISTRIBUTION WIDTH 13.1 % (11.5-14.0); SEGMENTED NEUTROPHILS % (AUTO) 80.2 % (42-78); TOTAL CELLS COUNTED % (AUTO) 100 %; WHITE BLOOD COUNT 6.5 10^3/uL (4.0-10.5)
[2018-11-25 10:24] LABS: HEMOGLOBIN 12.6 g/dL (13.5-17.0)
[2018-11-25] MEDS: HYDRALAZINE HCL INJ/PF 20 MG/1 ML SDV IV PRN (12:05)
--- NOTE | 2018-11-25 16:15 | PDOC PROGRESS REPORT ---
Subjective Progress Note for:: 11/25/18 Subjective:: I seen patient resting in bed. He reports his his epigastric pain is controlled after he started on fentanyl patch. His latest CMP shows his lipase trended down markedly from 8664-6035. Reason For Visit: ACUTE RECURRENT PANCREATITIS Physical Exam Vital Signs: Temp Pulse Resp BP Pulse Ox 98.2 F 91 19 146/102 H 95 11/25/18 11:50 11/25/18 11:50 11/25/18 07:16 11/25/18 11:50 11/25/18 11:50 Intake & Output 11/24/18 11/25/18 11/26/18 06:59 06:59 06:59 Intake Total 4022 1946 Output Total 400 Balance 3622 1946 Weight 84.3 kg General appearance: PRESENT: no acute distress Head exam: PRESENT: atraumatic Eye exam: PRESENT: conjunctiva pink Mouth exam: PRESENT: moist Neck exam: ABSENT: carotid bruit, JVD, lymphadenopathy, thyromegaly Respiratory exam: PRESENT: clear to auscultation kaleb. ABSENT: rales, rhonchi, wheezes Cardiovascular exam: PRESENT: RRR. ABSENT: diastolic murmur, rubs, systolic murmur GI/Abdominal exam: PRESENT: tenderness Neurological exam: PRESENT: alert, awake, oriented to time, oriented to situation Results Laboratory Results: 11/25/18 09:32 11/25/18 07:24 11/25/18 11/25/18 11/25/18 07:24 07:24 09:32 WBC Cancelled 6.5 RBC Cancelled 3.80 L Hgb Cancelled 12.6 L D Hct Cancelled 36.4 L MCV Cancelled 96 MCH Cancelled 33.3 MCHC Cancelled 34.7 RDW Cancelled 13.1 Plt Count Cancelled 115 L Seg Neutrophils % Cancelled 80.2 H Lymphocytes % Cancelled 8.1 L Monocytes % Cancelled 10.6 Eosinophils % Cancelled 0.8 Basophils % Cancelled 0.3 Absolute Neutrophils Cancelled 5.2 Absolute Lymphocytes Cancelled 0.5 Absolute Monocytes Cancelled 0.7 Absolute Eosinophils Cancelled 0.1 Absolute Basophils Cancelled 0.0 Sodium 134.2 L Potassium 4.0 Chloride 103 Carbon Dioxide 23 Anion Gap 8 BUN 11 Creatinine 0.70 Est GFR ( Amer) > 60 Est GFR (Non-Af Amer) > 60 Glucose 85 Calcium 8.3 L Total Bilirubin 1.1 AST 263 H ALT 86 H Alkaline Phosphatase 118 Total Protein 6.6 Albumin 3.6 Lipase 3071.6 H 11/24/18 11:15 Troponin I < 0.012 Assessment & Plan - Diagnosis (1) Acute recurrent pancreatitis Is this a current diagnosis for this admission?: Yes Plan: His lipase trended down markedly (2) Possible alcohol withdrawal Is this a current diagnosis for this admission?: Yes Plan: We will put him on diazepam, Ativan and Haldol. (3) History of paroxysmal A. fib Is this a current diagnosis for this admission?: Yes Plan: Rate controlled and if she is in sinus rhythm (4) Hypertension Qualifiers: Hypertension type: essential hypertension Qualified Code(s): I10 - Essential (primary) hypertension Is this a current diagnosis for this admission?: Yes Plan: Cover him with antihypertensive medications.
[2018-11-26] MEDS: LORAZEPAM INJ 2 MG/1 ML VIAL IV PRN ×4 (02:44→20:24)
[2018-11-26] MEDS: MORPHINE SULFATE 10 MG/ML INJ IV PRN ×3 (03:41→22:37)
[2018-11-26] MEDS: NORMAL SALINE 1000 ML 1,000 ML IV PRN ×4 (05:37→18:21)
[2018-11-26] MEDS: DIAZEPAM 5 MG TABLET PO SCH ×3 (05:38→17:11)
--- NOTE | 2018-11-26 09:29 | EKG REPORT ---
SEVERITY:- BORDERLINE ECG - SINUS TACHYCARDIA BORDERLINE T ABNORMALITIES, INFERIOR LEADS : Confirmed by: Audelia Garcia 26-Nov-2018 09:29:17
[2018-11-26] MEDS ORDERED: HYDRALAZINE HCL 50 MG TABLET PO ONE (10:20)
[2018-11-26] MEDS: ENOXAPARIN SODIUM INJ 40 MG/0.4 ML DISP.SYRIN SUBCUT SCH (10:38)
[2018-11-26] MEDS: METOPROLOL TARTRATE 50 MG TABLET PO SCH ×2 (10:49→21:53)
[2018-11-26] MEDS: CLONIDINE HCL 0.2 MG TABLET PO SCH ×2 (10:50→17:11)
[2018-11-26] MEDS: HYDRALAZINE HCL 50 MG TABLET PO SCH ×2 (13:14→21:53)
--- NOTE | 2018-11-26 16:21 | PDOC PROGRESS REPORT ---
Subjective Progress Note for:: 11/26/18 Subjective:: Patient seen resting in bed comfortably. His epigastric pain is well controlled. His lipase is trending steadily his latest value is 800. Patient started on full liquid diet if tolerates will advance to solid diet and his potential discharge for tomorrow. Reason For Visit: ACUTE RECURRENT PANCREATITIS Physical Exam Vital Signs: Temp Pulse Resp BP Pulse Ox 97.8 F 85 18 141/92 H 94 11/26/18 12:47 11/26/18 12:47 11/26/18 12:47 11/26/18 12:47 11/26/18 12:47 Intake & Output 11/25/18 11/26/18 11/27/18 06:59 06:59 06:59 Intake Total 4022 4486 1999 Output Total 400 60 Balance 3622 4481 1999 Weight 84.3 kg General appearance: PRESENT: no acute distress, well-developed, well-nourished Head exam: PRESENT: atraumatic, normocephalic Eye exam: PRESENT: conjunctiva pink, EOMI, PERRLA. ABSENT: scleral icterus Ear exam: PRESENT: normal external ear exam Mouth exam: PRESENT: moist, tongue midline Neck exam: ABSENT: carotid bruit, JVD, lymphadenopathy, thyromegaly Respiratory exam: PRESENT: clear to auscultation kaleb. ABSENT: rales, rhonchi, wheezes Cardiovascular exam: PRESENT: RRR. ABSENT: diastolic murmur, rubs, systolic murmur Pulses: PRESENT: normal dorsalis pedis pul Vascular exam: PRESENT: normal capillary refill GI/Abdominal exam: PRESENT: normal bowel sounds, soft. ABSENT: distended, guarding, mass, organolmegaly, rebound, tenderness Rectal exam: PRESENT: deferred Extremities exam: PRESENT: full ROM. ABSENT: calf tenderness, clubbing, pedal edema Neurological exam: PRESENT: alert, awake, oriented to person, oriented to place, oriented to time, oriented to situation, CN II-XII grossly intact. ABSENT: motor sensory deficit Psychiatric exam: PRESENT: appropriate affect, normal mood. ABSENT: homicidal ideation, suicidal ideation Skin exam: PRESENT: dry, intact, warm. ABSENT: cyanosis, rash Results Laboratory Results: 11/25/18 09:32 11/25/18 07:24 11/26/18 05:02 Lipase 833.9 H 11/24/18 11:15 Troponin I < 0.012 Assessment & Plan - Diagnosis (1) Acute recurrent pancreatitis Is this a current diagnosis for this admission?: Yes Plan: His lipase is trending down steadily (2) Possible alcohol withdrawal Is this a current diagnosis for this admission?: Yes Plan: We will put him on diazepam, Ativan and Haldol. (3) History of paroxysmal A. fib Is this a current diagnosis for this admission?: Yes Plan: Rate controlled and if she is in sinus rhythm (4) Hypertension Qualifiers: Hypertension type: essential hypertension Qualified Code(s): I10 - Essential (primary) hypertension Is this a current diagnosis for this admission?: Yes Plan: Cover him with antihypertensive medications.
[2018-11-27] MEDS: DIAZEPAM 5 MG TABLET PO SCH ×2 (00:27→05:14)
[2018-11-27] MEDS: NORMAL SALINE 1000 ML 1,000 ML IV PRN ×3 (00:28→10:06)
[2018-11-27] MEDS: MORPHINE SULFATE 10 MG/ML INJ IV PRN (03:49)
[2018-11-27] MEDS ORDERED: KETOROLAC TROMETHAMINE INJ/PF 30 MG/1 ML SDV IV PRN (04:11)
[2018-11-27] MEDS: HYDRALAZINE HCL 50 MG TABLET PO SCH (05:13)
[2018-11-27] MEDS: LORAZEPAM INJ 2 MG/1 ML VIAL IV PRN ×2 (05:14→08:34)
[2018-11-27] MEDS: CLONIDINE HCL 0.2 MG TABLET PO SCH (10:06)
[2018-11-27] MEDS: METOPROLOL TARTRATE 50 MG TABLET PO SCH (10:06)
--- NOTE | 2018-11-27 10:20 | PDOC DISCHARGE SUMMARY ---
General - Admit/Disc Date/PCP Admission Date/Primary Care Provider: 11/24/18 14:28 [facility] Discharge Date: 11/27/18 - Discharge Diagnosis (1) Acute recurrent pancreatitis Is this a current diagnosis for this admission?: Yes (2) Possible alcohol withdrawal Is this a current diagnosis for this admission?: Yes (3) History of paroxysmal A. fib Is this a current diagnosis for this admission?: Yes (4) Hypertension Is this a current diagnosis for this admission?: Yes - Additional Information Resuscitation Status: Full Code Home Medications: No Home Medications 11/24/18 History of Present Illness History of Present Illness: SOLITARIO CARLTON is a 43 year old male patient with past medical history of hypertension, paroxysmal atrial fibrillation, pancreatitis and alcohol dependence presents with chief complaint of epigastric pain which started this morning. Patient has history of long-standing alcohol abuse, he drinks heavy liquor on a daily basis and recurrent pancreatitis patient has about 4 admission for pancreatitis to this hospital. Patient endorses associated nausea and vomiting. He denies any chills, fever, chest pain, palpitation or diaphoresis. His initial blood work shows lipase of 7000. Hospital Course Hospital Course: SOLITARIO CARLTON is a 43 year old male patient with past medical history of hypertension, paroxysmal atrial fibrillation, pancreatitis and alcohol dependence presents with chief complaint of epigastric pain which started this morning. Patient has history of long-standing alcohol abuse, he drinks heavy liquor on a daily basis and recurrent pancreatitis patient has about 4 admission for pancreatitis to this hospital. At that admission his lipase was 7000 and now today on the day of discharge his lipase trended down to 400. I advanced his diet since yesterday patient's able to eat and hold down and tolerates well. I re-counseled and encouraged him to quit drinking alcohol and also I extensively discussed with him the consequence of recurrent pancreatitis including chronic pain, and loss of insulin production which will ends him up in diabetes. Patient voices his agreement and determine to remain sober. Physical Exam Vital Signs: Temp Pulse Resp BP Pulse Ox 98.3 F 82 19 141/91 H 95 11/27/18 00:13 11/27/18 00:13 11/26/18 20:13 11/27/18 00:13 11/27/18 00:13 Intake & Output 02/27/19 02/28/19 03/01/19 06:59 06:59 06:59 Intake Total 4486 7024 1000 Output Total 60 Balance 4426 7024 1000 Weight 90 kg Results Laboratory Results: 11/25/18 09:32 11/25/18 07:24 11/27/18 04:55 Lipase 493.5 H 11/24/18 11:15 Troponin I < 0.012 Qualifiers - * PATIENT BEING DISCHARGED WITH ANY OF THE FOLLOWING DIAGNOSIS: No
[2018-11-27] MEDS: ENOXAPARIN SODIUM INJ 40 MG/0.4 ML DISP.SYRIN SUBCUT SCH (10:43)
[2018-11-27 11:31] VITALS: BP 127/71
== END 2018-11-27 12:00 | disposition home or self-care (01) | DRG 439 ==
LOC: ER 10:37 → EH 14:28 → UNDOADMIN 14:28 → 4N 15:57
PROVIDERS: ADMIT Internal Medicine; ATTEND Internal Medicine
DX: K85.90 Acute pancreatitis without necrosis or infection, unspecified (principal); F10.239 Alcohol dependence with withdrawal, unspecified; I48.0 Paroxysmal atrial fibrillation; I10 Essential (primary) hypertension; K70.10 Alcoholic hepatitis without ascites; K70.30 Alcoholic cirrhosis of liver without ascites; F41.9 Anxiety disorder, unspecified; Z79.899 Other long term (current) drug therapy; Z79.82 Long term (current) use of aspirin; Z82.49 Family history of ischemic heart disease and other diseases of the circulatory system
CPT/HCPCS: 36415; 80053; 83690; 83735; 84484; 85025; 93005; 93010; 96361; 96374; 96375; 99284; J0360; J1650; J1885; J2060; J2270; J2405; J3010; J3475; J3480; J3490; J7030; J7120; S0028

== ENCOUNTER 2019-03-27 09:31 | Emergency (ER) | payer SELFPAY ==
[2019-03-27] MEDS ORDERED: KETOROLAC TROMETHAMINE INJ/PF 30 MG/1 ML SDV IV ONE (10:13)
[2019-03-27] MEDS ORDERED: ONDANSETRON HCL INJ/PF 4 MG/2 ML SDV IV ONE (10:13)
--- NOTE | 2019-03-27 10:15 | ER Document Report ---
ED Medical Screen (RME) - General Chief Complaint: Abdominal Pain Stated Complaint: NAUSEA/ABDOMINAL PAIN Time Seen by Provider: 03/27/19 10:12 Primary Care Provider: [facility] ELLINTGON,[facility] [Primary Care Provider] - Follow up as needed Mode of Arrival: Ambulatory Information source: Patient Notes: 43-year-old male presented to ED for complaint of severe epigastric pain with nausea vomiting and diarrhea. States the epigastric pain nausea vomiting diarrhea all started this morning. He states he has a history of A. fib. He does drink a few beers a night but has not been excessively drinking. He does have a history of a inguinal hernia repair and a foot surgery. Patient is alert oriented respirations regular and unlabored speaking in full sentences walks w ith even steady gait. I have greeted and performed a rapid initial assessment of this patient. A comprehensive ED assessment and evaluation of the patient, analysis of test results and completion of medical decision making process will be conducted by an additional ED providers. Dictation of this chart was performed using voice recognition software; therefore, there may be some unintended grammatical errors. TRAVEL OUTSIDE OF THE [place] IN LAST 30 DAYS: No - Related Data Allergies/Adverse Reactions: No Known Allergies Allergy (Verified 03/27/19 09:31) Past Medical History - Past Medical History Cardiac Medical History: Reports: Hx Atrial Fibrillation - INTERMITTENT, INFREQUENT 1992, , Hx Hypertension Pulmonary Medical History: Denies: Hx Asthma, Hx Intubation, Hx Respiratory Failure Neurological Medical History: Denies: Hx Migraine, Hx Seizures Endocrine Medical History: Denies: Hx Diabetes Mellitus Type 1, Hx Diabetes Mellitus Type 2, Hx Hyperthyroidism, Hx Hypothyroidism Renal/ Medical History: Denies: Hx Peritoneal Dialysis GI Medical History: Reports: Hx Cirrhosis - History of elevated liver enzymes, Hx Hepatitis - Alcoholic hepatitis. Denies: Hx Crohn's Disease, Hx Gastroesophageal Reflux Disease, Hx Hiatal Hernia, Hx Ulcerative Colitis Musculoskeltal Medical History: Denies Hx Arthritis, Denies Hx Gout, Reports Hx Musculoskeletal Trauma Skin Medical History: Denies Hx Eczema, Denies Hx Psoriasis Psychiatric Medical History: Reports: Hx Anxiety Traumatic Medical History: Reports: Hx Fractures Infectious Medical History: Reports: Hx Hepatitis - Alcoholic hepatitis Past Surgical History: Reports: Hx Abdominal Surgery - hernia, Hx Orthopedic Surgery - left lower extremity - Immunizations Immunizations up to date: Yes Hx Diphtheria, Pertussis, Tetanus Vaccination: Yes History of Influenza Vaccine for 06/2017 - 11/2017 Season: No Physical Exam - Vital signs Vitals: Temp Pulse Resp BP Pulse Ox 98.0 F 98 16 150/110 H 98 03/27/19 09:37 03/27/19 09:37 03/27/19 09:37 03/27/19 09:37 03/27/19 09:37 Course - Vital Signs Vital signs: Temp Pulse Resp BP Pulse Ox 98.0 F 98 16 150/110 H 98 03/27/19 09:37 03/27/19 09:37 03/27/19 09:37 03/27/19 09:37 03/27/19 09:37 Doctor's Discharge - Discharge Referrals: [facility] [Primary Care Provider] - Follow up as needed
[2019-03-27] MEDS: NORMAL SALINE 1000 ML 1,000 ML IV PRN ×2 (10:44→12:57)
[2019-03-27 11:01] LABS: ABSOLUTE MONOCYTES (AUTO) 0.6 10^3/uL (0.1-1.4); ABSOLUTE NEUT (AUTO) 4.1 10^3/uL (1.7-8.2); BASOPHILS % (AUTO) 0.3 % (0-2); EOSINOPHILS % (AUTO) 0.6 % (0-6); HEMATOCRIT 45.3 % (37.9-51.0); HEMOGLOBIN 15.6 g/dL (13.5-17.0); LYMPHOCYTES % (AUTO) 17.2 % (13-45); MEAN CORPUSCULAR HEMOGLOBIN 32.6 pg (27.0-33.4); MEAN CORPUSCULAR HGB CONC 34.5 g/dL (32.0-36.0); MEAN CORPUSCULAR VOLUME 95 fl (80-97); PLATELET COUNT 286 10^3/uL (150-450); RED BLOOD COUNT 4.79 10^6/uL (4.35-5.55); RED CELL DISTRIBUTION WIDTH 13.8 % (11.5-14.0); SEGMENTED NEUTROPHILS % (AUTO) 70.9 % (42-78); TOTAL CELLS COUNTED % (AUTO) 100 %; WHITE BLOOD COUNT 5.8 10^3/uL (4.0-10.5)
[2019-03-27 11:07] LABS: APPEARANCE,URINE CLEAR; BILIRUBIN,URINE NEGATIVE (NEGATIVE); COLOR,URINE YELLOW; GLUCOSE, URINE NEGATIVE (NEGATIVE); KETONES,URINE NEGATIVE (NEGATIVE); LEUKOCYTE ESTERASE,URINE NEGATIVE (NEGATIVE); NITRITE,URINE NEGATIVE (NEGATIVE); PROTEIN,URINE 30 mg/dL (NEGATIVE); URINE SPECIFIC GRAVITY 1.015; UROBILINOGEN,URINE NEGATIVE mg/dL (<2.0)
[2019-03-27 11:19] LABS: URINE AMPHETAMINES SCREEN NEGATIVE; URINE BARBITURATES SCREEN NEGATIVE; URINE BENZODIAZEPINES SCREEN NEGATIVE; URINE COCAINE SCREEN NEGATIVE; URINE MARIJUANA (THC) SCREEN NEGATIVE; URINE METHADONE SCREEN NEGATIVE; URINE PHENCYCLIDINE SCREEN NEGATIVE
[2019-03-27 11:27] LABS: ALANINE AMINOTRANSFERASE 112 U/L (21-72); ALBUMIN 4.6 g/dL (3.5-5.0); ALKALINE PHOSPHATASE 100 U/L (38-126); ANION GAP 12 (5-19); ASPARTATE AMINO TRANSFERASE 231 U/L (17-59); BILIRUBIN,DIRECT 0.3 mg/dL (0.0-0.4); BILIRUBIN,TOTAL 0.5 mg/dL (0.2-1.3); BLOOD UREA NITROGEN 14 mg/dL (7-20); CALCIUM 9.4 mg/dL (8.4-10.2); CARBON DIOXIDE 29 mmol/L (22-30); CHLORIDE 102 mmol/L (98-107); CREATINE KINASE 158 U/L (55-170); GLUCOSE 117 mg/dL (75-110); POTASSIUM 5.2 mmol/L (3.6-5.0); SODIUM 142.7 mmol/L (137-145); TOTAL PROTEIN 8.2 g/dL (6.3-8.2)
--- NOTE | 2019-03-27 11:27 | RADIOLOGY REPORT (SQ) ---
EXAM DESCRIPTION: U/S ABDOMEN LIMITED W/O DOP COMPLETED DATE/TIME: 03/27/2019 11:17 am REASON FOR STUDY: Epigastric pain with nausea vomiting diarrhea COMPARISON: 01/23/2019. TECHNIQUE: Dynamic and static grayscale images acquired of the abdomen and recorded on PACS. Zayda adan selected color Doppler and spectral images recorded. LIMITATIONS: None. FINDINGS: PANCREAS: No masses. No peripancreatic edema or fluid collections. LIVER: Echotexture is coarse with increased echogenicity consistent with fatty infiltration. LIVER VASCULATURE: Normal directional flow of the main portal vein and hepatic veins. GALLBLADDER: No stones. Normal wall thickness. No pericholecystic fluid. ULTRASOUND-DETECTED CASTANEDA'S SIGN: Negative. INTRAHEPATIC DUCTS AND COMMON DUCT: CBD and intrahepatic ducts normal caliber. No filling defects. INFERIOR VENA CAVA: Normal flow. AORTA: No aneurysm. RIGHT KIDNEY: Normal size. Normal echogenicity. No solid or suspicious masses. No hydronephros is. No calcifications. PERITONEAL AND RIGHT PLEURAL SPACE: No ascites or effusions. OTHER: No other significant finding. IMPRESSION: FATTY INFILTRATION OF THE LIVER. OTHERWISE NORMAL RIGHT UPPER QUADRANT ULTRASOUND. TECHNICAL DOCUMENTATION: JOB ID: [id number] [employer]- All Rights Reserved Reading location - IP/workstation name: [email or web address]
[2019-03-27 11:36] LABS: CREATINE KINASE MB 1.18 ng/mL (<4.55); LIPASE 2187.9 U/L (23-300)
[2019-03-27 11:37] LABS: TROPONIN I < 0.012 ng/mL
[2019-03-27] MEDS ORDERED: MORPHINE SULFATE 10 MG/ML INJ IV ONE (13:02)
[2019-03-27] MEDS ORDERED: NORMAL SALINE 1000 ML 1,000 ML IV ONE (13:02)
--- NOTE | 2019-03-27 13:59 | RADIOLOGY REPORT (SQ) ---
EXAM DESCRIPTION: CT ABD/PELVIS WITH IV ONLY COMPLETED DATE/TIME: 03/27/2019 1:45 pm REASON FOR STUDY: elevated lipase lft and epigastric pain COMPARISON: 02/07/2018 TECHNIQUE: CT scan of the abdomen and pelvis performed using helical scanning technique with dynamic intravenous contrast injection. No oral contrast. Images reviewed with lung, soft tissue, and bone windows. Reconstructed coronal and sagittal MPR images reviewed. Delayed images for evaluation of the urinary system also acquired. All images stored on PACS. All CT scanners at this facility use dose modulation, iterative reconstruction, and/or weight based d osing when appropriate to reduce radiation dose to as low as reasonably achievable (ALARA). [facility]: Dose Right [facility]: CareDose [facility]: Dose Right [facility]: Teradose 4D [facility]: [employer] CONTRAST TYPE AND DOSE: contrast/concentration: Isovue 350.00 mg/ml; Total Contrast Delivered: 95.0 ml; Total Saline Delivered: 44.0 ml RENAL FUNCTION: None required. The patient is less than 50 years old. RADIATION DOSE: CT Rad equipment meets quality standard of care and radiation dose reduction techniq ues were employed. CTDIvol: NaN mGy. DLP: 0 mGy-cm.. LIMITATIONS: None. FINDINGS: LOWER CHEST: No significant findings. No nodules or infiltrates. LIVER: Normal size. No masses. No dilated ducts. SPLEEN: Normal size. No focal lesions. PANCREAS: There is extensive fat stranding and retroperitoneal fluid about the pancreas. There is a 1.5 cm fluid attenuation lesion of the pancreatic uncinate new from prior examination (series 3, imag e 32). GALLBLADDER: No identified stones by CT criteria. No inflammatory changes to suggest cholecystitis. ADRENAL GLANDS: No significant masses or asymmetry. RIGHT KIDNEY AND URETER: No solid masses. No significant calcifications. No hydronephrosis or hyd roureter. LEFT KIDNEY AND URETER: No solid masses. No significant calcifications. No hydronephrosis or hydr oureter. AORTA AND VESSELS: No aneurysm. No dissection. Renal arteries, SMA, celiac without stenosis. RETROPERITONEUM: No retroperitoneal adenopathy, hemorrhage or masses. BOWEL AND PERITONEAL CAVITY: No masses or inflammatory changes. No free fluid or peritoneal masses. APPENDIX: Normal. PELVIS: No mass. No free fluid. Normal bladder. ABDOMINAL WALL: No masses. No hernias. BONES: No significant or acute findings. OTHER: No other significant finding. IMPRESSION: There is extensive fat stranding and retroperitoneal fluid about the pancreas, consisten t with acute pancreatitis. There is a 1.5 cm fluid attenuation lesion of the pancreatic uncinate new from prior examination, concerning for developing pancreatic fluid collection in the setting of acut e pancreatitis. Attention on follow-up. TECHNICAL DOCUMENTATION: JOB ID: [id number] Quality ID # [id number]: Final reports with documentation of one or more dose reduction techniques (e.g., Au tomated exposure control, adjustment of the mA and/or kV according to patient size, use of iterative reconstruction technique) 2010 [employer]- All Rights Reserved Reading location - IP/workstation name: [email or web address]
[2019-03-27] MEDS ORDERED: ONDANSETRON 4 MG TAB.RAPDIS PO ONE (14:29)
[2019-03-27] MEDS ORDERED: OXYCODONE-ACETAMINOPHEN 5-325 MG TABLET PO ONE (14:29)
--- NOTE | 2019-03-27 14:36 | ER Document Report ---
ED General - General Chief Complaint: Abdominal Pain Stated Complaint: NAUSEA/ABDOMINAL PAIN Time Seen by Provider: 03/27/19 10:12 [facility]: [facility] [Primary Care Provider] - Follow up as needed Mode of Arrival: Ambulatory Information source: Patient TRAVEL OUTSIDE OF THE [place] IN LAST 30 DAYS: No - HPI Patient complains to provider of: Epigastric pain, nausea and vomiting Onset: This morning Quality of pain: Sharp Severity: Severe Pain Level: 5 Associated symptoms: Nausea, Vomiting. denies: Chills, Diarrhea, Fever Exacerbated by: Food Relieved by: Denies Similar symptoms previously: No Recently seen / treated by doctor: No Notes: 43-year-old male coming in today with epigastric pain radiating to his back with nausea and vomiting since this morning. No fevers or chills. No diarrhea. Patient reports he was just up in [place] and "had a little too much fun" states that he drinks on a regular basis but consumed for more than his norm during his trip. States he has had pancreatitis in the past. - Related Data Allergies/Adverse Reactions: No Known Allergies Allergy (Verified 03/27/19 09:31) Past Medical History - General Information source: Patient - Social History Smoking Status: Never Smoker Chew tobacco use (# tins/day): No Frequency of alcohol use: Social Drug Abuse: None Family History: None, Hypertension Patient has suicidal ideation: No Patient has homicidal ideation: No - Past Medical History Cardiac Medical History: Reports: Hx Atrial Fibrillation - INTERMITTENT, IN FREQUENT 1992, PAF, Hx Hypertension Pulmonary Medical History: Denies: Hx Asthma, Hx Intubation, Hx Respiratory Failure Neurological Medical History: Denies: Hx Migraine, Hx Seizures Endocrine Medical History: Denies: Hx Diabetes Mellitus Type 1, Hx Diabetes Mellitus Type 2, Hx Hyperthyroidism, Hx Hypothyroidism Renal/ Medical History: Denies: Hx Peritoneal Dialysis GI Medical History: Reports: Hx Cirrhosis - History of elevated liver enzymes, Hx Hepatitis - Alcoholic hepatitis. Denies: Hx Crohn's Disease, Hx Gastroesophageal Reflux Disease, Hx Hiatal Hernia, Hx Ulcerative Colitis Musculoskeletal Medical History: Denies Hx Arthritis, Denies Hx Gout, Reports Hx Musculoskeletal Trauma Skin Medical History: Denies Hx Eczema, Denies Hx Psoriasis Psychiatric Medical History: Reports: Hx Anxiety Traumatic Medical History: Reports: Hx Fractures Infectious Medical History: Reports: Hx Hepatitis - Alcoholic hepatitis Past Surgical History: Reports: Hx Abdominal Surgery - hernia, Hx Orthopedic Surgery - left lower extremity - Immunizations Immunizations up to date: Yes Hx Diphtheria, Pertussis, Tetanus Vaccination: Yes Review of Systems - Review of Systems Notes: Constitutional: No fevers. No chills. EENT: No eye redness. No eye pain. No ear pain. No sore throat. Cardiovascular: No chest pain. No palpitations. Respiratory: No cough. No shortness of breath. No respiratory distress. Gastrointestinal: Positive for abdominal pain, nausea, and vomiting. Negative for diarrhea Genitourinary: Atraumatic. No lesions. No pain. No discharge. Musculoskeletal: Atraumatic. No swelling. No deformities. Skin: No rash or lesions. Lymphatic: No swollen lymph nodes. Neurologic: No headache. No syncope. Psychiatric: No suicidal or homicidal ideation. Physical Exam - Vital signs Vitals: Temp Pulse Resp BP Pulse Ox 98.0 F 98 16 150/110 H 98 03/27/19 09:37 03/27/19 09:37 03/27/19 09:37 03/27/19 09:37 03/27/19 09:37 - Notes Notes: General: Well-developed, well-nourished. In no acute distress. Non-toxic appearing. Cardiac: Well-perfused. Regular rate and rhythm. No murmurs, rubs, or gallops. Pulmonary: No respiratory distress. No cyanosis. Bilateral lung fiels are clear to auscultation. Abdominal: Epigastric tenderness. No guarding or rebound. Bowel sounds present all 4 quadrants. HEENT: Head is atraumatic. Conjunctivae not reddened. No tearing. PERRL. EOMI. Orbits atraumatic. No periorbital swelling or erythema. Oropharynx is without erythema, swelling, or exudates. Neck: Supple. No adenopathy. No meningismus. Dermatologic: Warm with good turgor. No rash. Atraumatic. Chest: Atraumatic. No chest wall tenderness to palpation. Musculoskeletal: Moves all extremities well. No range of motion deficits. no muscular or joint tenderness. No paraspinal muscle tenderness. no midline spinal tenderness or step-off. Genitourinary: Examination deferred Neurologic: No gross neurologic deficits. Psychiatric: Normal mood. Course - Re-evaluation Re-evalutation: 06/28/19 14:35 Patient's white count is not elevated. Lipase is a little over 2000. Could d efinitely be worse. Clinically patient is nontoxic-appearing and hemodynamically stable at this time. We will start him on some p.o. meds Zofran ODT and Percocet. We will infuse the third liter of the normal saline ordered. I will start him on an ice chip p.o. challenge. We will watch him closely to see how he does with this. Would like to send him home as long as he is truly tolerating p.o. and his pain is appropriately managed on oral medication. 03/27/19 16:12 Patient tolerating ice and fluids. Nausea is well controlled. We will discharge him home with conservative management. He will return if his vomiting returns or gets worse or if his belly pain is worse. - Vital Signs Vital signs: Temp Pulse Resp BP Pulse Ox 98.0 F 98 16 150/110 H 98 03/27/19 09:37 03/27/19 09:37 03/27/19 09:37 03/27/19 09:37 03/27/19 09:37 - Laboratory Result Diagrams: 03/27/19 10:38 03/27/19 10:38 Laboratory results interpreted by me: 03/27/19 03/27/19 10:38 10:38 Potassium 5.2 H Glucose 117 H AST 231 H ALT 112 H Lipase 2187.9 H Urine Protein 30 H Urine Blood SMALL H Discharge - Discharge Clinical Impression: Acute pancreatitis Qualifiers: Pancreatitis type: alcohol induced Acute pancreatitis complication: unspecified Qualified Code(s): K85.20 - Alcohol induced acute pancreatitis without necrosis or infection Condition: Good Disposition: HOME, SELF-CARE Instructions: Abdominal Pain ([facility]), Pancreatitis ([facility]), Nausea or Vomiting, Nonspecific ([facility]) Additional Instructions: Is very important that you return to the emergency department if your symptoms get any worse. You will get nausea medicine to dissolve in your mouth. If you need something else for nausea we will also get a prescription for suppository nausea medication. He will get a prescription for pain medication as needed for moderate to severe pain only. In the event that you run out of any of your m edications and you are still symptomatic, you need to return to the emergency department to be rechecked. Many patients with pancreatitis will need to return to the emergency department due to failed outpatient therapy. As for diet, recommend just clear liquid diet for the next several days. Do not eat any solid foods especially those are high in fats. Stop drinking alcohol or greatly reduce the amount of alcohol that you drink in a given setting. Prescriptions: Ondansetron [Zofran Odt 4 mg Tablet] 1 tab PO Q6HP PRN #12 tab.rapdis PRN Reason: For Nausea/Vomiting Oxycodone HCl/Acetaminophen [Percocet 5-325 mg Tablet] 1 tab PO Q6HP PRN #12 tablet PRN Reason: Promethazine HCl 25 mg RC Q6HP PRN #12 supp.rect PRN Reason: [facility]errals: [facility] [Primary Care Provider] - Follow up as needed
[2019-03-27 17:03] VITALS: BP 164/108
== END 2019-03-27 17:03 | disposition home or self-care (01) ==
LOC: ER 09:31
DX: K85.20 Alcohol induced acute pancreatitis without necrosis or infection (principal); R11.2 Nausea with vomiting, unspecified; R10.13 Epigastric pain; I48.91 Unspecified atrial fibrillation; I10 Essential (primary) hypertension
CPT/HCPCS: 99284; 96361; 96374; 96375; 36415; 82553; 82550; 83690; 85025; 80053; 81001; 84484; 80307; 76705; 74177; S0119; J1885; J2270; J2405; J7030

== ENCOUNTER 2019-03-28 09:33 | Emergency (ER) | payer SELFPAY ==
[2019-03-28] MEDS ORDERED: ONDANSETRON HCL INJ/PF 4 MG/2 ML SDV IV ONE ×3 (09:53→12:32)
[2019-03-28] MEDS ORDERED: NORMAL SALINE 1000 ML 1,000 ML IV ONE (09:53)
[2019-03-28] MEDS ORDERED: ACETAMINOPHEN 325 MG TABLET PO ONE (09:53)
--- NOTE | 2019-03-28 09:58 | ER Document Report ---
ED Medical Screen (RME) - General Chief Complaint: Abdominal Pain Stated Complaint: ABDOMINAL PAIN Time Seen by Provider: 03/28/19 09:50 Primary Care Provider: [facility] [Primary Care Provider] - Follow up as needed Mode of Arrival: Ambulatory Information source: Patient Notes: Patient presents to the emergency department with complaints of epigastric left upper quad abdominal pain which is tender to palpation. Patient reports history of pancreatitis due to EtOH. Reports last time he drank ETOH was 2 days ago. Reports he was evaluated in the emergency department yesterday treated with IV fluids. After he went home he was unable to drink anything because he would throw it up. Reports he has not had anything to drink p.o. since yesterday when he left. Reports abdominal pain increasing. I have greeted and performed a rapid initial assessment of this patient. A comprehensive ED assessment and evaluation of the patient, analysis of test results and completion of the medical decision making process will be conducted by additional ED providers. Dictation of this chart was performed using voice recognition software; therefore, there may be some unintended grammatical errors. TRAVEL OUTSIDE OF THE [place] IN LAST 30 DAYS: No - Related Data Allergies/Adverse Reactions: No Known Allergies Allergy (Verified 03/27/19 09:31) Past Medical History - Past Medical History Cardiac Medical History: Reports: Hx Atrial Fibrillation - INTERMITTENT, INFREQUENT 1992, , Hx Hypertension Pulmonary Medical History: Denies: Hx Asthma, Hx Intubation, Hx Respiratory Failure Neurological Medical History: Denies: Hx Migraine, Hx Seizures Endocrine Medical History: Denies: Hx Diabetes Mellitus Type 1, Hx Diabetes Mellitus Type 2, Hx Hyperthyroidism, Hx Hypothyroidism Renal/ Medical History: Denies: Hx Peritoneal Dialysis GI Medical History: Reports: Hx Cirrhosis - History of elevated liver enzymes, Hx Hepatitis - Alcoholic hepatitis. Denies: Hx Crohn's Disease, Hx Gastroesophageal Reflux Disease, Hx Hiatal Hernia, Hx Ulcerative Colitis Musculoskeltal Medical History: Denies Hx Arthritis, Denies Hx Gout, Reports Hx Musculoskeletal Trauma Skin Medical History: Denies Hx Eczema, Denies Hx Psoriasis Psychiatric Medical History: Reports: Hx Anxiety Traumatic Medical History: Reports: Hx Fractures Infectious Medical History: Reports: Hx Hepatitis - Alcoholic hepatitis Past Surgical History: Reports: Hx Abdominal Surgery - hernia, Hx Orthopedic Surgery - left lower extremity - Immunizations Immunizations up to date: Yes Hx Diphtheria, Pertussis, Tetanus Vaccination: Yes History of Influenza Vaccine for 06/2017 - 11/2017 Season: No Physical Exam - Vital signs Vitals: Temp Pulse Resp BP Pulse Ox 98.7 F 115 H 16 163/117 H 96 03/28/19 09:42 03/28/19 09:42 03/28/19 09:42 03/28/19 09:42 03/28/19 09:42 Course - Vital Signs Vital signs: Temp Pulse Resp BP Pulse Ox 98.7 F 115 H 16 163/117 H 96 03/28/19 09:42 03/28/19 09:42 03/28/19 09:42 03/28/19 09:42 03/28/19 09:42 Doctor's Discharge - Discharge Referrals: [facility] [Primary Care Provider] - Follow up as needed
[2019-03-28] MEDS ORDERED: MORPHINE SULFATE 10 MG/ML INJ IV ONE ×2 (10:17→12:32)
[2019-03-28 10:24] LABS: ABSOLUTE BASOPHILS # (AUTO) 0.1 10^3/uL (0.0-0.2); ABSOLUTE EOSINOPHILS # (AUTO) 0.1 10^3/uL (0.0-0.6); ABSOLUTE LYMPHOCYTES (AUTO) 0.7 10^3/uL (0.5-4.7); ABSOLUTE NEUT (AUTO) 7.2 10^3/uL (1.7-8.2); BASOPHILS % (AUTO) 1.3 % (0-2); EOSINOPHILS % (AUTO) 1.1 % (0-6); HEMATOCRIT 42.6 % (37.9-51.0); HEMOGLOBIN 14.6 g/dL (13.5-17.0); LYMPHOCYTES % (AUTO) 7.3 % (13-45); MEAN CORPUSCULAR HEMOGLOBIN 32.1 pg (27.0-33.4); MEAN CORPUSCULAR HGB CONC 34.3 g/dL (32.0-36.0); MEAN CORPUSCULAR VOLUME 94 fl (80-97); PLATELET COUNT 234 10^3/uL (150-450); RED BLOOD COUNT 4.55 10^6/uL (4.35-5.55); RED CELL DISTRIBUTION WIDTH 13.5 % (11.5-14.0); SEGMENTED NEUTROPHILS % (AUTO) 79.3 % (42-78); TOTAL CELLS COUNTED % (AUTO) 100 %; WHITE BLOOD COUNT 9.1 10^3/uL (4.0-10.5)
[2019-03-28 10:33] LABS: APPEARANCE,URINE CLEAR; BILIRUBIN,URINE NEGATIVE (NEGATIVE); COLOR,URINE YELLOW; GLUCOSE, URINE NEGATIVE (NEGATIVE); KETONES,URINE 20 mg/dL (NEGATIVE); LEUKOCYTE ESTERASE,URINE NEGATIVE (NEGATIVE); NITRITE,URINE NEGATIVE (NEGATIVE); PROTEIN,URINE 100 mg/dL (NEGATIVE); URINE SPECIFIC GRAVITY 1.017; UROBILINOGEN,URINE NEGATIVE mg/dL (<2.0)
[2019-03-28 10:46] LABS: ALANINE AMINOTRANSFERASE 94 U/L (21-72); ALBUMIN 4.5 g/dL (3.5-5.0); ALKALINE PHOSPHATASE 120 U/L (38-126); AMYLASE 455 U/L (30-110); ANION GAP 12 (5-19); ASPARTATE AMINO TRANSFERASE 204 U/L (17-59); BILIRUBIN,DIRECT 0.2 mg/dL (0.0-0.4); BILIRUBIN,TOTAL 1.3 mg/dL (0.2-1.3); BLOOD UREA NITROGEN 8 mg/dL (7-20); CALCIUM 9.4 mg/dL (8.4-10.2); CARBON DIOXIDE 26 mmol/L (22-30); CHLORIDE 97 mmol/L (98-107); GLUCOSE 92 mg/dL (75-110); SODIUM 135.2 mmol/L (137-145); TOTAL PROTEIN 7.9 g/dL (6.3-8.2)
--- NOTE | 2019-03-28 10:47 | ER Document Report ---
Entered by BRAYAN KHAN SCRIBE 03/28/19 1018 Acting as scribe for:LYNDSAY MINAYA MD ED General - General Chief Complaint: Abdominal Pain Stated Complaint: ABDOMINAL PAIN Time Seen by Provider: 03/28/19 09:50 Primary [facility] Provider: [facility] [Primary Care Provider] - Follow up as needed Mode of Arrival: Ambulatory Notes: Patient is a 43-year-old male presenting to the emergency department complaining of abdominal pain. Patient states that he was in this emergency department yesterday and diagnosed with pancreatitis. Patient states that he was told to come back if the pain progressed, he was given a prescription for pain medication but has not yet had it filled. Patient states that he is a heavy drinker and that his last drink was 2 days ago. Patient states he normally drinks 5-6 drinks per day. He has a long history of alcoholic pancreatitis. He was recently visiting in [place] and was on an 8- day drinking binge. His last drink was on 03/26/2019. He was seen here in the emergency room yesterday, diagnosed with pancreatitis and discharged with prescriptions for Percocet, Zofran, and Phenergan. He did not fill these prescr iptions stating that he did not have any money and is waiting for his check to come in tomorrow. TRAVEL OUTSIDE OF THE [place] IN LAST 30 DAYS: No - Related Data Allergies/Adverse Reactions: No Known Allergies Allergy (Verified 03/27/19 09:31) Past Medical History - General Information source: Patient - Social History Smoking Status: Never Smoker Cigarette use (# per day): No Chew tobacco use (# tins/day): No Smoking Education Provided: No Frequency of alcohol use: Heavy - Normally has 5-6 drinks per day. Recently had an 8-day drinking binge while visiting in [place]. Last EtOH was on 03/26/2019. Drug Abuse: None Family History: None, Hypertension Patient has suicidal ideation: No Patient has homicidal ideation: No - Past Medical History Cardiac Medical History: Reports: Hx Atrial Fibrillation - INTERMITTENT, INFREQUENT 1993, PAF, Hx Hypertension GI Medical History: Reports: Hx Cirrhosis - History of elevated liver enzymes, Hx Hepatitis - Alcoholic hepatitis Musculoskeletal Medical History: Reports Hx Musculoskeletal Trauma Psychiatric Medical History: Reports: Hx Anxiety Traumatic Medical History: Reports: Hx Fractures Infectious Medical History: Reports: Hx Hepatitis - Alcoholic hepatitis Past Surgical History: Reports: Hx Abdominal Surgery - hernia, Hx Orthopedic Surgery - left lower extremity - Immunizations Immunizations up to date: Yes Hx Diphtheria, Pertussis, Tetanus Vaccination: Yes Review of Systems - Review of Systems Constitutional: No symptoms reported EENT: No symptoms reported Cardiovascular: No symptoms reported Respiratory: No symptoms reported Gastrointestinal: See HPI, Abdominal pain Genitourinary: No symptoms reported Male Genitourinary: No symptoms reported Musculoskeletal: No symptoms reported Skin: No symptoms reported Hematologic/Lymphatic: No symptoms reported Neurological/Psychological: No symptoms reported -: Yes All other systems reviewed and negative Physical Exam - Vital signs Vitals: Temp Pulse Resp BP Pulse Ox 98.7 F 115 H 16 163/117 H 96 03/28/19 09:42 03/28/19 09:42 03/28/19 09:42 03/28/19 09:42 03/28/19 09:42 - Notes Notes: Physical Exam: General: Alert, appears well. HEENT: Normocephalic. Atraumatic. PERRL. Extraocular movements intact. Oropharynx clear. Neck: Supple. Non-tender. Respiratory: No respiratory distress. Clear and equal breath sounds bilaterally. Cardiovascular: Tachycardic. Regular rhythm. Abdominal: Epigastric tenderness to palpation. No distension. Normal Bowel Sounds. Back: Non-tender. No deformity or step off. Extremities: Moves all four extremities. Upper extremities: Normal inspection. Normal ROM. Lower extremities: Normal inspection. No edema. Normal ROM. Neurological: Normal cognition. AAOx4. Normal speech. Psychological: Normal affect. Normal Mood. Skin: Warm. Dry. Normal color. Course - Vital Signs Vital signs: Temp Pulse Resp BP Pulse Ox 99.3 F 89 16 161/98 H 100 03/28/19 13:37 03/28/19 13:37 03/28/19 13:37 03/28/19 13:37 03/28/19 13:37 - Laboratory Result Diagrams: 03/28/19 10:06 03/28/19 10:06 Laboratory results interpreted by me: 03/28/19 03/28/19 03/28/19 10:06 10:06 10:06 Seg Neutrophils % 79.3 H Lymphocytes % 7.3 L Sodium 135.2 L Chloride 97 L Magnesium 1.5 L AST 204 H ALT 94 H Amylase 455 H Lipase 1994.3 H Urine Protein Urine Ketones Urine Blood 03/28/19 10:06 Seg Neutrophils % Lymphocytes % Sodium Chloride Magnesium AST ALT Amylase Lipase Urine Protein 100 H Urine Ketones 20 H Urine Blood MODERATE H Discharge - Discharge Clinical Impression: Alcohol abuse Pancreatitis Qualifiers: Chronicity: acute Pancreatitis type: alcohol induced Acute pancreatitis complication: no infection or necrosis Qualified Code(s): K85.20 - Alcohol induced acute pancreatitis without necrosis or infection Abdominal pain Qualifiers: Abdominal location: epigastric Qualified Code(s): R10.13 - Epigastric pain Condition: Stable Disposition: HOME, SELF-CARE Additional Instructions: Pancreatitis Pancreatitis is an inflammation of the pancreas, an organ at the back of your abdomen. The pancreas produces insulin and enzymes that digest your food. Pancreatitis can be caused by gallstones in the bile duct, by alcohol or viruses, or by excess fat or calcium in the blood stream. Occasionally, pancreatitis occurs when a stomach ulcer finnegan through into the pancreas. We try to find the cause of pancreatitis, but some tests can't be done until the pancreas heals. The usual symptoms of pancreatitis are pain in the pit of the stomach that goes straight through to the back, vomiting, and low-grade fever. Severe cases require hospital admission, but many patients with mild pancreatitis do well at home. You will probably need medicine for pain and for vomiting. Sometimes we prescribe medicine to decrease stomach acid secretion and to decrease flow of pancreatic juices. Start with a diet of clear liquids (soda pop, juices). When the pain is decreasing, you can add some simple starches (potato, toast, applesauce). Avoid proteins and fats until you are completely painfree. When you're better, your doctor may suggest treatment to prevent future pancreatitis (such as gallbladder removal). Avoid alcohol forever. Get immediate treatment for any future episodes. Contact your doctor at once or return here if you have increasing pain, shortness of breath, general swelling, increasing size of the abdomen, continued vomiting, muscle spasms, or other new symptoms. Get your prescriptions from yesterday filled. Stop drinking alcohol for ever. Follow-up with a local medical doctor for management of your pancreatitis and any other medical problems. RETURN TO THE EMERGENCY ROOM IF ANY NEW OR WORSENING SYMPTOMS. Referrals: [facility] [Primary Care Provider] - Follow up as needed Scribe Attestation: 03/28/19 11:34 I personally performed the services described in the documentation, reviewed and edited the documentation which was dictated to the scribe in my presence, and it accurately records my words and actions. I personally performed the services described in the documentation, reviewed and edited the documentation which was dictated to the scribe in my presence, and it accurately records my words and actions.
[2019-03-28 10:50] LABS: ALCOHOL < 10 mg/dL (NONE DETECTED); POTASSIUM 4.1 mmol/L (3.6-5.0)
[2019-03-28 10:52] LABS: LIPASE 1994.3 U/L (23-300)
[2019-03-28] MEDS ORDERED: DEXTROSE 5%-LACTATED RINGERS 1,000 ML IV ONE ×2 (10:55→12:32)
[2019-03-28] MEDS ORDERED: MAG HYDROX/AL HYDROX/SIMETH SUSP 30 ML UDCUP PO ONE (12:32)
[2019-03-28 15:06] VITALS: BP 160/102
== END 2019-03-28 15:04 | disposition home or self-care (01) ==
LOC: ER 09:33
DX: K85.20 Alcohol induced acute pancreatitis without necrosis or infection (principal); R10.13 Epigastric pain; F10.10 Alcohol abuse, uncomplicated; I10 Essential (primary) hypertension; Z79.899 Other long term (current) drug therapy
CPT/HCPCS: 96376; 99284; 96375; 96365; 96366; 36415; 80307; 82150; 83690; 83735; 85025; 80053; 81001; J2270; J2405; J7121; J7030

== ENCOUNTER 2019-07-02 13:53 | Emergency (ER) | payer SELFPAY ==
--- NOTE | 2019-07-02 14:05 | ER Document Report ---
ED Medical Screen (RME) - General Stated Complaint: UPPER ABDOMINAL PAIN Time Seen by Provider: 07/02/19 14:01 Primary Care Provider: RAYMOND HERR [Primary Care Provider] - Follow up as needed Mode of Arrival: Ambulatory Information source: Patient Notes: 44-year-old male presented to ED for complaint of epigastric pain started this morning. He states he did vomit this morning. He said he started with diarrhea yesterday. He states he was unable to eat this morning due to the pain. He had steak macaroni cheese and potatoes for dinner last night. Pain started this a.m. He is afebrile at this time. He has a history and a right inguinal hernia which was repaired. He states he drinks about a pint a day of liquor does not smoke and no illicit drugs. I have greeted and performed a rapid initial assessment of this patient. A comprehensive ED assessment and evaluation of the patient, analysis of test results and completion of medical decision making process will be conducted by an additional ED providers. TRAVEL OUTSIDE OF THE [place] IN LAST 30 DAYS: No - Related Data Allergies/Adverse Reactions: No Known Allergies Allergy (Verified 03/27/19 09:31) Past Medical History - Past Medical History Cardiac Medical History: Reports: Hx Atrial Fibrillation - INTERMITTENT, INFREQUENT 1992, PAF, Hx Hypertension Pulmonary Medical History: Denies: Hx Asthma, Hx Intubation, Hx Respiratory Failure Neurological Medical History: Denies: Hx Migraine, Hx Seizures Endocrine Medical History: Denies: Hx Diabetes Mellitus Type 1, Hx Diabetes Mellitus Type 2, Hx Hyperthyroidism, Hx Hypothyroidism Renal/ Medical History: Denies: Hx Peritoneal Dialysis GI Medical History: Reports: Hx Cirrhosis - History of elevated liver enzymes, Hx Hepatitis - Alcoholic hepatitis. Denies: Hx Crohn's Disease, Hx Gastroesophageal Reflux Disease, Hx Hiatal Hernia, Hx Ulcerative Colitis Musculoskeltal Medical History: Denies Hx Arthritis, Denies Hx Gout, Reports Hx Musculoskeletal Trauma Skin Medical History: Denies Hx Eczema, Denies Hx Psoriasis Psychiatric Medical History: Reports: Hx Anxiety Traumatic Medical History: Reports: Hx Fractures Infectious Medical History: Reports: Hx Hepatitis - Alcoholic hepatitis Past Surgical History: Reports: Hx Abdominal Surgery - hernia, Hx Orthopedic Surgery - left lower extremity - Immunizations Immunizations up to date: Yes Hx Diphtheria, Pertussis, Tetanus Vaccination: Yes Doctor's Discharge - Discharge Referrals: [facility] [Primary Care Provider] - Follow up as needed
[2019-07-02] MEDS ORDERED: NORMAL SALINE 1000 ML 1,000 ML IV ONE ×2 (14:06→14:07)
[2019-07-02 14:44] LABS: APPEARANCE,URINE CLEAR; BILIRUBIN,URINE NEGATIVE (NEGATIVE); COLOR,URINE YELLOW; GLUCOSE, URINE NEGATIVE (NEGATIVE); KETONES,URINE NEGATIVE (NEGATIVE); LEUKOCYTE ESTERASE,URINE NEGATIVE (NEGATIVE); NITRITE,URINE NEGATIVE (NEGATIVE); PROTEIN,URINE 100 mg/dL (NEGATIVE); URINE SPECIFIC GRAVITY 1.025; UROBILINOGEN,URINE NEGATIVE mg/dL (<2.0)
[2019-07-02] MEDS ORDERED: ACETAMINOPHEN SOLN 325 MG/10.15 ML UDCUP PO ONE (15:03)
[2019-07-02 15:08] LABS: HEMOGLOBIN 13.1 g/dL (13.5-17.0); MEAN CORPUSCULAR HEMOGLOBIN 31.7 pg (27.0-33.4); MEAN CORPUSCULAR HGB CONC 33.6 g/dL (32.0-36.0); MEAN CORPUSCULAR VOLUME 95 fl (80-97); PLATELET COUNT 241 10^3/uL (150-450); RED BLOOD COUNT 4.12 10^6/uL (4.35-5.55); RED CELL DISTRIBUTION WIDTH 13.9 % (11.5-14.0); WHITE BLOOD COUNT 5.5 10^3/uL (4.0-10.5)
--- NOTE | 2019-07-02 15:08 | ER Document Report ---
ED General - General Chief Complaint: Abdominal Pain Stated Complaint: UPPER ABDOMINAL PAIN Time Seen by Provider: 07/02/19 14:01 Primary Care Provider: [facility] [Primary Care Provider] - Follow up as needed Mode of Arrival: Ambulatory Notes: 44 year old male presents to the ED complaining of epigastric abdominal pain for the past day that is been getting progressively worse since this morning and worsens with oral intake. It is associated with nonbloody vomiting. Denies any fevers, shortness of breath, chest pain or diarrhea. Admits to daily alcohol intake, states he drank a pint of liquor last night and half a pint of liquor this morning. Has previously been diagnosed with alcoholic pancreatitis. TRAVEL OUTSIDE OF THE [place] IN LAST 30 DAYS: No - Related Data Allergies/Adverse Reactions: No Known Allergies Allergy (Verified 07/02/19 14:05) Past Medical History - General Information source: Patient - Social History Smoking Status: Never Smoker Chew tobacco use (# tins/day): No Frequency of alcohol use: Heavy Drug Abuse: None Family History: Reviewed & Not Pertinent, Hypertension Patient has suicidal ideation: No Patient has homicidal ideation: No - Past Medical History Cardiac Medical History: Reports: Hx Atrial Fibrillation - INTERMITTENT, INFREQUENT 1992, PAF, Hx Hypertension Pulmonary Medical History: Denies: Hx Asthma, Hx Intubation, Hx Respiratory Failure Neurological Medical History: Denies: Hx Migraine, Hx Seizures Endocrine Medical History: Denies: Hx Diabetes Mellitus Type 1, Hx Diabetes Mellitus Type 2, Hx Hyperthyroidism, Hx Hypothyroidism Renal/ Medical History: Denies: Hx Peritoneal Dialysis GI Medical History: Reports: Hx Cirrhosis - History of elevated liver enzymes, Hx Hepatitis - Alcoholic hepatitis. Denies: Hx Crohn's Disease, Hx G astroesophageal Reflux Disease, Hx Hiatal Hernia, Hx Ulcerative Colitis Musculoskeletal Medical History: Denies Hx Arthritis, Denies Hx Gout, Reports Hx Musculoskeletal Trauma Skin Medical History: Denies Hx Eczema, Denies Hx Psoriasis Psychiatric Medical History: Reports: Hx Anxiety Traumatic Medical History: Reports: Hx Fractures Infectious Medical History: Reports: Hx Hepatitis - Alcoholic hepatitis Past Surgical History: Reports: Hx Abdominal Surgery - hernia, Hx Orthopedic Surgery - left lower extremity - Immunizations Immunizations up to date: Yes Hx Diphtheria, Pertussis, Tetanus Vaccination: Yes Review of Systems - Review of Systems Constitutional: No symptoms reported Gastrointestinal: See HPI -: Yes All other systems reviewed and negative Physical Exam - Vital signs Vitals: Temp Pulse Resp BP Pulse Ox 97.6 F 119 H 24 H 138/97 H 95 07/02/19 13:54 07/02/19 13:54 07/02/19 13:54 07/02/19 13:54 07/02/19 13:54 Interpretation: Tachycardic, Tachypneic - Notes Notes: GENERAL: Alert, interacts well. No acute distress. HEAD: Normocephalic, atraumatic EYES: Pupils equal, round and reactive to light, extraocular movements intact. ENT: Oral mucosa moist, tongue midline. NECK: Full range of motion, supple, trachea midline. LUNGS: Clear to auscultation bilaterally, no wheezes, rales or rhonchi, no respiratory distress. HEART: Tachycardic rate and rhythm, no murmurs, gallops, rubs. ABDOMEN: Soft, epigastric tenderness to palpation, nondistended, bowel sounds present in all 4 quadrants. EXTREMITIES: Moves all 4 extremities spontaneously, no edema, radial and dorsalis pedis pulses 2/4 bilaterally. No cyanosis. NEUROLOGICAL: Alert and oriented x3, normal speech. PSYCH: Normal mood, normal affect. SKIN: Warm, Dry, normal turgor, no rashes or lesions noted. Course - Re-evaluation Re-evalutation: 07/02/19 18:50 CBC shows mild anemia at 13.1, platelets normal, no leukocytosis, CMP shows elevated AST otherwise unremarkable, total and direct bilirubin are normal, troponin normal, lipase normal, urinalysis shows small blood, serum alcohol is 285. CT scan of the abdomen pelvis has results as noted below Abdomen/Pelvis CT 07/02/19 14:08 IMPRESSION: 1. Mild fatty infiltration of the liver. 2. Small cystic lesion in the uncinate process of the pancreas is slightly larger. 3. Dilated common bile duct in the head of the pancreas versus a 2nd cystic lesion versus duodenal diverticulum. Correlate for biliary obstruction. 4. There is no evidence of acute pancreatitis. I do not see any evidence of biliary obstruction on physical examination or laboratory studies. Suspect patient's symptoms are coming from gastritis likely alcohol induced, prescribed acid reducing medications, Carafate, antinausea medications and given resources regarding alcohol detox. Discharged home. Patient will follow-up with primary care physician as an outpatient for ultrasound in follow-up as he is very concerned that the cyst may represent cancer. Discussed with patient that I do not see any signs of cancer on the cyst. - Vital Signs Vital signs: Temp Pulse Resp BP Pulse Ox 98.4 F 80 16 125/92 H 99 07/02/19 18:05 07/02/19 18:05 07/02/19 18:05 07/02/19 18:05 07/02/19 18:05 - Laboratory Result Diagrams: 07/02/19 14:48 07/02/19 14:48 Laboratory results interpreted by me: 07/02/19 07/02/19 07/02/19 14:11 14:48 14:48 RBC 4.12 L Hgb 13.1 L Band Neutrophils % 1 L AST 109 H Total Protein 8.6 H Urine Protein 100 H Urine Blood SMALL H Discharge - Discharge Clinical Impression: Epigastric abdominal pain, Pancreatic cyst Alcoholic gastritis Qualifiers: Chronicity: acute Gastritis bleeding: without bleeding Qualified Code(s): K29.20 - Alcoholic gastritis without bleeding Condition: Stable Disposition: HOME, SELF-CARE Additional Instructions: Gastritis You have an inflammation of the stomach called gastritis. This commonly causes upper abdominal pain, nausea, and vomiting. In severe cases, bleeding of the stomach lining can occur. Gastritis can be caused by bacteria or viruses, alcohol, or stomach-irritating drugs. Begin with sips of clear liquids. Take increasing amounts of fluid over the first 24 hours. Then start small amounts of bland foods (such as dry toast, applesauce, mashed potato). Gradually resume your usual diet. You should take antacids every two hours until the pain has subsided. Acid-suppressing drugs may be prescribed as well. Avoid aspirin, caffeine, tobacco, and alcohol. If the abdominal pain worsens, or there is evidence of major bleeding in the stomach (such as black, tarry stool, bloody or black vomit, or lightheadedness), you should return immediately. Call the doctor if you aren't improved in 24 to 36 hours. Please stop drinking. Please use an abdh-wgf-[id number] antacid such as Pepcid or Prilosec according to the directions on the box. I have also prescribed you Carafate please take 1 tablet daily before every meal and before bed. Please return to the emergency department for any new or concerning symptoms. As noted you do have a cyst on your pancreas. It is 18 mm. There are no concerning findings with it however if you are concerned you may follow-up with your primary care physician to have an ultrasound performed as an outpatient to make sure it is not getting any bigger. Prescriptions: Ondansetron [Zofran Odt 4 mg Tablet] 1 - 2 tab PO Q4HP PRN #10 tab.rapdis PRN Reason: Sucralfate [Carafate 1 gm Tablet] 1 gm PO ACHS #120 tablet Famotidine [Pepcid 20 mg Tablet] 20 mg PO BID #60 tablet Referrals: [facility] [Primary Care Provider] - Follow up as needed
[2019-07-02 15:23] LABS: ALBUMIN 4.6 g/dL (3.5-5.0); ALCOHOL 285 mg/dL (NONE DETECTED); ALKALINE PHOSPHATASE 89 U/L (38-126); ANION GAP 12 (5-19); ASPARTATE AMINO TRANSFERASE 109 U/L (17-59); BILIRUBIN,DIRECT 0.2 mg/dL (0.0-0.4); BILIRUBIN,TOTAL 0.5 mg/dL (0.2-1.3); BLOOD UREA NITROGEN 16 mg/dL (7-20); CALCIUM 9.5 mg/dL (8.4-10.2); CARBON DIOXIDE 25 mmol/L (22-30); CHLORIDE 106 mmol/L (98-107); GLUCOSE 98 mg/dL (75-110); POTASSIUM 4.8 mmol/L (3.6-5.0); TOTAL PROTEIN 8.6 g/dL (6.3-8.2)
[2019-07-02 15:31] LABS: ABSOLUTE LYMPHOCYTES# (MANUAL) 1.7 10^3/uL (0.5-4.7); ABSOLUTE MONOCYTES # (MANUAL) 0.3 10^3/uL (0.1-1.4); BAND NEUTROPHILS % (MANUAL) 1 % (3-5); BASOPHILS % (MANUAL) 2 % (0-2); EOSINOPHILS % (MANUAL) 4 % (0-6); LYMPHOCYTES % (MANUAL) 30 % (13-45); MONOCYTES % (MANUAL) 5 % (3-13); PLATELET CLUMPS PRESENT; PLATELET COMMENT ADEQUATE; RBC MORPHOLOGY COMMENT NORMO-CYTIC/CHROMIC; SEGMENTED NEUTROPHILS % (MAN) 58 % (42-78); TOTAL CELLS COUNTED 100
[2019-07-02 18:06] VITALS: BP 125/92
--- NOTE | 2019-07-02 18:14 | RADIOLOGY REPORT (SQ) ---
EXAM DESCRIPTION: CT ABD/PELVIS WITH IV ONLY COMPLETED DATE/TIME: 07/02/2019 5:17 pm REASON FOR STUDY: Epigastric pain history pancreatitis and renal COMPARISON: 03/27/2019 TECHNIQUE: CT scan of the abdomen and pelvis performed using helical scanning technique with dynamic intravenous contrast injection. No oral contrast. Images reviewed with lung, soft tissue, and bone windows. Reconstructed coronal and sagittal MPR images reviewed. Delayed images for evaluation of the urinary system also acquired. All images stored on PACS. All CT scanners at this facility use dose modulation, iterative reconstruction, and/or weight based d osing when appropriate to reduce radiation dose to as low as reasonably achievable (ALARA). [facility]: Dose Right [facility]: CareDose [facility]: Dose Right [facility]: Teradose 4D [facility]: Nova Ratio CONTRAST TYPE AND DOSE: contrast/concentration: Isovue 350.00 mg/ml; Total Contrast Delivered: 93.0 ml; Total Saline Delivered: 21.0 ml RENAL FUNCTION: BUN 16 creatinine 0.95 RADIATION DOSE: CT Rad equipment meets quality standard of care and radiation dose reduction techniq ues were employed. CTDIvol: 8.8 - 11.6 mGy. DLP: 1173 mGy-cm.. LIMITATIONS: None. FINDINGS: LOWER CHEST: No significant findings. No nodules or infiltrates. LIVER: The liver is mildly hypoattenuating. No hepatic mass. SPLEEN: Normal size. No focal lesions. PANCREAS: 18 mm cystic lesion in the uncinate process of the pancreas. No acute pancreatic inflammat ory changes. The common bile duct appears to be dilated in the head of the pancreas versus a duodena l diverticulum indenting the pancreas. GALLBLADDER: No identified stones by CT criteria. No inflammatory changes to suggest cholecystitis. ADRENAL GLANDS: No significant masses or asymmetry. RIGHT KIDNEY AND URETER: No solid masses. No significant calcifications. No hydronephrosis or hyd roureter. LEFT KIDNEY AND URETER: No solid masses. No significant calcifications. No hydronephrosis or hydr oureter. AORTA AND VESSELS: No aneurysm. No dissection. Renal arteries, SMA, celiac without stenosis. RETROPERITONEUM: No retroperitoneal adenopathy, hemorrhage or masses. BOWEL AND PERITONEAL CAVITY: No masses or inflammatory changes. No free fluid or peritoneal masses. APPENDIX: Normal. PELVIS: No mass. No free fluid. Normal bladder. ABDOMINAL WALL: No masses. No hernias. BONES: No significant or acute findings. OTHER: No other significant finding. IMPRESSION: 1. Mild fatty infiltration of the liver. 2. Small cystic lesion in the uncinate process of the pancreas is slightly larger. 3. Dilated common bile duct in the head of the pancreas versus a 2nd cystic lesion versus duodenal d iverticulum. Correlate for biliary obstruction. 4. There is no evidence of acute pancreatitis. TECHNICAL DOCUMENTATION: JOB ID: [id number] Quality ID # [id number]: Final reports with documentation of one or more dose reduction techniques (e.g., Au tomated exposure control, adjustment of the mA and/or kV according to patient size, use of iterative reconstruction technique) 2010 [employer]- All Rights Reserved Reading location - IP/workstation name: [email or web address]
--- NOTE | 2019-07-02 21:45 | EKG REPORT ---
SEVERITY:- BORDERLINE ECG - SINUS RHYTHM BORDERLINE PROLONGED QT INTERVAL : Confirmed by: Yee Carson MD 02-Jul-2019 21:44:32
== END 2019-07-02 19:04 | disposition home or self-care (01) ==
LOC: ER 13:53
DX: K86.2 Cyst of pancreas (principal); K29.20 Alcoholic gastritis without bleeding; R10.13 Epigastric pain; R00.0 Tachycardia, unspecified; R10.10 Upper abdominal pain, unspecified; I48.91 Unspecified atrial fibrillation; I10 Essential (primary) hypertension
CPT/HCPCS: 93005; 36415; 80307; 83690; 85025; 80053; 81001; 84484; 74177; 93010; J7030; J3490

== ENCOUNTER 2019-08-04 10:36 | Emergency (ER) | payer SELFPAY ==
[2019-08-04 10:43] VITALS: BP 128/93
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
--- NOTE | 2019-08-04 11:07 | RADIOLOGY REPORT (SQ) ---
EXAM DESCRIPTION: ANKLE RIGHT COMPLETE COMPLETED DATE/TIME: 08/04/2019 10:58 am REASON FOR STUDY: right ankle pain COMPARISON: 07/24/2016 NUMBER OF VIEWS: Three views. TECHNIQUE: AP, lateral, and oblique radiographic images acquired of the right ankle. LIMITATIONS: None. FINDINGS: MINERALIZATION: Normal. BONES: No acute fracture or dislocation. No worrisome bone lesions. JOINTS: No effusions. SOFT TISSUES: Mild soft tissue swelling about the medial ankle. OTHER: No other significant finding. IMPRESSION: Mild soft tissue swelling about the ankle without evidence of acute bony abnormality. TECHNICAL DOCUMENTATION: JOB ID: [id number] [employer]- All Rights Reserved Reading location - IP/workstation name: [email or web address]
== END 2019-08-04 11:21 | disposition home or self-care (01) ==
LOC: ER 10:36
DX: M25.571 Pain in right ankle and joints of right foot (principal); X50.1XXA Overexertion from prolonged static or awkward postures, initial encounter; I48.91 Unspecified atrial fibrillation; I10 Essential (primary) hypertension
CPT/HCPCS: 73610; L1902; 99283

== ENCOUNTER 2019-10-03 11:48 | Emergency (ER) | payer SELFPAY ==
[2019-10-03 11:56] VITALS: BP 140/85
--- NOTE | 2019-10-03 12:07 | ER Document Report ---
HPI - HPI Time Seen by Provider: 10/03/19 11:58 Notes: Patient is a 44-year-old male with history of hypertension and A. fib 10 years ago without issues since presents complaining of nasal congestion/discharge, dry nonproductive cough, fever, body ache 1 day. Patient states that he is still eating and drinking without difficulties, but does have a decreased p.o. intake. He is still urinating normally having normal bowel movements. Patient has been using some [id number] meds for symptoms. He denies any significant past medical history including cardiopulmonary history and immunocompromised conditions. Patient denies any smoking or IV drug use. Patient requesting work note. Denies any current headache, neck pain, sore throat, chest pain, palpitations, syncope, shortness of breath, wheeze, dyspnea, abdominal pain, nausea/vomiting/diarrhea, urinary retention, dysuria, hematuria, or rash. - ROS Systems Reviewed and Negative: Yes All other systems reviewed and negative - REPRODUCTIVE Reproductive: DENIES: : Past Medical History - Social History Smoking Status: Unknown if Ever Smoked Family History: Reviewed & Not Pertinent, Hypertension - Past Medical History Cardiac Medical History: Reports: Hx Atrial Fibrillation - INTERMITTENT, INFREQUENT 1992, PAF, Hx Hypertension Pulmonary Medical History: Denies: Hx Asthma, Hx Intubation, Hx Respiratory Failure Neurological Medical History: Denies: Hx Migraine, Hx Seizures Endocrine Medical History: Denies: Hx Diabetes Mellitus Type 1, Hx Diabetes Mellitus Type 2, Hx Hyperthyroidism, Hx Hypothyroidism Renal/ Medical History: Denies: Hx Peritoneal Dialysis GI Medical History: Reports: Hx Cirrhosis - History of elevated liver enzymes, Hx Hepatitis - Alcoholic hepatitis. Denies: Hx Crohn's Disease, Hx Gastroesophageal Reflux Disease, Hx Hiatal Hernia, Hx Ulcerative Colitis Musculoskeletal Medical History: Denies Hx Arthritis, Denies Hx Gout, Reports Hx Musculoskeletal Trauma Skin Medical History: Denies Hx Eczema, Denies Hx Psoriasis Psychiatric Medical History: Reports: Hx Anxiety Traumatic Medical History: Reports: Hx Fractures Infectious Medical History: Reports: Hx Hepatitis - Alcoholic hepatitis Past Surgical History: Reports: Hx Abdominal Surgery - hernia, Hx Orthopedic Surgery - left lower extremity - Immunizations Immunizations up to date: Yes Hx Diphtheria, Pertussis, Tetanus Vaccination: Yes Vertical Provider Document - CONSTITUTIONAL Agree With Documented VS: Yes Notes: PHYSICAL EXAMINATION: GENERAL: Well-appearing, well-nourished and in no acute distress. A&Ox4. Answers questions appropriately. Moves comfortably w/o notable distress HEAD: Atraumatic, normocephalic. EYES: Pupils equal round and reactive to light, extraocular movements intact, sclera anicteric, conjunctiva are normal. ENT: Nares patent and with clear discharge. oropharynx no erythema without exudates. No tonsilar hypertrophy without erythema or exudate. No palatine shift. Uvula midline. No tongue protrusion. No drooling, hoarseness, or airway compromise. Moist mucous membranes. No sinus tenderness. NECK: Normal range of motion, supple without lymphadenopathy. No rigidity/meningismus. LUNGS: Breath sounds clear to auscultation bilaterally and equal. No wheezes rales or rhonchi. No retractions HEART: Regular rate and rhythm without murmurs, rubs, gallops. ABDOMEN: Soft, nontender, nondistended abdomen. No guarding, no rebound. Normal bowel sounds present. No CVA tenderness bilaterally. NEUROLOGICAL: Normal speech, normal gait. PSYCH: Normal mood, normal affect. SKIN: Warm, Dry, normal turgor, no rashes or lesions noted. - INFECTION CONTROL TRAVEL OUTSIDE OF THE [place] IN LAST 30 DAYS: No Course - Re-evaluation Re-evalutation: 10/03/19 12:06 Patient is an afebrile, well-hydrated, 44-year-old male who presents to the ED with acute URI, suspect viral/influenza. Vitals are acceptable. PE is otherwise unremarkable. No labs or imaging warranted at this time based on H&P. Patient has no significant cardiopulmonary or immunocompromised medical conditions. Patient's lungs are clear to auscultation bilaterally without tachycardia, hypoxia, or tachypnea. Patient is tolerating p.o. without any difficulties. Thoroughly reviewed the risks, benefits, potential side effects, estimated cost without insurance with patient. After thorough review, patient declined Tamiflu at this time. Low suspicion for any meningitis, sepsis, peritonsillar/pharyngeal abscess, respiratory compromise, severe dehydration, or other emergent systemic condition at this time. Patient is aware this condition can change from initial presentation and he needs to monitor symptoms closely. Conservative measures otherwise for symptoms. Recheck with your PCM in 3-5 days. Return to the ED with any worsening/concerning symptoms otherwise as reviewed in discharge. Patient is in agreement. - Vital Signs Vital signs: Temp Pulse Resp BP Pulse Ox 98.7 F 109 H 18 140/85 H 94 10/03/19 11:55 10/03/19 11:55 10/03/19 11:55 10/03/19 11:55 10/03/19 11:55 Discharge - Discharge Clinical Impression: Acute URI Condition: Stable Disposition: HOME, SELF-CARE Instructions: Upper Respiratory Illness ([facility]) Additional Instructions: Maintain adequate fluid intake tylenol/ibuprofen as needed alternating every 3 hours for fever/body ache over the counter cold medication as needed for symptoms Humidified air may help Wash your hands regularly Wear a mask when coughing F/u: with your PCM in 3-5 days for a recheck Return to the ED with any fever, altered mental status/behavior, chest pain, palpitations, syncope, headache, neck pain/stiffness, shortness of breath, chest pains, wheezing, drooling, trouble swallowing/breathing, abdominal pain, n/v/d, rash, or worsening/concerning symptoms otherwise. Forms: Elevated Blood Pressure, Return to Work Referrals: [facility] [Primary Care Provider] - Follow up as needed
== END 2019-10-03 12:15 | disposition home or self-care (01) ==
LOC: ER 11:48
DX: J06.9 Acute upper respiratory infection, unspecified (principal); R09.81 Nasal congestion; R09.89 Other specified symptoms and signs involving the circulatory and respiratory systems; R05 Cough; R50.9 Fever, unspecified; R52 Pain, unspecified; I10 Essential (primary) hypertension
CPT/HCPCS: 99283

== ENCOUNTER 2019-12-04 16:13 | Emergency (ER) | payer SELFPAY ==
--- NOTE | 2019-12-04 16:36 | ER Document Report ---
ED Medical Screen (RME) - General Chief Complaint: Palpitations Stated Complaint: ANXIETY & NAUSEA Time Seen by Provider: 12/04/19 16:27 Mode of Arrival: Ambulatory Information source: Patient Notes: 44-year-old male presented to ED for an episode of palpitations heart beating really fast became very lightheaded and dizzy nauseated felt like he was going to pass out did not have chest pain. He states he felt like he was having an extreme panic attack but he is never had any anxiety or panic attacks before. He states he does have a history of A. fib. He states he does not take any medi cations for his A. fib at this time but he did take it in the past. He does take blood pressure medications. He is alert oriented pulse is running between 90-118 O2 sat was 97% and blood pressure was 140/96. I have greeted and performed a rapid initial assessment of this patient. A comprehensive ED assessment and evaluation of the patient, analysis of test results and completion of medical decision making process will be conducted by an additional ED providers. TRAVEL OUTSIDE OF THE [place] IN LAST 30 DAYS: No - Related Data Allergies/Adverse Reactions: No Known Allergies Allergy (Verified 07/02/19 14:05) Past Medical History - Past Medical History Cardiac Medical History: Reports: Hx Atrial Fibrillation - INTERMITTENT, INFREQUENT 1992, PAF, Hx Hypertension Pulmonary Medical History: Denies: Hx Asthma, Hx Intubation, Hx Respiratory Failure Neurological Medical History: Denies: Hx Migraine, Hx Seizures Endocrine Medical History: Denies: Hx Diabetes Mellitus Type 1, Hx Diabetes Mellitus Type 2, Hx Hyperthyroidism, Hx Hypothyroidism Renal/ Medical History: Denies: Hx Peritoneal Dialysis GI Medical History: Reports: Hx Cirrhosis - History of elevated liver enzymes, Hx Hepatitis - Alcoholic hepatitis. Denies: Hx Crohn's Disease, Hx Gastroesophageal Reflux Disease, Hx Hiatal Hernia, Hx Ulcerative Colitis Musculoskeltal Medical History: Denies Hx Arthritis, Denies Hx Gout, Reports Hx Musculoskeletal Trauma Skin Medical History: Denies Hx Eczema, Denies Hx Psoriasis Psychiatric Medical History: Reports: Hx Anxiety Traumatic Medical History: Reports: Hx Fractures Infectious Medical History: Reports: Hx Hepatitis - Alcoholic hepatitis Past Surgical History: Reports: Hx Abdominal Surgery - hernia, Hx Orthopedic Surgery - left lower extremity - Immunizations Immunizations up to date: Yes Hx Diphtheria, Pertussis, Tetanus Vaccination: Yes
[2019-12-04] MEDS ORDERED: ASPIRIN 81 MG TABLET, CHEWABLE PO ONE (16:37)
[2019-12-04 16:59] LABS: ABSOLUTE BASOPHILS # (AUTO) 0.1 10^3/uL (0.0-0.2); ABSOLUTE EOSINOPHILS # (AUTO) 0.1 10^3/uL (0.0-0.6); ABSOLUTE LYMPHOCYTES (AUTO) 1.5 10^3/uL (0.5-4.7); ABSOLUTE MONOCYTES (AUTO) 0.6 10^3/uL (0.1-1.4); ABSOLUTE NEUT (AUTO) 4.1 10^3/uL (1.7-8.2); BASOPHILS % (AUTO) 1.5 % (0-2); LYMPHOCYTES % (AUTO) 23.7 % (13-45); MEAN CORPUSCULAR HEMOGLOBIN 29.9 pg (27.0-33.4); MEAN CORPUSCULAR HGB CONC 34.4 g/dL (32.0-36.0); MEAN CORPUSCULAR VOLUME 87 fl (80-97); MONOCYTES % (AUTO) 9.1 % (3-13); PLATELET COUNT 470 10^3/uL (150-450); RED BLOOD COUNT 3.68 10^6/uL (4.35-5.55); RED CELL DISTRIBUTION WIDTH 16.4 % (11.5-14.0); SEGMENTED NEUTROPHILS % (AUTO) 63.7 % (42-78); TOTAL CELLS COUNTED % (AUTO) 100 %; WHITE BLOOD COUNT 6.4 10^3/uL (4.0-10.5)
--- NOTE | 2019-12-04 17:18 | RADIOLOGY REPORT (SQ) ---
EXAM DESCRIPTION: CHEST 2 VIEWS COMPLETED DATE/TIME: 12/04/2019 4:53 pm REASON FOR STUDY: Palpitations lightheaded dizzy nauseated hx A. fib COMPARISON: 04/27/2018 EXAM PARAMETERS: NUMBER OF VIEWS: two views TECHNIQUE: Digital Frontal and Lateral radiographic views of the chest acquired. RADIATION DOSE: NA LIMITATIONS: none FINDINGS: LUNGS AND PLEURA: No opacities, masses or pneumothorax. No pleural effusion. MEDIASTINUM AND HILAR STRUCTURES: No masses or contour abnormalities. HEART AND VASCULAR STRUCTURES: Heart normal size. No evidence for failure. BONES: No acute findings. HARDWARE: None in the chest. OTHER: No other significant finding. IMPRESSION: NO ACUTE RADIOGRAPHIC FINDING IN THE CHEST. TECHNICAL DOCUMENTATION: JOB ID: [id number] [employer] All Rights Reserved Reading location - IP/workstation name: [email or web address]
[2019-12-04 17:19] LABS: ALBUMIN 4.6 g/dL (3.5-5.0); ALKALINE PHOSPHATASE 100 U/L (38-126); ANION GAP 8 (5-19); ASPARTATE AMINO TRANSFERASE 121 U/L (17-59); BILIRUBIN,TOTAL 0.4 mg/dL (0.2-1.3); BLOOD UREA NITROGEN 14 mg/dL (7-20); CALCIUM 9.1 mg/dL (8.4-10.2); CARBON DIOXIDE 30 mmol/L (22-30); CHLORIDE 104 mmol/L (98-107); GLUCOSE 92 mg/dL (75-110); POTASSIUM 4.6 mmol/L (3.6-5.0); TOTAL PROTEIN 8.1 g/dL (6.3-8.2)
[2019-12-04] MEDS ORDERED: ASPIRIN 81 MG TABLET, CHEWABLE ONE (20:28)
--- NOTE | 2019-12-04 20:28 | ER Document Report ---
ED General - General Chief Complaint: Palpitations Stated Complaint: ANXIETY & NAUSEA Time Seen by Provider: 12/04/19 16:27 Mode of Arrival: Ambulatory Notes: Patient is a 44-year-old male that comes to the emergency department for chief complaint of an episode that happened just prior to arrival where he felt like his heart was racing. He states that this lasted for a few minutes, he started to feel slightly nauseated and lightheaded but he denies passing out. He denies chest pain, shortness of breath, or any other symptoms with this. He states he feels much better now and the symptoms did resolve. He admits that he was drinking alcohol earlier today and he drinks very frequently, however he denies drinking daily and he denies having withdrawal symptoms. He denies abdominal pain, vomiting, fever. He denies recreational drugs. He states he is supposed to be on metoprolol twice a day but he ran out of this over a week ago and has not seen his primary care provider yet. He states he is on no other medications. Medical history includes hypertension, alcohol abuse, pancreatitis. TRAVEL OUTSIDE OF THE [place] IN LAST 30 DAYS: No - Related Data Allergies/Adverse Reactions: No Known Allergies Allergy (Verified 07/02/19 14:05) Past Medical History - General Information source: Patient - Social History Smoking Status: Never Smoker Frequency of alcohol use: None Drug Abuse: None Lives with: Family Family History: Reviewed & Not Pertinent, Hypertension Patient has suicidal ideation: No Patient has homicidal ideation: No - Past Medical History Cardiac Medical History: Reports: Hx Atrial Fibrillation - INTERMITTENT, INFREQUENT 1992, PAF, Hx Hypertension Pulmonary Medical History: Denies: Hx Asthma, Hx Intubation, Hx Respiratory Failure Neurological Medical History: Denies: Hx Migraine, Hx Seizures Endocrine Medical History: Denies: Hx Diabetes Mellitus Type 1, Hx Diabetes Mellitus Type 2, Hx Hyperthyroidism, Hx Hypothyroidism Renal/ Medical History: Denies: Hx Peritoneal Dialysis GI Medical History: Reports: Hx Cirrhosis - History of elevated liver enzymes, Hx Hepatitis - Alcoholic hepatitis. Denies: Hx Crohn's Disease, Hx Gastroesophageal Reflux Disease, Hx Hiatal Hernia, Hx Ulcerative Colitis Musculoskeletal Medical History: Denies Hx Arthritis, Denies Hx Gout, Reports Hx Musculoskeletal Trauma Skin Medical History: Denies Hx Eczema, Denies Hx Psoriasis Psychiatric Medical History: Reports: Hx Anxiety Traumatic Medical History: Reports: Hx Fractures Infectious Medical History: Reports: Hx Hepatitis - Alcoholic hepatitis Past Surgical History: Reports: Hx Abdominal Surgery - hernia, Hx Orthopedic Surgery - left lower extremity - Immunizations Immunizations up to date: Yes Hx Diphtheria, Pertussis, Tetanus Vaccination: Yes Review of Systems - Review of Systems Constitutional: No symptoms reported EENT: No symptoms reported Cardiovascular: See HPI Respiratory: No symptoms reported Gastrointestinal: No symptoms reported Genitourinary: No symptoms reported Male Genitourinary: No symptoms reported Musculoskeletal: No symptoms reported Skin: No symptoms reported Hematologic/Lymphatic: No symptoms reported Neurological/Psychological: See HPI Physical Exam - Vital signs Vitals: Temp Pulse Resp BP Pulse Ox 97.7 F 113 H 28 H 140/96 H 97 12/04/19 16:30 12/04/19 16:30 12/04/19 16:30 12/04/19 16:30 12/04/19 16:30 - Notes Notes: GENERAL: Alert, interacts well. No acute distress. HEAD: Normocephalic, atraumatic. EYES: Pupils equal, round, and reactive to light. Extraocular movements intact. ENT: Oral mucosa dry, tongue midline. Oropharynx unremarkable. Airway patent. NECK: Full range of motion. Supple. Trachea midline. LUNGS: Clear to auscultation bilaterally, no wheezes, rales, or rhonchi. No respiratory distress. HEART: Borderline tachycardic, regular rate and rhythm. No murmur ABDOMEN: Soft, non-tender. Non-distended. Bowel sounds present in all 4 quadrants. GENITOURINARY: Deferred EXTREMITIES: Moves all 4 extremities spontaneously. No edema, normal radial and dorsalis pedis pulses bilaterally. No cyanosis. BACK: no cervical, thoracic, lumbar midline tenderness. No saddle anesthesia, normal distal neurovascular exam. Moves all extremities in full range of motion. NEUROLOGICAL: Alert and oriented x3. Normal speech. Cranial nerves II through XII grossly intact. PSYCH: Patient is very animated, occasionally talks anxiously, however he is usually reassured. Good eye contact. SKIN: Warm, dry, normal turgor. No rashes or lesions noted. Course - Re-evaluation Re-evalutation: Patient had initial tachycardia but this resolved after IV fluids. Patient was also given his beta-amaury that he had stopped. Patient has not had any chest pain, dizziness, on my reevaluation after interventions patient states he feels great. CBC unremarkable except for mild anemia which I suspect is secondary to alcohol abuse, chemistry nonspecific except for LFTs which are mildly elevated from likely the same. Troponin negative, EKG unremarkable, chest x-ray negative. TSH is slightly low, just below the inferior cutoff, T4 is normal. I did discuss this with patient. He will have this followed with his primary provider, we will place him back on his beta-amaury, I discussed the importance of him reducing and stopping alcohol because of the potential for life threatening developments and worsening trouble with afib. Patient states un derstanding and agreement. Patient asymptomatic, well-appearing, states appreciation, stable at time of discharge. - Vital Signs Vital signs: Temp Pulse Resp BP Pulse Ox 98.7 F 113 H 15 130/89 H 97 12/04/19 23:38 12/04/19 16:30 12/04/19 23:38 12/04/19 23:38 12/04/19 23:38 - Laboratory Result Diagrams: 12/04/19 16:40 12/04/19 16:40 Laboratory results interpreted by me: 12/04/19 12/04/19 12/04/19 16:40 16:40 16:40 RBC 3.68 L Hgb 11.0 L Hct 32.0 L RDW 16.4 H Plt Count 470 H AST 121 H TSH 0.42 L - EKG Interpretation by Me Additional EKG results interpreted by me: EKG shows sinus rhythm at a rate of 91, QTC of 448, normal axis, no T wave inversions or ST segment changes in consecutive leads, borderline T wave inversion in lead III. Borderline R wave progression in the anterior leads. There is no significant change from prior. Discharge - Discharge Clinical Impression: Heart palpitations, Tachycardia Condition: Stable Disposition: HOME, SELF-CARE Instructions: Anxiety ([facility]) Additional Instructions: You have been given hydration and placed back on your beta-amaury. Please take your metoprolol as prescribed, avoid drinking regular or heavy alcohol. Your thyroid panel is borderline, this needs to be repeated for additional monitoring and treatment. Please follow-up closely with primary care to have your thyroid panel repeated. Return if you worsen including developing chest pain, passing out, difficulty breathing, or any other concerning or worsening symptoms. Prescriptions: Metoprolol Tartrate [Lopressor 50 mg Tablet] 50 mg PO Q12H #60 tablet Forms: Return to Work
[2019-12-04] MEDS ORDERED: NORMAL SALINE 1000 ML 1,000 ML IV ONE (20:36)
--- NOTE | 2019-12-04 22:11 | EKG REPORT ---
SEVERITY:- BORDERLINE ECG - SINUS RHYTHM BORDERLINE R WAVE PROGRESSION, ANTERIOR LEADS : Confirmed by: Randall Hilliard MD 04-Dec-2019 22:10:36
[2019-12-04] MEDS ORDERED: METOPROLOL TARTRATE 50 MG TABLET PO ONE (23:33)
[2019-12-04 23:46] VITALS: BP 130/89
== END 2019-12-04 23:44 | disposition home or self-care (01) ==
LOC: ER 16:13
DX: R00.2 Palpitations (principal); R00.0 Tachycardia, unspecified; F41.9 Anxiety disorder, unspecified; R11.0 Nausea; R42 Dizziness and giddiness; Z79.899 Other long term (current) drug therapy; I10 Essential (primary) hypertension; F10.10 Alcohol abuse, uncomplicated; I48.91 Unspecified atrial fibrillation
CPT/HCPCS: 93005; 99284; 96360; 36415; 84439; 83735; 84443; 85025; 80053; 84484; 71046; 93010; J7030

== ENCOUNTER 2020-02-01 21:32 | Emergency (ER) | payer SELFPAY ==
[2020-02-01] MEDS ORDERED: LORAZEPAM INJ 2 MG/1 ML VIAL IV ONE ×2 (22:43→22:54)
[2020-02-01] MEDS ORDERED: CETIRIZINE 10 MG TABLET PO ONE (22:51)
[2020-02-01] MEDS ORDERED: NORMAL SALINE 1000 ML 1,000 ML IV ONE (22:54)
--- NOTE | 2020-02-01 22:55 | ER Document Report ---
ED General - General Chief Complaint: Medical Clearance Stated Complaint: MEDICAL CLEARANCE Time Seen by Provider: 02/01/20 21:40 Primary Care Provider: [facility] [Provider Group] - Follow up as needed [facility] [Provider Group] - Follow up as needed Notes: Patient is a 44-year-old male who presents emergency department for medical clearance for alcohol detox at [facility]. He attempted to get help there, but his alcohol breathalyzer test showed an alcohol level of 0.27. He states that he had a small amount of chest pain, but states that the chest pain went away. Patient states that his last drink was at 1:00 this afternoon. States that he drinks 99 bananas and drinks about 12 shots a day. Patient has a longstanding history of alcohol intoxication, per medical record. Patient has a history of atrial fibrillation. States that he takes metoprolol, but sometimes does not always take his metoprolol on a daily basis. Patient states that he feels anxious and he admits to taking his friend's Xanax earlier today. Patient has a history of atrial fibrillation. He takes metoprolol, but states that he has not been taking it the way he should. Patient also reports a mild cough, but states that he has seasonal allergies. Denies any contact with anybody who has tested positive for COVID-19. Denies any fever, body aches, chills, abdominal pain, or any other symptoms. TRAVEL OUTSIDE OF THE [place] IN LAST 30 DAYS: No - Related Data Allergies/Adverse Reactions: No Known Allergies Allergy (Verified 07/02/19 14:05) Past Medical History - General Information source: Patient - Social History Smoking Status: Current Every Day Smoker Frequency of alcohol use: Heavy Family History: Reviewed & Not Pertinent, Hypertension - Past Medical History Cardiac Medical History: Reports: Hx Atrial Fibrillation - INTERMITTENT, INFREQUENT 1992, PAF, Hx Hypertension Pulmonary Medical History: Denies: Hx Asthma, Hx Intubation, Hx Respiratory Failure Neurological Medical History: Denies: Hx Migraine, Hx Seizures Endocrine Medical History: Denies: Hx Diabetes Mellitus Type 1, Hx Diabetes Mellitus Type 2, Hx Hyperthyroidism, Hx Hypothyroidism Renal/ Medical History: Denies: Hx Peritoneal Dialysis GI Medical History: Reports: Hx Cirrhosis - History of elevated liver enzymes, Hx Hepatitis - Alcoholic hepatitis. Denies: Hx Crohn's Disease, Hx Gastroesophageal Reflux Disease, Hx Hiatal Hernia, Hx Ulcerative Colitis Musculoskeletal Medical History: Denies Hx Arthritis, Denies Hx Gout, Reports Hx Musculoskeletal Trauma Skin Medical History: Denies Hx Eczema, Denies Hx Psoriasis Psychiatric Medical History: Reports: Hx Anxiety Traumatic Medical History: Reports: Hx Fractures Infectious Medical History: Reports: Hx Hepatitis - Alcoholic hepatitis Past Surgical History: Reports: Hx Abdominal Surgery - hernia, Hx Orthopedic Surgery - left lower extremity - Immunizations Immunizations up to date: Yes Hx Diphtheria, Pertussis, Tetanus Vaccination: Yes Review of Systems - Review of Systems Notes: REVIEW OF SYSTEMS: CONSTITUTIONAL : Denies recent illness. Denies recent unintentional weight loss. Denies fever, chills, or sweats. EENT: Denies eye, ear, throat, or mouth pain, discharge, or symptoms. Denies nasal or sinus congestion. CARDIOVASCULAR: Denies chest pain. RESPIRATORY: Denies shortness of breath, cough, congestion, difficulty breathing, or wheezing. GASTROINTESTINAL: Denies nausea, vomiting, and diarrhea. Denies abdominal pain. Denies constipation. GENITOURINARY: Denies difficulty urinating, burning, blood in urine, urgency or frequency. MUSCULOSKELETAL: Denies neck and back pain. Denies joint pain or swelling. SKIN: Denies rash, itchiness, or lesions HEMATOLOGIC : Denies easy bruising or bleeding. LYMPHATIC: Denies swollen, painful, enlarged glands. NEUROLOGICAL: Denies no numbness or tingling denies weakness. Denies headache. Denies altered mental status. Denies alteration in speech. PSYCHIATRIC: See HPI. All other systems reviewed and negative. Physical Exam - Vital signs Vitals: Temp Pulse Resp BP Pulse Ox 98.9 F 115 H 16 145/88 H 95 02/01/20 21:37 02/01/20 21:37 02/01/20 21:37 02/01/20 21:37 02/01/20 21:37 - Notes Notes: PHYSICAL EXAMINATION: GENERAL: Appears well, healthy, well-nourished, no acute distress. HEAD: Normocephalic, atraumatic. EYES: PERRL, conjunctiva normal, all extraocular movements intact, sclera nonicteric ENT: Moist mucous membranes. NECK: Supple, no noticeable swelling, redness, rash. Normal range of motion. LUNGS: Equal breath sounds bilaterally and clear to auscultation. No wheezes rales or rhonchi. CARDIOVASCULAR: S1-S2, regular rate, regular rhythm. Radial pulses 2+, normal. ABDOMEN: Normoactive bowel sounds. Soft, nontender, no guarding, no rebound tenderness, and no masses palpated. EXTREMITIES: Normal strength and range of motion, no pitting or edema. No cyanosis. NEUROLOGICAL: Moves all extremities upon command. Strength 5/5 in all extremit ies. PSYCH: Normal mood, normal affect. SKIN: Warm, dry. No rash, lesions, ulcerations noted. Normal skin turgor. Course - Re-evaluation Re-evalutation: 02/01/20 22:51 I called [facility] and they are in fact holding a room for the patient. 02/02/20 00:04 Patient sodium is 136.6 and also has a blood urea nitrogen of 22. AST and ALT are both elevated. Patient has protein and ketones in his urine. He received a liter of IV fluids to help with this. Toxicology is unremarkable, other than a serum alcohol of 183. Discussed these findings with Dr. Cespedes, my attending. He agrees that the patient is medically clear for alcohol detoxification at [facility]. 02/02/20 00:15 I spoke with [facility]. They still have a room for him. Patient states that he does not feel jittery after receiving Ativan. He also feels better after receiving cetirizine for his allergies. Vital signs rechecked and heart rate is now down to 101. Patient still has half a liter of fluids. At this time I feel comfortable discharging patient. He will finish his IV fluids and then be formally discharged to follow-up with [facility] after this visit. - Vital Signs Vital signs: Temp Pulse Resp BP Pulse Ox 98.9 F 115 H 16 145/88 H 95 02/01/20 21:37 02/01/20 21:37 02/01/20 21:37 02/01/20 21:37 02/01/20 21:37 - Laboratory Result Diagrams: 02/01/20 23:07 02/01/20 23:07 Laboratory results interpreted by me: 02/01/20 02/01/20 02/01/20 22:47 23:07 23:07 WBC 3.0 L RBC 4.20 L Hgb 10.3 L Hct 31.4 L MCV 75 L MCH 24.5 L RDW 19.4 H Plt Count 120 L Sodium 136.6 L BUN 22 H Glucose 123 H AST 364 H ALT 118 H Alkaline Phosphatase 139 H Urine Protein 100 H Urine Ketones TRACE H Urine Blood SMALL H Salicylates < 1.0 L Acetaminophen < 10 L Discharge - Discharge Clinical Impression: Abnormal LFTs, Seasonal allergies, Fatty liver, alcoholic Condition: Stable Disposition: HOME, SELF-CARE Additional Instructions: You were seen today in the emergency department for medical clearance in order to go to alcohol detoxification. Please walk over to [place] [facility]. Follow-up with a primary care provider in regards to your elevated liver enzymes. Please start cetirizine for your seasonal allergies. Make sure you are taking your metoprolol as ordered. Prescriptions: Cetirizine HCl [24Hour Allergy] 10 mg PO BID #60 tablet Metoprolol Tartrate [Lopressor 50 mg Tablet] 50 mg PO Q12H #60 tablet Referrals: [facility] [Provider Group] - Follow up as needed [facility] [Provider Group] - Follow up as needed
[2020-02-01 23:10] LABS: APPEARANCE,URINE SLIGHTLY-CLOUDY; BILIRUBIN,URINE NEGATIVE (NEGATIVE); COLOR,URINE YELLOW; GLUCOSE, URINE NEGATIVE (NEGATIVE); KETONES,URINE TRACE mg/dL (NEGATIVE); LEUKOCYTE ESTERASE,URINE NEGATIVE (NEGATIVE); NITRITE,URINE NEGATIVE (NEGATIVE); PROTEIN,URINE 100 mg/dL (NEGATIVE); URINE SPECIFIC GRAVITY 1.028; UROBILINOGEN,URINE NEGATIVE mg/dL (<2.0)
[2020-02-01 23:19] LABS: ABSOLUTE EOSINOPHILS # (AUTO) 0.1 10^3/uL (0.0-0.6); ABSOLUTE LYMPHOCYTES (AUTO) 0.6 10^3/uL (0.5-4.7); ABSOLUTE MONOCYTES (AUTO) 0.4 10^3/uL (0.1-1.4); BASOPHILS % (AUTO) 1.6 % (0-2); EOSINOPHILS % (AUTO) 2.9 % (0-6); HEMATOCRIT 31.4 % (37.9-51.0); HEMOGLOBIN 10.3 g/dL (13.5-17.0); MEAN CORPUSCULAR HEMOGLOBIN 24.5 pg (27.0-33.4); MEAN CORPUSCULAR HGB CONC 32.7 g/dL (32.0-36.0); MEAN CORPUSCULAR VOLUME 75 fl (80-97); MONOCYTES % (AUTO) 11.7 % (3-13); PLATELET COUNT 120 10^3/uL (150-450); RED CELL DISTRIBUTION WIDTH 19.4 % (11.5-14.0); SEGMENTED NEUTROPHILS % (AUTO) 64.8 % (42-78); TOTAL CELLS COUNTED % (AUTO) 100 %
[2020-02-01 23:37] LABS: URINE AMPHETAMINES SCREEN NEGATIVE; URINE BARBITURATES SCREEN NEGATIVE; URINE BENZODIAZEPINES SCREEN NEGATIVE; URINE COCAINE SCREEN NEGATIVE; URINE MARIJUANA (THC) SCREEN NEGATIVE; URINE METHADONE SCREEN NEGATIVE; URINE PHENCYCLIDINE SCREEN NEGATIVE
[2020-02-01 23:39] LABS: ACETAMINOPHEN < 10 ug/mL (10-30); ALBUMIN 4.5 g/dL (3.5-5.0); ALCOHOL 183 mg/dL (NONE DETECTED); ALKALINE PHOSPHATASE 139 U/L (38-126); ANION GAP 13 (5-19); ASPARTATE AMINO TRANSFERASE 364 U/L (17-59); BILIRUBIN,TOTAL 0.3 mg/dL (0.2-1.3); BLOOD UREA NITROGEN 22 mg/dL (7-20); CALCIUM 8.9 mg/dL (8.4-10.2); CARBON DIOXIDE 24 mmol/L (22-30); CHLORIDE 100 mmol/L (98-107); GLUCOSE 123 mg/dL (75-110); POTASSIUM 3.9 mmol/L (3.6-5.0); SALICYLATE < 1.0 mg/dL (2.0-20.0)
[2020-02-02] MEDS ORDERED: METOPROLOL TARTRATE 50 MG TABLET PO ONE (00:31)
[2020-02-02 01:20] VITALS: BP 124/73
--- NOTE | 2020-02-02 07:52 | EKG REPORT ---
SEVERITY:- BORDERLINE ECG - SINUS TACHYCARDIA BORDERLINE T ABNORMALITIES, INFERIOR LEADS : Confirmed by: Randall Hilliard MD 02-Feb-2020 07:51:40
== END 2020-02-02 01:19 | disposition home or self-care (01) ==
LOC: ER 21:32
DX: R79.89 Other specified abnormal findings of blood chemistry (principal); J30.1 Allergic rhinitis due to pollen; K70.0 Alcoholic fatty liver; F10.988 Alcohol use, unspecified with other alcohol-induced disorder; Y90.6 Blood alcohol level of 120-199 mg/100 ml; F17.200 Nicotine dependence, unspecified, uncomplicated; I48.91 Unspecified atrial fibrillation; I10 Essential (primary) hypertension
CPT/HCPCS: 93005; 99284; 96361; 96374; 36415; 80307 ×4; 85025; 80053; 81001; 93010; J2060; J7030

== ENCOUNTER 2020-02-19 16:12 | Inpatient (IN) | payer SELFPAY ==
[2020-02-19] MEDS ORDERED: NORMAL SALINE 1000 ML 1,000 ML IV ONE (16:45)
[2020-02-19] MEDS ORDERED: MORPHINE SULFATE 10 MG/ML INJ IV ONE (16:47)
[2020-02-19] MEDS ORDERED: ONDANSETRON HCL INJ/PF 4 MG/2 ML SDV IV ONE (16:47)
--- NOTE | 2020-02-19 16:48 | ER Document Report ---
ED General - General Chief Complaint: Breathing Difficulty Stated Complaint: DIFFICULTY BREATHING Time Seen by Provider: 02/19/20 16:33 Notes: CHIEF COMPLAINT: Abdominal pain and chest pain for 2 days HPI: 44-year-old male with history of alcoholism and pancreatitis presenting to the emergency department complaining of left upper abdominal pain over the last 2 days, had multiple episodes of vomiting yesterday. States he feels like the pain is going up into his chest on the left side making it difficult to breathe today. Patient states he feels like he cannot take a deep breath in due to discomfort on the left side of the chest. States he has had pancreatitis in the past this feels similar but more severe. Patient denies constipation. Denies fever. ROS: See HPI - all other systems were reviewed and are otherwise negative Constitutional: no fever Eyes: no drainage, no blurred vision ENT: no runny nose, no sore throat Cardiovascular: + chest pain Resp: + SOB, no cough GI: + vomiting, no diarrhea, + abdominal pain : no dysuria Integumentary: no rash Allergy: no hives Musculoskeletal: no extremity pain or swelling Neurological: no numbness/tingling, no weakness MEDICATIONS: I agree with the patient medications as charted by the RN. ALLERGIES: I agree with the allergies as charted by the RN. PAST MEDICAL HISTORY/PAST SURGICAL HISTORY: Reviewed and agree as charted by RN. SOCIAL HISTORY: Reviewed and agree as charted by RN. FAMILY HISTORY: No significant familial comorbid conditions directly related to patient complaint EXAM: Reviewed vital signs as charted by RN. CONSTITUTIONAL: Alert and oriented and responds appropriately to questions. Ill 96% on room air not hypoxic-appearing; well-nourished HEAD: Normocephalic; atraumatic EYES: PERRL; Conjunctivae clear, sclerae non-icteric ENT: normal nose; no rhinorrhea; moist mucous membranes; pharynx without lesions noted, no uvula edema or deviation, no tonsillar hypertrophy, phonation normal NECK: Supple without meningismus; non-tender; no cervical lymphadenopathy, no masses CARD: Tachycardic; no murmurs, no clicks, no rubs, no gallops; symmetric distal pulses RESP: Normal chest excursion without splinting or tachypnea; breath sounds clear and equal bilaterally; no wheezes, no rhonchi, no rales, pulse oximetry ABD/GI: Normal bowel sounds; non-distended; soft, moderate tenderness through the left upper quadrant, left lower quadrant and right lower quadrant on palpation, no rebound, no guarding; no palpable organomegaly or masses. BACK: The back appears normal and is non-tender to palpation, there is no CVA tenderness EXT: Normal ROM in all joints; non-tender to palpation; no cyanosis, no effusions, no edema SKIN: Normal color for age and race; warm; mildly diaphoretic; good turgor; no acute lesions noted NEURO: Moves all extremities equally; Motor and sensory function intact PSYCH: The patient's mood and manner are appropriate. Grooming and personal hygiene are appropriate. MDM: 44-year-old male with alcoholism history last drink was this morning presenting with tachycardia and abdominal pain and chest pain with shortness of breath. Has had history of pancreatitis in the past. Has moderate tenderness to the left abdomen but also in the right lower quadrant will obtain CT imaging of the abdomen. He was moderately tachycardic initially with a heart rate of 140, will obtain CT imaging of the chest to evaluate for PE given the shortness of breath complaint. TRAVEL OUTSIDE OF THE [place] IN LAST 30 DAYS: No - Related Data Allergies/Adverse Reactions: No Known Allergies Allergy (Verified 07/02/19 14:05) Past Medical History - Social History Smoking Status: Current Every Day Smoker Family History: Reviewed & Not Pertinent, Hypertension - Past Medical History Cardiac Medical History: Reports: Hx Atrial Fibrillation - INTERMITTENT, INFREQUENT 1992, PAF, Hx Hypertension Pulmonary Medical History: Denies: Hx Asthma, Hx Intubation, Hx Respiratory Failure Neurological Medical History: Denies: Hx Migraine, Hx Seizures Endocrine Medical History: Denies: Hx Diabetes Mellitus Type 1, Hx Diabetes Mellitus Type 2, Hx Hyperthyroidism, Hx Hypothyroidism Renal/ Medical History: Denies: Hx Peritoneal Dialysis GI Medical History: Reports: Hx Cirrhosis - History of elevated liver enzymes, Hx Hepatitis - Alcoholic hepatitis. Denies: Hx Crohn's Disease, Hx Gastroesophageal Reflux Disease, Hx Hiatal Hernia, Hx Ulcerative Colitis Musculoskeletal Medical History: Denies Hx Arthritis, Denies Hx Gout, Reports Hx Musculoskeletal Trauma Skin Medical History: Denies Hx Eczema, Denies Hx Psoriasis Psychiatric Medical History: Reports: Hx Anxiety Traumatic Medical History: Reports: Hx Fractures Infectious Medical History: Reports: Hx Hepatitis - Alcoholic hepatitis Past Surgical History: Reports: Hx Abdominal Surgery - hernia, Hx Orthopedic Cage rgery - left lower extremity - Immunizations Immunizations up to date: Yes Hx Diphtheria, Pertussis, Tetanus Vaccination: Yes Physical Exam - Vital signs Vitals: Temp Pulse Resp BP Pulse Ox 98.1 F 134 H 18 135/88 H 96 02/19/20 16:20 02/19/20 16:20 02/19/20 16:20 02/19/20 16:20 02/19/20 16:20 Course - Re-evaluation Re-evalutation: 02/19/20 17:29 Patient heart rate 105 02/19/20 18:51 Spoke with Digna Griffith, nurse practitioner for the hospitalist service. Patient lipase is almost 8000 this is likely pancreatitis, awaiting imaging studies, she will have Dr. Nur the night hospitalist call me regarding possibility of admission once imaging studies have resulted 02/19/20 20:[address] Nur the hospitalist, case labs vital signs imaging discussed, will admit telemetry - Vital Signs Vital signs: Temp Pulse Resp BP Pulse Ox 98.1 F 134 H 14 138/86 H 93 02/19/20 17:33 02/19/20 16:20 02/19/20 19:00 02/19/20 17:16 02/19/20 19:00 - Laboratory Result Diagrams: 02/19/20 16:49 02/19/20 16:49 Laboratory results interpreted by me: 02/19/20 02/19/20 16:49 16:49 WBC 11.5 H Hgb 12.0 L MCV 75 L MCH 22.9 L MCHC 30.7 L RDW 20.8 H Plt Count 576 H Lymph % (Auto) 7.5 L Absolute Neuts (auto) 9.5 H Seg Neutrophils % 82.0 H Carbon Dioxide 21 L Glucose 114 H AST 219 H ALT 112 H Lipase 7998.7 H Discharge - Discharge Clinical Impression: Alcoholism Acute pancreatitis Qualifiers: Pancreatitis type: alcohol induced Acute pancreatitis complication: unspecified Qualified Code(s): K85.20 - Alcohol induced acute pancreatitis without necrosis or infection Condition: Stable Disposition: ADMITTED INPATIENT Admitting Provider: [facility] (Hospitalist) Unit Admitted: Telemetry
[2020-02-19 17:04] LABS: ABSOLUTE EOSINOPHILS # (AUTO) 0.2 10^3/uL (0.0-0.6); ABSOLUTE LYMPHOCYTES (AUTO) 0.9 10^3/uL (0.5-4.7); ABSOLUTE NEUT (AUTO) 9.5 10^3/uL (1.7-8.2); BASOPHILS % (AUTO) 0.3 % (0-2); EOSINOPHILS % (AUTO) 1.4 % (0-6); HEMATOCRIT 39.1 % (37.9-51.0); LYMPHOCYTES % (AUTO) 7.5 % (13-45); MEAN CORPUSCULAR HEMOGLOBIN 22.9 pg (27.0-33.4); MEAN CORPUSCULAR HGB CONC 30.7 g/dL (32.0-36.0); MEAN CORPUSCULAR VOLUME 75 fl (80-97); MONOCYTES % (AUTO) 8.8 % (3-13); PLATELET COUNT 576 10^3/uL (150-450); RED BLOOD COUNT 5.24 10^6/uL (4.35-5.55); RED CELL DISTRIBUTION WIDTH 20.8 % (11.5-14.0); TOTAL CELLS COUNTED % (AUTO) 100 %; WHITE BLOOD COUNT 11.5 10^3/uL (4.0-10.5)
[2020-02-19 17:18] LABS: INTERNATIONAL RATION (INR) 1.03; PROTHROMBIN TIME 13.5 SEC (11.4-15.4)
[2020-02-19 17:22] LABS: ALBUMIN 4.2 g/dL (3.5-5.0); ALCOHOL 188 mg/dL (NONE DETECTED); ALKALINE PHOSPHATASE 113 U/L (38-126); ANION GAP 15 (5-19); ASPARTATE AMINO TRANSFERASE 219 U/L (17-59); BILIRUBIN,TOTAL 0.6 mg/dL (0.2-1.3); BLOOD UREA NITROGEN 15 mg/dL (7-20); CALCIUM 9.8 mg/dL (8.4-10.2); CARBON DIOXIDE 21 mmol/L (22-30); CHLORIDE 102 mmol/L (98-107); GLUCOSE 114 mg/dL (75-110); POTASSIUM 4.5 mmol/L (3.6-5.0); TOTAL PROTEIN 7.6 g/dL (6.3-8.2)
--- NOTE | 2020-02-19 18:48 | EKG REPORT ---
SEVERITY:- BORDERLINE ECG - SINUS TACHYCARDIA BORDERLINE T ABNORMALITIES, DIFFUSE LEADS : Confirmed by: Yee Carson MD 19-Feb-2020 18:47:51
--- NOTE | 2020-02-19 19:08 | RADIOLOGY REPORT (SQ) ---
EXAM DESCRIPTION: CTA CHEST IMAGES COMPLETED DATE/TIME: 02/19/2020 6:55 pm REASON FOR STUDY: left pleuritic pain COMPARISON: 02/07/2018 TECHNIQUE: CT scan of the chest performed using helical scanning technique with dynamic intravenous contrast injection. Images reviewed with lung, soft tissue and bone windows. Reconstructed coronal and sagittal MPR images reviewed. Additional 3 dimensional post-processing performed to develop Maximal Intensity Projection images ([place] P). All images stored on PACS. All CT scanners at this facility use dose modulation, iterative reconstruction, and/or weight based d osing when appropriate to reduce radiation dose to as low as reasonably achievable (ALARA). [facility]: Dose Right [facility]: CareDose [facility]: Dose Right [facility]: Teradose 4D [facility]: [email or web address] CONTRAST TYPE AND DOSE: 80 cc Omnipaque 350- low osmolar. Contrast bolus adequate for pulmonary arteries and aorta. RENAL FUNCTION: None required. The patient is less than 50 years old. RADIATION DOSE: CT Rad equipment meets quality standard of care and radiation dose reduction techniq ues were employed. CTDIvol: 3.3 - 17.8 mGy. DLP: 2333 mGy-cm. . LIMITATIONS: None. FINDINGS: LUNGS AND PLEURA: No masses, infiltrates, or pneumothorax. No pleural effusions or pleura l calcifications. AORTA AND GREAT VESSELS: No aneurysm. No dissection. HEART: No pericardial effusion. No significant coronary artery calcifications. PULMONARY ARTERIES: No emboli visualized in the main pulmonary arteries or the segmental branches. HILAR AND MEDIASTINAL STRUCTURES: No identified masses or abnormal nodes. HARDWARE: None in the chest. UPPER ABDOMEN: See separate report of the CT of the abdomen. THYROID AND OTHER SOFT TISSUES: No masses. No adenopathy. BONES: No acute or significant finding. 3D MIPS: Confirm above findings. OTHER: No other significant finding. IMPRESSION: There is no pulmonary embolus. There is no aortic aneurysm or dissection. No acute fin dings in the thorax. COMMENT: Quality ID # [id number]: Final reports with documentation of one or more dose reduction techniques (e.g., Automated exposure control, adjustment of the mA and/or kV according to patient size, use of iterative reconstruction technique) TECHNICAL DOCUMENTATION: JOB ID: [id number] 2010 [employer]- All Rights Reserved Reading location - IP/workstation name: [email or web address]
--- NOTE | 2020-02-19 19:14 | RADIOLOGY REPORT (SQ) ---
EXAM DESCRIPTION: CT ABD/PELVIS WITH IV ONLY IMAGES COMPLETED DATE/TIME: 02/19/2020 6:54 pm REASON FOR STUDY: abd pain COMPARISON: 07/02/2019 TECHNIQUE: CT scan of the abdomen and pelvis performed using helical scanning technique with dynamic intravenous contrast injection. No oral contrast. Images reviewed with lung, soft tissue, and bone windows. Delayed images for evaluation of the urinary system also acquired. All images stored on PAC S. All CT scanners at this facility use dose modulation, iterative reconstruction, and/or weight based d osing when appropriate to reduce radiation dose to as low as reasonably achievable (ALARA). [facility]: Dose Right [facility]: CareDose [facility]: Dose Right [facility]: Teradose 4D [facility]: [employer] CONTRAST TYPE AND DOSE: contrast/concentration: Isovue 350.00 mg/ml; Total Contrast Delivered: 80.0 ml; Total Saline Delivered: 80.0 ml RENAL FUNCTION: None required. The patient is less than 50 years old. RADIATION DOSE: . LIMITATIONS: None. FINDINGS: LOWER CHEST: No significant findings. No nodules or infiltrates. LIVER: The liver is diffusely hypoattenuating. No mass. SPLEEN: Normal size. No focal lesions. PANCREAS: No masses. No significant calcifications. No adjacent inflammation or peripancreatic fluid collections. Pancreatic duct not dilated. GALLBLADDER: No identified stones by CT criteria. No inflammatory changes to suggest cholecystitis. ADRENAL GLANDS: No significant masses or asymmetry. RIGHT KIDNEY AND URETER: No solid masses. No significant calcifications. No hydronephrosis or hyd roureter. LEFT KIDNEY AND URETER: No solid masses. No significant calcifications. No hydronephrosis or hydr oureter. AORTA AND VESSELS: No aneurysm. No dissection. Renal arteries, SMA, celiac without stenosis. RETROPERITONEUM: No retroperitoneal adenopathy, hemorrhage or masses. BOWEL AND PERITONEAL CAVITY: No masses or inflammatory changes. Moderate ascites. APPENDIX: Not identified. PELVIS: No mass. No free fluid. Normal bladder. ABDOMINAL WALL: No masses. No hernias. BONES: No significant or acute findings. OTHER: No other significant finding. IMPRESSION: Hepatic steatosis. Ascites. No other significant finding in the abdomen or pelvis. TECHNICAL DOCUMENTATION: JOB ID: [id number] Quality ID # [id number]: Final reports with documentation of one or more dose reduction techniques (e.g., Au tomated exposure control, adjustment of the mA and/or kV according to patient size, use of iterative reconstruction technique) 2010 [facility] [employer]- All Rights Reserved Reading location - IP/workstation name: [email or web address]
[2020-02-19] MEDS ORDERED: MAG HYDROX/AL HYDROX/SIMETH SUSP 30 ML UDCUP PO PRN (20:03)
[2020-02-19] MEDS ORDERED: ACETAMINOPHEN 325 MG TABLET PO PRN (20:03)
[2020-02-19] MEDS ORDERED: IPRATROPIUM/ALBUTEROL 0.5-2.5 MG/3 ML AMPUL NEB PRN (20:03)
[2020-02-19] MEDS ORDERED: NORMAL SALINE 1000 ML 1,000 ML IV SCH (20:15)
[2020-02-19 20:21] LABS: PHOSPHORUS 4.1 mg/dL (2.5-4.5)
[2020-02-19] MEDS: KETOROLAC TROMETHAMINE INJ/PF 30 MG/1 ML SDV IV PRN (20:37)
[2020-02-19] MEDS: THIAMINE HCL 100 MG, FOLIC ACID 1 MG in NORMAL SALINE 250 ML IV SCH (21:45)
[2020-02-19] MEDS: HEPARIN SOD (PORCINE) 5,000 UNIT/ML 1 ML VIAL SUBCUT SCH (22:58)
[2020-02-19] MEDS: FAMOTIDINE 20 MG TABLET PO SCH (22:58)
[2020-02-19] MEDS: DIAZEPAM INJ 10 MG/2 ML DISP.SYRIN IV SCH (22:59)
[2020-02-19] MEDS: METOPROLOL TARTRATE 25 MG TABLET PO SCH (22:59)
[2020-02-20] MEDS: LORAZEPAM INJ 2 MG/1 ML VIAL IV PRN ×3 (00:19→19:09)
[2020-02-20] MEDS: KETOROLAC TROMETHAMINE INJ/PF 30 MG/1 ML SDV IV PRN ×2 (02:49→10:12)
--- NOTE | 2020-02-20 05:09 | PDOC H&P ---
History of Present Illness Admission Date/PCP: 02/19/20 20:07 Patient complains of: Abdominal pain History of Present Illness: SOLITARIO CARLTON is a 44 year old male with past medical history of recurrent alcohol pancreatitis, alcoholic hepatitis, alcohol withdrawal DTs, hypertension and paroxysmal atrial fibrillation. He presents with 24 hours of abdominal pain associate with nausea worsened by p.o. intake following drinking whiskey to excess. He admits several episodes in the past he denies chest pain or palpitations. In the emergency department he is found to have elevated AST and ALT and a lipase of 8000. He is started on IV fluids and referred to the hospitalist for admission. He declines referral for alcohol rehab. He denies depression, homicidal or suicidal ideation. He is acutely intoxicated. Past Medical History Cardiac Medical History: Reports: Atrial Fibrillation - INTERMITTENT, INFREQUENT 1993, PAF, Hypertension Pulmonary Medical History: Denies: Asthma, Intubation, Respiratory Failure Neurological Medical History: Denies: Migraine, Seizures Endocrine Medical History: Denies: Diabetes Mellitus Type 1, Diabetes Mellitus Type 2, Hyperthyroidism, Hypothyroidism GI Medical History: Reports: Cirrhosis - History of elevated liver enzymes, Hepatitis - Alcoholic hepatitis Denies: Crohn's Disease, Gastroesophageal Reflux Disease, Hiatal Hernia, Ulcerative Colitis Musculoskeltal Medical History: Denies: Arthritis, Gout Skin Medical History: Denies: Eczema, Psoriasis Psychiatric Medical History: Denies: Depression Hematology: Denies: Anemia, Bleeding Tendencies Past Surgical History Past Surgical History: Reports: Orthopedic Surgery - left lower extremity Social History Information Source: Patient, [facility] Records Smoking Status: Never Smoker Electronic Cigarette use?: No Frequency of Alcohol Use: Heavy Amount of Alcoholic Beverages Per Day: 7-8 shots of whiskey per day Hx Recreational Drug Use: Yes Drugs: Marijuana Hx Prescription Drug Abuse: No - Advance Directive Resuscitation Status: Full Code Family History Family History: Hypertension Parental Family History Reviewed: Yes Children Family History Reviewed: Yes Sibling(s) Family History Reviewed.: Yes Medication/Allergy Home Medications: Metoprolol Tartrate [Lopressor 50 mg Tablet] 50 mg PO Q12H #60 tablet 02/02/20 Allergies/Adverse Reactions: No Known Allergies Allergy (Verified 07/02/19 14:05) Review of Systems Constitutional: ABSENT: chills, fever(s), headache(s), weight gain, weight loss Eyes: ABSENT: visual disturbances Ears: ABSENT: hearing changes Cardiovascular: ABSENT: chest pain, dyspnea on exertion, edema, orthropnea, palpitations Respiratory: ABSENT: cough, hemoptysis Gastrointestinal: ABSENT: abdominal pain, constipation, diarrhea, hematemesis, hematochezia, nausea, vomiting Genitourinary: ABSENT: dysuria, hematuria Musculoskeletal: ABSENT: joint swelling Integumentary: ABSENT: rash, wounds Neurological: ABSENT: abnormal gait, abnormal speech, confusion, dizziness, focal weakness, syncope Psychiatric: ABSENT: anxiety, depression, homidical ideation, suicidal ideation Endocrine: ABSENT: cold intolerance, heat intolerance, polydipsia, polyuria Hematologic/Lymphatic: ABSENT: easy bleeding, easy bruising Physical Exam Vital Signs: Temp Pulse Resp BP Pulse Ox 98.9 F 117 H 22 H 148/95 H 99 02/19/20 22:41 02/19/20 22:42 02/19/20 22:41 02/19/20 22:41 02/19/20 22:41 Intake & Output 02/18/20 02/19/20 02/20/20 11:59 11:59 11:59 Intake Total 1251.2 Output Total 250 Balance 1001.2 Weight 83.4 kg General appearance: PRESENT: cooperative, mild distress Head exam: PRESENT: atraumatic, normocephalic Eye exam: PRESENT: conjunctiva pink, EOMI, PERRLA. ABSENT: scleral icterus Ear exam: PRESENT: normal external ear exam Mouth exam: PRESENT: moist, tongue midline Neck exam: ABSENT: carotid bruit, JVD, lymphadenopathy, thyromegaly Respiratory exam: PRESENT: clear to auscultation kaleb. ABSENT: rales, rhonchi, wheezes Cardiovascular exam: PRESENT: RRR. ABSENT: diastolic murmur, rubs, systolic murmur Pulses: PRESENT: normal dorsalis pedis pul Vascular exam: PRESENT: normal capillary refill GI/Abdominal exam: PRESENT: hyperactive bowel sounds, normal bowel sounds, soft, tenderness - No guarding. ABSENT: distended, guarding, mass, organolmegaly, rebound Rectal exam: PRESENT: deferred Extremities exam: PRESENT: full ROM. ABSENT: calf tenderness, clubbing, pedal edema Neurological exam: PRESENT: alert, awake, oriented to person, oriented to place, oriented to time, oriented to situation, CN II-XII grossly intact. ABSENT: motor sensory deficit Psychiatric exam: PRESENT: appropriate affect, normal mood. ABSENT: homicidal ideation, suicidal ideation Skin exam: PRESENT: dry, intact, warm. ABSENT: cyanosis, rash Results Laboratory Results: 02/19/20 16:49 02/19/20 16:49 02/19/20 02/19/20 02/19/20 16:49 16:49 16:49 WBC 11.5 H RBC 5.24 Hgb 12.0 L Hct 39.1 MCV 75 L MCH 22.9 L MCHC 30.7 L RDW 20.8 H Plt Count 576 H Seg Neutrophils % 82.0 H Sodium 137.5 Potassium 4.5 Chloride 102 Carbon Dioxide 21 L Anion Gap 15 BUN 15 Creatinine 1.00 Est GFR ( Amer) > 60 Glucose 114 H Calcium 9.8 Phosphorus Magnesium Total Bilirubin 0.6 AST 219 H Alkaline Phosphatase 113 Total Protein 7.6 Albumin 4.2 Lipase 7998.7 H Blood Type O POSITIVE Antibody Screen NEGATIVE 02/19/20 16:49 WBC RBC Hgb Hct MCV MCH MCHC RDW Plt Count Seg Neutrophils % Sodium Potassium Chloride Carbon Dioxide Anion Gap BUN Creatinine Est GFR ( Amer) Glucose Calcium Phosphorus 4.1 Magnesium 2.0 Total Bilirubin AST Alkaline Phosphatase Total Protein Albumin Lipase Blood Type Antibody Screen 02/19/20 16:49 Troponin I < 0.012 Impressions: Abdomen/Pelvis CT 02/19/20 16:46 IMPRESSION: Hepatic steatosis. Ascites. No other significant finding in the abdomen or pelvis. Chest/Abdomen CTA 02/19/20 16:47 IMPRESSION: There is no pulmonary embolus. There is no aortic aneurysm or dissection. No acute findings in the thorax. Assessment and Plan - Diagnosis (1) Acute alcoholic pancreatitis Qualifiers: Is this a current diagnosis for this admission?: Yes Plan: Telemetry admission, bowel rest, IV fluid, electrolyte repletion and symptomatic management anticipating alcohol withdrawal. (2) Abnormal LFTs Is this a current diagnosis for this admission?: Yes Plan: Follow-up LFTs. (3) Alcohol withdrawal Qualifiers: Is this a current diagnosis for this admission?: Yes Plan: Thiamine, folate, Valium scheduled with as needed Ativan. Declines referral to alcohol rehab. - Time Time Spent with patient: 25-34 minutes - Inpatient Certification Medical Necessity: Need Close Monitoring Due to Risk of Patient Decompensation
[2020-02-20 05:54] LABS: ABSOLUTE EOSINOPHILS # (AUTO) 0.5 10^3/uL (0.0-0.6); ABSOLUTE LYMPHOCYTES (AUTO) 0.7 10^3/uL (0.5-4.7); ABSOLUTE MONOCYTES (AUTO) 0.9 10^3/uL (0.1-1.4); BASOPHILS % (AUTO) 0.3 % (0-2); EOSINOPHILS % (AUTO) 5.9 % (0-6); HEMATOCRIT 32.1 % (37.9-51.0); HEMOGLOBIN 10.3 g/dL (13.5-17.0); LYMPHOCYTES % (AUTO) 8.9 % (13-45); MEAN CORPUSCULAR HEMOGLOBIN 23.8 pg (27.0-33.4); MEAN CORPUSCULAR HGB CONC 32.1 g/dL (32.0-36.0); MEAN CORPUSCULAR VOLUME 74 fl (80-97); MONOCYTES % (AUTO) 11.4 % (3-13); PLATELET COUNT 407 10^3/uL (150-450); RED BLOOD COUNT 4.32 10^6/uL (4.35-5.55); SEGMENTED NEUTROPHILS % (AUTO) 73.5 % (42-78); TOTAL CELLS COUNTED % (AUTO) 100 %; WHITE BLOOD COUNT 8.2 10^3/uL (4.0-10.5)
[2020-02-20 06:13] LABS: ALBUMIN 3.1 g/dL (3.5-5.0); ALKALINE PHOSPHATASE 95 U/L (38-126); ANION GAP 5 (5-19); ASPARTATE AMINO TRANSFERASE 152 U/L (17-59); BILIRUBIN,TOTAL 0.9 mg/dL (0.2-1.3); BLOOD UREA NITROGEN 18 mg/dL (7-20); CALCIUM 8.8 mg/dL (8.4-10.2); CARBON DIOXIDE 26 mmol/L (22-30); CHLORIDE 104 mmol/L (98-107); GLUCOSE 90 mg/dL (75-110); POTASSIUM 4.7 mmol/L (3.6-5.0); TOTAL PROTEIN 6.2 g/dL (6.3-8.2)
[2020-02-20] MEDS: HEPARIN SOD (PORCINE) 5,000 UNIT/ML 1 ML VIAL SUBCUT SCH ×3 (06:36→21:53)
[2020-02-20] MEDS: METOPROLOL TARTRATE 25 MG TABLET PO SCH ×2 (10:12→21:53)
[2020-02-20] MEDS: FAMOTIDINE 20 MG TABLET PO SCH ×2 (10:12→21:53)
[2020-02-20] MEDS: DIAZEPAM INJ 10 MG/2 ML DISP.SYRIN IV SCH (10:13)
--- NOTE | 2020-02-20 14:49 | PDOC PROGRESS REPORT ---
Subjective Progress Note for:: 02/20/20 Subjective:: Patient is still having LUQ pain but improved from earlier. Pain worsened after having some breakfast today. Patient denies any radiation of pain. Patient admits to drinking heavily. Last drink was yesterday. Requesting to go home today. Reason For Visit: ALCOHOLIC PANCREATITIS Physical Exam Vital Signs: Temp Pulse Resp BP Pulse Ox 98.4 F 95 18 96/52 L 97 02/20/20 12:00 02/20/20 12:00 02/20/20 12:00 02/20/20 12:00 02/20/20 12:00 Intake & Output 02/19/20 02/20/20 02/21/20 06:59 06:59 06:59 Intake Total 1251.2 Output Total 550 Balance 701.2 Weight 84.2 kg General appearance: PRESENT: no acute distress, cooperative Neck exam: ABSENT: JVD Respiratory exam: PRESENT: symmetrical, unlabored. ABSENT: accessory muscle use, retraction, tachypnea Cardiovascular exam: PRESENT: RRR, +S1, +S2. ABSENT: tachycardia GI/Abdominal exam: PRESENT: soft, tenderness - Mostly in the left upper quadrant. ABSENT: distended, firm, guarding, rebound, rigid Neurological exam: PRESENT: alert, awake, oriented to person, oriented to place, oriented to time, oriented to situation Psychiatric exam: ABSENT: agitated, anxious Results Laboratory Results: 02/20/20 05:36 02/20/20 05:36 02/19/20 02/19/20 02/19/20 16:49 16:49 16:49 WBC 11.5 H RBC 5.24 Hgb 12.0 L Hct 39.1 MCV 75 L MCH 22.9 L MCHC 30.7 L RDW 20.8 H Plt Count 576 H Seg Neutrophils % 82.0 H Sodium 137.5 Potassium 4.5 Chloride 102 Carbon Dioxide 21 L Anion Gap 15 BUN 15 Creatinine 1.00 Est GFR ( Amer) > 60 Glucose 114 H Calcium 9.8 Phosphorus Magnesium Total Bilirubin 0.6 AST 219 H Alkaline Phosphatase 113 Total Protein 7.6 Albumin 4.2 Lipase 7998.7 H Blood Type O POSITIVE Antibody Screen NEGATIVE 02/19/20 02/20/20 02/20/20 16:49 05:36 05:36 WBC 8.2 RBC 4.32 L Hgb 10.3 L Hct 32.1 L MCV 74 L MCH 23.8 L MCHC 32.1 RDW 21.0 H Plt Count 407 Seg Neutrophils % 73.5 Sodium 135.1 L Potassium 4.7 Chloride 104 Carbon Dioxide 26 Anion Gap 5 BUN 18 Creatinine 0.99 Est GFR ( Amer) > 60 Glucose 90 Calcium 8.8 Phosphorus 4.1 Magnesium 2.0 Total Bilirubin 0.9 AST 152 H Alkaline Phosphatase 95 Total Protein 6.2 L Albumin 3.1 L Lipase Blood Type Antibody Screen 02/19/20 16:49 Troponin I < 0.012 Impressions: Abdomen/Pelvis CT 02/19/20 16:46 IMPRESSION: Hepatic steatosis. Ascites. No other significant finding in the abdomen or pelvis. Chest/Abdomen CTA 02/19/20 16:47 IMPRESSION: There is no pulmonary embolus. There is no aortic aneurysm or dissection. No acute findings in the thorax. Assessment and Plan - Diagnosis (1) Acute alcoholic pancreatitis Qualifiers: Acute pancreatitis complication: no infection or necrosis Qualified Code(s): K85.20 - Alcohol induced acute pancreatitis without necrosis or infection Is this a current diagnosis for this admission?: Yes Plan: Continuous IV fluids at 200 cc/h. Morphine IV as needed. Diet escalated to soft diet. Will monitor closely. (2) Alcoholic gastritis Qualifiers: Chronicity: acute Gastritis bleeding: without bleeding Qualified Code(s): K29.20 - Alcoholic gastritis without bleeding Is this a current diagnosis for this admission?: Yes Plan: Started on Pepcid. Will try Maalox and Carafate as well. (3) Alcohol abuse Is this a current diagnosis for this admission?: Yes Plan: Counseled on abstinence from alcohol. He states he would go to detox outpatient. Presented with alcohol intoxication but now sober. (4) Alcohol withdrawal Qualifiers: Is this a current diagnosis for this admission?: Yes Plan: Patient is not currently withdrawing from alcohol but he is a very heavy drinker and is at very high risk of immediate withdrawal. Will treat empirically with standing Valium. Ativan IV as needed for elevated CIWA scores. (5) Fatty liver, alcoholic Is this a current diagnosis for this admission?: Yes Plan: Chronic. Follow-up LFTs. - Time Time Spent with patient: 15-24 minutes
[2020-02-20] MEDS ORDERED: ONDANSETRON HCL INJ/PF 4 MG/2 ML SDV IV PRN (14:50)
[2020-02-20] MEDS ORDERED: SUCRALFATE 1 GM TABLET PO ONE (15:15)
[2020-02-20] MEDS: MORPHINE SULFATE 10 MG/ML INJ IV PRN ×2 (15:33→19:10)
[2020-02-20] MEDS: NORMAL SALINE 1000 ML 1,000 ML IV PRN ×2 (15:37→21:53)
[2020-02-20] MEDS: DIAZEPAM 2 MG TABLET PO SCH (17:15)
[2020-02-20] MEDS: THIAMINE HCL 100 MG, FOLIC ACID 1 MG in NORMAL SALINE 250 ML IV SCH (21:53)
[2020-02-21] MEDS ORDERED: SODIUM BICARBONATE 8.4% INJ 50 MEQ/50 ML DISP.SYRIN ONE (01:01)
[2020-02-21] MEDS: MORPHINE SULFATE 10 MG/ML INJ IV PRN ×2 (02:08→08:26)
[2020-02-21] MEDS: LORAZEPAM INJ 2 MG/1 ML VIAL IV PRN ×2 (02:08→08:26)
[2020-02-21] MEDS: NORMAL SALINE 1000 ML 1,000 ML IV PRN ×2 (04:33→09:48)
[2020-02-21] MEDS: HEPARIN SOD (PORCINE) 5,000 UNIT/ML 1 ML VIAL SUBCUT SCH (05:57)
[2020-02-21 07:05] LABS: ALBUMIN 2.7 g/dL (3.5-5.0); ALKALINE PHOSPHATASE 79 U/L (38-126); ANION GAP 5 (5-19); ASPARTATE AMINO TRANSFERASE 104 U/L (17-59); BILIRUBIN,TOTAL 0.5 mg/dL (0.2-1.3); BLOOD UREA NITROGEN 12 mg/dL (7-20); CARBON DIOXIDE 26 mmol/L (22-30); CHLORIDE 102 mmol/L (98-107); GLUCOSE 81 mg/dL (75-110); POTASSIUM 4.5 mmol/L (3.6-5.0); TOTAL PROTEIN 5.5 g/dL (6.3-8.2)
[2020-02-21] MEDS: DIAZEPAM 2 MG TABLET PO SCH (09:47)
[2020-02-21] MEDS: FAMOTIDINE 20 MG TABLET PO SCH (09:47)
[2020-02-21] MEDS: METOPROLOL TARTRATE 25 MG TABLET PO SCH (09:48)
[2020-02-21] MEDS ORDERED: SUCRALFATE 1 GM TABLET PO ONE (10:00)
--- NOTE | 2020-02-21 12:08 | PDOC DISCHARGE SUMMARY ---
Impression - Admit/DC Date/PCP Admission Date/Primary Care Provider: 02/19/20 20:07 Discharge Date: 02/21/20 - Discharge Diagnosis (1) Acute alcoholic pancreatitis Is this a current diagnosis for this admission?: Yes (2) Alcoholic gastritis Is this a current diagnosis for this admission?: Yes (3) Alcohol abuse Is this a current diagnosis for this admission?: Yes (4) Alcohol withdrawal Is this a current diagnosis for this admission?: Yes (5) Fatty liver, alcoholic Is this a current diagnosis for this admission?: Yes - Additional Information Resuscitation Status: Full Code Discharge Diet: Regular Referrals: [facility] [Provider Group] Prescriptions: Famotidine [Pepcid 20 mg Tablet] 20 mg PO Q12 28 Days tablet Thiamine HCl [Thiamine 100 mg Tablet] 100 mg PO DAILY #30 tablet Home Medications: Metoprolol Tartrate [Lopressor 50 mg Tablet] 50 mg PO Q12 02/20/20 Famotidine [Pepcid 20 mg Tablet] 20 mg PO Q12 28 Days tablet 02/21/20 Thiamine HCl [Thiamine 100 mg Tablet] 100 mg PO DAILY #30 tablet 02/21/20 History of Present Illiness History of Present Illness: According to admitting provider: SOLITARIO CARLTON is a 44 year old male with past medical history of recurrent alcohol pancreatitis, alcoholic hepatitis, alcohol withdrawal DTs, hypertension and paroxysmal atrial fibrillation. He presents with 24 hours of abdominal pain associate with nausea worsened by p.o. intake following drinking whiskey to excess. He admits several episodes in the past he denies chest pain or palpitations. In the emergency department he is found to have elevated AST and ALT and a lipase of 8000. He is started on IV fluids and referred to the hospitalist for admission. He declines referral for alcohol rehab. He denies depression, homicidal or suicidal ideation. He is acutely intoxicated. Hospital Course Hospital Course: (1) Acute alcoholic pancreatitis Qualifiers: Acute pancreatitis complication: no infection or necrosis Qualified Code(s): K85.20 - Alcohol induced acute pancreatitis without necrosis or infection Is this a current diagnosis for this admission?: Yes Plan: Lipase elevated over 7000. Onset of pain after drinking. CT abdomen pelvis however did not really show any evidence of peripancreatic inflammation. Treated with IV pain medications and IV fluid hydration. Patient now able to tolerate diet and tolerated breakfast and lunch without any significant pain and is ready for discharge at this time. Given counseling on alcohol abstinence. (2) Alcoholic gastritis Qualifiers: Chronicity: acute Gastritis bleeding: without bleeding Qualified Code(s): K29.20 - Alcoholic gastritis without bleeding Is this a current diagnosis for this admission?: Yes Plan: Give you some doses of Maalox and Carafate. Patient has been discharged on Pepcid with counseling to abstain from alcohol use. (3) Alcohol abuse Is this a current diagnosis for this admission?: Yes Plan: Counseled on abstinence from alcohol. He states he would go to detox outpatient. Presented with alcohol intoxication but now sober. (4) Alcohol withdrawal Qualifiers: Is this a current diagnosis for this admission?: Yes Plan: Patient never had any significant withdrawal throughout stay in the hospital. He is a heavy drinker and was at high risk for withdrawal once he became sober so he was initially placed on prophylactic Valium. However CIWA scores have all been very low below 5 patient currently is not showing any evidence of withdrawal. (5) Fatty liver, alcoholic Is this a current diagnosis for this admission?: Yes Plan: Chronic. Transaminitis corresponding with mild alcoholic hepatitis noted on admission but trended down. Physical Exam Vital Signs: Temp Pulse Resp BP Pulse Ox 99.3 F 106 H 18 138/95 H 94 02/21/20 11:46 02/21/20 11:46 02/21/20 11:46 02/21/20 11:46 02/21/20 11:46 Intake & Output 02/20/20 02/21/20 02/22/20 06:59 06:59 06:59 Intake Total 1251.2 2251.2 1000 Output Total 550 100 Balance 701.2 2151.2 1000 Weight 84.2 kg 84.2 kg General appearance: PRESENT: no acute distress, cooperative Respiratory exam: PRESENT: unlabored GI/Abdominal exam: PRESENT: soft, tenderness - Mild left upper quadrant tenderne ss. ABSENT: distended, firm, guarding, rebound, rigid Neurological exam: PRESENT: alert, awake, oriented to person, oriented to place, oriented to time, oriented to situation Results Laboratory Results: WBC 8.2 10^3/uL (4.0-10.5) 02/20/20 05:36 RBC 4.32 10^6/uL (4.35-5.55) L 02/20/20 05:36 Hgb 10.3 g/dL (13.5-17.0) L 02/20/20 05:36 Hct 32.1 % (37.9-51.0) L 02/20/20 05:36 MCV 74 fl (80-97) L 02/20/20 05:36 MCH 23.8 pg (27.0-33.4) L 02/20/20 05:36 MCHC 32.1 g/dL (32.0-36.0) 02/20/20 05:36 RDW 21.0 % (11.5-14.0) H 02/20/20 05:36 Plt Count 407 10^3/uL (150-450) 02/20/20 05:36 Lymph % (Auto) 8.9 % (13-45) L 02/20/20 05:36 [place] % (Auto) 11.4 % (3-13) 02/20/20 05:36 Eos % (Auto) 5.9 % (0-6) 02/20/20 05:36 Baso % (Auto) 0.3 % (0-2) 02/20/20 05:36 Absolute Neuts (auto) 6.0 10^3/uL (1.7-8.2) 02/20/20 05:36 Absolute Lymphs (auto) 0.7 10^3/uL (0.5-4.7) 02/20/20 05:36 Absolute Monos (auto) 0.9 10^3/uL (0.1-1.4) 02/20/20 05:36 Absolute Eos (auto) 0.5 10^3/uL (0.0-0.6) 02/20/20 05:36 Absolute Basos (auto) 0.0 10^3/uL (0.0-0.2) 02/20/20 05:36 Seg Neutrophils % 73.5 % (42-78) 02/20/20 05:36 PT 13.5 SEC (11.4-15.4) 02/19/20 16:49 INR 1.03 02/19/20 16:49 Sodium 133.4 mmol/L (137-145) L 02/21/20 05:56 Potassium 4.5 mmol/L (3.6-5.0) 02/21/20 05:56 Chloride 102 mmol/L (98-107) 02/21/20 05:56 Carbon Dioxide 26 mmol/L (22-30) 02/21/20 05:56 Anion Gap 5 (5-19) 02/21/20 05:56 BUN 12 mg/dL (7-20) 02/21/20 05:56 Creatinine 0.78 mg/dL (0.52-1.25) 02/21/20 05:56 Est GFR ( Amer) > 60 (>60) 02/21/20 05:56 Est GFR (MDRD) Non-Af > 60 (>60) 02/21/20 05:56 Glucose 81 mg/dL (75-110) 02/21/20 05:56 Calcium 8.0 mg/dL (8.4-10.2) L 02/21/20 05:56 Phosphorus 4.1 mg/dL (2.5-4.5) 02/19/20 16:49 Magnesium 1.6 mg/dL (1.6-2.3) 02/21/20 05:56 Total Bilirubin 0.5 mg/dL (0.2-1.3) 02/21/20 05:56 Direct Bilirubin 0.0 mg/dL (0.0-0.4) 02/21/20 05:56 Neonat Total Bilirubin Not Reportable 02/21/20 05:56 Neonat Direct Bilirubin Not Reportable 02/21/20 05:56 Neonat Indirect Bili Not Reportable 02/21/20 05:56 AST 104 U/L (17-59) H 02/21/20 05:56 ALT 49 U/L (<50) 02/21/20 05:56 Alkaline Phosphatase 79 U/L (38-126) 02/21/20 05:56 Troponin I < 0.012 ng/mL 02/19/20 16:49 Total Protein 5.5 g/dL (6.3-8.2) L 02/21/20 05:56 Albumin 2.7 g/dL (3.5-5.0) L 02/21/20 05:56 Lipase 7998.7 U/L (23-300) H 02/19/20 16:49 Serum Alcohol 188 mg/dL (NONE DETECTED) 02/19/20 16:49 Blood Type O POSITIVE 02/19/20 16:49 Antibody Screen NEGATIVE 02/19/20 16:49 02/19/20 16:49 Troponin I < 0.012 Impressions: Abdomen/Pelvis CT 02/19/20 16:46 IMPRESSION: Hepatic steatosis. Ascites. No other significant finding in the abdomen or pelvis. Chest/Abdomen CTA 02/19/20 16:47 IMPRESSION: There is no pulmonary embolus. There is no aortic aneurysm or dissection. No acute findings in the thorax. Plan Time Spent: Less than 30 Minutes Stroke Is this a Stroke Patient?: No Acute Heart Failure - Is this a Heart Failure Patient?: No
[2020-02-21 12:24] VITALS: BP 135/88
== END 2020-02-21 14:10 | disposition home or self-care (01) | DRG 439 ==
LOC: ER 16:12 → EH 20:07 → 4W 22:40
PROVIDERS: ADMIT Internal Medicine; ATTEND Internal Medicine
DX: K85.20 Alcohol induced acute pancreatitis without necrosis or infection (principal); F10.239 Alcohol dependence with withdrawal, unspecified; K70.0 Alcoholic fatty liver; K74.60 Unspecified cirrhosis of liver; K29.20 Alcoholic gastritis without bleeding; I10 Essential (primary) hypertension; I48.0 Paroxysmal atrial fibrillation; F10.229 Alcohol dependence with intoxication, unspecified; F12.90 Cannabis use, unspecified, uncomplicated; R94.5 Abnormal results of liver function studies; Z71.41 Alcohol abuse counseling and surveillance of alcoholic; Z79.899 Other long term (current) drug therapy; Z82.49 Family history of ischemic heart disease and other diseases of the circulatory system
CPT/HCPCS: 36415; 71275; 74177; 80053; 80307; 83690; 83735; 84100; 84484; 85025; 85610; 86850; 86900; 86901; 93005; 93010; 96361; 96374; 96375; 99285; J1644; J1885; J2060; J2270; J2405; J3360; J3411; J3490; J7030; J7050

== ENCOUNTER 2020-02-26 23:11 | Emergency (ER) | payer SELFPAY ==
[2020-02-27 03:29] LABS: ALBUMIN 3.4 g/dL (3.5-5.0); ALKALINE PHOSPHATASE 138 U/L (38-126); ANION GAP 10 (5-19); ASPARTATE AMINO TRANSFERASE 219 U/L (17-59); BILIRUBIN,TOTAL 0.2 mg/dL (0.2-1.3); BLOOD UREA NITROGEN 8 mg/dL (7-20); CALCIUM 8.6 mg/dL (8.4-10.2); CARBON DIOXIDE 28 mmol/L (22-30); CHLORIDE 105 mmol/L (98-107); GLUCOSE 123 mg/dL (75-110); POTASSIUM 3.5 mmol/L (3.6-5.0); TOTAL PROTEIN 6.8 g/dL (6.3-8.2)
[2020-02-27 03:38] LABS: HEMATOCRIT 34.3 % (37.9-51.0); HEMOGLOBIN 11.1 g/dL (13.5-17.0); MEAN CORPUSCULAR HEMOGLOBIN 23.9 pg (27.0-33.4); MEAN CORPUSCULAR HGB CONC 32.5 g/dL (32.0-36.0); MEAN CORPUSCULAR VOLUME 73 fl (80-97); PLATELET COUNT 299 10^3/uL (150-450); RED BLOOD COUNT 4.67 10^6/uL (4.35-5.55); WHITE BLOOD COUNT 6.9 10^3/uL (4.0-10.5)
[2020-02-27] MEDS ORDERED: MAG HYDROX/AL HYDROX/SIMETH SUSP 30 ML UDCUP PO ONE (03:42)
[2020-02-27] MEDS ORDERED: METOCLOPRAMIDE HCL ORAL SOLN 10 MG/10 ML UDCUP PO ONE (03:42)
[2020-02-27] MEDS ORDERED: LIDOCAINE 2% VISCOUS SOLN 15 ML UDCUP PO ONE (03:42)
--- NOTE | 2020-02-27 03:45 | ER Document Report ---
ED GI/ - General Chief Complaint: Abdominal Pain Stated Complaint: ABDOMINAL PAIN Time Seen by Provider: 02/27/20 03:37 Primary Care Provider: [facility] [Primary Care Provider] - Follow up as needed Notes: CHIEF COMPLAINT: Abdominal pain HPI: 44-year-old alcoholic male presenting for left upper quadrant abdominal pain again today after drinking alcohol. Patient states he was recently admitted for pancreatitis but left the hospital before completing treatment. Patient did not fill the prescriptions written for him at the time that he left the hospital and began drinking alcohol again today causing an increase in his pain. States he had one episode of vomiting. ROS: See HPI - all other systems were reviewed and are otherwise negative Constitutional: no fever Eyes: no drainage, no blurred vision ENT: no runny nose, no sore throat Cardiovascular: no chest pain Resp: no SOB, no cough GI: + vomiting, no diarrhea, + abdominal pain : no dysuria Integumentary: no rash Allergy: no hives Musculoskeletal: no extremity pain or swelling Neurological: no numbness/tingling, no weakness MEDICATIONS: I agree with the patient medications as charted by the RN. ALLERGIES: I agree with the allergies as charted by the RN. PAST MEDICAL HISTORY/PAST SURGICAL HISTORY: Reviewed and agree as charted by RN. SOCIAL HISTORY: Reviewed and agree as charted by RN. FAMILY HISTORY: No significant familial comorbid conditions directly related to patient complaint EXAM: Reviewed vital signs as charted by RN. CONSTITUTIONAL: Alert and oriented and responds appropriately to questions. Well-appearing; well-nourished. I had to wake the patient from sleep for his exam HEAD: Normocephalic; atraumatic EYES: PERRL; Conjunctivae clear, sclerae non-icteric ENT: normal nose; no rhinorrhea; moist mucous membranes; pharynx without lesions noted, no uvula edema or deviation, no tonsillar hypertrophy, phonation normal NECK: Supple without meningismus; non-tender; no cervical lymphadenopathy, no masses CARD: RRR; no murmurs, no clicks, no rubs, no gallops; symmetric distal pulses RESP: Normal chest excursion without splinting or tachypnea; breath sounds clear and equal bilaterally; no wheezes, no rhonchi, no rales, pulse oximetry 98% on room air not hypoxic ABD/GI: Normal bowel sounds; non-distended; soft, mild tenderness epigastric region on palpation, no rebound, no guarding; no palpable organomegaly or masses. BACK: The back appears normal and is non-tender to palpation, there is no CVA tenderness EXT: Normal ROM in all joints; non-tender to palpation; no cyanosis, no effusions, no edema SKIN: Normal color for age and race; warm; dry; good turgor; no acute lesions noted NEURO: Moves all extremities equally; Motor and sensory function intact PSYCH: The patient's mood and manner are appropriate. Grooming and personal hygiene are appropriate. MDM: 44-year-old male with alcoholism history presenting again for upper abdominal pain after drinking alcohol. Of note patient's lipase last week when I admitted the patient to the hospital was almost 8000. Today his lipase is only 500 range. He is not in acute distress I had to wake him from sleep for his exam. Will give GI cocktail given his complaint of heartburn. Awaiting the rest of the patient's lab work but if normal anticipate discharge home with prescription for Pepcid which was written for him by the discharging physician from his previous admission this week. TRAVEL OUTSIDE OF THE [place] IN LAST 30 DAYS: No - Related Data Allergies/Adverse Reactions: No Known Allergies Allergy (Verified 07/02/19 14:05) Home Medications: metoprolol Past Medical History - Social History Smoking Status: Never Smoker Frequency of alcohol use: 8 shots Family History: Hypertension Patient has homicidal ideation: No - Past Medical History Cardiac Medical History: Reports: Hx Atrial Fibrillation - INTERMITTENT, INFREQUENT 1992, , Hx Hypertension Pulmonary Medical History: Denies: Hx Asthma, Hx Intubation, Hx Respiratory Failure Neurological Medical History: Denies: Hx Migraine, Hx Seizures Endocrine Medical History: Denies: Hx Diabetes Mellitus Type 1, Hx Diabetes Tangela litus Type 2, Hx Hyperthyroidism, Hx Hypothyroidism Renal/ Medical History: Denies: Hx Peritoneal Dialysis GI Medical History: Reports: Hx Cirrhosis - History of elevated liver enzymes, Hx Hepatitis - Alcoholic hepatitis. Denies: Hx Crohn's Disease, Hx Gastroesophageal Reflux Disease, Hx Hiatal Hernia, Hx Ulcerative Colitis Musculoskeletal Medical History: Denies Hx Arthritis, Denies Hx Gout, Reports Hx Musculoskeletal Trauma Skin Medical History: Denies Hx Eczema, Denies Hx Psoriasis Psychiatric Medical History: Reports: Hx Anxiety Denies: Hx Depression, Hx Schizophrenia Traumatic Medical History: Reports: Hx Fractures Infectious Medical History: Reports: Hx Hepatitis - Alcoholic hepatitis Past Surgical History: Reports: Hx Abdominal Surgery - hernia, Hx Orthopedic Surgery - left lower extremity - Immunizations Immunizations up to date: Yes Hx Diphtheria, Pertussis, Tetanus Vaccination: Yes Physical Exam - Vital signs Vitals: Temp Pulse Resp BP Pulse Ox 98.4 F 115 H 16 153/92 H 97 02/26/20 23:26 02/26/20 23:26 02/26/20 23:26 02/26/20 23:26 02/26/20 23:26 Course - Re-evaluation Re-evalutation: 02/27/20 04:41 Patient's alcohol level is 215. He has had no vomiting here. Will p.o. challenge anticipate discharge to follow-up with gastroenterology. Evidences no withdrawal symptoms here - Vital Signs Vital signs: Temp Pulse Resp BP Pulse Ox 98.4 F 115 H 16 153/92 H 97 02/26/20 23:55 02/26/20 23:26 02/26/20 23:26 02/26/20 23:26 02/26/20 23:26 - Laboratory Result Diagrams: 02/27/20 02:48 02/27/20 02:48 Laboratory results interpreted by me: 02/27/20 02/27/20 02/27/20 02:48 02:48 03:30 Hgb 11.1 L Hct 34.3 L MCV 73 L MCH 23.9 L RDW 22.0 H Lymphocytes % (Manual) 8 L Eosinophils % (Manual) 7 H Basophils % (Manual) 3 H Potassium 3.5 L Glucose 123 H AST 219 H ALT 82 H Alkaline Phosphatase 138 H Albumin 3.4 L Lipase 510.7 H Urine Protein 30 H Urine Blood SMALL H Discharge - Discharge 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 Take the Pepcid as prescribed to help with the inflammation in the stomach. Stop drinking alcohol Prescriptions: Famotidine [Pepcid 20 mg Tablet] 20 mg PO BID #40 tablet Referrals: [facility] [Primary Care Provider] - Follow up as needed EMELINA BRAY MD [ACTIVE STAFF] - Follow up as needed
[2020-02-27 03:53] LABS: ABSOLUTE LYMPHOCYTES# (MANUAL) 0.6 10^3/uL (0.5-4.7); ABSOLUTE MONOCYTES # (MANUAL) 0.4 10^3/uL (0.1-1.4); BASOPHILS % (MANUAL) 3 % (0-2); EOSINOPHILS % (MANUAL) 7 % (0-6); LYMPHOCYTES % (MANUAL) 8 % (13-45); MONOCYTES % (MANUAL) 6 % (3-13); SEGMENTED NEUTROPHILS % (MAN) 76 % (42-78); TOTAL CELLS COUNTED 100
[2020-02-27 03:54] LABS: TOXIC GRANULATION 1+; TOXIC VACUOLATION PRESENT
[2020-02-27 03:55] LABS: ANISOCYTOSIS 3+; OVALOCYTES 1+; PLATELET COMMENT ADEQUATE; POIKILOCYTOSIS 3+; TARGET CELLS 2+; TEAR DROP CELLS 1+
[2020-02-27 04:35] LABS: APPEARANCE,URINE SLIGHTLY-CLOUDY; BILIRUBIN,URINE NEGATIVE (NEGATIVE); COLOR,URINE YELLOW; GLUCOSE, URINE NEGATIVE (NEGATIVE); KETONES,URINE NEGATIVE (NEGATIVE); LEUKOCYTE ESTERASE,URINE NEGATIVE (NEGATIVE); NITRITE,URINE NEGATIVE (NEGATIVE); PROTEIN,URINE 30 mg/dL (NEGATIVE); URINE SPECIFIC GRAVITY 1.026; UROBILINOGEN,URINE NEGATIVE mg/dL (<2.0)
[2020-02-27] MEDS ORDERED: NORMAL SALINE 1000 ML 1,000 ML IV ONE (05:06)
[2020-02-27] MEDS ORDERED: LORAZEPAM INJ 2 MG/1 ML VIAL IV ONE (05:06)
[2020-02-27] MEDS ORDERED: FAMOTIDINE 20 MG TABLET PO ONE (05:27)
[2020-02-27 06:35] VITALS: BP 130/82
== END 2020-02-27 06:35 | disposition home or self-care (01) ==
LOC: ER 23:11
DX: K29.20 Alcoholic gastritis without bleeding (principal); R10.12 Left upper quadrant pain; R10.816 Epigastric abdominal tenderness; R00.0 Tachycardia, unspecified; R11.10 Vomiting, unspecified; I10 Essential (primary) hypertension; Z79.899 Other long term (current) drug therapy
CPT/HCPCS: 99284; 96361; 96374; 36415; 80307; 83690; 85025; 80053; 81001; J3490; J2060; J7030

== ENCOUNTER 2020-02-28 13:29 | Emergency (ER) | payer SELFPAY ==
[2020-02-28] MEDS ORDERED: NORMAL SALINE 1000 ML 1,000 ML IV ONE (13:59)
[2020-02-28] MEDS ORDERED: MORPHINE SULFATE 10 MG/ML INJ IV ONE (13:59)
[2020-02-28] MEDS ORDERED: ONDANSETRON HCL INJ/PF 4 MG/2 ML SDV IV ONE (13:59)
--- NOTE | 2020-02-28 14:01 | ER Document Report ---
ED GI/ - General Stated Complaint: VOMITING/DIARRHEA/SHORTNESS OF BREATH/NAUSEA Time Seen by Provider: 02/28/20 13:43 Primary Care Provider: [facility] [Primary Care Provider] - Follow up tomorrow Mode of Arrival: Ambulatory Information source: Patient Notes: Patient presents complaining of upper abdominal pain and left upper quadrant tenderness for the past 10 days. Patient states that he was here recently for this. Patient is a heavy drinker and last had alcohol 2 days ago. Patient denies any fever cough. Patient does report nausea vomiting diarrhea. Patient denies any urinary symptoms. Patient does report a previous history of alcoholic pancreatitis. TRAVEL OUTSIDE OF THE [place] IN LAST 30 DAYS: No - HPI Patient complains to provider of: Abdominal pain, Diarrhea, Vomiting Onset: Other - 10 days Timing/Duration: Worse Quality of pain: Dull, Sharp Pain Level: 5 Location: Epigastric, LUQ Associated symptoms: Diarrhea, Nausea, Vomiting. denies: Urinary hesitancy, Urinary frequency, Urinary retention, Urinary urgency Exacerbated by: Denies Relieved by: Denies Similar symptoms previously: Yes Recently seen / treated by doctor: Yes - Related Data Allergies/Adverse Reactions: No Known Allergies Allergy (Verified 02/28/20 14:40) Past Medical History - General Information source: Patient - Social History Smoking Status: Never Smoker Frequency of alcohol use: Heavy Drug Abuse: None Occupation: Foodservice Family History: Hypertension - Past Medical History Cardiac Medical History: Reports: Hx Atrial Fibrillation - INTERMITTENT, INFREQUENT 1992, PAF, Hx Hypertension Pulmonary Medical History: Denies: Hx Asthma, Hx Intubation, Hx Respiratory Failure Neurological Medical History: Denies: Hx Migraine, Hx Seizures Renal/ Medical History: Denies: Hx Peritoneal Dialysis GI Medical History: Reports: Hx Cirrhosis - History of elevated liver enzymes, Hx Hepatitis - Alcoholic hepatitis Musculoskeletal Medical History: Reports Hx Musculoskeletal Trauma Skin Medical History: Denies Hx Eczema, Denies Hx Psoriasis Psychiatric Medical History: Reports: Hx Anxiety Traumatic Medical History: Reports: Hx Fractures Infectious Medical History: Reports: Hx Hepatitis - Alcoholic hepatitis Past Surgical History: Reports: Hx Abdominal Surgery - hernia, Hx Orthopedic Surgery - left lower extremity - Immunizations Immunizations up to date: Yes Hx Diphtheria, Pertussis, Tetanus Vaccination: Yes Review of Systems - Review of Systems Constitutional: No symptoms reported. denies: Fever, Recent illness EENT: No symptoms reported Cardiovascular: No symptoms reported. denies: Chest pain Respiratory: No symptoms reported. denies: Cough, Short of breath Gastrointestinal: Abdominal pain, Diarrhea, Nausea, Vomiting Genitourinary: No symptoms reported. denies: Dysuria, Flank pain Male Genitourinary: No symptoms reported Musculoskeletal: No symptoms reported Skin: No symptoms reported Hematologic/Lymphatic: No symptoms reported Neurological/Psychological: No symptoms reported Physical Exam - Vital signs Vitals: Temp Pulse Resp BP Pulse Ox 98.9 F 84 22 H 172/115 H 95 02/28/20 13:40 02/28/20 13:40 02/28/20 13:40 02/28/20 13:40 02/28/20 13:40 - General General appearance: Appears well, Alert In distress: None - HEENT Head: Normocephalic, Atraumatic Eyes: Normal Conjunctiva: Normal Nasal: Normal Mouth/Lips: Normal Mucous membranes: Normal Neck: Normal, Supple. No: Lymphadenopathy - Respiratory Respiratory status: No respiratory distress Chest status: Nontender Breath sounds: Normal. No: Rales, Rhonchi, Stridor, Wheezing Chest palpation: Normal - Cardiovascular Rhythm: Regular Heart sounds: S1 appreciated, S2 appreciated - Abdominal Inspection: Normal Distension: No distension Bowel sounds: Normal Tenderness: Tender - epigastric, LUQ Organomegaly: No organomegaly - Back Back: Normal, Nontender. No: CVA tenderness - Extremities General upper extremity: Normal inspection, Normal strength General lower extremity: Normal inspection, Normal strength - Neurological Neuro grossly intact: Yes Cognition: Normal [place] Coma Scale Eye Opening: Spontaneous [place] Coma Scale Verbal: Oriented [place] Coma Scale Motor: Obeys Commands Chava Coma Scale Total: 15 - Psychological Associated symptoms: Normal affect, Normal mood - Skin Skin Temperature: Warm Skin Moisture: Dry Skin Color: Normal Course - Re-evaluation Re-evalutation: 02/28/20 15:26 Patient denies any improvement of pain symptoms. Mother states that patient did have some shakiness. Patient does report that he has not had any alcohol for the past 2 days and is a heavy drinker. 02/28/20 16:53 Patient continues with abdominal tenderness, additional medication ordered. Patient with a CIWA score of 11 at this time worrisome for mild withdrawal symptoms. Consulted with Dr. Veloz regarding patient presentation, recommends giving GI cocktail and attempting to get his pain symptoms under control. If patient is unable to have his pain controlled, may consider admission. 02/28/20 18:24 Patient reports pain was resolved initially after the GI cocktail but has started to return mildly. Patient does feel that he can manage his symptoms at home. 02/28/20 19:[address] Veloz regarding patient status at this time. Patient does feel that he can manage his symptoms at home and will be planning for discharge at this time. Dr. Veloz recommends prescribing Librium 25 mg 1-2 tabs every 4 hours for symptoms of alcohol withdrawal on day 2 she advises giving the same dose, day 3 recommends giving 2 tabs every 6 hours, day 4 give 2 tabs every 8 hours, day 5 give 1 tab daily 8 hours, day 6 give 1 tab every 12 hours. - Vital Signs Vital signs: Temp Pulse Resp BP Pulse Ox 99 F 96 18 149/102 H 98 02/28/20 19:07 02/28/20 19:07 02/28/20 19:07 02/28/20 19:07 02/28/20 19:07 - Laboratory Result Diagrams: 02/28/20 14:35 02/28/20 15:39 Laboratory results interpreted by me: 02/28/20 02/28/20 02/28/20 14:35 15:39 17:35 Hgb 10.4 L Hct 32.8 L MCV 74 L MCH 23.4 L MCHC 31.7 L RDW 22.2 H Lymph % (Auto) 7.5 L Seg Neutrophils % 80.8 H Sodium 134.6 L AST 185 H ALT 62 H Alkaline Phosphatase 133 H Total Protein 6.2 L Albumin 3.0 L Lipase 1930.0 H Urine Protein 30 H Urine Blood SMALL H Labs- All tests 24 hr 02/28/20 02/28/20 02/28/20 14:35 14:35 15:39 WBC 8.9 RBC 4.44 Hgb 10.4 L Hct 32.8 L MCV 74 L MCH 23.4 L MCHC 31.7 L RDW 22.2 H Plt Count 239 Lymph % (Auto) 7.5 L [place] % (Auto) 9.5 Eos % (Auto) 2.0 Baso % (Auto) 0.2 Absolute Neuts (auto) 7.2 Absolute Lymphs (auto) 0.7 Absolute Monos (auto) 0.8 Absolute Eos (auto) 0.2 Absolute Basos (auto) 0.0 Seg Neutrophils % 80.8 H Sodium Cancelled 134.6 L Potassium Cancelled 3.8 Chloride Cancelled 99 Carbon Dioxide Cancelled 30 Anion Gap Cancelled 6 BUN Cancelled 8 Creatinine Cancelled 0.64 Est GFR ( Amer) Cancelled > 60 Est GFR (Non-Af Amer) Cancelled Est GFR (MDRD) Non-Af Cancelled > 60 Glucose Cancelled 107 Calcium Cancelled 8.6 Total Bilirubin Cancelled 0.8 Direct Bilirubin Cancelled 0.0 Neonat Total Bilirubin Cancelled Not Reportable Neonat Direct Bilirubin Cancelled Not Reportable Neonat Indirect Bili Cancelled Not Reportable AST Cancelled 185 H ALT Cancelled 62 H Alkaline Phosphatase Cancelled 133 H Total Protein Cancelled 6.2 L Albumin Cancelled 3.0 L Lipase Cancelled 1930.0 H EGFR Cancelled Serum Alcohol Cancelled < 10 Discharge - Discharge Clinical Impression: Alcohol abuse Pancreatitis Qualifiers: Chronicity: acute Pancreatitis type: alcohol induced Acute pancreatitis c omplication: unspecified Qualified Code(s): K85.20 - Alcohol induced acute pancreatitis without necrosis or infection Gastritis Qualifiers: Gastritis type: alcoholic Chronicity: acute Gastritis bleeding: without bleeding Qualified Code(s): K29.20 - Alcoholic gastritis without bleeding Condition: Stable Disposition: HOME, SELF-CARE Instructions: Abdominal Pain ([facility]), Gastritis ([facility]), Pancreatitis ([facility]) Additional Instructions: Return immediately for any new or worsening symptoms Followup with your primary care provider, call tomorrow to make a followup appointment Avoid use of alcohol, take the chlordiazepoxide as directed to help with withdrawal from alcohol. Follow-up with a brick veneer maker for further evaluation Prescriptions: Sucralfate [Carafate 1 gm Tablet] 1 gm PO ACHS #40 tablet Chlordiazepoxide HCl 25 mg PO ASDIR PRN 6 Days #43 capsule PRN Reason: Famotidine [Pepcid 20 mg Tablet] 20 mg PO BID #12 tablet Ondansetron [Zofran Odt 4 mg Tablet] 1 tab PO Q6H #15 tab.rapdis Referrals: [facility] [Primary Care Provider] - Follow up tomorrow
[2020-02-28 15:15] LABS: ABSOLUTE EOSINOPHILS # (AUTO) 0.2 10^3/uL (0.0-0.6); ABSOLUTE LYMPHOCYTES (AUTO) 0.7 10^3/uL (0.5-4.7); ABSOLUTE MONOCYTES (AUTO) 0.8 10^3/uL (0.1-1.4); ABSOLUTE NEUT (AUTO) 7.2 10^3/uL (1.7-8.2); BASOPHILS % (AUTO) 0.2 % (0-2); HEMATOCRIT 32.8 % (37.9-51.0); HEMOGLOBIN 10.4 g/dL (13.5-17.0); LYMPHOCYTES % (AUTO) 7.5 % (13-45); MEAN CORPUSCULAR HEMOGLOBIN 23.4 pg (27.0-33.4); MEAN CORPUSCULAR HGB CONC 31.7 g/dL (32.0-36.0); MEAN CORPUSCULAR VOLUME 74 fl (80-97); MONOCYTES % (AUTO) 9.5 % (3-13); PLATELET COUNT 239 10^3/uL (150-450); RED BLOOD COUNT 4.44 10^6/uL (4.35-5.55); RED CELL DISTRIBUTION WIDTH 22.2 % (11.5-14.0); SEGMENTED NEUTROPHILS % (AUTO) 80.8 % (42-78); TOTAL CELLS COUNTED % (AUTO) 100 %; WHITE BLOOD COUNT 8.9 10^3/uL (4.0-10.5)
[2020-02-28] MEDS ORDERED: LORAZEPAM INJ 2 MG/1 ML VIAL IV ONE (15:42)
[2020-02-28 16:10] LABS: ALKALINE PHOSPHATASE 133 U/L (38-126); ANION GAP 6 (5-19); ASPARTATE AMINO TRANSFERASE 185 U/L (17-59); BILIRUBIN,TOTAL 0.8 mg/dL (0.2-1.3); BLOOD UREA NITROGEN 8 mg/dL (7-20); CALCIUM 8.6 mg/dL (8.4-10.2); CARBON DIOXIDE 30 mmol/L (22-30); CHLORIDE 99 mmol/L (98-107); GLUCOSE 107 mg/dL (75-110); POTASSIUM 3.8 mmol/L (3.6-5.0); TOTAL PROTEIN 6.2 g/dL (6.3-8.2)
[2020-02-28 16:11] LABS: ALCOHOL < 10 mg/dL (NONE DETECTED)
[2020-02-28] MEDS ORDERED: LIDOCAINE 2% VISCOUS SOLN 15 ML UDCUP PO ONE (16:52)
[2020-02-28] MEDS ORDERED: FAMOTIDINE INJ/PF 20 MG/2 ML SDV IV ONE (16:52)
[2020-02-28] MEDS ORDERED: MAG HYDROX/AL HYDROX/SIMETH SUSP 30 ML UDCUP PO ONE (16:52)
[2020-02-28 18:08] LABS: APPEARANCE,URINE CLEAR; BILIRUBIN,URINE NEGATIVE (NEGATIVE); COLOR,URINE YELLOW; GLUCOSE, URINE NEGATIVE (NEGATIVE); KETONES,URINE NEGATIVE (NEGATIVE); LEUKOCYTE ESTERASE,URINE NEGATIVE (NEGATIVE); NITRITE,URINE NEGATIVE (NEGATIVE); PROTEIN,URINE 30 mg/dL (NEGATIVE); URINE SPECIFIC GRAVITY 1.025; UROBILINOGEN,URINE NEGATIVE mg/dL (<2.0)
[2020-02-28 19:09] VITALS: BP 149/102
== END 2020-02-28 19:09 | disposition home or self-care (01) ==
LOC: ER 13:29
DX: K85.20 Alcohol induced acute pancreatitis without necrosis or infection (principal); K29.20 Alcoholic gastritis without bleeding; R10.13 Epigastric pain; R10.12 Left upper quadrant pain; R10.812 Left upper quadrant abdominal tenderness; R10.816 Epigastric abdominal tenderness; R11.2 Nausea with vomiting, unspecified; R19.7 Diarrhea, unspecified; I10 Essential (primary) hypertension
CPT/HCPCS: 99284; 96361; 96374; 96375; 36415; 80307; 83690; 85025; 80053; 81001; J3490; J2270; J2060; J2405; J7030; S0028

== ENCOUNTER 2020-03-05 11:37 | Emergency (ER) | payer SELFPAY ==
[2020-03-05] MEDS ORDERED: MORPHINE SULFATE 10 MG/ML INJ IV ONE ×2 (13:51→17:16)
[2020-03-05] MEDS ORDERED: ONDANSETRON HCL INJ/PF 4 MG/2 ML SDV IV ONE (13:52)
--- NOTE | 2020-03-05 13:53 | ER Document Report ---
ED GI Bleed / Rectal Pain - General Chief Complaint: Rectal Bleeding Stated Complaint: RECTAL PAIN Time Seen by Provider: 03/05/20 13:35 Primary Care Provider: HAILEY SEGOVIA MD [ACTIVE STAFF] - Follow up as needed Notes: 44-year-old male presents to the emergency department with a complaint of pain in the rectal area. Apparently he has had symptoms for the past 2 days. States that it is so severe that he is unable to sit down. He denies fever or hemorrhaging. He complains of possible hemorrhoids. TRAVEL OUTSIDE OF THE [place] IN LAST 30 DAYS: No - Related Data Allergies/Adverse Reactions: No Known Allergies Allergy (Verified 02/28/20 14:40) Past Medical History - General Information source: Patient - Social History Smoking Status: Former Smoker Family History: Hypertension Patient has homicidal ideation: No - Past Medical History Cardiac Medical History: Reports: Hx Atrial Fibrillation - INTERMITTENT, INFREQUENT 1993, PAF, Hx Hypertension Pulmonary Medical History: Denies: Hx Asthma, Hx Intubation, Hx Respiratory Failure Neurological Medical History: Denies: Hx Migraine, Hx Seizures Endocrine Medical History: Denies: Hx Diabetes Mellitus Type 1, Hx Diabetes Mellitus Type 2, Hx Hyperthyroidism, Hx Hypothyroidism Renal/ Medical History: Denies: Hx Peritoneal Dialysis GI Medical History: Reports: Hx Cirrhosis - History of elevated liver enzymes, Hx Hepatitis - Alcoholic hepatitis. Denies: Hx Crohn's Disease, Hx Gastroesophageal Reflux Disease, Hx Hiatal Hernia, Hx Ulcerative Colitis Musculoskeletal Medical History: Denies Hx Arthritis, Denies Hx Gout, Reports Hx Musculoskeletal Trauma Skin Medical History: Denies Hx Eczema, Denies Hx Psoriasis Psychiatric Medical History: Reports: Hx Anxiety Denies: Hx Depression, Hx Schizophrenia Traumatic Medical History: Reports: Hx Fractures Infectious Medical History: Reports: Hx Hepatitis - Alcoholic hepatitis Past Surgical History: Reports: Hx Abdominal Surgery - hernia, Hx Orthopedic Surgery - left lower extremity - Immunizations Immunizations up to date: Yes Hx Diphtheria, Pertussis, Tetanus Vaccination: Yes Review of Systems - Review of Systems Notes: Constitutional: Negative for fever. HENT: Negative for sore throat. Eyes: Negative for visual changes. Cardiovascular: Negative for chest pain. Respiratory: Negative for shortness of breath. Gastrointestinal: + Rectal pain Genitourinary: Negative for dysuria. Musculoskeletal: Negative for back pain. Skin: Negative for rash. Neurological: Negative for headaches, weakness or numbness. 10 point ROS negative except as marked above and in HPI. Physical Exam - Vital signs Vitals: Temp Pulse Resp BP Pulse Ox 98.7 F 139 H 16 142/88 H 95 03/05/20 11:42 03/05/20 11:42 03/05/20 11:42 03/05/20 11:42 03/05/20 11:42 - Notes Notes: PHYSICAL EXAMINATION: Physical Exam: General: Well-nourished well-developed in no acute distress HEENT: NC/AT, pupils equal round and reactive to light, MM moist,nares clear, oropharynx clear, airway patent Neck: supple, no adenopathy, no masses. Good range of motion Lungs: clear, no wheezing, no rales no rhonchi CVS: Regular rate and rhythm no murmur gallop or rub Abdomen: Soft, active, nontender, no masses, no hepatosplenomegaly, + markedly enlarged bilateral rectal hemorrhoids Ext: No edema, clubbing or cyanosis. Neuro: Alert and responsive, moving all 4 extremities on command, cranial nerves intact, no focal findings Skin: Intact no open lesions, no rash PSYCH: Normal mood, normal affect. Course - Vital Signs Vital signs: Temp Pulse Resp BP Pulse Ox 99.7 F 117 H 16 137/93 H 89 L 03/05/20 14:37 03/05/20 14:37 03/05/20 11:42 03/05/20 14:37 03/05/20 14:50 03/05/20 18:49 Patient presents to the ER with severe rectal hemorrhoids. I have asked the surgicalist to see patient. Dr. Segovia came to the emergency department and saw the patient thinks that the hemorrhoids can be treated with cold packs to reduce the swelling and stool softeners, Stiz baths, and topical Nupercainal ointment. He will have the patient followed up in the surgery clinic next week. - Laboratory Result Diagrams: 03/05/20 14:10 03/05/20 14:10 Laboratory results interpreted by me: 03/05/20 03/05/20 14:10 14:10 RBC 4.20 L Hgb 10.1 L Hct 31.3 L MCV 74 L MCH 24.0 L RDW 22.9 H Lymph % (Auto) 8.6 L Eos % (Auto) 6.4 H Absolute Eos (auto) 0.7 H Sodium 133.7 L Calcium 8.1 L AST 114 H Alkaline Phosphatase 127 H Total Protein 6.0 L Albumin 2.8 L Discharge - Discharge Clinical Impression: External hemorrhoids, Rectal pain Condition: Good Disposition: HOME, SELF-CARE Instructions: Hemorrhoids ([facility]) Additional Instructions: You were seen in the emergency department today with external hemorrhoids and rectal pain. Please continue to apply cold packs to the area of swelling, use the Nupercainal ointment for pain, please take the stool softeners as directed, push fluids, tomorrow you may begin using warm tub soaks, add Epsom salts. Please contact the surgical office on Saturday to schedule a follow-up appointment. HOME CARE INSTRUCTIONS & INFORMATION: Thank you for choosing us for your medical needs. We hope you're satisfied with the care you received. After you leave, you must properly care for your problem and, at the same time, observe its progress. Any condition can change. Some illnesses can change rapidly over hours or days. If your condition worsens, return to the Emergency Department or see your physician promptly. ABOUT YOUR X-RAYS AND EKG'S: If you had an EKG or X-rays taken, they have been read by the Emergency Physician. The X-rays and EKG's will also be read by a Radiologist or Life Skills Coordinator Volunteer within 24 hours. If discrepancies are noted, you will be notified by telephone. Please be certain the ED has a correct telephone number & address where you can be reached. Also, realize that some fractures or abnormalities do not show up on initial X-rays. If your symptoms continue, see your physician. ABOUT YOUR LABORATORY TEST: If you had laboratory tests, the results have been reviewed by the Emergency Physician. Some test results (for example cultures) may not be available for several days. You will be contacted if any test result shows you need additional treatment. Please be certain the ED has a correct telephone number and address where you can be reached. ABOUT YOUR MEDICATIONS: You will receive instructions on how to take your medicine on the prescription label you receive. Additional information may be provided by the Pharmacy. If you have questions afterwards, call the ED for c larification or further instructions. Some prescribed medications may cause drowsiness. Do not perform tasks such as driving a car or operating machinery without consulting your Pharmacist. If you feel you need a refill of pain medication, your condition will need re-evaluation. Please do not call for a refill of any medication. ABOUT YOUR SIGNATURE: Signature of this document acknowledges to followin. Understanding that you received emergency treatment and that you may be released before al medical problems are known or treated. Please be certain the ED has a correct phone number & address where you can be reached. 2. Acknowledgement that you will arrange for follow-up care as recommended. 3. Authorization for the Emergency Physician to provide information to your follow-up Physician in order to maximize your care. AT ANY TIME, IF YOUR SYMPTOMS CHANGE SIGNIFICANTLY OR WORSEN OR YOU DEVELOP NEW SYMPTOMS, RETURN TO THE EMERGENCY DEPARTMENT IMMEDIATELY FOR RE-EVALUATION. OUR GOAL IS TO PROVIDE EXCELLENT MEDICAL CARE! WE HOPE THAT WE HAVE MET YOUR EXPECTATIONS DURING YOUR EMERGENCY DEPARTMENT VISIT AND THAT YOU FEEL YOU HAVE RECEIVED EXCELLENT CARE! Prescriptions: Docusate Sodium [Colace 100 mg Capsule] 100 mg PO BID #60 capsule Dibucaine 1% Ointment [Nupercainal 1% Oint 28 gm] 1 applic TP PRN PRN #1 tube PRN Reason: For Pain Referrals: HAILEY SEGOVIA MD [ACTIVE STAFF] - Follow up as needed
[2020-03-05 14:54] LABS: ABSOLUTE BASOPHILS # (AUTO) 0.1 10^3/uL (0.0-0.2); ABSOLUTE EOSINOPHILS # (AUTO) 0.7 10^3/uL (0.0-0.6); ABSOLUTE LYMPHOCYTES (AUTO) 0.9 10^3/uL (0.5-4.7); ABSOLUTE MONOCYTES (AUTO) 0.9 10^3/uL (0.1-1.4); ABSOLUTE NEUT (AUTO) 7.6 10^3/uL (1.7-8.2); BASOPHILS % (AUTO) 0.5 % (0-2); EOSINOPHILS % (AUTO) 6.4 % (0-6); HEMATOCRIT 31.3 % (37.9-51.0); HEMOGLOBIN 10.1 g/dL (13.5-17.0); LYMPHOCYTES % (AUTO) 8.6 % (13-45); MEAN CORPUSCULAR HGB CONC 32.3 g/dL (32.0-36.0); MEAN CORPUSCULAR VOLUME 74 fl (80-97); MONOCYTES % (AUTO) 9.3 % (3-13); PLATELET COUNT 257 10^3/uL (150-450); RED CELL DISTRIBUTION WIDTH 22.9 % (11.5-14.0); SEGMENTED NEUTROPHILS % (AUTO) 75.2 % (42-78); TOTAL CELLS COUNTED % (AUTO) 100 %; WHITE BLOOD COUNT 10.1 10^3/uL (4.0-10.5)
[2020-03-05 15:14] LABS: ALBUMIN 2.8 g/dL (3.5-5.0); ALKALINE PHOSPHATASE 127 U/L (38-126); ANION GAP 7 (5-19); ASPARTATE AMINO TRANSFERASE 114 U/L (17-59); BILIRUBIN,TOTAL 0.6 mg/dL (0.2-1.3); BLOOD UREA NITROGEN 7 mg/dL (7-20); CALCIUM 8.1 mg/dL (8.4-10.2); CARBON DIOXIDE 29 mmol/L (22-30); CHLORIDE 98 mmol/L (98-107); GLUCOSE 103 mg/dL (75-110); POTASSIUM 3.6 mmol/L (3.6-5.0)
--- NOTE | 2020-03-05 17:53 | PDOC CONSULTATION ---
Consultation Consult Date: 03/05/20 Attending physician:: SOUMYA TAY Provider Consulted: HAILEY KHAN Consult reason:: Anal swelling, rule out abscess History of Present Illness History of Present Illness: SOLITARIO CARLTON is a 44 year old male Patient presents emergency department via ground rescue complaining of several day history of anal pain, inability to have a bowel movement, denies previous history of anal problems anal intervention, gastrointestinal problems. He has a long history of alcohol abuse, alcohol withdrawal, recurrent pancreatitis. Seen in the emergency department found to have perianal swelling, surgery was consulted to rule out abscess. Patient admits to constipation, duration unclear. Past Medical History Past Medical History: History of the substance abuse, alcohol abuse, alcohol withdrawal, acute renal insufficiency, recurrent pancreatitis Cardiac Medical History: Reports: Atrial Fibrillation - INTERMITTENT, INFREQUENT 1993, PAF, Hypertension Pulmonary Medical History: Denies: Asthma, Intubation, Respiratory Failure Neurological Medical History: Denies: Migraine, Seizures Endocrine Medical History: Denies: Diabetes Mellitus Type 1, Diabetes Mellitus Type 2, Hyperthyroidism, Hypothyroidism GI Medical History: Reports: Cirrhosis - History of elevated liver enzymes, Hepatitis - Alcoholic hepatitis Denies: Crohn's Disease, Gastroesophageal Reflux Disease, Hiatal Hernia, Ulcerative Colitis Musculoskeltal Medical History: Denies: Arthritis, Gout Skin Medical History: Denies: Eczema, Psoriasis Psychiatric Medical History: Denies: Depression Hematology: Denies: Anemia, Bleeding Tendencies Past Surgical History Past Surgical History: Reports: Orthopedic Surgery - left lower extremity Social History Information Source: Patient Smoking Status: Former Smoker Frequency of Alcohol Use: Heavy Hx Recreational Drug Use: Yes Drugs: Marijuana Hx Prescription Drug Abuse: No Family History Family History: None, Hypertension Parental Family History Reviewed: No Children Family History Reviewed: No Sibling(s) Family History Reviewed.: No Medication/Allergy Home Medications: Metoprolol Tartrate [Lopressor 50 mg Tablet] 50 mg PO Q12 02/20/20 Famotidine [Pepcid 20 mg Tablet] 20 mg PO Q12 28 Days tablet 02/21/20 Thiamine HCl [Thiamine 100 mg Tablet] 100 mg PO DAILY #30 tablet 02/21/20 Famotidine [Pepcid 20 mg Tablet] 20 mg PO BID #40 tablet 02/27/20 Chlordiazepoxide HCl 25 mg PO ASDIR PRN 6 Days #43 capsule 02/28/20 Famotidine [Pepcid 20 mg Tablet] 20 mg PO BID #12 tablet 02/28/20 Ondansetron [Zofran Odt 4 mg Tablet] 1 tab PO Q6H #15 tab.rapdis 02/28/20 Sucralfate [Carafate 1 gm Tablet] 1 gm PO ACHS #40 tablet 02/28/20 Allergies/Adverse Reactions: No Known Allergies Allergy (Verified 02/28/20 14:40) Review of Systems Constitutional: PRESENT: as per HPI Eyes: ABSENT: visual disturbances Ears: ABSENT: hearing changes Cardiovascular: PRESENT: other - History of atrial fibrillation Gastrointestinal: PRESENT: as per HPI, other - History of acute pancreatitis, fatty infiltration of the liver Musculoskeletal: ABSENT: joint swelling Integumentary: ABSENT: rash, wounds Physical Exam Vital Signs: Temp Pulse Resp BP Pulse Ox 99.7 F 117 H 16 137/93 H 89 L 03/05/20 14:37 03/05/20 14:37 03/05/20 11:42 03/05/20 14:37 03/05/20 14:50 Intake & Output 03/04/20 03/05/20 03/06/20 06:59 06:59 06:59 Weight 85.9 kg General appearance: PRESENT: mild distress Head exam: PRESENT: normocephalic Eye exam: PRESENT: EOMI Mouth exam: PRESENT: dry mucosa Neck exam: PRESENT: full ROM Respiratory exam: PRESENT: rales Cardiovascular exam: PRESENT: RRR Pulses: PRESENT: normal carotid pulses, normal radial pulses, normal femoral pulses GI/Abdominal exam: PRESENT: soft Rectal exam: PRESENT: other - Patient will be left lateral cubitus position. We had him place his knees to his chest; swollen, edematous circumferential external hemorrhoids, with micro thrombosis of superficial veins. No evidence of cellulitis or erythema. I did not digitalize the anal canal due to patient discomfort Neurological exam: PRESENT: oriented to person, oriented to place, oriented to time, oriented to situation Psychiatric exam: PRESENT: appropriate affect Results Laboratory Results: 03/05/20 14:10 03/05/20 14:10 03/05/20 03/05/20 14:10 14:10 WBC 10.1 RBC 4.20 L Hgb 10.1 L Hct 31.3 L MCV 74 L MCH 24.0 L MCHC 32.3 RDW 22.9 H Plt Count 257 Seg Neutrophils % 75.2 Sodium 133.7 L Potassium 3.6 Chloride 98 Carbon Dioxide 29 Anion Gap 7 BUN 7 Creatinine 0.75 Est GFR ( Amer) > 60 Glucose 103 Calcium 8.1 L Total Bilirubin 0.6 AST 114 H Alkaline Phosphatase 127 H Total Protein 6.0 L Albumin 2.8 L Assessment & Plan - Diagnosis (1) External prolapsed hemorrhoids Is this a current diagnosis for this admission?: Yes Plan: Impression: Subacute edematous external hemorrhoids, circumferential with no evidence of perineal sepsis. Reportedly new problem in patient without previous history of anorectal pathology Recommendations: 1. No indication for surgical intervention in this setting; problem can be managed on an outpatient basis 2. Treat external hemorrhoids with lidocaine jelly, 2%, and ice for swelling reduction 3. Strict bowel regimen of stool softeners, fiber, Metamucil , and fluids; refrain from solid food for 2 to 3 days until bowel movement return to normal consistency; narcotics will contribute to constipation therefore would discourage their use 4. Patient can return to the emergency department, or [facility] in 1 to 2 weeks 5. I reviewed the above with the emergency department staff. (2) Constipation Is this a current diagnosis for this admission?: Yes (3) Alcohol abuse Is this a current diagnosis for this admission?: Yes (4) Hypertension Qualifiers: Is this a current diagnosis for this admission?: Yes (5) Paroxysmal atrial fibrillation Is this a current diagnosis for this admission?: Yes - Time Time Spent: 30 to 50 Minutes Smoking Cessation Education: over 10 minutes Anticipated discharge: Home Within: within 24 hours
[2020-03-05] MEDS ORDERED: DIBUCAINE 1% OINTMENT 28 GM TP ONE (18:51)
[2020-03-05 19:15] VITALS: BP 138/79
== END 2020-03-05 19:16 | disposition home or self-care (01) ==
LOC: ER 11:37
DX: K64.4 Residual hemorrhoidal skin tags (principal); K62.89 Other specified diseases of anus and rectum; I10 Essential (primary) hypertension
CPT/HCPCS: 99284; 96374; 96375; 36415; 85025; 80053; J2270; J2405; J3490

== ENCOUNTER 2020-07-14 19:22 | Observation (INO) | payer SELFPAY ==
[2020-07-14] MEDS ORDERED: RINGERS SOLUTION,LACTATED 1,000 ML IV ONE (20:39)
--- NOTE | 2020-07-14 20:41 | ER Document Report ---
ED Medical Screen (RME) - General Chief Complaint: Headache Stated Complaint: ABDOMINAL PAIN/HEADACHE Time Seen by Provider: 07/14/20 20:35 TRAVEL OUTSIDE OF THE [place] IN LAST 30 DAYS: No - HPI Notes: 07/14/20 20:40 45-year-old male to the emergency department with complaints of epigastric abdominal pain that radiates through to his back and frontal headache is been going on for about 3 to 4 days. Admits to diarrhea with it also admits to nausea. He states that he has a history of pancreatitis and this feels little similar. He drinks every day Jen day. He states he drinks probably 8-9 shots a day. He works at [employer]. He denies any fevers or chills. He denies any cough. He denies any shortness of breath. He states that he was admitted at [facility] for 5 months a year ago for pancreatitis. I performed a brief medical screening exam on the patient determined that the patient needs further evaluation and management by main side provider. I have placed initial orders to help expedite care. - Related Data Allergies/Adverse Reactions: No Known Allergies Allergy (Verified 07/14/20 20:34) Past Medical History - Social History Frequency of alcohol use: Heavy Drug Abuse: None - Past Medical History Cardiac Medical History: Reports: Hx Atrial Fibrillation - INTERMITTENT, INFREQUENT 1992, , Hx Hypertension Pulmonary Medical History: Denies: Hx Asthma, Hx Intubation, Hx Respiratory Failure Neurological Medical History: Denies: Hx Migraine, Hx Seizures Endocrine Medical History: Denies: Hx Diabetes Mellitus Type 1, Hx Diabetes Mellitus Type 2, Hx Hyperthyroidism, Hx Hypothyroidism Renal/ Medical History: Denies: Hx Peritoneal Dialysis GI Medical History: Reports: Hx Cirrhosis - History of elevated liver enzymes, Hx Hepatitis - Alcoholic hepatitis. Denies: Hx Crohn's Disease, Hx Gastroesophageal Reflux Disease, Hx Hiatal Hernia, Hx Ulcerative Colitis Musculoskeltal Medical History: Denies Hx Arthritis, Denies Hx Gout, Reports Hx Musculoskeletal Trauma Skin Medical History: Denies Hx Eczema, Denies Hx Psoriasis Psychiatric Medical History: Reports: Hx Anxiety Denies: Hx Depression, Hx Schizophrenia Traumatic Medical History: Reports: Hx Fractures Infectious Medical History: Reports: Hx Hepatitis - Alcoholic hepatitis Past Surgical History: Reports: Hx Abdominal Surgery - hernia, Hx Orthopedic Surgery - left lower extremity - Immunizations Immunizations up to date: Yes Hx Diphtheria, Pertussis, Tetanus Vaccination: Yes Physical Exam - Vital signs Vitals: Temp Pulse Resp BP Pulse Ox 98.0 F 123 H 20 165/123 H 95 07/14/20 19:33 07/14/20 19:33 07/14/20 19:33 07/14/20 19:33 07/14/20 19:33 Course - Vital Signs Vital signs: Temp Pulse Resp BP Pulse Ox 98.0 F 123 H 20 165/123 H 95 07/14/20 19:33 07/14/20 19:33 07/14/20 19:33 07/14/20 19:33 07/14/20 19:33
[2020-07-15] MEDS ORDERED: LORAZEPAM 1 MG TABLET PO ONE (02:38)
[2020-07-15] MEDS ORDERED: ONDANSETRON HCL INJ/PF 4 MG/2 ML SDV IV ONE (02:38)
[2020-07-15] MEDS ORDERED: MORPHINE SULFATE 10 MG/ML INJ IV ONE (02:38)
[2020-07-15 02:40] LABS: APPEARANCE,URINE CLEAR; BILIRUBIN,URINE NEGATIVE (NEGATIVE); COLOR,URINE YELLOW; GLUCOSE, URINE NEGATIVE (NEGATIVE); KETONES,URINE NEGATIVE (NEGATIVE); PROTEIN,URINE 100 mg/dL (NEGATIVE); URINE SPECIFIC GRAVITY 1.025; UROBILINOGEN,URINE NEGATIVE mg/dL (<2.0)
[2020-07-15 03:38] LABS: ABSOLUTE BASOPHILS # (AUTO) 0.1 10^3/uL (0.0-0.2); ABSOLUTE EOSINOPHILS # (AUTO) 0.1 10^3/uL (0.0-0.6); ABSOLUTE LYMPHOCYTES (AUTO) 1.5 10^3/uL (0.5-4.7); ABSOLUTE MONOCYTES (AUTO) 0.9 10^3/uL (0.1-1.4); ABSOLUTE NEUT (AUTO) 6.4 10^3/uL (1.7-8.2); BASOPHILS % (AUTO) 0.9 % (0-2); HEMATOCRIT 41.7 % (37.9-51.0); HEMOGLOBIN 14.1 g/dL (13.5-17.0); LYMPHOCYTES % (AUTO) 16.4 % (13-45); MEAN CORPUSCULAR HEMOGLOBIN 31.3 pg (27.0-33.4); MEAN CORPUSCULAR HGB CONC 33.9 g/dL (32.0-36.0); MEAN CORPUSCULAR VOLUME 92 fl (80-97); MONOCYTES % (AUTO) 10.1 % (3-13); PLATELET COUNT 231 10^3/uL (150-450); RED BLOOD COUNT 4.52 10^6/uL (4.35-5.55); SEGMENTED NEUTROPHILS % (AUTO) 71.6 % (42-78); TOTAL CELLS COUNTED % (AUTO) 100 %; WHITE BLOOD COUNT 8.9 10^3/uL (4.0-10.5)
[2020-07-15 04:02] LABS: ALBUMIN 4.1 g/dL (3.5-5.0); ALCOHOL 145 mg/dL (NONE DETECTED); ALKALINE PHOSPHATASE 126 U/L (38-126); ANION GAP 14 (5-19); ASPARTATE AMINO TRANSFERASE 92 U/L (17-59); BILIRUBIN,DIRECT 0.2 mg/dL (0.0-0.4); BILIRUBIN,TOTAL 0.7 mg/dL (0.2-1.3); BLOOD UREA NITROGEN 12 mg/dL (7-20); CALCIUM 8.8 mg/dL (8.4-10.2); CARBON DIOXIDE 23 mmol/L (22-30); CHLORIDE 102 mmol/L (98-107); GLUCOSE 88 mg/dL (75-110); POTASSIUM 3.9 mmol/L (3.6-5.0); TOTAL PROTEIN 7.7 g/dL (6.3-8.2)
[2020-07-15] MEDS ORDERED: METOPROLOL SUCCINATE 50 MG TAB.SR.24H PO ONE (04:36)
[2020-07-15] MEDS ORDERED: KETOROLAC TROMETHAMINE INJ/PF 30 MG/1 ML SDV IV ONE (04:43)
[2020-07-15] MEDS ORDERED: FAMOTIDINE INJ/PF 20 MG/2 ML SDV IV ONE (04:43)
--- NOTE | 2020-07-15 04:46 | ER Document Report ---
ED General - General Chief Complaint: Headache Stated Complaint: ABDOMINAL PAIN/HEADACHE Time Seen by Provider: 07/14/20 20:35 Mode of Arrival: Ambulatory Information source: Patient Notes: 45-year-old male patient with history of alcoholic pancreatitis presenting to the emergency department chief complaint of generalized abdominal pain with nausea and headache. Patient reports the pain radiates through to his back. He states the headache is now resolving but has been present for 3 to 4 days. He denies any vomiting but does report a few episodes of diarrhea. He states history of pancreatitis and reports this feels very similar. He drinks approximately 8-9 shots of liquor per day. He denies having any recent fever or chills. He has not had cough, shortness of breath or any known exposure 20 COVID-19 positive persons. TRAVEL OUTSIDE OF THE [place] IN LAST 30 DAYS: No - Related Data Allergies/Adverse Reactions: No Known Allergies Allergy (Verified 07/14/20 20:34) Past Medical History - General Information source: Patient - Social History Smoking Status: Former Smoker Frequency of alcohol use: Heavy Drug Abuse: None Family History: Hypertension Patient has homicidal ideation: No - Past Medical History Cardiac Medical History: Reports: Hx Atrial Fibrillation - INTERMITTENT, INFREQUENT 1992, PAF, Hx Hypertension Pulmonary Medical History: Denies: Hx Asthma, Hx Intubation, Hx Respiratory Failure Neurological Medical History: Denies: Hx Migraine, Hx Seizures Endocrine Medical History: Denies: Hx Diabetes Mellitus Type 1, Hx Diabetes Mellitus Type 2, Hx Hyperthyroidism, Hx Hypothyroidism Renal/ Medical History: Denies: Hx Peritoneal Dialysis GI Medical History: Reports: Hx Cirrhosis - History of elevated liver enzymes, Hx Hepatitis - Alcoholic hepatitis. Denies: Hx Crohn's Disease, Hx Gastroesophageal Reflux Disease, Hx Hiatal Hernia, Hx Ulcerative Colitis Musculoskeletal Medical History: Denies Hx Arthritis, Denies Hx Gout, Reports Hx Musculoskeletal Trauma Skin Medical History: Denies Hx Eczema, Denies Hx Psoriasis Psychiatric Medical History: Reports: Hx Anxiety Denies: Hx Depression, Hx Schizophrenia Traumatic Medical History: Reports: Hx Fractures Infectious Medical History: Reports: Hx Hepatitis - Alcoholic hepatitis Past Surgical History: Reports: Hx Abdominal Surgery - hernia, Hx Orthopedic Surgery - left lower extremity - Immunizations Immunizations up to date: Yes Hx Diphtheria, Pertussis, Tetanus Vaccination: Yes Review of Systems - Review of Systems Constitutional: No symptoms reported EENT: No symptoms reported Cardiovascular: No symptoms reported Respiratory: No symptoms reported Gastrointestinal: Abdominal pain, Diarrhea, Nausea Genitourinary: No symptoms reported Male Genitourinary: No symptoms reported Musculoskeletal: No symptoms reported Skin: No symptoms reported Hematologic/Lymphatic: No symptoms reported Neurological/Psychological: Headaches Physical Exam - Vital signs Vitals: Temp Pulse Resp BP Pulse Ox 98.0 F 123 H 20 165/123 H 95 07/14/20 19:33 07/14/20 19:33 07/14/20 19:33 07/14/20 19:33 07/14/20 19:33 - Notes Notes: PHYSICAL EXAMINATION: GENERAL: Well-appearing, well-nourished and in no acute distress. HEAD: Atraumatic, normocephalic. EYES: Pupils equal round and reactive to light, extraocular movements intact, sclera anicteric, conjunctiva are normal. ENT: Nares patent, oropharynx clear without exudates. Moist mucous membranes. NECK: Normal range of motion, supple without lymphadenopathy LUNGS: Breath sounds clear to auscultation bilaterally and equal. No wheezes rales or rhonchi. HEART: Regular rate and rhythm without murmurs ABDOMEN: Soft, nondistended abdomen. Tenderness in the epigastric area. Musculoskeletal: Normal range of motion, no pitting or edema. No cyanosis. NEUROLOGICAL: Cranial nerves grossly intact. Normal speech. Normal sensory, motor exams PSYCH: Normal mood, normal affect. SKIN: Warm, Dry, normal turgor, no rashes or lesions noted. Course - Re-evaluation Re-evalutation: 07/15/20 05:42 At the time of my initial evaluation patient appears well, nontoxic. His tachycardia that he arrived with has resolved. He states he was very anxious when he checked in. He believes his abdominal pain feels similar to when he had pancreatitis in the past. He states he last consumed alcohol yesterday morning. He does report he has had "shakes" in the past when he is not had alcohol. Laboratory 07/15/20 07/15/20 07/15/20 02:17 03:25 03:25 WBC 8.9 RBC 4.52 Hgb 14.1 Hct 41.7 MCV 92 MCH 31.3 MCHC 33.9 RDW 16.0 H Plt Count 231 Lymph % (Auto) 16.4 Jennings % (Auto) 10.1 Eos % (Auto) 1.0 Baso % (Auto) 0.9 Absolute Neuts (auto) 6.4 Absolute Lymphs (auto) 1.5 Absolute Monos (auto) 0.9 Absolute Eos (auto) 0.1 Absolute Basos (auto) 0.1 Seg Neutrophils % 71.6 Sodium 138.7 Potassium 3.9 Chloride 102 Carbon Dioxide 23 Anion Gap 14 BUN 12 Creatinine 0.71 Est GFR ( Amer) > 60 Est GFR (MDRD) Non-Af > 60 Glucose 88 Calcium 8.8 Total Bilirubin 0.7 Direct Bilirubin 0.2 Neonat Total Bilirubin Not Reportable Neonat Direct Bilirubin Not Reportable Neonat Indirect Bili Not Reportable AST 92 H ALT 23 Alkaline Phosphatase 126 Total Protein 7.7 Albumin 4.1 Lipase 789.7 H Urine Color YELLOW Urine Appearance CLEAR Urine pH 5.0 Ur Specific Marilla 1.025 Urine Protein 100 H Urine Glucose (UA) NEGATIVE Urine Ketones NEGATIVE Urine Blood SMALL H Urine Nitrite (Reflex) NEGATIVE Urine Bilirubin NEGATIVE Urine Urobilinogen NEGATIVE Leukocyte Esterase Rfl NEGATIVE Urine RBC (Auto) 1 Urine WBC (Reflex) < 1 Urine Mucus (Auto) RARE Urine Ascorbic Acid NEGATIVE Serum Alcohol 145 Patient has an unremarkable CBC, CMP with no electrolyte derangements. He does have an elevated lipase of 789. Patient has had much higher lipase in the past. The last time he was here about 6 months ago his lipase was 1930. He reports significant upper abdominal tenderness after the medications wear off. He was sent for a CT of the abdomen pelvis which shows no obvious acute abnormalities. When I went in to reevaluate the patient and discuss his CT scan results the patient reports increased pain and "shakes". Will order additional medications and also call the hospitalist for possible admission. 07/15/20 07:45 Spoke to hospitalist, Dr. Cooley, she will come to evaluate the patient. - Vital Signs Vital signs: Temp Pulse Resp BP Pulse Ox 98.0 F 123 H 22 H 158/100 H 96 07/14/20 19:33 07/14/20 19:33 07/15/20 02:01 07/15/20 05:00 07/15/20 07:00 - Laboratory Result Diagrams: 07/15/20 03:25 07/15/20 03:25 Laboratory results interpreted by me: 07/15/20 07/15/20 07/15/20 02:17 03:25 03:25 RDW 16.0 H AST 92 H Lipase 789.7 H Urine Protein 100 H Urine Blood SMALL H Discharge - Discharge Clinical Impression: Alcohol abuse Acute alcoholic pancreatitis Qualifiers: Acute pancreatitis complication: no infection or necrosis Qualified Code(s): K85.20 - Alcohol induced acute pancreatitis without necrosis or infection Condition: Stable Disposition: ADMITTED OBSERVATION Admitting Provider: Yasir (Hospitalist) Unit Admitted: Medical Floor
--- NOTE | 2020-07-15 05:45 | RADIOLOGY REPORT (SQ) ---
CLINICAL HISTORY: abdominal pain COMPARISON: 07/02/2019. TECHNIQUE: CT ABDOMEN PELVIS WITH IV CONTRAST on 07/15/2020 4:45 AM CDT This exam was performed according to our departmental dose-optimization program, which includes automated exposure control, adjustment of the mA and/or kV according to patient size and/or use of iterative reconstruction technique. FINDINGS: Lower lungs are clear. Abdomen: The liver is normal in appearance. There is no biliary dilatation. Gallbladder is normally distended. The pancreas and spleen are normal in appearance. The adrenal glands and kidneys are unremarkable. Abdominal aorta is normal in course and caliber without aneurysm. There is no free air. There is no retroperitoneal adenopathy. Pelvis: There is mild diverticulosis of the distal colon. Urinary bladder is unremarkable. There is no free fluid. There is a small fat-containing right inguinal hernia. Appendix is normal. Skeleton: There are no acute osseous findings. No suspicious bony lesions. IMPRESSION: No definite acute inflammatory process.
[2020-07-15] MEDS ORDERED: LORAZEPAM INJ 2 MG/1 ML VIAL IV ONE (07:57)
[2020-07-15] MEDS ORDERED: ONDANSETRON HCL INJ/PF 4 MG/2 ML SDV IV PRN (08:22)
[2020-07-15] MEDS ORDERED: NORMAL SALINE 1000 ML 1,000 ML IV ONE (08:32)
[2020-07-15] MEDS ORDERED: DIAZEPAM INJ 10 MG/2 ML DISP.SYRIN IV ONE (09:00)
[2020-07-15] MEDS: METOPROLOL TARTRATE 50 MG TABLET PO SCH ×2 (09:52→21:38)
[2020-07-15] MEDS: ENOXAPARIN SODIUM INJ 40 MG/0.4 ML DISP.SYRIN SUBCUT SCH (09:54)
[2020-07-15] MEDS ORDERED: THIAMINE HCL 100 MG, FOLIC ACID 1 MG in NORMAL SALINE 250 ML IV ONE (10:00)
[2020-07-15] MEDS: PANTOPRAZOLE SODIUM 40 MG VIAL IV SCH (10:03)
[2020-07-15 10:57] LABS: URINE AMPHETAMINES SCREEN NEGATIVE; URINE BARBITURATES SCREEN NEGATIVE; URINE BENZODIAZEPINES SCREEN NEGATIVE; URINE COCAINE SCREEN NEGATIVE; URINE MARIJUANA (THC) SCREEN NEGATIVE; URINE METHADONE SCREEN NEGATIVE; URINE PHENCYCLIDINE SCREEN NEGATIVE
[2020-07-15] MEDS: MORPHINE SULFATE 10 MG/ML INJ IV PRN ×2 (12:43→18:01)
[2020-07-15] MEDS ORDERED: METOPROLOL TARTRATE PF/INJ 5 MG/5 ML SDV IV ONE (13:15)
[2020-07-15] MEDS: RINGERS SOLUTION,LACTATED 1,000 ML IV PRN ×3 (13:16→23:06)
[2020-07-15] MEDS ORDERED: CLONIDINE HCL 0.1 MG TABLET PO ONE (14:45)
[2020-07-15] MEDS: LORAZEPAM INJ 2 MG/1 ML VIAL IV PRN ×2 (15:06→21:38)
--- NOTE | 2020-07-15 16:48 | PDOC H&P ---
History of Present Illness Admission Date/PCP: 07/15/20 08:30 Patient complains of: abdominal pain, tremulousness History of Present Illness: SOLITARIO CARLTON is a 45 year old male, past medical history of atrial fibrillation on metoprolol, history of recurrent pancreatitis last 1 in March. He came to the ED due to abdominal pain, epigastric, nonradiating, worse when he drinks alcohol, 10 out of 10 on pain scale that started 1 day prior to admission. He denied any fever, vomiting, melena or hematochezia. He drinks 1/5 of whiskey every day, denies any prior admission due to alcohol withdrawal, no alcohol-related seizure, has never been on rehab for alcohol. In the emergency room blood pressure 165/123, heart rate of 123, respiratory rate 22. BC showed WBC count of 18.9, hemoglobin 14.1. CMP showed sodium 138.7 potassium 3.9, lipase 789.7. CT abdomen showed no definite acute inflammatory process. Hospitalist service was called to evaluate and admit patient. Past Medical History Cardiac Medical History: Reports: Atrial Fibrillation - INTERMITTENT, INFREQUENT 1992, PAF, Hypertension Pulmonary Medical History: Denies: Asthma, Intubation, Respiratory Failure EENT Medical History: Reports: None Neurological Medical History: Denies: Migraine, Seizures Endocrine Medical History: Denies: Diabetes Mellitus Type 1, Diabetes Mellitus Type 2, Hyperthyroidism, Hypothyroidism Renal/ Medical History: Reports: None Malignancy Medical History: Reports: None GI Medical History: Reports: Cirrhosis - History of elevated liver enzymes, Hepatitis - Alcoholic hepatitis Denies: Crohn's Disease, Gastroesophageal Reflux Disease, Hiatal Hernia, Ulcerative Colitis Musculoskeltal Medical History: Denies: Arthritis, Gout Skin Medical History: Denies: Eczema, Psoriasis Psychiatric Medical History: Denies: Depression Hematology: Denies: Anemia, Bleeding Tendencies Past Surgical History Past Surgical History: Reports: Orthopedic Surgery - left lower extremity Social History Information Source: Patient Lives with: Friend Smoking Status: Never Smoker Cigarettes Packs Per Day: 1 Electronic Cigarette use?: No Frequency of Alcohol Use: Heavy Hx Recreational Drug Use: Yes Drugs: Marijuana Hx Prescription Drug Abuse: No Family History Family History: Hypertension Parental Family History Reviewed: Yes Children Family History Reviewed: Yes Sibling(s) Family History Reviewed.: Yes Medication/Allergy Home Medications: Unobtainable 07/15/20 Allergies/Adverse Reactions: No Known Allergies Allergy (Verified 07/14/20 20:34) Review of Systems Constitutional: PRESENT: headache(s), weakness Eyes: ABSENT: visual disturbances Ears: ABSENT: hearing changes Cardiovascular: ABSENT: chest pain, edema, orthropnea Respiratory: ABSENT: dyspnea Gastrointestinal: PRESENT: abdominal pain, nausea. ABSENT: diarrhea, heartburn, melena, vomiting Musculoskeletal: PRESENT: back pain Neurological: ABSENT: convulsions, syncope Psychiatric: PRESENT: anxiety Physical Exam Vital Signs: Temp Pulse Resp BP Pulse Ox 98.3 F 82 18 168/105 H 97 07/15/20 14:24 07/15/20 14:24 07/15/20 14:24 07/15/20 14:24 07/15/20 14:24 Intake & Output 07/14/20 07/15/20 07/16/20 06:59 06:59 06:59 Intake Total 1000 1431.2 Output Total 400 Balance 1000 1031.2 Weight 77.111 kg General appearance: PRESENT: no acute distress, cooperative Head exam: PRESENT: atraumatic, normocephalic Eye exam: PRESENT: EOMI, PERRLA Mouth exam: PRESENT: moist Neck exam: PRESENT: full ROM Respiratory exam: PRESENT: clear to auscultation kaleb, symmetrical. ABSENT: unlabored Cardiovascular exam: PRESENT: RRR, +S1, +S2 Pulses: PRESENT: +2 pedal pulses bilateral GI/Abdominal exam: PRESENT: normal bowel sounds, tenderness. ABSENT: rebound Extremities exam: ABSENT: +2 edema Musculoskeletal exam: PRESENT: full ROM Neurological exam: PRESENT: alert, awake, oriented to person, oriented to place, oriented to time, oriented to situation Psychiatric exam: PRESENT: anxious Skin exam: PRESENT: normal color Results Laboratory Results: 07/15/20 03:25 07/15/20 03:25 07/15/20 07/15/20 07/15/20 02:17 03:25 03:25 WBC 8.9 RBC 4.52 Hgb 14.1 Hct 41.7 MCV 92 MCH 31.3 MCHC 33.9 RDW 16.0 H Plt Count 231 Seg Neutrophils % 71.6 Sodium 138.7 Potassium 3.9 Chloride 102 Carbon Dioxide 23 Anion Gap 14 BUN 12 Creatinine 0.71 Est GFR ( Amer) > 60 Glucose 88 Calcium 8.8 Total Bilirubin 0.7 AST 92 H Alkaline Phosphatase 126 Total Protein 7.7 Albumin 4.1 Lipase 789.7 H Urine Color YELLOW Urine Appearance CLEAR Urine pH 5.0 Ur Specific Wann 1.025 Urine Protein 100 H Urine Glucose (UA) NEGATIVE Urine Ketones NEGATIVE Urine Blood SMALL H Urine RBC (Auto) 1 Impressions: Abdomen/Pelvis CT 07/15/20 04:45 IMPRESSION: No definite acute inflammatory process. Assessment and Plan - Diagnosis (1) Alcohol withdrawal Qualifiers: Complication of substance-induced condition: uncomplicated Is this a current diagnosis for this admission?: Yes Plan: -known heavy alcohol drinker consumes about 1/5 of whiskey daily. He has been drinking since he was 11 -No prior admission for alcohol withdrawal, no history of alcohol-related seizure, no prior rehab for alcohol -Has had several bouts of pancreatitis at least 4 times due to alcohol -Last alcohol intake July 14 at around 4 PM. -We will do CIWA scoring and administer Ativan as needed -Thiamine and folate given -Clonidine for elevated blood pressure and heart rate -IV fluids (2) Acute recurrent pancreatitis Is this a current diagnosis for this admission?: Yes Plan: -Previous history of alcohol-related pancreatitis at least 4 times in the past -Last episode was back in March patient was admitted at [facility] and stayed for 5 weeks due to complications. Stent was placed in his abdomen which has since been removed -Lipase 790 -CT abdomen no acute inflammatory process -Started on IV fluids -Morphine for pain -NPO (3) Alcohol abuse Is this a current diagnosis for this admission?: Yes Plan: - patient extensively counseled to quit drinking (4) Tobacco abuse Is this a current diagnosis for this admission?: Yes Plan: -smokes 1ppd for 22 years - counseling done - Time Time Spent with patient: 35 or more minutes Anticipated Discharge Disposition: Home, Self Care Anticipated Discharge Timeframe: within 48 hours
[2020-07-15] MEDS: CLONIDINE HCL 0.1 MG TABLET PO SCH (21:38)
[2020-07-15] MEDS ORDERED: CLONIDINE HCL 0.1 MG TABLET PO SCH (22:00)
[2020-07-16] MEDS: MORPHINE SULFATE 10 MG/ML INJ IV PRN ×4 (02:05→16:08)
[2020-07-16] MEDS ORDERED: HYDRALAZINE HCL INJ/PF 20 MG/1 ML SDV IV PRN (04:53)
[2020-07-16 05:08] LABS: HEMOGLOBIN 12.7 g/dL (13.5-17.0); MEAN CORPUSCULAR HEMOGLOBIN 32.2 pg (27.0-33.4); MEAN CORPUSCULAR HGB CONC 35.1 g/dL (32.0-36.0); MEAN CORPUSCULAR VOLUME 92 fl (80-97); PLATELET COUNT 144 10^3/uL (150-450); RED BLOOD COUNT 3.93 10^6/uL (4.35-5.55); RED CELL DISTRIBUTION WIDTH 15.2 % (11.5-14.0); WHITE BLOOD COUNT 4.9 10^3/uL (4.0-10.5)
[2020-07-16 05:29] LABS: ALBUMIN 3.5 g/dL (3.5-5.0); ALKALINE PHOSPHATASE 132 U/L (38-126); ANION GAP 8 (5-19); ASPARTATE AMINO TRANSFERASE 75 U/L (17-59); BILIRUBIN,DIRECT 0.3 mg/dL (0.0-0.4); BILIRUBIN,TOTAL 1.6 mg/dL (0.2-1.3); BLOOD UREA NITROGEN 9 mg/dL (7-20); CALCIUM 8.9 mg/dL (8.4-10.2); CARBON DIOXIDE 25 mmol/L (22-30); CHLORIDE 97 mmol/L (98-107); GLUCOSE 77 mg/dL (75-110); POTASSIUM 3.9 mmol/L (3.6-5.0); TOTAL PROTEIN 6.7 g/dL (6.3-8.2)
[2020-07-16] MEDS: PANTOPRAZOLE SODIUM 40 MG VIAL IV SCH (08:25)
[2020-07-16] MEDS: MAGNESIUM SULFATE/D5W 1 GM/100 ML RTUPB IV SCH ×3 (08:26→12:17)
[2020-07-16] MEDS: RINGERS SOLUTION,LACTATED 1,000 ML IV PRN (08:27)
[2020-07-16] MEDS: CLONIDINE HCL 0.1 MG TABLET PO SCH ×2 (09:48→22:26)
[2020-07-16] MEDS: AMLODIPINE BESYLATE 10 MG TABLET PO SCH (09:48)
[2020-07-16] MEDS: METOPROLOL TARTRATE 50 MG TABLET PO SCH ×2 (09:49→22:26)
[2020-07-16] MEDS: ENOXAPARIN SODIUM INJ 40 MG/0.4 ML DISP.SYRIN SUBCUT SCH (09:49)
[2020-07-16] MEDS: NORMAL SALINE 1000 ML 1,000 ML IV PRN ×3 (12:05→23:23)
[2020-07-16 12:58] LABS: OSMOLALITY,URINE 440 mOsm/kg (300-900)
[2020-07-16 13:04] LABS: URINE SODIUM 193 mmol/L (30-90)
--- NOTE | 2020-07-16 14:16 | PDOC PROGRESS REPORT ---
Subjective Progress Note for:: 07/16/20 Subjective:: SOLITARIO CARLTON is a 45 year old male, past medical history of atrial fibrillation on metoprolol, history of recurrent pancreatitis last 1 in March. He came to the ED due to abdominal pain, epigastric, nonradiating, worse when he drinks alcohol, 10 out of 10 on pain scale that started 1 day prior to admission. He denied any fever, vomiting, melena or hematochezia. He drinks 1/5 of whiskey every day, denies any prior admission due to alcohol withdrawal, no alcohol-related seizure, has never been on rehab for alcohol. In the emergency room blood pressure 165/123, heart rate of 123, respiratory rate 22. BC showed WBC count of 18.9, hemoglobin 14.1. CMP showed sodium 138.7 potassium 3.9, lipase 789.7. CT abdomen showed no definite acute inflammatory process. Hospitalist service was called to evaluate and admit patient. D2 Hospital stay. HE was seen and examined at bedside. Abdominal pain has improved but he feels quite anxious which I suspect maybe from alcohol withdrawal. Blood pressure still elevated. He is currently on CIWA with ativan, scheduled valium and clonidine fro symptoms and HTN. HE was started on regular diet. IV fluids continued. Reason For Visit: ALCOHOL ABUSE, PANCREATITIS Physical Exam Vital Signs: Temp Pulse Resp BP Pulse Ox 97.7 F 89 16 159/104 H 96 07/16/20 11:17 07/16/20 11:17 07/16/20 11:17 07/16/20 11:17 07/16/20 11:17 Intake & Output 07/15/20 07/16/20 07/17/20 06:59 06:59 06:59 Intake Total 1000 4198.2 200 Output Total 400 1100 Balance 1000 3798.2 -900 Weight 77.11 kg General appearance: PRESENT: no acute distress, cooperative Head exam: PRESENT: atraumatic, normocephalic Eye exam: PRESENT: EOMI, PERRLA Mouth exam: PRESENT: moist Neck exam: PRESENT: full ROM Respiratory exam: PRESENT: clear to auscultation kaleb, symmetrical, unlabored Cardiovascular exam: PRESENT: RRR, tachycardia Pulses: PRESENT: +2 pedal pulses bilateral GI/Abdominal exam: PRESENT: normal bowel sounds, soft, tenderness - epigastric. ABSENT: rebound Extremities exam: PRESENT: full ROM Musculoskeletal exam: PRESENT: full ROM Neurological exam: PRESENT: alert, awake, oriented to person, oriented to place, oriented to time Psychiatric exam: PRESENT: anxious Skin exam: PRESENT: normal color Results Laboratory Results: 07/16/20 04:50 07/16/20 04:50 07/16/20 07/16/20 07/16/20 04:50 04:50 04:50 WBC 4.9 RBC 3.93 L Hgb 12.7 L Hct 36.0 L MCV 92 MCH 32.2 MCHC 35.1 RDW 15.2 H Plt Count 144 L Sodium 130.4 L Potassium 3.9 Chloride 97 L Carbon Dioxide 25 Anion Gap 8 BUN 9 Creatinine 0.74 Est GFR ( Amer) > 60 Glucose 77 Serum Osmolality 270 L Calcium 8.9 Magnesium 1.3 L Total Bilirubin 1.6 H AST 75 H Alkaline Phosphatase 132 H Total Protein 6.7 Albumin 3.5 Urine Osmolality 07/16/20 12:31 WBC RBC Hgb Hct MCV MCH MCHC RDW Plt Count Sodium Potassium Chloride Carbon Dioxide Anion Gap BUN Creatinine Est GFR ( Amer) Glucose Serum Osmolality Calcium Magnesium Total Bilirubin AST Alkaline Phosphatase Total Protein Albumin Urine Osmolality 440 Impressions: Abdomen/Pelvis CT 07/15/20 04:45 IMPRESSION: No definite acute inflammatory process. Assessment and Plan - Diagnosis (1) Alcohol withdrawal Qualifiers: Complication of substance-induced condition: uncomplicated Is this a current diagnosis for this admission?: Yes Plan: -known heavy alcohol drinker consumes about 1/5 of whiskey daily. He has been drinking since he was 11 -No prior admission for alcohol withdrawal, no history of alcohol-related seizure, no prior rehab for alcohol - still anxious and tremulous -Has had several bouts of pancreatitis at least 4 times due to alcohol -Last alcohol intake July 14 at around 4 PM. 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 Stent was placed in his abdomen which has since been removed -Lipase 790 -CT abdomen no acute inflammatory process -Started on IV fluids -Morphine for pain -NPO (3) Alcohol abuse Is this a current diagnosis for this admission?: Yes Plan: - patient extensively counseled to quit drinking (4) Tobacco abuse Is this a current diagnosis for this admission?: Yes Plan: -smokes 1ppd for 22 years - counseling done - Time Time Spent with patient: 25-34 minutes Anticipated Discharge Disposition: Home, Self Care Anticipated Discharge Timeframe: within 48 hours
[2020-07-16] MEDS ORDERED: DIAZEPAM 5 MG TABLET PO PRN (18:00)
[2020-07-16] MEDS: LORAZEPAM INJ 2 MG/1 ML VIAL IV PRN ×2 (19:06→23:32)
[2020-07-16] MEDS ORDERED: SODIUM CHLORIDE 1 GM TABLET PO ONE ×2 (19:30→23:00)
[2020-07-16] MEDS: DIAZEPAM 5 MG TABLET PO SCH (22:26)
[2020-07-16] MEDS: DOCUSATE SODIUM 100 MG CAPSULE PO SCH (22:26)
[2020-07-17] MEDS: NORMAL SALINE 1000 ML 1,000 ML IV PRN (04:30)
[2020-07-17] MEDS: LORAZEPAM INJ 2 MG/1 ML VIAL IV PRN (07:05)
[2020-07-17] MEDS: PANTOPRAZOLE SODIUM 40 MG VIAL IV SCH (08:16)
[2020-07-17 08:39] LABS: HEMOGLOBIN 12.4 g/dL (13.5-17.0); MEAN CORPUSCULAR HEMOGLOBIN 32.1 pg (27.0-33.4); MEAN CORPUSCULAR HGB CONC 34.3 g/dL (32.0-36.0); MEAN CORPUSCULAR VOLUME 94 fl (80-97); PLATELET COUNT 133 10^3/uL (150-450); RED BLOOD COUNT 3.85 10^6/uL (4.35-5.55); RED CELL DISTRIBUTION WIDTH 15.4 % (11.5-14.0); WHITE BLOOD COUNT 4.4 10^3/uL (4.0-10.5)
[2020-07-17 08:58] LABS: ALBUMIN 3.2 g/dL (3.5-5.0); ALKALINE PHOSPHATASE 113 U/L (38-126); ANION GAP 10 (5-19); ASPARTATE AMINO TRANSFERASE 62 U/L (17-59); BILIRUBIN,DIRECT 0.2 mg/dL (0.0-0.4); BILIRUBIN,TOTAL 0.7 mg/dL (0.2-1.3); BLOOD UREA NITROGEN 5 mg/dL (7-20); CALCIUM 8.6 mg/dL (8.4-10.2); CARBON DIOXIDE 19 mmol/L (22-30); CHLORIDE 105 mmol/L (98-107); GLUCOSE 180 mg/dL (75-110); POTASSIUM 3.8 mmol/L (3.6-5.0); TOTAL PROTEIN 6.7 g/dL (6.3-8.2)
[2020-07-17 10:04] LABS: ABSOLUTE LYMPHOCYTES# (MANUAL) 0.5 10^3/uL (0.5-4.7); ABSOLUTE MONOCYTES # (MANUAL) 0.2 10^3/uL (0.1-1.4); BASOPHILS % (MANUAL) 0 % (0-2); EOSINOPHILS % (MANUAL) 4 % (0-6); LYMPHOCYTES % (MANUAL) 11 % (13-45); MONOCYTES % (MANUAL) 5 % (3-13); PLATELET COMMENT DECREASED; RBC MORPHOLOGY COMMENT NORMO-CYTIC/CHROMIC; SEGMENTED NEUTROPHILS % (MAN) 80 % (42-78); TOTAL CELLS COUNTED 100
[2020-07-17] MEDS: CLONIDINE HCL 0.1 MG TABLET PO SCH (11:14)
[2020-07-17] MEDS: METOPROLOL TARTRATE 50 MG TABLET PO SCH (11:14)
[2020-07-17] MEDS: DIAZEPAM 5 MG TABLET PO SCH (11:14)
[2020-07-17] MEDS: DOCUSATE SODIUM 100 MG CAPSULE PO SCH (11:14)
[2020-07-17] MEDS: AMLODIPINE BESYLATE 10 MG TABLET PO SCH (11:14)
[2020-07-17] MEDS: ENOXAPARIN SODIUM INJ 40 MG/0.4 ML DISP.SYRIN SUBCUT SCH (11:15)
[2020-07-17] MEDS ORDERED: POLYETHYLENE GLYCOL 3350 POWDER 17 GM/1 PACKET PO ONE (11:30)
[2020-07-17 14:23] VITALS: BP 157/93
--- NOTE | 2020-07-17 17:01 | PDOC DISCHARGE SUMMARY ---
Impression - Admit/DC Date/PCP Admission Date/Primary Care Provider: 07/15/20 08:30 Discharge Date: 07/17/20 - Discharge Diagnosis (1) Alcohol withdrawal Is this a current diagnosis for this admission?: Yes (2) Acute recurrent pancreatitis Is this a current diagnosis for this admission?: Yes (3) Alcohol abuse Is this a current diagnosis for this admission?: Yes (4) Tobacco abuse Is this a current diagnosis for this admission?: Yes - Additional Information Discharge Diet: As Tolerated Discharge Activity: Activity As Tolerated Referrals: [facility] [Outside] Prescriptions: Lorazepam [Ativan 0.5 mg Tablet] 0.5 mg PO Q8HP PRN 2 Days #6 tab PRN Reason: Clonidine HCl [Catapres 0.1 mg Tablet] 0.2 mg PO Q12 14 Days #28 tablet Metoprolol Tartrate [Lopressor 50 mg Tablet] 50 mg PO Q12 30 Days #60 tablet Amlodipine Besylate [Norvasc 10 mg Tablet] 10 mg PO DAILY 30 Days #30 tablet Pantoprazole Sodium [Protonix [address] Tablet] 40 mg PO NOW 30 Days #30 tabl et. Home Medications: Amlodipine Besylate [Norvasc 10 mg Tablet] 10 mg PO DAILY 30 Days #30 tablet 07/17/20 Clonidine HCl [Catapres 0.1 mg Tablet] 0.2 mg PO Q12 14 Days #28 tablet 07/17/20 Lorazepam [Ativan 0.5 mg Tablet] 0.5 mg PO Q8HP PRN 2 Days #6 tab 07/17/20 Metoprolol Tartrate [Lopressor 50 mg Tablet] 50 mg PO Q12 30 Days #60 tablet 07/17/20 Pantoprazole Sodium [Protonix [address] Tablet] 40 mg PO NOW 30 Days #30 tablet. 07/17/20 History of Present Illiness History of Present Illness: SOLITARIO CARLTON is a 45 year old male, past medical history of atrial fibrillation on metoprolol, history of recurrent pancreatitis last 1 in March. He came to the ED due to abdominal pain, epigastric, nonradiating, worse when he drinks alcohol, 10 out of 10 on pain scale that started 1 day prior to admission. He denied any fever, vomiting, melena or hematochezia. He drinks 1/5 of whiskey every day, denies any prior admission due to alcohol withdrawal, no alcohol-related seizure, has never been on rehab for alcohol. In the emergency room blood pressure 165/123, heart rate of 123, respiratory rate 22. BC showed WBC count of 18.9, hemoglobin 14.1. CMP showed sodium 138.7 potassium 3.9, lipase 789.7. CT abdomen showed no definite acute inflammatory process. Hospitalist service was called to evaluate and admit patient. Hospital Course Hospital Course: D2 Hospital stay. HE was seen and examined at bedside. Abdominal pain has improved but he feels quite anxious which I suspect maybe from alcohol withdrawal. Blood pressure still elevated. He is currently on CIWA with ativan, scheduled valium and clonidine fro symptoms and HTN. HE was started on regular diet. IV fluids continued. D3 Hospital stay Jun. He was seen and examined at bedside. He reports that his abdominal pain has completely resolved. He has minimal withdrawal symptoms. He was discharged on clonidine and protonix post discharge and he was advised to follow up with PCP and rehab center. Advised to quit drinking Physical Exam Vital Signs: Temp Pulse Resp BP Pulse Ox 97.3 F 72 16 157/93 H 97 07/17/20 12:26 07/17/20 12:26 07/17/20 12:26 07/17/20 12:26 07/17/20 12:26 Intake & Output 07/16/20 07/17/20 07/18/20 06:59 06:59 06:59 Intake Total 4198.2 5197 480 Output Total 400 2750 Balance 3798.2 2447 480 Weight 77.11 kg 77.11 kg General appearance: PRESENT: no acute distress, cooperative Head exam: PRESENT: atraumatic, normocephalic Eye exam: PRESENT: EOMI, PERRLA Mouth exam: PRESENT: moist Neck exam: PRESENT: full ROM Respiratory exam: PRESENT: clear to auscultation kaleb, symmetrical, unlabored. ABSENT: rales Cardiovascular exam: PRESENT: RRR, +S1, +S2 Pulses: PRESENT: +2 pedal pulses bilateral GI/Abdominal exam: PRESENT: normal bowel sounds, soft. ABSENT: rebound, tenderness Extremities exam: PRESENT: full ROM Musculoskeletal exam: PRESENT: full ROM Neurological exam: PRESENT: alert, awake, oriented to time, oriented to situation Psychiatric exam: PRESENT: normal mood Skin exam: PRESENT: normal color Results Laboratory Results: WBC 4.4 10^3/uL (4.0-10.5) 07/17/20 07:56 WBC Cancelled 07/17/20 07:56 RBC 3.85 10^6/uL (4.35-5.55) L 07/17/20 07:56 RBC Cancelled 07/17/20 07:56 Hgb 12.4 g/dL (13.5-17.0) L 07/17/20 07:56 Hgb Cancelled 07/17/20 07:56 Hct 36.0 % (37.9-51.0) L 07/17/20 07:56 Hct Cancelled 07/17/20 07:56 MCV 94 fl (80-97) 07/17/20 07:56 MCV Cancelled 07/17/20 07:56 MCH 32.1 pg (27.0-33.4) 07/17/20 07:56 MCH Cancelled 07/17/20 07:56 MCHC 34.3 g/dL (32.0-36.0) 07/17/20 07:56 MCHC Cancelled 07/17/20 07:56 RDW 15.4 % (11.5-14.0) H 07/17/20 07:56 RDW Cancelled 07/17/20 07:56 Plt Count 133 10^3/uL (150-450) L 07/17/20 07:56 Plt Count Cancelled 07/17/20 07:56 Lymph % (Auto) Cancelled 07/17/20 07:56 Lymph % (Auto) Not Reportable 07/17/20 07:56 [place] % (Auto) Cancelled 07/17/20 07:56 [place] % (Auto) Not Reportable 07/17/20 07:56 Eos % (Auto) Cancelled 07/17/20 07:56 Eos % (Auto) Not Reportable 07/17/20 07:56 Baso % (Auto) Cancelled 07/17/20 07:56 Baso % (Auto) Not Reportable 07/17/20 07:56 Absolute Neuts (auto) Cancelled 07/17/20 07:56 Absolute Neuts (auto) Not Reportable 07/17/20 07:56 Absolute Lymphs (auto) Cancelled 07/17/20 07:56 Absolute Lymphs (auto) Not Reportable 07/17/20 07:56 Absolute Monos (auto) Cancelled 07/17/20 07:56 Absolute Monos (auto) Not Reportable 07/17/20 07:56 Absolute Eos (auto) Cancelled 07/17/20 07:56 Absolute Eos (auto) Not Reportable 07/17/20 07:56 Absolute Basos (auto) Cancelled 07/17/20 07:56 Absolute Basos (auto) Not Reportable 07/17/20 07:56 Total Counted 100 07/17/20 07:56 Seg Neutrophils % Cancelled 07/17/20 07:56 Seg Neutrophils % Not Reportable 07/17/20 07:56 Seg Neuts % (Manual) 80 % (42-78) H 07/17/20 07:56 Lymphocytes % (Manual) 11 % (13-45) L 07/17/20 07:56 Monocytes % (Manual) 5 % (3-13) 07/17/20 07:56 Eosinophils % (Manual) 4 % (0-6) 07/17/20 07:56 Basophils % (Manual) 0 % (0-2) 07/17/20 07:56 Abs Neuts (Manual) 3.5 10^3/uL (1.7-8.2) 07/17/20 07:56 Abs Lymphs (Manual) 0.5 10^3/uL (0.5-4.7) 07/17/20 07:56 Abs Monocytes (Manual) 0.2 10^3/uL (0.1-1.4) 07/17/20 07:56 Absolute Eos (Manual) 0.2 10^3/uL (0.0-0.6) 07/17/20 07:56 Abs Basophils (Manual) 0.0 10^3/uL (0.0-0.2) 07/17/20 07:56 Platelet Estimate Cancelled 07/17/20 07:56 Platelet Comment DECREASED 07/17/20 07:56 RBC Morph Comment NORMO-CYTIC/CHROMIC 07/17/20 07:56 Sodium 133.7 mmol/L (137-145) L 07/17/20 07:56 Potassium 3.8 mmol/L (3.6-5.0) 07/17/20 07:56 Chloride 105 mmol/L (98-107) 07/17/20 07:56 Carbon Dioxide 19 mmol/L (22-30) L 07/17/20 07:56 Anion Gap 10 (5-19) 07/17/20 07:56 BUN 5 mg/dL (7-20) L 07/17/20 07:56 Creatinine 0.66 mg/dL (0.52-1.25) 07/17/20 07:56 Est GFR ( Amer) > 60 (>60) 07/17/20 07:56 Est GFR (MDRD) Non-Af > 60 (>60) 07/17/20 07:56 Glucose 180 mg/dL (75-110) H 07/17/20 07:56 Serum Osmolality 270 mOsm/kg (275-301) L 07/16/20 04:50 Calcium 8.6 mg/dL (8.4-10.2) 07/17/20 07:56 Magnesium 1.3 mg/dL (1.6-2.3) L 07/16/20 04:50 Total Bilirubin 0.7 mg/dL (0.2-1.3) 07/17/20 07:56 Direct Bilirubin 0.2 mg/dL (0.0-0.4) 07/17/20 07:56 Neonat Total Bilirubin Not Reportable 07/17/20 07:56 Neonat Direct Bilirubin Not Reportable 07/17/20 07:56 Neonat Indirect Bili Not Reportable 07/17/20 07:56 AST 62 U/L (17-59) H 07/17/20 07:56 ALT 15 U/L (<50) 07/17/20 07:56 Alkaline Phosphatase 113 U/L (38-126) 07/17/20 07:56 Total Protein 6.7 g/dL (6.3-8.2) 07/17/20 07:56 Albumin 3.2 g/dL (3.5-5.0) L 07/17/20 07:56 Lipase 789.7 U/L (23-300) H 07/15/20 03:25 Urine Color YELLOW 07/15/20 02:17 Urine Appearance CLEAR 07/15/20 02:17 Urine pH 5.0 (5.0-9.0) 07/15/20 02:17 Ur Specific [place] 1.025 07/15/20 02:17 Urine Protein 100 mg/dL (NEGATIVE) H 07/15/20 02:17 Urine Glucose (UA) NEGATIVE mg/dL (NEGATIVE) 07/15/20 02:17 Urine Ketones NEGATIVE mg/dL (NEGATIVE) 07/15/20 02:17 Urine Blood SMALL (NEGATIVE) H 07/15/20 02:17 Urine Nitrite (Reflex) NEGATIVE (NEGATIVE) 07/15/20 02:17 Urine Bilirubin NEGATIVE (NEGATIVE) 07/15/20 02:17 Urine Urobilinogen NEGATIVE mg/dL (<2.0) 07/15/20 02:17 Leukocyte Esterase Rfl NEGATIVE (NEGATIVE) 07/15/20 02:17 Urine RBC (Auto) 1 /HPF 07/15/20 02:17 Urine WBC (Reflex) < 1 /HPF 07/15/20 02:17 Urine Mucus (Auto) RARE /LPF 07/15/20 02:17 Urine Osmolality 440 mOsm/kg (300-900) 07/16/20 12:31 Urine Sodium 193 mmol/L (30-90) H 07/16/20 12:31 Urine Ascorbic Acid NEGATIVE (NEGATIVE) 07/15/20 02:17 Urine Opiates Screen NEGATIVE 07/15/20 02:17 Urine Methadone Screen NEGATIVE 07/15/20 02:17 Ur Barbiturates Screen NEGATIVE 07/15/20 02:17 Ur Phencyclidine Scrn NEGATIVE 07/15/20 02:17 Ur Amphetamines Screen NEGATIVE 07/15/20 02:17 U Benzodiazepines Scrn NEGATIVE 07/15/20 02:17 Urine Cocaine Screen NEGATIVE 07/15/20 02:17 U Marijuana (THC) Screen NEGATIVE 07/15/20 02:17 Serum Alcohol 145 mg/dL (NONE DETECTED) 07/15/20 03:25 Slides for Path Review Cancelled 07/17/20 07:56 Impressions: Abdomen/Pelvis CT 07/15/20 04:45 IMPRESSION: No definite acute inflammatory process. Plan Health Concerns: Anxiety - encouraged him to see a psychiatrist. Prescribed 6 tablets of ativan Alcohol abuse - advised to quit drinking and go to rehab Plan of Treatment: - clonidine for withdrawal and HTN - ativan temporarily for anxiety Goals: - to stop drinking alcohol Stroke Is this a Stroke Patient?: No Acute Heart Failure Is this a Heart Failure Patient?: No
== END 2020-07-17 15:00 | disposition home or self-care (01) ==
LOC: ER 19:22 → EH 07-15 08:30 → 4N 07-15 14:13
PROVIDERS: ADMIT Internal Medicine; ATTEND Internal Medicine
DX: K85.20 Alcohol induced acute pancreatitis without necrosis or infection (principal); F10.139 Alcohol abuse with withdrawal, unspecified; R51.9 Headache, unspecified; R10.84 Generalized abdominal pain; R11.0 Nausea; R19.7 Diarrhea, unspecified; F17.210 Nicotine dependence, cigarettes, uncomplicated; I10 Essential (primary) hypertension
CPT/HCPCS: 99285; 96375; 96365; 96366; 96367; 36415 ×3; 80307 ×2; 83690; 83735; 83930; 83935; 84300; 85025 ×2; 85027; 80053 ×3; 81001; 74177; G0378 ×4; J3490 ×4; J3360; J0360; J1885; J2270 ×2; J1650 ×2; J2060 ×3; J3475; C9113 ×3; J3411; J2405; J7030 ×3; J7050; J7120 ×2; S0028

== ENCOUNTER 2020-09-23 12:07 | Emergency (ER) | payer SELFPAY ==
--- NOTE | 2020-09-23 13:17 | ER Document Report ---
ED Medical Screen (RME) - General Chief Complaint: Anxiety Stated Complaint: ANXIOUS Time Seen by Provider: 09/23/20 13:13 TRAVEL OUTSIDE OF THE [place] IN LAST 30 DAYS: No - HPI Notes: 09/23/20 13:16 45-year-old male presents to ED for evaluation of increased anxiety and diffuse abdominal pain. Patient reports that to help his anxiety today he ended up drinking alcohol. Patient has history of pancreatitis and had stents placed in [place] several weeks ago. Patient reports his pain is more intense however is more left-sided than right-sided at this time. Denies fevers or chills. Denies recent sick contacts. Denies chest pain or shortness of breath. Patient denies any blood present in his vomit or stool. Denies other complaints. - Related Data Allergies/Adverse Reactions: No Known Allergies Allergy (Verified 07/14/20 20:34) Past Medical History - Past Medical History Cardiac Medical History: Reports: Hx Atrial Fibrillation - INTERMITTENT, INFREQUENT 1992, PAF, Hx Hypertension Pulmonary Medical History: Denies: Hx Asthma, Hx Intubation, Hx Respiratory Failure Neurological Medical History: Denies: Hx Migraine, Hx Seizures Endocrine Medical History: Denies: Hx Diabetes Mellitus Type 1, Hx Diabetes Mellitus Type 2, Hx Hyperthyroidism, Hx Hypothyroidism Renal/ Medical History: Denies: Hx Peritoneal Dialysis GI Medical History: Reports: Hx Cirrhosis - History of elevated liver enzymes, Hx Hepatitis - Alcoholic hepatitis. Denies: Hx Crohn's Disease, Hx Gastroesophageal Reflux Disease, Hx Hiatal Hernia, Hx Ulcerative Colitis Musculoskeltal Medical History: Denies Hx Arthritis, Denies Hx Gout, Reports Hx Musculoskeletal Trauma Skin Medical History: Denies Hx Eczema, Denies Hx Psoriasis Psychiatric Medical History: Reports: Hx Anxiety Denies: Hx Depression, Hx Schizophrenia Traumatic Medical History: Reports: Hx Fractures Infectious Medical History: Reports: Hx Hepatitis - Alcoholic hepatitis Past Surgical History: Reports: Hx Abdominal Surgery - hernia, Hx Orthopedic Surgery - left lower extremity - Immunizations Immunizations up to date: Yes Hx Diphtheria, Pertussis, Tetanus Vaccination: Yes Physical Exam - Vital signs Vitals: Temp Pulse Resp BP Pulse Ox 97.9 F 68 20 114/98 H 95 09/23/20 12:10 09/23/20 12:10 09/23/20 12:10 09/23/20 12:10 09/23/20 12:10 General: No acute distress. Alert and oriented x3. Sitting comfortably in a stretcher. Skin: Intact without any jaundice, pallor, or erythema. Warm and dry. Heart: Regular rate and rhythm. S1,S2. No murmurs, rubs, or gallops. Lungs: Clear to ausculation bilaterally. No wheezes, rhonchi, rales. Equal chest expansion. No retractions. Abdomen: Soft, tender to palpation throughout lower abdomen, nondistended. Positive bowel sounds in all 4 quadrants. No hepatosplenomegaly. No masses. No CVA tenderness bilaterally. Neuro: GCS 15. Moving all extremities without discomfort. Extremities: No calf tenderness or edema. No cyanosis or clubbing. Radial and pedal pulses 2+ bilaterally. Brisk capillary refill. Psych: Mood and affect appropriate. Course - Vital Signs Vital signs: Temp Pulse Resp BP Pulse Ox 97.9 F 68 20 114/98 H 95 09/23/20 12:10 09/23/20 12:10 09/23/20 12:10 09/23/20 12:10 09/23/20 12:10
[2020-09-23] MEDS ORDERED: NORMAL SALINE 1000 ML 1,000 ML with POTASSIUM CHLORIDE 20 MEQ, MAGNESIUM SULFATE 8 MEQ,... IV ONE ×5 (14:14)
[2020-09-23] MEDS ORDERED: PANTOPRAZOLE SODIUM 40 MG VIAL IV ONE (14:15)
[2020-09-23] MEDS ORDERED: LORAZEPAM INJ 2 MG/1 ML VIAL IV ONE (14:15)
[2020-09-23 14:20] LABS: ALBUMIN 3.9 g/dL (3.5-5.0); ALKALINE PHOSPHATASE 188 U/L (38-126); ANION GAP 10 (5-19); ASPARTATE AMINO TRANSFERASE 279 U/L (17-59); BILIRUBIN,DIRECT 0.6 mg/dL (0.0-0.4); BILIRUBIN,TOTAL 1.7 mg/dL (0.2-1.3); BLOOD UREA NITROGEN 18 mg/dL (7-20); CALCIUM 8.8 mg/dL (8.4-10.2); CARBON DIOXIDE 23 mmol/L (22-30); CHLORIDE 102 mmol/L (98-107); GLUCOSE 96 mg/dL (75-110); POTASSIUM 5.4 mmol/L (3.6-5.0); TOTAL PROTEIN 8.3 g/dL (6.3-8.2)
--- NOTE | 2020-09-23 14:31 | ER Document Report ---
ED General - General TRAVEL OUTSIDE OF THE [place] IN LAST 30 DAYS: No - Related Data Home Medications: ativan, metoprolol, 3 HTN meds unrecallable <TRIP GROVE - Last Filed: 09/23/20 15:40> <SUSIE VIDALES - Last Filed: 09/23/20 16:09> <SOUMYA ROMERO - Last Filed: 09/23/20 23:18> - General Chief Complaint: Abdominal Pain Stated Complaint: ANXIOUS Time Seen by Provider: 09/23/20 13:13 Primary Care Provider: [facility] [Outside] - Follow up as needed [facility] [Outside] - Follow up as needed - HPI Notes: Chief complaint: Abdominal pain and shakiness History of present illness: 45-year-old male alcoholic with history of chronic/recurrent pancreatitis and pancreatic pseudocyst recently discharged from [facility] after pancreatic stenting. Stated that he felt much better when he first got home. He was initially abstinent from alcohol but within the last week has started having "several shots a day" and says that he is having recurrence of epigastric and left upper quadrant pain intermittently. He has had intermittent nausea and vomiting. He denies hematemesis, melena or hematochezia. He denies fever. States that he has some Ativan at home but has been reluctant to take this. He feels extremely shaky right now. He denies any history of alcohol withdrawal seizures. He denies any auditory visual hallucinations. He denies any thoughts of harming himself or others. He denies any drug use. He is a cigarette smoker. 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 Currently living with his girlfriend and some of her extended family. (TRIP GROVE) - Related Data Allergies/Adverse Reactions: No Known Allergies Allergy (Verified 07/14/20 20:34) Past Medical History - General Information source: Patient, OM Records - Social History Smoking Status: Current Some Day Smoker Chew tobacco use (# tins/day): No Frequency of alcohol use: Heavy Drug Abuse: None Family History: Hypertension Patient has homicidal ideation: No - Past Medical History Cardiac Medical History: Reports: Hx Atrial Fibrillation - INTERMITTENT, INFREQUENT 1993, PAF, Hx Hypertension Pulmonary Medical History: Denies: Hx Asthma, Hx Intubation, Hx Respiratory Failure Neurological Medical History: Denies: Hx Migraine, Hx Seizures Endocrine Medical History: Denies: Hx Diabetes Mellitus Type 1, Hx Diabetes Mellitus Type 2, Hx Hyperthyroidism, Hx Hypothyroidism Renal/ Medical History: Denies: Hx Peritoneal Dialysis GI Medical History: Reports: Hx Cirrhosis - History of elevated liver enzymes, Hx Hepatitis - Alcoholic hepatitis. Denies: Hx Crohn's Disease, Hx Gas troesophageal Reflux Disease, Hx Hiatal Hernia, Hx Ulcerative Colitis Musculoskeletal Medical History: Denies Hx Arthritis, Denies Hx Gout, Reports Hx Musculoskeletal Trauma Skin Medical History: Denies Hx Eczema, Denies Hx Psoriasis Psychiatric Medical History: Reports: Hx Anxiety Denies: Hx Depression, Hx Schizophrenia Traumatic Medical History: Reports: Hx Fractures Infectious Medical History: Reports: Hx Hepatitis - Alcoholic hepatitis Past Surgical History: Reports: Hx Abdominal Surgery - hernia, Hx Orthopedic Surgery - left lower extremity - Immunizations Immunizations up to date: Yes Hx Diphtheria, Pertussis, Tetanus Vaccination: Yes <TRIP GROVE - Last Filed: 09/23/20 15:40> Review of Systems <TRIP GROVE - Last Filed: 09/23/20 15:40> - Review of Systems Notes: Constitutional: Negative for fever. HENT: Negative for sore throat. Eyes: Negative for visual changes. Cardiovascular: Negative for chest pain. Respiratory: Negative for shortness of breath. Gastrointestinal: As per HPI. Genitourinary: Negative for dysuria. Musculoskeletal: Negative for back pain. Skin: Negative for rash. Neurological: Negative for headaches, focal weakness or numbness. 10 point ROS negative except as marked above and in HPI. (TRIP GROVE) Physical Exam <TRIP GROVE E - Last Filed: 09/23/20 15:40> - Vital signs Vitals: Temp Pulse Resp BP Pulse Ox 97.9 F 68 20 114/98 H 95 09/23/20 12:10 09/23/20 12:10 09/23/20 12:10 09/23/20 12:10 09/23/20 12:10 - Notes Notes: GENERAL: Middle-age male appearing mildly tremulous and in mild discomfort. SKIN: Good turgor no rashes. HEAD: Normocephalic atraumatic. EYES: PERRLA. EOMI. Conjunctivae and sclerae clear. EARS: CANALS AND TMS CLEAR. NOSE: CLEAR. MOUTH: Moist mucosa. Good dentition. No stridor or edema. No drooling. NECK: Supple. No masses or thyromegaly. No adenopathy. Carotids 2+ without bruits. No JVD. BACK: Symmetrical without tenderness. CHEST: Respirations unlabored. Breath sounds clear and symmetrical. HEART: Regular rhythm. No murmur gallop or rub. ABDOMEN: Soft nontender without masses, organomegaly or rebound. Bowel sounds normally active. No bruits. GENITALIA: Deferred. EXTREMITIES: No edema. No calf tenderness. Cap refill less than 1.5 seconds. Dorsalis pedis and posterior tibial pulses 3+ and symmetrical. NEUROLOGICAL: GCS 15. Alert and oriented x3. Mild generalized resting tremor. Normal gait. Fluent speech. Cranial nerves II through XII intact. Sensorimotor and cerebellar normal. Normal tone. PSYCHIATRIC: Appropriate affect. (TRIP GROVE) Course - Laboratory Results Result Diagrams: 09/23/20 15:16 09/23/20 13:44 Critical Laboratory Results Reviewed: Yes Attending or Supervising Physician who Reviewed Labs: TRIP GROVE <TRIP GROVE - Last Filed: 09/23/20 15:40> - Laboratory Results Result Diagrams: 09/23/20 15:16 09/23/20 13:44 <SUSIE VIDALES - Last Filed: 09/23/20 16:09> - Laboratory Results Result Diagrams: 09/23/20 15:16 09/23/20 13:44 - Radiology Results Critical Radiology Results Reviewed: No Critical Results <SOUMYA ROMERO - Last Filed: 09/23/20 23:18> - Re-evaluation Re-evalutation: 09/23/20 15:41 Blood alcohol here is 343. I think based on examination and history it is most likely that this man has alcoholic gastritis. He has only mild elevation of his lipase. CT abdomen/pelvis remains pending at this time. Patient receiving IV banana bag. Have also given some Protonix IV. I talked with patient about detox and patient is interested in pursuing this. I will ask the [facility] to speak with this man regarding voluntary detox. CT results are pending at this time as he is evaluation by the [facility] k[facility]. Further care of this patient will be turned over to Dr. Romero at 1600 hrs. (TRIP GROVE) Patient who has had a history of peritonitis and now drinking with epigastric abdominal pain. He has had improvement with IV Protonix and a banana bag CT scan reveals possible early pancreatitis, the lipase is 365.5 Patient states that he would like to go home, I have discussed with him the need to stop all alcohol use or his pancreas will worsen and he will wind up back in the hospital. The patient states that he is currently staying with his father and there is no alcohol allowed in the house. Also given him a prescription for omeprazole and Zofran. (SOUMYA ROMERO) - Vital Signs Vital signs: Temp Pulse Resp BP Pulse Ox 97.9 F 91 18 123/90 H 100 09/23/20 12:10 09/23/20 19:29 09/23/20 19:29 09/23/20 19:29 09/23/20 19:29 - Laboratory Results Laboratory Results Interpreted: 09/23/20 09/23/20 09/23/20 13:44 13:44 15:06 RDW Sodium 134.8 L Potassium 5.4 H Total Bilirubin 1.7 H Direct Bilirubin 0.6 H AST 279 H ALT 56 H Alkaline Phosphatase 188 H Total Protein 8.3 H Lipase 365.6 H Urine Glucose (UA) 50 H Serum Alcohol 343 H* 09/23/20 15:16 RDW 17.2 H Sodium Potassium Total Bilirubin Direct Bilirubin AST ALT Alkaline Phosphatase Total Protein Lipase Urine Glucose (UA) Serum Alcohol - EKG Interpretation by Me Additional EKG results interpreted by me: 09/23/20 14:53 Twelve-lead EKG reviewed by me contemporaneously: 1443 hrs. Indication for study: Upper abdominal pain and vomiting Rhythm: Normal sinus Rate: 79 Intervals: Normal QRS axis: +[address]/T wave changes: No acute changes Comparison with prior tracing: Since 02/19/2020 rate has slowed Interpretation: Normal tracing (TRIP GROVE) Discharge <TRIP GROVE - Last Filed: 09/23/20 15:40> <SUSIE VIDALES - Last Filed: 09/23/20 16:09> <SOUMYA ROMERO - Last Filed: 09/23/20 23:18> - Discharge Clinical Impression: Chronic alcoholism, Acute alcohol intoxication, Pancreatitis Alcoholic gastritis Qualifiers: Chronicity: unspecified Gastritis bleeding: without bleeding Qualified Code(s): K29.20 - Alcoholic gastritis without bleeding Condition: Stable Disposition: HOME, SELF-CARE Instructions: Anxiety (OM) Additional Instructions: You have been evaluated by both medical and behavioral health teams for alcohol use and anxiety. You have been deemed appropriate for discharge. While in the emergency department you received the following services/or had access to: Medic al screening and assessment, nursing services, dietary services, pharmacological services, one-on-one counseling and/or psychotherapy, environmental services, and continuous observation by a patient pilot safety inspector. Your CT scan revealed findings suggestive of early pancreatitis. These stop all alcohol use or your symptoms will worsen and you may require hospitalization. You are given prescriptions for medication for acid blockage and also nausea. Please use all medication as prescribed. Alcohol Withdrawal Your symptoms are caused by alcohol withdrawal. After a period of frequent drinking, the brain and body are changed by the alcohol. When you quit or reduce your drinking, the nervous system becomes unstable. Withdrawal symptoms can start a few hours after your last drink, but sometimes don't begin until a couple of days later. Symptoms can include shakiness, sweating, insomnia, nausea, vomiting, fearfulness, hallucinations, and seizures. In addition to the acute effects of alcohol withdrawal, we often have to deal with the medical effects of alcoholism. These problems often include dehydration, stomach irritation, intestinal bleeding, low blood sugar, liver disease, and pancreas inflammation. Treatment for alcohol withdrawal includes mild sedatives, vitamins, and fluids. You need to be with someone who can help if symptoms become severe. Many patients can withdraw at home. Admission to the hospital or a detox facility may be necessary if withdrawal symptoms are severe and uncontrollable. Abstaining from alcohol is the only effective long-term treatment. If you start drinking again, you will not be able to control yourself after the first drink. Treatment programs are available. In addition, many alcoholics benefit from Alcoholics Anonymous or other support groups available through your counselor or zoroastrianism veterinarian assistant. AL-ANON and ALA-TEEN are support groups for friends and family members of an alcoholic. Go to the emergency room if you develop persistent vomiting, severe abdominal pain, fever, shortness of breath, hallucinations, uncontrollable tremors, or seizures. Follow up care: You are currently not involved in outpatient services, but are highly recommended to begin outpatient services for additional support with sobriety. You are also recommended begin to attend AA meetings. You have been given a community outpatient referral list to include phone numbers for [facility] and [facility] mobile crisis. You were also given resource sheet for detox and substance use. In addition, a resource sheet for free online alcohol meetings that can be utilized during the pandemic/ stay at home order. You are highly recommended to abstain from alcohol use and utilize substance use resources provided to assist with sobriety. You mentioned interest in [facility], however did not plan to go today. You noted your father or girlfriend will be picking you up upon discharge. If you experience worsening or a significant change in your symptoms, notify the physician immediately, utilize mobile crisis, or return to the Emergency Department at any time for re-evaluation. Dr. Mcwilliams was consulted to care management of this patient; attending physicians in agreement with recommendations and disposition. Prescriptions: Omeprazole 40 mg PO DAILY #20 capsule. Ondansetron [Zofran Odt 4 mg Tablet] 1 - 2 tab PO Q4H PRN #15 tab.rapdis PRN Reason: For Nausea/Vomiting Referrals: [facility] [Outside] - Follow up as needed [facility] [Outside] - Follow up as needed
[2020-09-23 15:30] LABS: ABSOLUTE BASOPHILS # (AUTO) 0.1 10^3/uL (0.0-0.2); ABSOLUTE LYMPHOCYTES (AUTO) 1.2 10^3/uL (0.5-4.7); ABSOLUTE MONOCYTES (AUTO) 0.6 10^3/uL (0.1-1.4); ABSOLUTE NEUT (AUTO) 3.2 10^3/uL (1.7-8.2); BASOPHILS % (AUTO) 1.2 % (0-2); EOSINOPHILS % (AUTO) 0.4 % (0-6); HEMATOCRIT 41.4 % (37.9-51.0); HEMOGLOBIN 14.4 g/dL (13.5-17.0); LYMPHOCYTES % (AUTO) 24.4 % (13-45); MEAN CORPUSCULAR HEMOGLOBIN 31.7 pg (27.0-33.4); MEAN CORPUSCULAR HGB CONC 34.8 g/dL (32.0-36.0); MEAN CORPUSCULAR VOLUME 91 fl (80-97); MONOCYTES % (AUTO) 11.6 % (3-13); PLATELET COUNT 152 10^3/uL (150-450); RED BLOOD COUNT 4.53 10^6/uL (4.35-5.55); RED CELL DISTRIBUTION WIDTH 17.2 % (11.5-14.0); SEGMENTED NEUTROPHILS % (AUTO) 62.4 % (42-78); TOTAL CELLS COUNTED % (AUTO) 100 %; WHITE BLOOD COUNT 5.1 10^3/uL (4.0-10.5)
--- NOTE | 2020-09-23 16:09 | EKG REPORT ---
SEVERITY:- NORMAL ECG - SINUS RHYTHM : Confirmed by: Randall Hilliard MD 23-Sep-2020 16:07:52
--- NOTE | 2020-09-23 16:16 | PSYCHOLOGICAL NOTE ---
Psych Note - Psych Note Date seen by psych provider: 09/23/20 Time seen by psych provider: 15:36 Psych Note: Reason for Consult: alcohol intoxication; anxiety Consent permissions: janina Barrett, [id number] Patient is a 45 year old male who was admitted to the ED via POV for alcohol intoxication and anxiety. Patient reports drinking about 5 shots of 100 proof Blue 99 Raspberry liquor today. He states he has been drinking alcohol more recently and is taking about 6 shots a day of liquor. He reports feeling anxious when he stops drinking and states he becomes shaky and jittery. He denies outpatient services or medication management. Patient denies suicidal and homicidal ideation, plan, and intent. He denies history of inpatient hospitalizations. He denies suicide attempts. He reports going to [facility] [place] over a year ago and to [facility] in the past, about 4 months ago. Patient reports living with his girlfriend and her family. Collateral: [id number] attempted to call patients Arnold roa. No answer at this time. Patient was alert and oriented to self, person, place, time and situation. Mood was euphoric with congruent affect. He denies current suicidal and homicidal ideation, plan, and intent. Patient did not appear to be responding to internal stimuli as evidenced by fair eye contact and answering questions appropriately when addressed. Thought processes are linear and organized. Conversational speech was within normal limits for rate, tone and prosody. Intellectual abilities are estimated to be average. Insight, judgment and impulse control were fair as evidenced by recognizing when he becomes anxious and wanting to get help. Patient engages appropriately. He demonstrates future forward goal oriented thinking as he talks about interest in going back to [facility], but not today as he wants to get home for [place] with his family. Clinical Presentation: alcoholism and anxiety IVC Criteria per [place] GS 122C Dangerous to others Within the relevant past the individual No has inflicted or attempted to inflict or threatened to inflict serious bodily harm on another AND No that there is a reasonable probability that this conduct will be repeated. OR No has acted in such a way as to create a substantial risk of serious bodily harm to another AND No that there is a reasonable probability that this conduct will be repeated. OR No has engaged in extreme destruction of property AND NO that there is a reasonable probability that this conduct will be repeated. Previous episodes of dangerousness to others, when applicable, may be considered when determining reasonable probability of future dangerous conduct. Clear, cogent, and convincing evidence that an individual has committed a homicide in the relevant past is prima facie evidence of dangerousness to others. Dangerous to self Within the relevant past the individual has done any of the following: acted in such a way as to show ALL of the following: No The individual would be unable without care, supervision, and the continued assistance of others not otherwise available, to exercise self- control, judgment, and discretion in the conduct of the individual's daily responsibilities and social relations or to satisfy the individual's need for nourishment, personal or medical care, half-way, or self-protection and safety. AND No There is a reasonable probability of the individual suffering serious physical debilitation within the near future unless adequate treatment is given. A showing of behavior that is grossly irrational, of actions that the individual is unable to control, of behavior that is grossly inappropriate to the situation, or of other evidence of severely impaired insight and judgment shall create a prima facie inference that the individual is unable to care for himself or herself. OR No has attempted suicide or threatened suicide AND No that there is a reasonable probability of suicide unless adequate treatment is given OR No has mutilated himself or herself or attempted to mutilate himself or herself AND No that there is a reasonable probability of serious self-mutilation unless adequate treatment is given. NOTE: Previous episodes of dangerousness to self, when applicable, may be considered when determining reasonable probability of physical debilitation, suicide, or self-mutilation. Medication recommendations per [facility] contracted psychiatrist, Dr. Betzaida MCDANIELS, are as follows: None; medications are not reconciled. Impression\plan: Patient is cleared from psychiatric services. He was admitted to the ED for concerns of stomach pain related to alcohol use and anxiety. He denies current suicidal and homicidal ideations, plans, and intent. Patients presenting symptoms are not acute, but chronic. He reports history of alcoholism and anxiety and feeling shaky when he attempts to stop drinking. Patient was prescribed Ativan and Cogentin from [facility] in July, but was only given a couple of days worth. He was informed behavioral health would not prescribe him Ativan from the ED. Patients current alcohol level is at 343, however he was able to engage appropriately in the evaluation. He had a timer set on his phone to drink liquid from medical team at set times and asked to pause assessment to take a drink. Patient has been given community resource sheet for outpatient facilities and mobile crisis ([facility] and [facility]). He was also given substance use and detox resource sheet. In addition, he was given a resource sheet for free online alcohol meetings that can be utilized during the pandemic/ stay at home order. If symptoms return or worsen, patient is recommended to utilize mobile crisis or return to the ED. Patient states that his father, Sreekanth, or girlfriend, Arnold will be picking him up from the ED. Clinician cannot get in touch with either of them. Clinician has requested a cab voucher to nurse if nurse cannot get in touch with his father or girlfriend to confirm a ride and to be a part of discharge plan of care. Dr. Mcwilliams was consulted to care management of this patient; attending physicians in agreement with recommendations and disposition. Case management: [id number] attempted to call patients Sreekanth beckett ([phone]), to discuss discharge plan of care. No answer at this time. 1610 attempted to call patients girlfriend, Arnold ([phone]), to discuss discharge plan of care. No answer at this time. 1612 attempted to call patients Sreekanth beckett ([phone]), to discuss discharge plan of care. No answer at this time.
--- NOTE | 2020-09-23 16:21 | RADIOLOGY REPORT (SQ) ---
EXAM DESCRIPTION: CT ABD/PELVIS WITH IV ORAL IMAGES COMPLETED DATE/TIME: 09/23/2020 4:00 pm REASON FOR STUDY: abdominal pain COMPARISON: 01/01/2018 TECHNIQUE: CT scan of the abdomen and pelvis performed using helical scanning technique with dynamic intravenous contrast injection. No oral contrast. Images reviewed with lung, soft tissue, and bone windows. Reconstructed coronal and sagittal MPR images reviewed. Delayed images for evaluation of the urinary system also acquired. All images stored on PACS. All CT scanners at this facility use dose modulation, iterative reconstruction, and/or weight based d osing when appropriate to reduce radiation dose to as low as reasonably achievable (ALARA). [facility]: Dose Right [facility]: CareDose [facility]: Dose Right [facility]: Teradose 4D [facility]: Hello Music CONTRAST TYPE AND DOSE: contrast/concentration: Isovue 350.00 mmol/ml; Total Contrast Delivered: 88. 0 ml; Total Saline Delivered: 34.8 ml RENAL FUNCTION: BUN 18; creatinine 0.88 RADIATION DOSE: CT Rad equipment meets quality standard of care and radiation dose reduction techniq ues were employed. CTDIvol: 7.6 - 10.7 mGy. DLP: 959 mGy-cm.. LIMITATIONS: None. FINDINGS: LOWER CHEST: Bibasilar scarring with 8 x 4 x 11 mm nodular density associated with scar at the right lung base, unchanged. LIVER: Hepatic steatosis with relative sparing about the gallbladder fossa. No focal mass. No intra hepatic biliary dilatation. SPLEEN: Normal size. No focal lesions. PANCREAS: Inflammatory changes are seen about the tail of the pancreas without focal fluid collection . No mass. No significant calcifications. No pancreatic duct dilatation. GALLBLADDER: No identified stones by CT criteria. No inflammatory changes to suggest cholecystitis. ADRENAL GLANDS: No significant masses or asymmetry. RIGHT KIDNEY AND URETER: No solid masses. No significant calcifications. No hydronephrosis or hyd roureter. LEFT KIDNEY AND URETER: No solid masses. No significant calcifications. No hydronephrosis or hydr oureter. AORTA AND VESSELS: No aneurysm. No dissection. Renal arteries, SMA, celiac without stenosis. Inciden adele note is made of a circumaortic left renal vein. RETROPERITONEUM: No retroperitoneal adenopathy, hemorrhage or masses. BOWEL AND PERITONEAL CAVITY: Scattered colonic diverticula without focal inflammatory changes. No ob struction. No mass. APPENDIX: Normal. PELVIS: No mass. No free fluid. Normal bladder. ABDOMINAL WALL: Small fat containing umbilical and right inguinal hernias. BONES: No significant or acute findings. OTHER: No other significant finding. IMPRESSION: Findings suggest early uncomplicated pancreatitis. Other chronic and incidental finding s as detailed above. TECHNICAL DOCUMENTATION: JOB ID: [id number] Quality ID # [id number]: Final reports with documentation of one or more dose reduction techniques (e.g., Au tomated exposure control, adjustment of the mA and/or kV according to patient size, use of iterative reconstruction technique) 2010 [employer]- All Rights Reserved Reading location - IP/workstation name: [email or web address]
[2020-09-23 16:54] LABS: APPEARANCE,URINE CLEAR; BILIRUBIN,URINE NEGATIVE (NEGATIVE); COLOR,URINE YELLOW; GLUCOSE, URINE 50 mg/dL (NEGATIVE); KETONES,URINE NEGATIVE (NEGATIVE); PROTEIN,URINE NEGATIVE (NEGATIVE); URINE SPECIFIC GRAVITY 1.023; UROBILINOGEN,URINE NEGATIVE mg/dL (<2.0)
[2020-09-23 17:11] LABS: URINE AMPHETAMINES SCREEN NEGATIVE; URINE BARBITURATES SCREEN NEGATIVE; URINE BENZODIAZEPINES SCREEN NEGATIVE; URINE COCAINE SCREEN NEGATIVE; URINE MARIJUANA (THC) SCREEN NEGATIVE; URINE METHADONE SCREEN NEGATIVE; URINE PHENCYCLIDINE SCREEN NEGATIVE
[2020-09-23 19:30] VITALS: BP 123/90
== END 2020-09-23 19:00 | disposition home or self-care (01) ==
LOC: ER 12:07
DX: K29.20 Alcoholic gastritis without bleeding (principal); F10.229 Alcohol dependence with intoxication, unspecified; Y90.8 Blood alcohol level of 240 mg/100 ml or more; K85.90 Acute pancreatitis without necrosis or infection, unspecified; R11.2 Nausea with vomiting, unspecified; R10.13 Epigastric pain; R10.12 Left upper quadrant pain; F41.9 Anxiety disorder, unspecified; I10 Essential (primary) hypertension; F17.210 Nicotine dependence, cigarettes, uncomplicated; Z96.89 Presence of other specified functional implants
CPT/HCPCS: 93005; 99285; 96375; 96365; 96366; 36415; 80307 ×2; 83690; 85025; 80053; 81001; 74177; 93010; J3475; J2060; J3480; C9113; J3411; J7030; J3490

== ENCOUNTER 2020-10-02 17:03 | Emergency (ER) | payer SELFPAY ==
[2020-10-02] MEDS ORDERED: NORMAL SALINE 1000 ML 1,000 ML IV ONE (18:03)
[2020-10-02] MEDS ORDERED: ONDANSETRON 4 MG TAB.RAPDIS PO ONE (18:03)
[2020-10-02] MEDS ORDERED: KETOROLAC TROMETHAMINE 60 MG/2 ML SDV IM ONE (18:07)
--- NOTE | 2020-10-02 18:10 | ER Document Report ---
ED Medical Screen (RME) - General Stated Complaint: ABDOMINAL PAIN Time Seen by Provider: 10/02/20 17:59 Notes: Patient is a 45-year-old male with a history of pancreatitis who presents emergency department with upper abdominal pain. Patient reports that he has history of pancreatitis. Continues to drink alcohol. States that he has some nausea and vomiting. Denies any hematemesis. Patient states that he was seen here on September 23 and was discharged home. He then went to [facility] and was admitted there. Exam: Soft, tender mid upper abdomen. I have greeted and performed a rapid initial assessment of this patient. A comprehensive ED assessment and evaluation of the patient, analysis of test results and completion of medical decision making process will be conducted by an additional ED providers. TRAVEL OUTSIDE OF THE [place] IN LAST 30 DAYS: No - Related Data Allergies/Adverse Reactions: No Known Allergies Allergy (Verified 07/14/20 20:34) Past Medical History - Past Medical History Cardiac Medical History: Reports: Hx Atrial Fibrillation - INTERMITTENT, INFREQUENT 1992, PAF, Hx Hypertension Pulmonary Medical History: Denies: Hx Asthma, Hx Intubation, Hx Respiratory Failure Neurological Medical History: Denies: Hx Migraine, Hx Seizures Endocrine Medical History: Denies: Hx Diabetes Mellitus Type 1, Hx Diabetes Mellitus Type 2, Hx Hyperthyroidism, Hx Hypothyroidism Renal/ Medical History: Denies: Hx Peritoneal Dialysis GI Medical History: Reports: Hx Cirrhosis - History of elevated liver enzymes, Hx Hepatitis - Alcoholic hepatitis. Denies: Hx Crohn's Disease, Hx Gastroes ophageal Reflux Disease, Hx Hiatal Hernia, Hx Ulcerative Colitis Musculoskeltal Medical History: Denies Hx Arthritis, Denies Hx Gout, Reports Hx Musculoskeletal Trauma Skin Medical History: Denies Hx Eczema, Denies Hx Psoriasis Psychiatric Medical History: Reports: Hx Anxiety Denies: Hx Depression, Hx Schizophrenia Traumatic Medical History: Reports: Hx Fractures Infectious Medical History: Reports: Hx Hepatitis - Alcoholic hepatitis Past Surgical History: Reports: Hx Abdominal Surgery - hernia, Hx Orthopedic Surgery - left lower extremity - Immunizations Immunizations up to date: Yes Hx Diphtheria, Pertussis, Tetanus Vaccination: Yes Physical Exam - Vital signs Vitals: Temp Pulse Resp BP Pulse Ox 98.4 F 132 H 16 158/120 H 97 10/02/20 17:24 10/02/20 17:24 10/02/20 17:24 10/02/20 17:24 10/02/20 17:24 Course - Vital Signs Vital signs: Temp Pulse Resp BP Pulse Ox 98.4 F 132 H 16 158/120 H 97 10/02/20 17:24 10/02/20 17:24 10/02/20 17:24 10/02/20 17:24 10/02/20 17:24
[2020-10-02 18:30] LABS: APPEARANCE,URINE CLEAR; BILIRUBIN,URINE NEGATIVE (NEGATIVE); COLOR,URINE YELLOW; GLUCOSE, URINE NEGATIVE (NEGATIVE); KETONES,URINE NEGATIVE (NEGATIVE); LEUKOCYTE ESTERASE,URINE NEGATIVE (NEGATIVE); NITRITE,URINE NEGATIVE (NEGATIVE); PROTEIN,URINE 30 mg/dL (NEGATIVE); URINE SPECIFIC GRAVITY 1.026; UROBILINOGEN,URINE NEGATIVE mg/dL (<2.0)
[2020-10-02 19:19] LABS: ABSOLUTE BASOPHILS # (AUTO) 0.1 10^3/uL (0.0-0.2); ABSOLUTE LYMPHOCYTES (AUTO) 1.3 10^3/uL (0.5-4.7); ABSOLUTE NEUT (AUTO) 9.6 10^3/uL (1.7-8.2); BASOPHILS % (AUTO) 0.9 % (0-2); EOSINOPHILS % (AUTO) 0.1 % (0-6); HEMATOCRIT 39.9 % (37.9-51.0); HEMOGLOBIN 13.7 g/dL (13.5-17.0); LYMPHOCYTES % (AUTO) 9.8 % (13-45); MEAN CORPUSCULAR HEMOGLOBIN 32.2 pg (27.0-33.4); MEAN CORPUSCULAR HGB CONC 34.4 g/dL (32.0-36.0); MEAN CORPUSCULAR VOLUME 94 fl (80-97); MONOCYTES % (AUTO) 15.3 % (3-13); PLATELET COUNT 489 10^3/uL (150-450); RED BLOOD COUNT 4.26 10^6/uL (4.35-5.55); RED CELL DISTRIBUTION WIDTH 16.8 % (11.5-14.0); SEGMENTED NEUTROPHILS % (AUTO) 73.9 % (42-78); TOTAL CELLS COUNTED % (AUTO) 100 %
[2020-10-02 19:38] LABS: ALBUMIN 4.3 g/dL (3.5-5.0); ALKALINE PHOSPHATASE 139 U/L (38-126); ANION GAP 12 (5-19); ASPARTATE AMINO TRANSFERASE 134 U/L (17-59); BILIRUBIN,DIRECT 0.3 mg/dL (0.0-0.4); BILIRUBIN,TOTAL 0.6 mg/dL (0.2-1.3); BLOOD UREA NITROGEN 15 mg/dL (7-20); CALCIUM 9.6 mg/dL (8.4-10.2); CARBON DIOXIDE 21 mmol/L (22-30); CHLORIDE 98 mmol/L (98-107); GLUCOSE 127 mg/dL (75-110); POTASSIUM 5.2 mmol/L (3.6-5.0); TOTAL PROTEIN 8.5 g/dL (6.3-8.2)
[2020-10-02 19:39] LABS: ALCOHOL < 10 mg/dL (NONE DETECTED)
[2020-10-02] MEDS ORDERED: ONDANSETRON HCL INJ/PF 4 MG/2 ML SDV IV ONE (23:23)
[2020-10-03] MEDS ORDERED: NORMAL SALINE 1000 ML 1,000 ML IV ONE (01:36)
--- NOTE | 2020-10-03 01:37 | ER Document Report ---
ED GI/ - General Chief Complaint: Abdominal Pain Stated Complaint: ABDOMINAL PAIN Time Seen by Provider: 10/02/20 17:59 Mode of Arrival: Ambulatory Information source: Patient Notes: 45-year-old male presented to ED for complaint of abdominal pain. He was seen in the emergency room on 23 September. He was diagnosed with early pancreatitis that was noncomplicated and discharged home. He states he went to [facility] the next day and stayed there for 4 days being discharged home on 29 September. He states he did drink several drinks a couple days ago and the pain returned this morning. He did come to the emergency room his lipase is 169 and he is a little dry. I will give him another liter of fluids and if he is still feeling okay I will discharge him home again. I did discuss with with Dr. Barros. Constitutional: Negative for fever. HENT: Negative for sore throat. Eyes: Negative for visual changes. Cardiovascular: Negative for chest pain. Respiratory: Negative for shortness of breath. Gastrointestinal: He developed upper abdominal pain with some nausea and vomi ting. He states it was not vomiting any blood. States actually his abdominal pain is getting much better at this time. He did admit to having 2-3 drinks yesterday. He states he knows that this is probably why his abdomen was hurting again. Genitourinary: Negative for dysuria. Musculoskeletal: Negative for back pain. Skin: Negative for rash. Neurological: Negative for headaches, weakness or numbness. 10 point ROS negative except as marked above and in HPI. VITAL SIGNS: Within normal limits. GENERAL: No acute distress, non-toxic appearance. HEAD: Normal with no signs of head trauma. EYES: PERRLA, EOMI, conjunctiva normal, no discharge. EARS: Hearing grossly intact. NOSE: Normal. THROAT: Oropharynx is normal. NECK: Normal range of motion, no tenderness, supple, no lymphadenopathy, No adenopathy, no JVD. CHEST: Clear breath sounds bilaterally. No wheezes, rales, or rhonchi. CARDIAC: Regular rate and rhythm. S1 and S2, without murmurs, gallops, or rubs. VASCULAR: No Edema. Peripheral pulses normal and equal in all extremities. ABDOMEN: Normal and soft with no tenderness, no masses or pulsatile masses. GASTROINTESTINAL: Bowel sounds normal abdomen soft minimal tenderness at this time. He states it is much better than it was earlier GENITOURINARY: Normal, No tenderness LYMPATHTIC: No lymphadenopathy noted. MUSCULOSKELETAL: Good range of motion of all major joints. Extremities without clubbing, cyanosis or edema. NEUROLOGICAL: Alert and oriented x 3. No focal sensory or strength deficits. Speech normal. Follows commands appropriately. PSYCHIATRIC: Normal Affect, judgement and mood. SKIN: Normal appearance with no rashes or lesions. TRAVEL OUTSIDE OF THE [place] IN LAST 30 DAYS: No - HPI Patient complains to provider of: Abdominal pain, Vomiting Onset: Other - See above Timing/Duration: Intermittent Quality of pain: Achy Severity at maximum: Moderate Severity in ED: None Pain Level: 0 Location: Epigastric Associated symptoms: Nausea, Vomiting Exacerbated by: Other - Drinking alcohol Relieved by: Denies Similar symptoms previously: Yes Recently seen / treated by doctor: Yes - Related Data Allergies/Adverse Reactions: No Known Allergies Allergy (Verified 07/14/20 20:34) Home Medications: metoprolol, amlodipine, clonidine Past Medical History - General Information source: Patient - Social History Smoking Status: Never Smoker Chew tobacco use (# tins/day): No Frequency of alcohol use: Heavy Drug Abuse: None Family History: Hypertension Patient has suicidal ideation: No Patient has homicidal ideation: No - Past Medical History Cardiac Medical History: Reports: Hx Atrial Fibrillation - INTERMITTENT, INFREQUENT 1992, , Hx Hypertension Pulmonary Medical History: Reports: None EENT Medical History: Reports: None Neurological Medical History: Reports: None Endocrine Medical History: Reports: None Renal/ Medical History: Reports: None Malignancy Medical History: Reports None GI Medical History: Reports: Hx Cirrhosis - History of elevated liver enzymes, Hx Hepatitis - Alcoholic hepatitis, Hx Pancreatitis Musculoskeletal Medical History: Reports Hx Musculoskeletal Trauma Skin Medical History: Reports None Psychiatric Medical History: Reports: Hx Anxiety Traumatic Medical History: Reports: Hx Fractures - Rest Infectious Medical History: Reports: Hx Hepatitis - Alcoholic hepatitis Past Surgical History: Reports: Hx Inguinal Hernia, Hx Orthopedic Surgery - Puncture wound infected left foot - Immunizations Immunizations up to date: No Hx Diphtheria, Pertussis, Tetanus Vaccination: No History of Pneumococcal Vaccine: No History of Influenza Vaccine for 06/2019 - 11/2019 Season: No Physical Exam - Vital signs Vitals: Temp Pulse Resp BP Pulse Ox 98.4 F 132 H 16 158/120 H 97 10/02/20 17:24 10/02/20 17:24 10/02/20 17:24 10/02/20 17:24 10/02/20 17:24 Course - Re-evaluation Re-evalutation: 10/03/20 03:59 Patient was treated with IV fluids due to his mild dehydration. He states he is in absolutely no pain at this time. He states he is not having any nausea. He states he knows that his pain was from his drinking alcohol with his pancreatitis. He states he knows that he needs to stay away from the alcohol and he will be discharged home. - Vital Signs Vital signs: Temp Pulse Resp BP Pulse Ox 98.4 F 132 H 15 118/91 H 98 10/02/20 17:24 10/02/20 17:24 10/03/20 04:01 10/03/20 04:00 10/03/20 04:01 - Laboratory Results Result Diagrams: 10/02/20 19:00 10/02/20 19:00 Laboratory Results Interpreted: 10/02/20 10/02/20 10/02/20 18:00 19:00 19:00 WBC 13.0 H RBC 4.26 L RDW 16.8 H Plt Count 489 H Lymph % (Auto) 9.8 L [place] % (Auto) 15.3 H Absolute Neuts (auto) 9.6 H Absolute Monos (auto) 2.0 H Sodium 130.6 L Potassium 5.2 H Carbon Dioxide 21 L Glucose 127 H AST 134 H ALT 54 H Alkaline Phosphatase 139 H Total Protein 8.5 H Urine Protein 30 H Urine Blood SMALL H Critical Laboratory Results Reviewed: No Critical Results - Radiology Results Critical Radiology Results Reviewed: No Critical Results Discharge - Discharge Clinical Impression: Alcohol abuse Pancreatitis Qualifiers: Chronicity: chronic Pancreatitis type: alcohol induced Qualified Code(s): K86.0 - Alcohol-induced chronic pancreatitis Condition: Stable Disposition: HOME, SELF-CARE Additional Instructions: Pancreatitis Pancreatitis is an inflammation of the pancreas, an organ at the back of your abdomen. The pancreas produces insulin and enzymes that digest your food. Pancreatitis can be caused by gallstones in the bile duct, by alcohol or viruses, or by excess fat or calcium in the blood stream. Occasionally, pancreatitis occurs when a stomach ulcer finnegan through into the pancreas. We try to find the cause of pancreatitis, but some tests can't be done until the pancreas heals. The usual symptoms of pancreatitis are pain in the pit of the stomach that goes straight through to the back, vomiting, and low-grade fever. Severe cases require hospital admission, but many patients with mild pancreatitis do well at home. You will probably need medicine for pain and for vomiting. Sometimes we prescribe medicine to decrease stomach acid secretion and to decrease flow of pancreatic juices. Start with a diet of clear liquids (soda pop, juices). When the pain is decreasing, you can add some simple starches (potato, toast, applesauce). Avoid proteins and fats until you are completely painfree. When you're better, your doctor may suggest treatment to prevent future pancreatitis (such as gallbladder removal). Avoid alcohol forever. Get immediate treatment for any future episodes. Contact your doctor at once or return here if you have increasing pain, shortness of breath, general swelling, increasing size of the abdomen, continued vomiting, muscle spasms, or other new symptoms. Intravenous (IV) Fluids As part of your care today, you received intravenous (IV) fluids. IV fluids are administered to patients who are dehydrated or to those who have certain chemical (electrolyte) abnormalities that need correcting. Antinausea Medication You have been given a medication to suppress nausea and vomiting. This type of medication can be given as a shot, pill, or suppository. It will usually last for many hours. Pills and shots usually last six to eight hours, suppositories last about 12 hours. For the typical illness, only one or two doses of the medication may be necessary. Mild lightheadedness may occur. This type of medicine can cause drowsiness. Do not drive or operate dangerous machinery while under its influence. Do not mix with alcohol. See your doctor at once if you have muscle spasms or tightness, or uncontrollable motions (particularly of the neck, mouth, or jaw). Persistent vomiting or severe lightheadedness should also be evaluated by the physician. Toradol Injection You have been given an injection of ketorolac tromethamine (Toradol). This is an excellent, safe drug for pain control. It also has potent antiinflammatory action. You should have significant pain relief within about one hour. Toradol is not addicting and is non-sedating. It does not interfere with driving or work. Call or return if you develop itching, hives, shortness of breath, or rash. FOLLOW-UP CARE: If you have been referred to a physician for follow-up care, call the physicians office for an appointment as you were instructed or within the next two days. If you experience worsening or a significant change in your symptoms, notify the physician immediately or return to the Emergency Department at any time for re-evaluation. Prescriptions: Ondansetron [Zofran Odt 4 mg Tablet] 1 tab PO Q6H #7 tab.rapdis Forms: Elevated Blood Pressure
[2020-10-03 04:25] VITALS: BP 118/91
== END 2020-10-03 04:33 | disposition home or self-care (01) ==
LOC: ER 17:03
DX: K86.0 Alcohol-induced chronic pancreatitis (principal); F10.10 Alcohol abuse, uncomplicated; R10.10 Upper abdominal pain, unspecified; R11.2 Nausea with vomiting, unspecified; I48.91 Unspecified atrial fibrillation; I10 Essential (primary) hypertension
CPT/HCPCS: 99284; 96372; 96361; 96374; 36415; 80307; 83690; 85025; 80053; 81001; J2405; J7030 ×2